=== PATIENT | male | born 1945 | race Caucasian/White ===

== ENCOUNTER 2018-12-11 07:01 | Emergency (ER) | payer OTHER, MEDICAID, SELFPAY ==
[2018-12-11 07:00] VITALS: BP 155/115; PULSE 79; RESP 16; TEMP 37.1; O2SAT 96
--- NOTE | 2018-12-11 07:21 | DI.CT_ITS ---
SYMPTOM/DIAGNOSIS: RT HIP AND THIGH PAIN, NUMBNESS LUMBAR SPINE AND SI JOINTS CT: The study was carried out without contrast enhancement. Narrowed vacuum discs are noted at L 1-2, L 2-3, L 3-4 and L 4-5 and L 5-S 1. There are associated degenerative endplate changes with sclerosis and hypertrophic spurring. There is multi level disc osteophyte prominence. There is some bony foraminal compromise at L 2-3, L 3-4 and L 4-5 and L 5-S 1. 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 The posterior elements appear intact. There are moderate degenerative changes involving the SI joints. There is no evidence of a sacral fracture. Incidental note is made of atherosclerotic changes involving the aorta without evidence of an aneurysm. SUMMARY: Extensive degenerative changes involving the lumbar spine are demonstrated and there is DJD involving the SI joints. There is no evidence of a fracture or subluxation.
--- NOTE | 2018-12-11 07:27 | ED.GENADUL_ITS ---
Discharge Plan Disposition Patient Disposition: HOME Condition: Good Discharge Details Chief Complaint: Orthopedic Clinical Impression: Meralgia paresthetica Primary Care Provider: Ambar Claire ED Provider: Emmanuel Shah Home Meds and New Rx's Prescriptions: New gabapentin [Neurontin] 300 MG capsule 300 mg PO TID Qty: 90 RF: 0 No Action atorvastatin [Lipitor] 80 MG tablet 80 mg PO DAILY RF: 0 amlodipine 5 MG tablet 10 mg PO DAILY RF: 0 lisinopril 40 MG tablet 40 mg PO DAILY RF: 0 aspirin [Aspir-81] 81 MG tablet,delayed release (DR/EC) 81 mg PO DAILY RF: 0 metoprolol tartrate 25 MG tablet 25 mg PO DAILY RF: 0 Discharge Instructions Instructions: Leg Pain (ED) Additional Instructions: Please take medication as directed. Please avoid any tight bands on your waist, please follow-up promptly with your primary care provider. If you notice any worsening of your symptoms, or any new symptoms such as vomiting, diarrhea, fever, chills, shortness of breath, chest pain, numbness, bowel or bladder incontinence, weakness, or fainting , please return immediately to the emergency department for reevaluation. Please follow up with your primary care provider as soon as possible for reassessment and reevaluation. As always, it was a pleasure participating in your medical care today. Referrals: Ambar Claire MD [Primary Care Provider] - Medical Decision Making <Devyn Faye MD - Last Filed: 12/11/18 07:52> 73-year-old male presents the ER complaining of atraumatic right hip pain and numbness over the right thigh that began 1-2 days ago. It is worse with weightbearing. No evidence of a rash. The patient states to me no fall or injury. Patient mildly hypertensive, but otherwise exam is unremarkable with full range of motion of the affected extremity. Differential diagnosis includes sciatica, sacroiliac dysfunction, occult fracture. He is moderately obese and I felt plain radiographs would have poor penetration. Therefore, patient given Tylenol and referred for CT images. Please Dr Shah's note regarding findings and impression. <Emmanuel Shah DO - Last Filed: 12/11/18 08:37> This patient was signed out to be my my colleague Dr. Devyn Faye, pending CT scan results of his lumbar spine. Lumbar spine results were discussed with radiologist, and per radiology there is no acute fracture or acute process, there is notable degenerative changes throughout, but no evidence of significant cord compression pathology or fracture. A post void bladder scan was performed and the patient had 50 cc, no signs of urinary retention. I did go in and reassessed the patient myself, and he demonstrates a normal neurologic exam with no signs of saddle anesthesia, weakness, or significant reflex deficit. He does have subjective tingling over the anterior lateral aspect of his right thigh, consistent with meralgia paresthetica which I feel is most likely secondary to his notable pannus pulling down and applying pressure to his anterior thigh. There may be a component of sciatica, radiculopathy however I feel this less likely on my clinical exam now, especially in light of no acute findings noted on CT scan and in addition with no clinical evidence of cord compression syndrome, or significant neurologic deficit. Continue to recommend to the patient the importance of weight loss, no tight bands on the waist, and close follow-up with PCP for continued outpatient management. We will start gabapentin for improvement of his symptoms, however I made it clear to the patient that this was not the solution to the problem. I have extensively reviewed the treatment plan and discharge instructions with the patient and their family. I have addressed all patient concerns at this time. The patient and family was made aware of what symptoms to monitor for that would warrant a return to the emergency department. Discussed the plan with the patient and family, they demonstrate verbal understanding and agreement with our assessment and plan at this time. HPI <Devyn Faye MD - Last Filed: 12/11/18 07:52> General Mode of arrival: EMS . Date/Time Provider Initiated Documentation: 12/11/18 07:15 . Limitations to Documentation: no limitations . Information obtained by: patient and EMS . History of Present Illness 73 year old M presents to the emergency department with the chief complaint of Right hip pain and numbness, described as moderate, Quality is described as aching, dull and constant, and is localized to the right and lower extremity. Patient reports no radiation. Patient started experiencing this hour(s) and it has been constant. No relieving factors improve symptom(s), No exacerbating factors reported . Patient notes no other symptoms.. Patient did receive the following treatments prior to arrival, none Related Data Home Medications Medication Instructions Recorded Confirmed amlodipine 10 mg PO DAILY 10/22/13 12/11/18 atorvastatin [Lipitor] 80 mg PO DAILY 10/22/13 12/11/18 lisinopril 40 mg PO DAILY 10/22/13 12/11/18 aspirin [Aspir-81] 81 mg PO DAILY 12/09/13 12/11/18 metoprolol tartrate 25 mg PO DAILY 06/10/14 12/11/18 gabapentin [Neurontin] 300 mg PO TID #90 cap 12/11/18 Previous Rx's Medication Instructions Recorded gabapentin [Neurontin] 300 mg PO TID #90 cap 12/11/18 Allergies Allergy/AdvReac Type Severity Reaction Status Date / Time hydrochlorothiazide AdvReac gout Unverified 12/11/18 07:06 General Stated Complaint: Orthopedic SYEDA: 4 Review of Systems <Devyn Faye MD - Last Filed: 12/11/18 07:52> Review of Systems Denies fall. No rash. 6 systems reviewed and otherwise negative PFSH <Devyn Faye MD - Last Filed: 12/11/18 07:52> Medical History Biliary colic symptom Heart attack Hyperlipidemia Hypertension Morbid obesity with BMI of 45.0-49.9, adult Surgical History Angiogram Cholecystectomy Family History Other Essential hypertension Heart disease Social History Smoking/Tobacco Use Status: Former Tobacco Use Alcohol Intake: former Drug use: Never Do you feel safe at home: Yes Do you feel safe in your relationship?: Yes Exam <Devyn Faye MD - Last Filed: 12/11/18 07:52> Narrative Exam Narrative: GEN: awake, alert, oriented 3. Pleasant, well groomed, interactive. HEAD: Normocephalic, atraumatic ENT: Mucous membranes moist, oropharynx unremarkable, External ear exam unremarkable EYES: PERRL, EOMI NECK: Full ROM, no ALINA, no menigismus CHEST/RESP: Nontender, clear to auscultation bilateral, no wheeze/rhonchi/rales CARDIOVASCULAR: RRR, no murmur, rub lora. 2+ Rad pulse bilateral ABDOMEN: Soft, nontender, no mass. +Bowel sounds. Obese. EXT: Full ROM, no edema, no rash. Motor 5 out of 5. No pain on palpation. Internal and external rotation of the lower extremity is within normal limits. Sensation intact throughout. Neuro: Grossly normal neurologic exam, conversant, interactive. Psych: Speech fluent, thoughts congruent, affect normal Course <Devyn Faye MD - Last Filed: 12/11/18 07:52> Vital Signs Temperature 37.1 C 12/11/18 07:00 Pulse 79 12/11/18 07:00 Respiratory Rate 16 12/11/18 07:00 Blood Pressure 155/115 H 12/11/18 07:00 Pulse Oximetry 96 12/11/18 07:00 Temperature 37.1 C 12/11/18 07:00 Temperature Source Temporal Artery Scan 12/11/18 07:00 Pulse 79 12/11/18 07:00 Respiratory Rate 16 12/11/18 07:00 Respiratory Effort Non-Labored 12/11/18 07:05 Blood Pressure 155/115 H 12/11/18 07:00 Blood Pressure Position Sitting 12/11/18 07:00 Pulse Oximetry 96 12/11/18 07:00 Oxygen Delivery Method Room Air 12/11/18 07:00 Oxygen Flow Rate 0 12/11/18 07:00 Pain Level 10 12/11/18 07:00
[2018-12-11] MEDS: Acetaminophen 500 MG TAB 1000 MG PO (07:32)
--- NOTE | 2018-12-11 10:31 | PDOC.ERCMPRO ---
Care Management Progress Note 12/11-Iker requested assistance with calling [employer] for transportation home. Called [employer], [phone], and she stated she was going to have a neighbor come and pick up driver Iker. Neighbor is on his way. This CM notified VIVIAN Parks of the above. Iker will be in the waiting room.
--- NOTE | 2018-12-11 10:33 | CMPROGNOTE_ITS ---
Care Management Progress Note 12/11-Iker requested assistance with calling [employer] for transportation home. Called [employer], [phone], and she stated she was going to have a neighbor come and picking machine operator Iker. Neighbor is on his way. This CM notified VIVIAN Parks of the above. Iker will be in the waiting room.
== END 2018-12-11 08:50 | disposition home or self-care (01) ==
PROVIDERS: Emergency Provider Student in an Organized Health Care Education/Training Program; PCP Family Medicine
DX: G57.11 Meralgia paresthetica, right lower limb (principal); I10 Essential (primary) hypertension
CPT/HCPCS: 99284; 72131

== ENCOUNTER 2019-02-26 11:04 | Outpatient (REF) | payer OTHER, MEDICAID, SELFPAY ==
[2019-02-26 12:56] LABS: HCT 43.6 % (40.0-50.0); HGB 14.4 g/dL (13.5-17.5); Mean Corpuscular Hemoglobin 30.7 pg (27.0-33.0); Mean Platelet Volume 10.9 fL (8.0-11.0); Platelet Count 234 x1000/uL (130-400); RBC 4.69 m/cumm (4.50-6.00); RBC Distribution Width 14.1 % (11.8-14.1); White Blood Cell Count 8.05 k/cumm (4.4-10.8)
[2019-02-26 13:20] LABS: Hemoglobin A1C 5.6 % (4.5-6.2)
[2019-02-26 14:23] LABS: ALT 29 U/L (12-78); AST 18 U/L (15-37); Albumin 3.7 g/dL (3.4-5.0); Alkaline Phosphatase 106 U/L (46-116); BUN 21 mg/dL (7-18); Calcium 8.8 mg/dL (8.5-10.1); Chloride 104 mmol/L (98-107); Ferritin 234 ng/mL (8-388); Folate 12.4 ng/mL (8.6-20.0); Glucose 108 mg/dL (70-100); Potassium 4.1 mmol/L (3.5-5.1); Sodium 140 mmol/L (136-145); Total Protein 7.2 g/dL (6.4-8.2); Vitamin B12 227 pg/mL (193-986)
[2019-02-26 14:37] LABS: Bilirubin, Total 0.9 mg/dL (0.2-1.0); Uric Acid 9.7 mg/dL (3.5-7.2)
== END 2019-02-26 11:24 ==
LOC: NCHCN 11:04
PROVIDERS: PCP Family Medicine; Visit Provider Family Medicine
DX: I10 Essential (primary) hypertension (principal); I25.10 Atherosclerotic heart disease of native coronary artery without angina pectoris; R73.03 Prediabetes; R79.89 Other specified abnormal findings of blood chemistry; M10.9 Gout, unspecified; E66.01 Morbid (severe) obesity due to excess calories
CPT/HCPCS: 80053; 85027; 82607; 82728; 82746; 83036; 84550

== ENCOUNTER 2020-07-13 11:37 | Emergency (ER) | payer OTHER, MEDICAID, SELFPAY ==
[2020-07-13] VITALS (8 sets, daily range): BP systolic 174–182; BP diastolic 90–101; PULSE 69–81; RESP 10–20; TEMP 36.3–36.7; O2SAT 93–96
--- NOTE | 2020-07-13 11:45 | RT.EKG_ITS ---
APPROVED REPORT Exam: Resting ECG Patient Location: E HR:74 bpm ECG Measurements Heart Rate 74 AXIS OH 184 P 42 QRSd 109 QRS 8 QT 428 T 68 QTc 474 Conclusion Sinus rhythm...normal P axis, V-rate 60- 99 Ventricular premature complex Incomplete left bundle branch block..
--- NOTE | 2020-07-13 11:57 | ED.GENADUL_ITS ---
Discharge Plan Disposition Patient Disposition: HOME Condition: Improving Discharge Details Clinical Impression: Osteoarthritis of left knee Primary Care Provider: Ambar Claire ED Provider: Devyn Faye Home Meds and New Rx's Prescriptions: New diclofenac sodium 3 % gel 1 applic topical BID PRN (Reason: knee pain) Qty: 100 RF: 0 Continued atorvastatin [Lipitor] 80 MG tablet 80 mg PO DAILY RF: 0 amlodipine 5 MG tablet 10 mg PO DAILY RF: 0 lisinopril 40 MG tablet 40 mg PO DAILY RF: 0 aspirin [Aspir-81] 81 MG tablet,delayed release (DR/EC) 81 mg PO DAILY RF: 0 metoprolol tartrate 25 MG tablet 25 mg PO DAILY RF: 0 cyanocobalamin (vitamin B-12) [Vitamin B-12] 1,000 mcg tablet 1,000 mcg PO DAILY RF: 0 Discharge Instructions Instructions: Osteoarthritis (ED), Arthritis (ED) Additional Instructions: May use the prescribed diclofenac cream twice daily to left knee for pain as needed. Tylenol 650 mg every 6 hours as needed for pain. Please follow-up with physical therapy as prescribed. We will refer you to the orthopedic clinic for follow-up and consultation. Your name has gone on the follow-up list, please call the office in the next few days at [phone], for a follow-up appointment time. Return to the emergency department for any acute concerns. Stand Alone Forms: Physical Therapy Referral Medical Decision Making 74-year-old male presents from home via EMS. He notes days of left knee pain that radiates down the lateral aspect of his leg, so worse with ambulation. He has been using a walker at home. He is not fallen or injured himself in any way. He is not had any fever or erythema. He arrives poorly kempt, obese, with note of BP 174/95 while in pain. He does not have back pain and does not describe a traumatic injury. Differential diagnosis would include Bowling's cyst, must exclude DVT, osteoarthritic changes. Patient given analgesia and referred for x-ray and ultrasound. Ultrasound without evidence of DVT. X-ray with osteoarthritis. Patient notes no further pain. He was evaluated in the emergency department by physical therapy and able to ambulate with wheeled walker, with good heel strike. Will trial diclofenac topical cream as well as Tylenol at home for pain. I will prescribe physical therapy for the patient. We will refer to orthopedics for consultation as there may be consideration for joint replacement should his ability to ambulate without pain worsen. HPI General Mode of arrival: EMS . Date/Time Provider Initiated Documentation: 07/13/20 11:56 . Limitations to Documentation: no limitations . Information obtained by: patient and EMS . History of Present Illness 74 year o ld M presents to the emergency department with the chief complaint of Left knee pain 4 days time, described as moderate, Quality is described as dull, and is localized to the left and lower extremity. Patient reports no radiation. Patient started experiencing this day(s) and it has been constant. Rest improves symptom(s), Other factors that worsen symptoms (Walking) . Patient notes other (No new weakness, no fall, denies chest pain or trouble breathing.). Patient did receive the following treatments prior to arrival, none Related Data Home Medications Medication Instructions Recorded Confirmed amlodipine 10 mg PO DAILY 10/22/13 07/13/20 atorvastatin [Lipitor] 80 mg PO DAILY 10/22/13 07/13/20 lisinopril 40 mg PO DAILY 10/22/13 07/13/20 aspirin [Aspir-81] 81 mg PO DAILY 12/09/13 07/13/20 metoprolol tartrate 25 mg PO DAILY 06/10/14 07/13/20 cyanocobalamin (vitamin B-12) 1,000 mcg PO DAILY 07/13/20 07/13/20 [Vitamin B-12] diclofenac sodium 1 applic TOPICAL BID PRN #100 g 07/13/20 Previous Rx's Medication Instructions Recorded diclofenac sodium 1 applic TOPICAL BID PRN #100 g 07/13/20 Allergies Allergy/AdvReac Type Severity Reaction Status Date / Time hydrochlorothiazide AdvReac gout Unverified 07/13/20 12:00 General Stated Complaint: GenMedical SYEDA: 3 Review of Systems Narrative: 6 systems reviewed and otherwise negative [facility] Medical History (Updated 07/13/20 @ 13:46 by Devyn Faye MD) Biliary colic symptom Heart attack Hyperlipidemia Hypertension Morbid obesity with BMI of 45.0-49.9, adult Surgical History Angiogram Cholecystectomy open Family History Other Essential hypertension Heart disease Social History Smoking/Tobacco Use Status: Former Tobacco Use Smoking risk assessment performed?: Yes Alcohol Intake: former Drug use: Never Do you feel safe at home: Yes Do you feel safe in your relationship?: Yes Exam Narrative Exam Narrative: GEN: awake, alert, oriented 3. Poorly groomed, obese, interactive. HEAD: Normocephalic, atraumatic ENT: Mucous membranes moist, oropharynx unremarkable, External ear exam unremarkable EYES: PERRL, EOMI NECK: Full ROM, no ALINA, no menigismus CHEST/RESP: Nontender, clear to auscultation bilateral, no wheeze/rhonchi/rales CARDIOVASCULAR: RRR, no murmur, rub lora. 2+ Rad pulse bilateral ABDOMEN: Soft, nontender, large right ventral hernia, reducible. +Bowel sounds EXT: Full ROM, no edema, no rash. Minimal tenderness to palpation of the left knee, no laxity. Unremarkable exam of the hips. Neuro: Grossly normal neurologic exam, conversant, interactive. Psych: Speech fluent, thoughts congruent, affect normal Course Vital Signs Vital signs: Vital Signs Temperature 36.3 C L 07/13/20 11:38 Pulse 81 07/13/20 11:38 Respiratory Rate 20 07/13/20 11:38 Pulse Oximetry 96 07/13/20 11:38 Temperature 36.3 C L 07/13/20 11:38 Temperature Source Skin 07/13/20 11:38 Pulse 81 07/13/20 11:38 Respiratory Rate 20 07/13/20 11:38 Blood Pressure Position Sitting 07/13/20 11:38 Pulse Oximetry 96 07/13/20 11:38 Oxygen Delivery Method Room Air 07/13/20 11:38 Oxygen Flow Rate 0 07/13/20 11:38 Comment 07/13/20 11:38
--- NOTE | 2020-07-13 12:00 | DI.US_ITS ---
EXAM: US LOWER EXTREMITY VENOUS LT CLINICAL HISTORY: Lateral and posterior pain TECHNIQUE: Left lower extremity venous ultrasound performed using grayscale, color-flow, and spectra l Doppler analysis. COMPARISON: No exams were available for comparison FINDINGS: The left common femoral, femoral and popliteal veins demonstrate normal compressibility, augmentation , and color Doppler. The posterior tibial veins are patent. The saphenofemoral junction is unremarka ble. There is no evidence of a Bowling cyst. The soft tissues are unremarkable. IMPRESSION: No DVT. DATA REPOSITORY:
[2020-07-13] MEDS: Ketorolac 15 MG/ML VIAL IVP (12:07)
[2020-07-13] MEDS: Methocarbamol 500 MG TAB 1000 MG PO (12:08)
--- NOTE | 2020-07-13 12:46 | DI.RAD_ITS ---
EXAM: XR KNEE LT 3V AP,LAT,JERRY CLINICAL HISTORY: Lateral and posterior pain. TECHNIQUE: 2D digital imaging was performed. COMPARISON: CR ABD FLAT UPRIGHT PA CHEST from 06/12/2014 FINDINGS: Moderate degenerative changes are seen in the left knee characterized by joint space narrowing subcho ndral sclerosis and periarticular spurring. The findings are most marked in the medial femoral tibia l joint space. No acute fracture or dislocation. There is a small joint effusion. Vascular calcifi cations are present. IMPRESSION: Moderate degenerative changes of the left knee. DATA REPOSITORY: RADIATION DOSE DELIVERED:
--- NOTE | 2020-07-13 13:27 | PT.INIE ---
Date of service: 07/13/20 Time of Service: 13:27 PT Notes Visit Reasons: LUL Physical Therapy Inpatient Initial Evaluation Date: 07/13/2020 Referring Doctor: Devyn Faye MD PT Orders: PT CONSULT: Safety consult for DC. Obese, left knee pain, walker at home Precautions: Fall. Standard. Activity as tolerated. Patient Profile/Admitting Diagnosis: Iker is a 74-year-old male who presented to the ED via EMS today with chief complaints of left knee pain radiating down the lateral aspect of his leg and is worse with ambulation. Ultrasound testing ruled out DVT. Referral for PT was sent for safety assessment for discharge PMHX: Medical History (Updated 07/13/20 @ 13:46 by Devyn Faye MD) Biliary colic symptom Heart attack Hyperlipidemia Hypertension Morbid obesity with BMI of 45.0-49.9, adult Surgical History Angiogram Cholecystectomy open Social History/Home Situation: Lives alone in an apartment with 2 steps to enter with rails on both sides. Independent with all mobility ADL performance using a bariatric front wheeled walker. Receives no assistance at home. States that he has had no falls in the past 12 months. Equipment Owned/DME: Bariatric front wheeled walker Subjective: Reports no pain in the left knee at rest and with ambulation activity. Dr. Faye stated that that he has given the patient pain medication earlier. Reports no numbness nor tingling in the left lower extremities. Objective: General Observation: Supine in bed. Obese. Protuberant abdominal area. Mental Status: Alert and oriented x3 Pain: None reported ROM: Right Upper Extremity: Shoulder Flexion WFL. Shoulder abduction WFL. Elbow flexion WFL. Wrist flexion WFL. Opening and closing of hand WFL. Left Upper Extremity: Shoulder Flexion WFL. Shoulder abduction WFL. Elbow flexion WFL. Wrist flexion WFL. Opening and closing of hand WFL. Right Lower Extremity: Hip flexion WFL. Hip abduction WFL. Knee flexion WFL. Ankle dorsiflexion WFL. Ankle plantarflexion WFL. Left Lower Extremity: Hip flexion WFL. Hip abduction WFL. Knee flexion WFL. Ankle dorsiflexion WFL. Ankle plantarflexion WFL. Strength: Right Upper Extremity: Shoulder flexors 5/5. Shoulder abductors 5/5. Elbow flexors 5/5. Elbow extensors 5/5. Driver Courier strong. Left Upper Extremity: Shoulder flexors 5/5. Shoulder abductors 5/5. Elbow flexors 5/5. Elbow extensors 5/5. Driver Courier strong. Right Lower Extremity: Hip flexors 5/5. Hip abductors 5/5. Knee flexors 5/5. Knee extensors 5/5. Ankle dorsiflexors 5/5. Ankle plantarflexors 5/5. Left Lower Extremity:Hip flexors 5/5. Hip abductors 5/5. Knee flexors 5/5. Knee extensors 5/5. Ankle dorsiflexors 5/5. Ankle plantarflexors 5/5. Sensation: Intact as to pain and pressure on bilateral lower extremities. Bed Mobility/Transfers: Supine to sit able to pull from PT's and doctor's hands on each side to sit up Sit to stand standby assist Stand to sit standby assist Bed to chair standby assist Chair to bed standby assist Gait: 100 feet using bariatric front wheeled walker with standby assist without report of any discomfort in the left knee. Azeem did present with decreased knee flexion during pushoff and swing phase of gait. Balance: Static Sitting: Normal Dynamic Sitting: Normal Static Standing: Fair fair Dynamic Standing: Special Tests: Mobility Limitations Standardized Measure [facility] 6 clicks Basic Mobility Inpatient Short Form: Raw Score: 23 CMS Score: 11% deficit Informed Consent/Education: Patient instructed in purpose of PT consult and plan of care. Assessment: Iker has responded well to pain medication given by Dr. Faye earlier and no longer reported any pain nor discomfort in the left knee during mobility testing and ambulation activity with this PT. He may go home to continue using his front wheeled walker for all mobility ADL performance for safety. He may benefit from outpatient physical therapy services in order to progress mobility level and maximize community ambulation. Patient presents with clinical signs and symptoms consistent with current/admitting diagnoses that have resulted to mobility limitations, gait instability, generalized weakness, and impairment of motor control as demonstrated by the following impairment level findings: 1. Impaired activity tolerance Impairments are contributing to the following functional limitations: 1. Inability to safely ambulate without assistive device 2. Increase completion time for mobility ADL performance Patient is assessed as a [id number] low complexity based on the following: History: 74 [id number] with impairment level findings, functional limitations, and past medical history as indicated above Examination: Demonstrable impairment in strength, balance, and mobility level with underlying impairments and functional limitations as documented above Presentation:Evolving Decision Makin low complexity Goals: N/A. PT evaluation only. Plan of Care/Treatment Plan: N/A. PT evaluation only. DISCHARGE RECOMMENDATIONS: Out patient PT services in order to progress mobility level and maximize community ambulation. TREATMENT CODE/TIME: 9716 1 x 28 minutes beginning at 13:27 PM. Thank you for the opportunity to participate in the care of this patient. Emani Ruff PT, DPT, CLT [facility] [place], [place]
[2020-07-13] MEDS: Diclofenac 1% Gel 100 GM TUBE TP (14:33)
== END 2020-07-13 14:30 | disposition home or self-care (01) ==
LOC: ER 13:58
PROVIDERS: Emergency Provider Emergency Medicine; PCP Family Medicine
DX: M17.12 Unilateral primary osteoarthritis, left knee (principal); R26.2 Difficulty in walking, not elsewhere classified; E66.01 Morbid (severe) obesity due to excess calories; Z68.42 Body mass index [BMI] 45.0-49.9, adult; I10 Essential (primary) hypertension
CPT/HCPCS: 36415; 73562; 93005; 96374; 97162; 99285; 93010; 93971; 99284; J1885

== ENCOUNTER 2020-09-16 20:45 | Emergency (ER) | payer OTHER, MEDICAID, SELFPAY ==
[2020-09-16 20:50] VITALS: PULSE 95; RESP 18; TEMP 37.1; O2SAT 96
[2020-09-16 21:11] VITALS: BP 149/71; PULSE 91; RESP 19; O2SAT 94
[2020-09-16 21:17] VITALS: BP 144/80; PULSE 89; RESP 21; O2SAT 93
[2020-09-16 21:45] VITALS: RESP 16; O2SAT 90
[2020-09-16 21:50] LABS: Abs Immature Grans 0.03 10^3/uL (0.0-0.06); Absolute Basophil Count 0.04 10^3/uL (0.0-0.2); Absolute Eosinophil Count 0.36 10^3/uL (0.0-0.7); Absolute Lymphocyte Count 1.26 10^3/uL (1.2-3.4); Absolute Monocyte Count 0.79 10^3/uL (0.1-0.8); Absolute Neutrophil Count 6.18 10^3/uL (1.2-6.7); Basophils % 0.5; Eosinophils % 4.2; HCT 39.2 % (40.0-50.0); HGB 12.9 g/dL (13.5-17.5); Immature Grans % 0.3; Lymphocytes % 14.5; MCH 30.9 pg (27.0-33.0); MCHC 32.9 % (32.0-36.0); MPV 10.3 fL (8.0-11.0); Monocytes % 9.1; Neutrophils % 71.4; Nucleated RBC 0 %; Platelet Count 264 10^3/uL (130-400); RBC 4.17 10^6/uL (4.36-5.78); RDW 13.9 % (11.8-14.1); WBC 8.66 10^3/uL (4.4-10.8)
[2020-09-16 22:00] LABS: ALT 23 U/L (16-63); AST 14 U/L (15-37); Albumin 3.3 g/dL (3.4-5.0); Alkaline Phosphatase 98 U/L (46-116); Anion Gap 8.7 mmol/L (3-11); BUN 13 mg/dL (7-18); Bilirubin, Total 0.6 mg/dL (0.2-1.0); CO2 26.3 mmol/L (21.0-32.0); CREATININE 0.94 mg/dL (0.70-1.30); Calcium 8.6 mg/dL (8.5-10.1); Chloride 107 mmol/L (98-107); Glucose 128 mg/dL (74-106); Potassium 4.1 mmol/L (3.5-5.1); Sodium 142 mmol/L (136-145); Total Protein 7.3 g/dL (6.4-8.2)
[2020-09-16 22:26] VITALS: TEMP 37.3
[2020-09-16] MEDS: Methocarbamol 500 MG TAB 1000 MG PO (22:53)
[2020-09-16] MEDS: Methocarbamol 500 MG TAB 2000 MG PO (23:00)
--- NOTE | 2020-09-16 23:08 | W.ED.GENAD ---
Discharge Plan Disposition Patient Disposition: HOME Condition: Stable Discharge Details Clinical Impression: Leg pain Primary Care Provider: Ambar Claire ED Provider: Jaiden Whitfield Home Meds and New Rx's Prescriptions: Continued atorvastatin [Lipitor] 80 MG tablet 80 mg PO DAILY RF: 0 amlodipine 5 MG tablet 10 mg PO DAILY RF: 0 lisinopril 40 MG tablet 40 mg PO DAILY RF: 0 aspirin [Aspir-81] 81 MG tablet,delayed release (DR/EC) 81 mg PO DAILY RF: 0 metoprolol tartrate 25 MG tablet 25 mg PO DAILY RF: 0 cyanocobalamin (vitamin B-12) [Vitamin B-12] 1,000 mcg tablet 1,000 mcg PO DAILY RF: 0 diclofenac sodium 3 % gel 1 applic topical BID PRN (Reason: knee pain) Qty: 100 RF: 0 Discharge Instructions Instructions: Leg Pain (ED) Additional Instructions: At this time your laboratory values are unremarkable. You were given medication for your discomfort which you responded nicely to. You were able to use a walker safely here in the ER. Please watch for new or worsening symptoms and return to the ER for any concerns. I strongly recommend reaching out to your primary care provider tomorrow for prompt outpatient reevaluation, referral to PT and/or orthopedic may be indicated for your ongoing discomfort. Medical Decision Making 75-year-old gentleman, morbidly obese, ambulates typically using a walker, reporting bilateral lower leg discomfort for the past couple of months. He denies recent illness or trauma. He was noted to have a fever by EMS and therefore placed in the ER as a PUI. Patient denies any fever or illness. Repeat temperature check reveals no fever whatsoever. We actually checked his temperature multiple times and there is no fever. I question how accurate the initial temperature was. Patient appears well, nontoxic. Heart rate in the 80s, O2 sat 96% on room air. Leg is obese but there is no warmth, erythema, calf discomfort, signs of septic joint or cellulitis. Negative Homans' sign. Given the initial confusion upon presentation, CBC and CMP were obtained. Given he is afebrile upon multiple rechecks, no evidence of tachycardia, white count is normal, and has no infectious complaints, will not continue a infectious work-up. Blood cultures were not obtained. Laboratory values reveal a white blood cell count of 8.66 hemoglobin 12.9 hematocrit 39.2 platelet count 264. Electrolytes unremarkable. Creatinine 0.94, GFR greater than 60. Discussed initial work-up with patient. Given his pain is along the anterior aspect of his knee, little suspicion for Bowling's cyst, DVT, etc. Clinically no signs of cellulitis or septic joint. Patient reports pain ongoing for over 2 months. We discussed our options. Patient states that when he was here last he was given a pill that helped greatly, wondering if he could have a couple of those and then go home. He was trial ambulated using a walker in the ER and tolerated well. Upon reviewing his previous visit, he was given Robaxin. A single dose of Robaxin given now. Patient reports moderate relief of his discomfort, comfortable with discharge now. I will provide 2 additional doses of Robaxin to go home with. Discussed the importance of follow-up with his primary care provider for his ongoing symptoms. Patient has no additional questions or concerns and is comfortable with this plan. Medical Records Medical records reviewed: Yes I reviewed the patient's medical records. Lab Data Lab results reviewed: Yes I reviewed the patient's lab results. Labs: Laboratory Tests Range/Units 09/16/20 09/16/20 21:30 21:30 WBC (4.4-10.8) 10^3/uL 8.66 RBC (4.36-5.78) 10^6/uL 4.17 L Hgb (13.5-17.5) g/dL 12.9 L Hct (40.0-50.0) % 39.2 L MCV (80-95) fL 94.0 MCH (27.0-33.0) pg 30.9 MCHC (32.0-36.0) % 32.9 RDW (11.8-14.1) % 13.9 Plt Count (130-400) 10^3/uL 264 MPV (8.0-11.0) fL 10.3 Immature Gran % 0.3 Neutrophils % 71.4 Lymphocytes % 14.5 Monocytes % 9.1 Eosinophils % 4.2 Basophils % 0.5 Nucleated RBC % % 0 Absolute Neutrophils (1.2-6.7) 10^3/uL 6.18 Absolute Lymphocytes (1.2-3.4) 10^3/uL 1.26 Absolute Monocytes (0.1-0.8) 10^3/uL 0.79 Absolute Eosinophils (0.0-0.7) 10^3/uL 0.36 Absolute Basophils (0.0-0.2) 10^3/uL 0.04 Sodium (136-145) mmol/L 142 Potassium (3.5-5.1) mmol/L 4.1 Chloride (98-107) mmol/L 107 Carbon Dioxide (21.0-32.0) mmol/L 26.3 Anion Gap (3-11) mmol/L 8.7 BUN (7-18) mg/dL 13 Creatinine (0.70-1.30) mg/dL 0.94 Estimated GFR/1.73 m2 (mL/min/1.73m2) >= 60.00 Glucose (74-106) mg/dL 128 H Calcium (8.5-10.1) mg/dL 8.6 Total Bilirubin (0.2-1.0) mg/dL 0.6 AST (15-37) U/L 14 L ALT (16-63) U/L 23 Alkaline Phosphatase (46-116) U/L 98 Total Protein (6.4-8.2) g/dL 7.3 Albumin (3.4-5.0) g/dL 3.3 L HPI General Mode of arrival: EMS. Date/Time Provider Initiated Documentation: 09/16/20 20:56. Limitations to Documentation: no limitations. Information obtained by: patient and EMS. HPI Narrative: This is a 75-year-old gentleman with past medical history of morbid obesity, chronic hypertension, bilateral leg pain, NE, presenting via EMS for evaluation. He reports that a couple of months ago he was diagnosed with arthritis in his legs and has had ongoing discomfort in both of his legs. He states that tonight his right knee, anterior aspect is bothering him more so than usual, worse with movement or ambulation. He ambulates typically using a walker, was able to ambulate out to EMS. He denies recent illness or trauma. Denies fever, chest pain, shortness of breath, abdominal pain, numbness, tingling, weakness, redness. He took [id number] Tylenol with minimal relief. He states that when he was here a couple of months ago for left leg pain they gave him a couple of pills that helped greatly, he is asking for those now. Related Data Home Medications Medication Instructions Recorded Confirmed amlodipine 10 mg PO DAILY 10/22/13 07/13/20 atorvastatin [Lipitor] 80 mg PO DAILY 10/22/13 07/13/20 lisinopril 40 mg PO DAILY 10/22/13 07/13/20 aspirin [Aspir-81] 81 mg PO DAILY 12/09/13 07/13/20 metoprolol tartrate 25 mg PO DAILY 06/10/14 07/13/20 cyanocobalamin (vitamin B-12) 1,000 mcg PO DAILY 07/13/20 07/13/20 [Vitamin B-12] diclofenac sodium 1 applic TOPICAL BID PRN #100 g 07/13/20 Previous Rx's Medication Instructions Recorded diclofenac sodium 1 applic TOPICAL BID PRN #100 g 07/13/20 Allergies Allergy/AdvReac Type Severity Reaction Status Date / Time hydrochlorothiazide AdvReac gout Unverified 09/16/20 20:57 General Stated Complaint: Fever SYEDA: 3 Review of Systems Constitutional Constitutional: Denies fever(s) and Denies weakness Cardiovascular Cardiovascular: Denies chest pain and Denies dyspnea Respiratory Respiratory: Denies cough and Denies dyspnea Gastrointestinal Gastrointestinal: Denies abdominal pain, Denies nausea and Denies vomiting Musculoskeletal Musculoskeletal: Reports arthralgias, Denies numbness and Denies tingling Integumentary/Breasts Skin/Breast: Denies rash Neurologic Neurologic: Denies numbness, Denies tingling and Denies weakness [facility] Medical History Biliary colic symptom Heart attack Hyperlipidemia Hypertension Morbid obesity with BMI of 45.0-49.9, adult Surgical History Angiogram Cholecystectomy open Family History Other Essential hypertension Heart disease Social History Smoking/Tobacco Use Status: Former Tobacco Use Smoking risk assessment performed?: Yes Alcohol Intake: former Drug use: Never Do you feel safe at home: Yes Do you feel safe in your relationship?: Yes Exam Const General: cooperative, healthy appearing, comfortable and no acute distress Nutritional Appearance: obese Orientation: alert and awake [facility] Head: normal to inspection, normocephalic and atraumatic Mouth: moist mucous membranes Eyes General: appearance normal, both eyes and all related structures Conjunctivae: conjunctivae normal Sclera: sclerae normal Neck Neck: normal visual inspection, full ROM, trachea midline, supple and nontender Resp Effort & Inspection: normal respiratory effort and able to speak in complete sentences Auscultation: clear to auscultation bilaterally Cardio Rate: regular rate Rhythm: regular rhythm GI Inspection: obesity Back/Spine/Pelvis Back: No back tenderness Skin General skin exam: no rashes or lesions noted Neuro General: patient alert, patient awake, patient oriented x3, moves all extremities and no focal motor deficits Cognition: normal cognition Speech: speech normal Gait: gait assisted (Able to ambulate steadily) Method: walker Motor: muscle tone normal throughout and strength 5/5 throughout Sensory Exam: no sensory deficits noted Extrem General: full ROM, capillary refill normal, no pedal edema and no calf tenderness Right lower extremity: knee Details: normal to inspection, tenderness (Diffuse mild anterior), normal ROM and knee ligament exam normal; no swelling, no ecchymosis, no crepitus and no unusual warmth Psych Appearance: grossly normal Mental Status: mental status grossly normal Course Vital Signs Vital signs: Vital Signs Temperature 37.1 C 09/16/20 20:50 Pulse 95 H 09/16/20 20:50 Respiratory Rate 18 09/16/20 20:50 Pulse Oximetry 96 09/16/20 20:50 Temperature 37.3 C 09/16/20 22:26 Temperature Source Oral 09/16/20 22:26 Pulse 89 09/16/20 21:17 Respiratory Rate 16 09/16/20 21:45 Respiratory Effort 09/16/20 20:58 Blood Pressure 144/80 H 09/16/20 21:17 Pulse Oximetry 90 L 09/16/20 21:45 Oxygen Delivery Method Room Air 09/16/20 20:50 Oxygen Flow Rate 0 09/16/20 20:50 Pain Level 10 09/16/20 20:50 Lab/Test Results Lab/Test Results: Laboratory Tests Range/Units 09/16/20 09/16/20 21:30 21:30 WBC (4.4-10.8) 10^3/uL 8.66 RBC (4.36-5.78) 10^6/uL 4.17 L Hgb (13.5-17.5) g/dL 12.9 L Hct (40.0-50.0) % 39.2 L MCV (80-95) fL 94.0 MCH (27.0-33.0) pg 30.9 MCHC (32.0-36.0) % 32.9 RDW (11.8-14.1) % 13.9 Plt Count (130-400) 10^3/uL 264 MPV (8.0-11.0) fL 10.3 Immature Gran % 0.3 Neutrophils % 71.4 Lymphocytes % 14.5 Monocytes % 9.1 Eosinophils % 4.2 Basophils % 0.5 Nucleated RBC % % 0 Absolute Neutrophils (1.2-6.7) 10^3/uL 6.18 Absolute Lymphocytes (1.2-3.4) 10^3/uL 1.26 Absolute Monocytes (0.1-0.8) 10^3/uL 0.79 Absolute Eosinophils (0.0-0.7) 10^3/uL 0.36 Absolute Basophils (0.0-0.2) 10^3/uL 0.04 Sodium (136-145) mmol/L 142 Potassium (3.5-5.1) mmol/L 4.1 Chloride (98-107) mmol/L 107 Carbon Dioxide (21.0-32.0) mmol/L 26.3 Anion Gap (3-11) mmol/L 8.7 BUN (7-18) mg/dL 13 Creatinine (0.70-1.30) mg/dL 0.94 Estimated GFR/1.73 m2 (mL/min/1.73m2) >= 60.00 Glucose (74-106) mg/dL 128 H Calcium (8.5-10.1) mg/dL 8.6 Total Bilirubin (0.2-1.0) mg/dL 0.6 AST (15-37) U/L 14 L ALT (16-63) U/L 23 Alkaline Phosphatase (46-116) U/L 98 Total Protein (6.4-8.2) g/dL 7.3 Albumin (3.4-5.0) g/dL 3.3 L
[2020-09-16 23:39] VITALS: BP 147/88; PULSE 82; RESP 18; TEMP 37.3; O2SAT 90
== END 2020-09-16 23:23 | disposition home or self-care (01) ==
PROVIDERS: Emergency Provider Physician Assistant; PCP Family Medicine
DX: M79.604 Pain in right leg (principal); M79.605 Pain in left leg; I10 Essential (primary) hypertension; E66.01 Morbid (severe) obesity due to excess calories; Z68.42 Body mass index [BMI] 45.0-49.9, adult
CPT/HCPCS: 36415; 80053; 99283; 85025

== ENCOUNTER 2020-12-15 10:33 | Emergency (ER) | payer OTHER, MEDICAID, SELFPAY ==
--- NOTE | 2020-12-15 10:45 | RT.EKG_ITS ---
APPROVED REPORT Exam: Resting ECG Patient Location: E HR:71 bpm ECG Measurements Heart Rate 71 AXIS DC 187 P 24 QRSd 108 QRS 19 QT 439 T 59 QTc 477 Conclusion Sinus rhythm...normal P axis, V-rate 60- 99 I have reviewed and interpreted ECG and agree with software generated interpretation.
[2020-12-15 10:46] VITALS: BP 167/75; PULSE 76; RESP 18; TEMP 36.8; O2SAT 96
--- NOTE | 2020-12-15 10:56 | ED.GENADUL_ITS ---
Discharge Plan Disposition Patient Disposition: HOME Condition: Stable Discharge Details Clinical Impression: Abdominal pain Primary Care Provider: Ambar Claire ED Provider: Leana Orellana Home Meds and New Rx's Prescriptions: Continued atorvastatin [Lipitor] 80 MG tablet 80 mg PO DAILY RF: 0 amlodipine 5 MG tablet 10 mg PO DAILY RF: 0 lisinopril 40 MG tablet 40 mg PO DAILY RF: 0 aspirin [Aspir-81] 81 MG tablet,delayed release (DR/EC) 81 mg PO DAILY RF: 0 metoprolol tartrate 25 MG tablet 25 mg PO DAILY RF: 0 cyanocobalamin (vitamin B-12) [Vitamin B-12] 1,000 mcg tablet 1,000 mcg PO DAILY RF: 0 diclofenac sodium 3 % gel 1 applic topical BID PRN (Reason: knee pain) Qty: 100 RF: 0 Discharge Instructions Instructions: Abdominal Pain (ED) Additional Instructions: Drink plenty of fluids and get plenty of rest. Alternate tylenol and motrin as needed and directed for pain. Follow-up with your primary care doctor in 1 week. Return to the emergency department with any worsening or new concerning symptoms. Discharge Data Discharge Physician: Leana Orellana Medical Decision Making 75-year-old male with a history of morbid obesity, CVA, CAD, hypertension, hyperlipidemia, gout presents with right-sided abdominal pain for the past 36 hours. Vitals within normal limits. He is afebrile and appears nontoxic. He has right sided mid abdominal tenderness but his obesity limits exam. He has a right mid hernia with no palpable bowel present. Differential diagnosis includes small bowel obstruction, cholecystitis, appendicitis, gastroenteritis, kidney stone, UTI. Will place an IV, bolus IV fluids, screening labs, urinalysis, CT abdomen and pelvis and give a dose of IV Tylenol and reassess. Labs and imaging reviewed. Normal white blood cell count and lipase. Negative troponin. Urinalysis negative for infection. CT notes a stable right sided large abdominal wall hernia but no other acute findings. Patient reassessed and he states he is currently pain-free and requesting to go home. Advised to follow-up with the primary care doctor for evaluation and return here with any concerns. Medical Records Medical records reviewed: Yes I reviewed the patient's medical records. Imaging Data Radiologic Study: Radiologist's impression: CT ABDOMEN PELVIS W CLINICAL HISTORY: R sided abd pain, r/o cholecystitis, SBO. TECHNIQUE: Imaging Protocol: Axial computed tomography images with coronal and sagittal reformatted images were created and reviewed CONTRAST MATERIAL: Intravenous: Omnipaque 350 Contrast volume:100 ml Oral: no COMPARISON: CT UPPER ABD WITHOUT CONTRAST from 12/30/2014 FINDINGS: The exam is limited by patient body habitus and motion. Images were performed from the aortic arch through the ischial tuberosities after IV and without oral contrast. Again noted is a large right lateral abdominal wall hernia containing portions of the colon and small bowel. There is no evidence of obstruction. The appendix appears normal. There is no abnormal bowel dilatation or inflammatory change. The heart is enlarged. Coronary artery calcifications are seen. There are no pleural or pericardial effusions. The lungs show respiratory motion but are grossly clear. The liver shows fatty infiltration. There is no biliary dilatation. Patient is status post cholecystectomy. The spleen, pancreas and adrenals are unremarkable. There are bilateral renal cysts. No stones or hydronephrosis is seen. The prostate is enlarged. The bladder is unremarkable. Degenerative disc changes are noted in the spine. There is no evidence of a abdominal aortic aneurysm. Atherosclerotic changes of the aorta are noted. Impression: Status post cholecystectomy. No evidence of biliary dilatation. No acute abnormality is identified. Stable right lateral abdominal wall hernia. Lab Data Lab results reviewed: Yes I reviewed the patient's lab results. Labs: Laboratory Tests Range/Units 12/15/20 12/15/20 12/15/20 11:52 11:52 12:25 WBC (4.4-10.8) 10^3/uL 7.31 RBC (4.36-5.78) 10^6/uL 4.53 Hgb (13.5-17.5) g/dL 13.9 Hct (40.0-50.0) % 42.2 MCV (80-95) fL 93.2 MCH (27.0-33.0) pg 30.7 MCHC (32.0-36.0) % 32.9 RDW (11.8-14.1) % 13.3 Plt Count (130-400) 10^3/uL 214 MPV (8.0-11.0) fL 9.6 Immature Gran % 0.3 Neutrophils % 74.7 Lymphocytes % 12.9 Monocytes % 8.8 Eosinophils % 2.9 Basophils % 0.4 Nucleated RBC % % 0 Absolute Neutrophils (1.2-6.7) 10^3/uL 5.47 Absolute Lymphocytes (1.2-3.4) 10^3/uL 0.94 L Absolute Monocytes (0.1-0.8) 10^3/uL 0.64 Absolute Eosinophils (0.0-0.7) 10^3/uL 0.21 Absolute Basophils (0.0-0.2) 10^3/uL 0.03 Sodium (136-145) mmol/L 139 Potassium (3.5-5.1) mmol/L 3.7 Chloride (98-107) mmol/L 103 Carbon Dioxide (21.0-32.0) mmol/L 24.7 Anion Gap (3-11) mmol/L 11.3 H BUN (7-18) mg/dL 11 Creatinine (0.70-1.30) mg/dL 0.9 Estimated GFR/1.73 m2 (mL/min/1.73m2) >= 60.00 Glucose (74-106) mg/dL 111 H Calcium (8.5-10.1) mg/dL 8.9 Magnesium (1.8-2.4) mg/dL 1.9 Total Bilirubin (0.2-1.0) mg/dL 1.1 H AST (15-37) U/L 17 ALT (16-63) U/L 28 Alkaline Phosphatase (46-116) U/L 91 Troponin I (<0.06) ng/mL < 0.05 Total Protein (6.4-8.2) g/dL 7.7 Albumin (3.4-5.0) g/dL 3.5 Lipase (73-393) U/L 71 Urine Color (Yellow) Yellow Urine Clarity (Clear) Clear Urine pH (5-8) 7.0 Ur Specific [place] (1.005-1.025) 1.020 Urine Protein (Negative) mg/dL Negative Urine Ketones (Negative) mg/dL Negative Urine Blood (Negative) Negative Urine Nitrite (Negative) Negative Urine Bilirubin (Negative) Negative Urine Urobilinogen (Up TO 0.2) EU/dL 2.0 H Ur Leukocyte Esterase (Negative) Negative Urine Glucose (Negative) mg/dL Negative ECG Data Attestation: I personally reviewed and interpreted this ECG (s) as follows: Interpretation: Rate of 71, sinus, no acute ST elevation or depression. ND 187. QRS 108. QTc 477. HPI General Mode of arrival: EMS . Date/Time Provider Initiated Documentation: 12/15/20 10:34 . Limitations to Documentation: no limitations . Information obtained by: patient . HPI Narrative: Patient is a 75-year-old male with a history of morbid obesity, hypertension, hyperlipidemia, CVA, CAD, gout who presents from home for abdominal pain for the past 36 hours. Patient describes the pain as intermittent, cramping, aching and located on the right side. He has not taken any medication for pain. He states he had a normal bowel movement this morning. He denies any fever, nausea, vomiting, chest pain, shortness of breath, cough, urinary symptoms, recent travel, recent known exposure to coronavirus or recent antibiotics. Related Data Home Medications Medication Instructions Recorded Confirmed amlodipine 10 mg PO DAILY 10/22/13 07/13/20 atorvastatin [Lipitor] 80 mg PO DAILY 10/22/13 07/13/20 lisinopril 40 mg PO DAILY 10/22/13 07/13/20 aspirin [Aspir-81] 81 mg PO DAILY 12/09/13 07/13/20 metoprolol tartrate 25 mg PO DAILY 06/10/14 07/13/20 cyanocobalamin (vitamin B-12) 1,000 mcg PO DAILY 07/13/20 07/13/20 [Vitamin B-12] diclofenac sodium 1 applic TOPICAL BID PRN #100 g 07/13/20 Previous Rx's Medication Instructions Recorded diclofenac sodium 1 applic TOPICAL BID PRN #100 g 07/13/20 Allergies Allergy/AdvReac Type Severity Reaction Status Date / Time hydrochlorothiazide AdvReac gout Unverified 09/16/20 20:57 General Stated Complaint: Abd Prob SYEDA: 3 Review of Systems All systems reviewed & are unremarkable except as noted in HPI and below Constitutional Constitutional: Reports as per HPI, Denies chills and Denies fever(s) Eyes Eyes: Denies blurry vision ENT Ears, Nose, Mouth, and Throat: Denies dizziness, Denies sore throat and Denies throat swelling Cardiovascular Cardiovascular: Denies chest pain and Denies dyspnea Respiratory Respiratory: Denies cough and Denies dyspnea Gastrointestinal Gastrointestinal: Reports abdominal pain, Denies diarrhea and Denies vomiting Genitourinary Genitourinary: Denies hematuria and Denies dysuria Musculoskeletal Musculoskeletal: Denies back pain and Denies numbness Integumentary/Breasts Skin/Breast: Denies lesions and Denies rash Neurologic Neurologic: Denies dizziness, Denies localized weakness and Denies numbness Allergic/Immunologic Allergic/Immunologic: Denies throat swelling [facility] Medical History (Updated 12/15/20 @ 13:50 by Leana Orellana DO) Biliary colic symptom Heart attack Hyperlipidemia Hypertension Morbid obesity with BMI of 45.0-49.9, adult Surgical History Angiogram Cholecystectomy open Family History Other Essential hypertension Heart disease Social History Smoking/Tobacco Use Status: Former Tobacco Use Smoking risk assessment performed?: Yes Alcohol Intake: former Drug use: Never Do you feel safe at home: Yes Do you feel safe in your relationship?: Yes Exam Const General: cooperative and no acute distress HENMT Head: normal to inspection Face and sinus: normal facial exam Eyes General: appearance normal, both eyes and all related structures EOM: EOM intact bilaterally Neck Neck: normal visual inspection and No submandibular swelling Lymphatic: no lymphadenopathy noted Chest Chest: normal inspection of the chest and no tenderness Resp Effort & Inspection: normal respiratory effort and able to speak in complete sentences Auscultation: clear to auscultation bilaterally Cardio Rate: regular rate Rhythm: regular rhythm GI Inspection: obesity Palpation: soft, not firm, not rigid and tender (Right mid abdomen, abdomen obese limiting exam.) Auscultation: normal bowel sounds Testes: no testicular tenderness Skin General skin exam: no rashes or lesions noted Neuro General: patient alert, patient awake and patient oriented x3 Cognition: normal cognition Speech: speech normal Motor: muscle tone normal throughout Sensory Exam: no sensory deficits noted Extrem General: normal to inspection, full ROM, capillary refill normal, no calf tenderness bilaterally and no edema Psych Appearance: grossly normal Mental Status: mental status grossly normal Speech and Movement: speech and movement normal Affect: normal affect Course Vital Signs Vital signs: Vital Signs Temperature 98.2 F 12/15/20 10:46 Pulse 76 12/15/20 10:46 Respiratory Rate 18 12/15/20 10:46 Blood Pressure 167/75 H 12/15/20 10:46 Pulse Oximetry 96 12/15/20 10:46 Temperature 98.2 F 12/15/20 10:46 Temperature Source Skin 12/15/20 10:46 Pulse 76 12/15/20 10:46 Respiratory Rate 18 12/15/20 10:46 Blood Pressure 167/75 H 12/15/20 10:46 Pulse Oximetry 96 12/15/20 10:46 Oxygen Delivery Method Room Air 12/15/20 10:46 Oxygen Flow Rate 0 12/15/20 10:46 Pain Level 6 12/15/20 10:46 Comment 12/15/20 10:46
[2020-12-15] MEDS: Normal Saline 500 ML IV (11:35)
[2020-12-15] MEDS: ACETAMINOPHEN 1,000 MG/100 ML BTL 400 MG IVPB (11:43)
[2020-12-15 11:58] LABS: Abs Immature Grans 0.02 10^3/uL (0.0-0.06); Absolute Basophil Count 0.03 10^3/uL (0.0-0.2); Absolute Eosinophil Count 0.21 10^3/uL (0.0-0.7); Absolute Lymphocyte Count 0.94 10^3/uL (1.2-3.4); Absolute Monocyte Count 0.64 10^3/uL (0.1-0.8); Absolute Neutrophil Count 5.47 10^3/uL (1.2-6.7); Basophils % 0.4; Eosinophils % 2.9; HCT 42.2 % (40.0-50.0); HGB 13.9 g/dL (13.5-17.5); Immature Grans % 0.3; Lymphocytes % 12.9; MCH 30.7 pg (27.0-33.0); MCHC 32.9 % (32.0-36.0); MCV 93.2 fL (80-95); MPV 9.6 fL (8.0-11.0); Monocytes % 8.8; Neutrophils % 74.7; Nucleated RBC 0 %; Platelet Count 214 10^3/uL (130-400); RBC 4.53 10^6/uL (4.36-5.78); RDW 13.3 % (11.8-14.1); RDW-SD 45.2 fL; WBC 7.31 10^3/uL (4.4-10.8)
[2020-12-15 12:15] LABS: ALT 28 U/L (16-63); AST 17 U/L (15-37); Albumin 3.5 g/dL (3.4-5.0); Alkaline Phosphatase 91 U/L (46-116); Anion Gap 11.3 mmol/L (3-11); BUN 11 mg/dL (7-18); Bilirubin, Total 1.1 mg/dL (0.2-1.0); CO2 24.7 mmol/L (21.0-32.0); CREATININE 0.9 mg/dL (0.70-1.30); Calcium 8.9 mg/dL (8.5-10.1); Chloride 103 mmol/L (98-107); Glucose 111 mg/dL (74-106); Lipase 71 U/L (73-393); Magnesium 1.9 mg/dL (1.8-2.4); Potassium 3.7 mmol/L (3.5-5.1); Sodium 139 mmol/L (136-145); Total Protein 7.7 g/dL (6.4-8.2)
[2020-12-15 12:16] LABS: Troponin I < 0.05 ng/mL (<0.06)
[2020-12-15 12:38] LABS: Bilirubin Negative (Negative); Blood Negative (Negative); Clarity Clear (Clear); Glucose Negative (Negative); Ketones Negative (Negative); Leukocyte Esterase Negative (Negative); Nitrite Negative (Negative)
[2020-12-15] MEDS: Normal Saline - Diluent 50 ML VIAL IV (13:07)
[2020-12-15] MEDS: Omnipaque 350 MG/ML 100 ML BTL IJ (13:07)
[2020-12-15] MEDS: Normal Saline Flush 10 ML SYR IVP (13:08)
--- NOTE | 2020-12-15 13:08 | DI.CT_ITS ---
EXAM: CT ABDOMEN PELVIS W CLINICAL HISTORY: R sided abd pain, r/o cholecystitis, SBO. TECHNIQUE: Imaging Protocol: Axial computed tomography images with coronal and sagittal reformatted images were created and reviewed CONTRAST MATERIAL: Intravenous: Omnipaque 350 Contrast volume:100 ml Oral: no COMPARISON: CT UPPER ABD WITHOUT CONTRAST from 12/30/2014 FINDINGS: The exam is limited by patient body habitus and motion. Images were performed from the aortic arch t hrough the ischial tuberosities after IV and without oral contrast. Again noted is a large right lat eral abdominal wall hernia containing portions of the colon and small bowel. There is no evidence of obstruction. The appendix appears normal. There is no abnormal bowel dilatation or inflammatory ch rashel. The heart is enlarged. Coronary artery calcifications are seen. There are no pleural or pericardial effusions. The lungs show respiratory motion but are grossly clear. The liver shows fatty infiltra tion. There is no biliary dilatation. Patient is status post cholecystectomy. The spleen, pancreas and adrenals are unremarkable. There are bilateral renal cysts. No stones or hydronephrosis is see n. The prostate is enlarged. The bladder is unremarkable. Degenerative disc changes are noted in t he spine. There is no evidence of a abdominal aortic aneurysm. Atherosclerotic changes of the aorta are noted. Impression: Status post cholecystectomy. No evidence of biliary dilatation. No acute abnormality is identified. Stable right lateral abdominal wall hernia. RADIATION DOSE DELIVERED: 3,344.63mGy.cm Total DLP DATA REPOSITORY: All CT scans at this facility are submitted to the National Radiology Data Registry (NRDR) Dose Index Registry (DIR) with the [employer] ([employer]). RADIATION OPTIMIZATION: All CT scans at this facility use at least one of these dose optimization te chniques: automated exposure control; mA and/or kV adjustment per patient size (includes targeted exa ms where dose is matched to clinical indication); or iterative reconstruction.
== END 2020-12-15 15:17 | disposition home or self-care (01) ==
PROVIDERS: Emergency Provider Physician Assistant; PCP Family Medicine
DX: R10.11 Right upper quadrant pain (principal); K43.9 Ventral hernia without obstruction or gangrene
CPT/HCPCS: 36415; 80053; 83690; 93005; 96361; 96374; 99285; 74177; 81003; 83735; 84484; 85025; 93010; J0131; J3490

== ENCOUNTER 2021-03-13 09:39 | Emergency (ER) | payer OTHER, MEDICAID, SELFPAY ==
[2021-03-13] VITALS (84 sets, daily range): BP systolic 109–183; BP diastolic 51–136; PULSE 66–122; RESP 11–27; TEMP 36.4; O2SAT 91–98
--- NOTE | 2021-03-13 09:30 | RT.EKG_ITS ---
APPROVED REPORT Exam: Resting ECG Reason for Exam: left shoulder pain Patient Location: E HR:80 bpm ECG Measurements Heart Rate 80 AXIS IN 169 P 38 QRSd 103 QRS 24 QT 389 T 58 QTc 447 Conclusion Sinus rhythm...normal P axis, V-rate 60- 99 Ventricular premature complex...V complex w/ short R-R interval
[2021-03-13 10:09] LABS: Lactate 0.8 mmol/L (0.6-1.4)
[2021-03-13 10:12] LABS: Abs Immature Grans 0.05 10^3/uL (0.0-0.06); Absolute Basophil Count 0.04 10^3/uL (0.0-0.2); Absolute Eosinophil Count 0.12 10^3/uL (0.0-0.7); Absolute Lymphocyte Count 0.91 10^3/uL (1.2-3.4); Absolute Monocyte Count 0.83 10^3/uL (0.1-0.8); Absolute Neutrophil Count 7.41 10^3/uL (1.2-6.7); Basophils % 0.4; Eosinophils % 1.3; HGB 12.4 g/dL (13.5-17.5); Immature Grans % 0.5; Lymphocytes % 9.7; MCH 30.2 pg (27.0-33.0); MCHC 33.5 % (32.0-36.0); MCV 90.2 fL (80-95); MPV 9.8 fL (8.0-11.0); Monocytes % 8.9; Neutrophils % 79.2; Nucleated RBC 0 %; Platelet Count 286 10^3/uL (130-400); RDW 13.2 % (11.8-14.1); RDW-SD 43.7 fL; WBC 9.36 10^3/uL (4.4-10.8)
[2021-03-13 10:15] LABS: ESR 62 mm/hr (0-20)
[2021-03-13 10:27] LABS: ALT 48 U/L (16-63); AST 27 U/L (15-37); Albumin 2.8 g/dL (3.4-5.0); Alkaline Phosphatase 80 U/L (46-116); Anion Gap 11.7 mmol/L (3-11); BUN 14 mg/dL (7-18); Bilirubin, Total 1.7 mg/dL (0.2-1.0); CO2 23.3 mmol/L (21.0-32.0); CREATININE 1.1 mg/dL (0.70-1.30); Calcium 8.8 mg/dL (8.5-10.1); Chloride 105 mmol/L (98-107); Glucose 127 mg/dL (74-106); Magnesium 1.9 mg/dL (1.8-2.4); Potassium 3.2 mmol/L (3.5-5.1); Sodium 140 mmol/L (136-145); Total Protein 7.7 g/dL (6.4-8.2)
[2021-03-13 10:30] LABS: Troponin I < 0.05 ng/mL (<0.06)
[2021-03-13] MEDS: Lactated Ringers 1,000 ML 500 ML IV (10:32)
[2021-03-13] MEDS: Nystatin POWDER 15 GM JAR (10:59)
--- NOTE | 2021-03-13 11:12 | DI.RAD_ITS ---
Exam(s) XR SHOULDER LT COMPLETE 2+V EXAM: XR SHOULDER LT COMPLETE 2+V CLINICAL HISTORY: swelling, pain. TECHNIQUE: 2D digital imaging was performed. COMPARISON: CR RIGHT SHOULDER COMPLETE from 06/29/2011 FINDINGS: Exam extremely limited due to patient body habitus and immobility. BONES: No acute fracture is present. No bony destructive lesion is seen. JOINTS: No dislocation present. AC joint spurring. Degenerative changes inferior glenoid. SOFT TISSUE: Normal. IMPRESSION: Limited exam. No evidence of fracture or bony destruction DATA REPOSITORY: RADIATION DOSE DELIVERED:
--- NOTE | 2021-03-13 11:15 | DI.RAD_ITS ---
Exam(s) XR HAND LT COMPLETE EXAM: XR HAND LT COMPLETE CLINICAL HISTORY: swelling and erythema. TECHNIQUE: 2D digital imaging was performed. COMPARISON: CR RIGHT HAND COMPLETE from 03/15/2010 FINDINGS: BONES: No acute fracture is present. No bony destructive lesion is seen. JOINTS: No dislocation present. Degenerative changes carpal region and interphalangeal joints. SOFT TISSUE: Severe soft tissue swelling. IMPRESSION: Degenerative changes. Severe soft tissue swelling. No gross evidence of osteomyelitis. DATA REPOSITORY: RADIATION DOSE DELIVERED:
--- NOTE | 2021-03-13 11:15 | W.ED.GENAD ---
Discharge Plan Disposition Patient Disposition: [facility] Condition: Stable Discharge Details Clinical Impression: Septic arthritis of shoulder, Acute gout of shoulder, Hypokalemia Primary Care Provider: Ambar Claire ED Provider: Pat Suarez Home Meds and New Rx's Prescriptions: No Action atorvastatin [Lipitor] 80 MG tablet 80 mg PO DAILY RF: 0 amlodipine 5 MG tablet 10 mg PO DAILY RF: 0 lisinopril 40 MG tablet 40 mg PO DAILY RF: 0 aspirin [Aspir-81] 81 MG tablet,delayed release (DR/EC) 81 mg PO DAILY RF: 0 metoprolol tartrate 25 MG tablet 50 mg PO DAILY RF: 0 cyanocobalamin (vitamin B-12) [Vitamin B-12] 1,000 mcg tablet 1,000 mcg PO DAILY RF: 0 diclofenac sodium 3 % gel 1 applic topical BID PRN (Reason: knee pain) Qty: 100 RF: 0 Medical Decision Making Patient is a pleasant 75 year old male presenting today with c/c of left shoulder pain x 4 days. States that pain began insidiouslyand has progressively worsened. Is now noting swelling in the posterior left hand. Denies fevers/chills. Patient ambulates with walker typically and the pain in his shoulder has mad eit hard for him to get around. Patient typically lives alone. PMH pertinent for CAD, CVA, HTN, high cholesterol, [place]. Has not had pain like htis historically. Denies fevers/chills. Has been splinting at home. Denies CP, SOB, abdominal pain, back pain or change in bowel/bladder habits. On exam, patient appears chronically ill. He is obese and has jason in left axilla and panus. These areas were cleansed and nistatin applied. ROM of left shoulder is very limited secondayr to pain. Has swelling and erythema dorsal left pain. Pain is maximal in shoulder. 2+ distal pulses. No erythema at shoulder. Swelling noted anteriorly. Concerned for trauma, will obtain XR. Patient denies trauma but states that it may have been injured without his knowing or with use of his walker. Also considered gout, infectious etiology, cardiac cause of shoulder pain. ECG was obtained and reviewed by Dr. Faye. NSR with rate 80, PVCs noted. No acute ischemic changes noted. FINDINGS: Bones/joints: Moderate diffuse osteoarthritis of the DIP joints, PIP joints, 1st carpal metacarpal space, carpal rows. No evidence of acute fracture. Soft tissues: Diffuse significant soft tissue swelling. IMPRESSION: 1. Moderate osteoarthritis. 2. Significant soft tissue swelling. FINDINGS: Lungs: mild prominence of the pulmonary vasculature. No focal lobar consolidation. Pleural spaces: Unremarkable. No pleural effusion. No pneumothorax. Heart/Mediastinum: Cardiac silhouette is prominent in size. Vasculature: Aorta is tortuous and unwound. Bones/joints: Unremarkable. IMPRESSION: Mild cardiomegaly and venous congestion FINDINGS: Bones/joints: Degenerative changes are present of the left AC joint. No evidence of acute fracture. Degenerative changes of the greater tuberosity. Soft tissues: Diffuse soft tissue swelling. IMPRESSION: No evidence of acute fracture. Perigraft Labs reviewed. No leukocytosis. Hbg 12.4. Concerned for infection with ESR and CRP both elevated at 62 and 16.2 respectively. Potassium 3.2, will replenish. With concern for infection I discussed risks/benefits and expected procedural stesp of left shoulder aspiration. He voices understanding and wishes to proceed. Please see procedural note. This was completed with US guidance, using standard sterile technique. 3cc of blood tinged joint fluid was aspirated and sent. Will begin abx, will give 2g Ancef. No orthopedics here over the weekend, will consult with [facility]. Consulted with Dr. Quinteros at [facility] orthopedics. We reviewed exam, labs, history. He advised to have patient stay here and wait for culture. He recommended transfer to place with orthopedics for washout. Could be gout or pseudogout. Recommended that we could use toradol to help with discomfort. Gram stain reviewed. WBC 40,000 with 96% polynuclear cells, 4% mononuclear cells. Fluid was blood-tinged which was expected. Monosodium urate crystals. Consulted again with orthopedics. Reviewed these findings. They are concerned for potential superinfection on top of a an active gout flare. He is here to review with his team and call me back. Called back, they recommend washout which will require transfer to their facility. They will call back with hospital medicine prior to accepting. Spoke with Dr. Holliday with hospital medicine as well as orthopedics. Patient accepted to . Discussed transfer at length with [facility] patient. He voices understanding and agrees to transfer. HPI General Mode of arrival: EMS. Date/Time Provider Initiated Documentation: 03/13/21 09:39. Limitations to Documentation: no limitations. Information obtained by: patient, EMS, RN notes reviewed and old records reviewed. History of Present Illness 75 year old M presents to the emergency department with the chief complaint of left shoulder pain, described as severe, Quality is described as stabbing and aching, and is localized to the left and upper extremity. Patient reports no radiation. Patient started experiencing this day(s) (4) and it has been constant. Immobilization improves symptom(s), Movement worsens symptoms . Patient notes no other symptoms.. Patient did receive the following treatments prior to arrival, none Related Data Home Medications Medication Instructions Recorded Confirmed amlodipine 10 mg PO DAILY 10/22/13 03/13/21 atorvastatin [Lipitor] 80 mg PO DAILY 10/22/13 03/13/21 lisinopril 40 mg PO DAILY 10/22/13 03/13/21 aspirin [Aspir-81] 81 mg PO DAILY 12/09/13 03/13/21 metoprolol tartrate 50 mg PO DAILY 06/10/14 03/13/21 cyanocobalamin (vitamin B-12) 1,000 mcg PO DAILY 07/13/20 03/13/21 [Vitamin B-12] diclofenac sodium 1 applic TOPICAL BID PRN #100 g 07/13/20 03/13/21 Previous Rx's Medication Instructions Recorded diclofenac sodium 1 applic TOPICAL BID PRN #100 g 07/13/20 Allergies Allergy/AdvReac Type Severity Reaction Status Date / Time hydrochlorothiazide AdvReac gout Unverified 09/16/20 20:57 General Stated Complaint: GenMedical SYEDA: 3 Review of Systems Constitutional Constitutional: Reports as per HPI, Denies chills, Denies fever(s), Denies headache(s) and Denies poor appetite ENT Ears, Nose, Mouth, and Throat: Denies dizziness and Denies headache(s) Cardiovascular Cardiovascular: Reports as per HPI, Denies chest pain, Denies dyspnea and Denies dyspnea on exertion Respiratory Respiratory: Reports as per HPI, Denies chest congestion, Denies cough, Denies pain on inspiration, Denies pain with cough, Denies dyspnea, Denies dyspnea on exertion and Denies wheezing Gastrointestinal Gastrointestinal: Reports as per HPI, Denies abdominal pain, Denies diarrhea, Denies nausea and Denies vomiting Genitourinary Genitourinary: Denies system reviewed and no additional complaints, except as documented (denies change in urinary habits) Musculoskeletal Musculoskeletal: Reports as per HPI, Denies back pain, Reports joint swelling, Reports limited range of motion, Denies numbness, Reports radiating pain into limb, Reports stiffness and Denies tingling Integumentary/Breasts Skin/Breast: Reports as per HPI and Denies rash Neurologic Neurologic: Reports as per HPI, Denies dizziness, Denies headache(s), Denies numbness and Denies tingling Allergic/Immunologic Allergic/Immunologic: Denies wheezing [facility] Medical History (Updated 03/13/21 @ 17:32 by KALI Vides) Biliary colic symptom Heart attack Hyperlipidemia Hypertension Morbid obesity with BMI of 45.0-49.9, adult Surgical History Angiogram Cholecystectomy open Family History Other Essential hypertension Heart disease Social History Smoking/Tobacco Use Status: Former Tobacco Use Smoking risk assessment performed?: Yes Alcohol Intake: former Drug use: Never Do you feel safe at home: Yes Do you feel safe in your relationship?: Yes Exam Const General: cooperative, uncomfortable, no acute distress, disheveled and ill appearing chronically Nutritional Appearance: well nourished and obese Orientation: alert, awake and oriented x3 HENMT Head: normal to inspection Ears: hearing grossly normal bilaterally Mouth: mucous membranes dry (appears dry) Chest Chest: normal inspection of the chest, normal palpation of entire chest wall and no crepitus Resp Effort & Inspection: normal respiratory effort, able to speak in complete sentences and no respiratory distress Auscultation: clear to auscultation bilaterally, no rales, no rhonchi and no wheezes Cardio Rate: regular rate Rhythm: regular rhythm Heart Sounds: S1 normal and S2 normal GI Inspection: abnormal to inspection (large hernia on right side, chronic, nontender), no edema and non-distended Palpation: soft, not firm, no guarding, not rigid and nontender Auscultation: normal bowel sounds Back/Spine/Pelvis Thoracic/Lumbar Spine: thoracic and lumbar spine normal to inspection Skin General skin exam: erythema (left axilla and under panus fold is erythematous, malodorous ) Neuro General: patient alert, patient awake and patient oriented x3 Cognition: normal cognition Speech: speech normal Gait: gait abnormal (patient has difficulty ambulating at baseline) Extrem General: normal to inspection, capillary refill normal, no pedal edema, no calf tenderness and normal gait Right upper extremity: normal to inspection Left upper extremity: normal capillary refill, shoulder/upper arm Details: tenderness, swelling Location: of the shoulder joint and axillary nerve sensory function normal; ROM limited (limited both active and passive), no abrasions, no ecchymosis, no crepitus, no deformity and no unsual warmth, elbow/forearm Details: normal to inspection and normal ROM; no tenderness and no swelling, wrist Details: normal to inspection and normal ROM; no tenderness and no swelling and hand Details: abnormal to inspection (swelling and erythema dorsal left hand), normal capillary refill, neuromotor exam normal Details: wrist extension normal, neurosensory exam normal Details: radial nerve sensory function normal, ulnar nerve sensory function normal and median nerve sensory function normal, vascular exam Details: radial pulse present and normal capillary refill, normal ROM of fingers and swelling Location: of the dorsal hand; no ecchymosis; abnormal to inspection and ROM limited Psych Appearance: grossly normal and disheveled Mental Status: mental status grossly normal Speech and Movement: speech and movement normal Course Vital Signs Vital signs: Vital Signs Pulse Oximetry 95 03/13/21 09:42 Temperature 36.4 C L 03/13/21 09:44 Temperature Source Temporal Artery Scan 03/13/21 09:44 Pulse 72 03/13/21 10:02 Pulse 71 03/13/21 10:50 Respiratory Rate 18 03/13/21 10:50 Respiratory Effort Non-Labored 03/13/21 09:54 Blood Pressure 141/55 H 03/13/21 10:02 Blood Pressure Mean 78 03/13/21 10:02 Pulse Oximetry 93 03/13/21 10:20 Oxygen Delivery Method Room Air 03/13/21 09:44 Oxygen Flow Rate 0 03/13/21 09:44 Lab/Test Results Lab/Test Results: 03/13/21 10:16 Blood Blood Culture - Pending 03/13/21 10:00 Blood Blood Culture - Pending Laboratory Tests Range/Units 03/13/21 03/13/21 03/13/21 10:00 10:00 10:00 WBC (4.4-10.8) 10^3/uL 9.36 RBC (4.36-5.78) 10^6/uL 4.10 L Hgb (13.5-17.5) g/dL 12.4 L Hct (40.0-50.0) % 37.0 L MCV (80-95) fL 90.2 MCH (27.0-33.0) pg 30.2 MCHC (32.0-36.0) % 33.5 RDW (11.8-14.1) % 13.2 Plt Count (130-400) 10^3/uL 286 MPV (8.0-11.0) fL 9.8 Immature Gran % 0.5 Neutrophils % 79.2 Lymphocytes % 9.7 Monocytes % 8.9 Eosinophils % 1.3 Basophils % 0.4 Nucleated RBC % % 0 Absolute Neutrophils (1.2-6.7) 10^3/uL 7.41 H Absolute Lymphocytes (1.2-3.4) 10^3/uL 0.91 L Absolute Monocytes (0.1-0.8) 10^3/uL 0.83 H Absolute Eosinophils (0.0-0.7) 10^3/uL 0.12 Absolute Basophils (0.0-0.2) 10^3/uL 0.04 ESR (0-20) mm/hr VBG Lactate (0.6-1.4) mmol/L 0.8 Sodium (136-145) mmol/L 140 Potassium (3.5-5.1) mmol/L 3.2 L Chloride (98-107) mmol/L 105 Carbon Dioxide (21.0-32.0) mmol/L 23.3 Anion Gap (3-11) mmol/L 11.7 H BUN (7-18) mg/dL 14 Creatinine (0.70-1.30) mg/dL 1.1 Estimated GFR/1.73 m2 (mL/min/1.73m2) >= 60.00 Glucose (74-106) mg/dL 127 H Calcium (8.5-10.1) mg/dL 8.8 Magnesium (1.8-2.4) mg/dL 1.9 Total Bilirubin (0.2-1.0) mg/dL 1.7 H AST (15-37) U/L 27 ALT (16-63) U/L 48 Alkaline Phosphatase (46-116) U/L 80 Troponin I (<0.06) ng/mL < 0.05 C-Reactive Protein (0.0-0.3) mg/dL Total Protein (6.4-8.2) g/dL 7.7 Albumin (3.4-5.0) g/dL 2.8 L Range/Units 03/13/21 03/13/21 10:00 10:00 WBC (4.4-10.8) 10^3/uL RBC (4.36-5.78) 10^6/uL Hgb (13.5-17.5) g/dL Hct (40.0-50.0) % MCV (80-95) fL MCH (27.0-33.0) pg MCHC (32.0-36.0) % RDW (11.8-14.1) % Plt Count (130-400) 10^3/uL MPV (8.0-11.0) fL Immature Gran % Neutrophils % Lymphocytes % Monocytes % Eosinophils % Basophils % Nucleated RBC % % Absolute Neutrophils (1.2-6.7) 10^3/uL Absolute Lymphocytes (1.2-3.4) 10^3/uL Absolute Monocytes (0.1-0.8) 10^3/uL Absolute Eosinophils (0.0-0.7) 10^3/uL Absolute Basophils (0.0-0.2) 10^3/uL ESR (0-20) mm/hr 62 H VBG Lactate (0.6-1.4) mmol/L Sodium (136-145) mmol/L Potassium (3.5-5.1) mmol/L Chloride (98-107) mmol/L Carbon Dioxide (21.0-32.0) mmol/L Anion Gap (3-11) mmol/L BUN (7-18) mg/dL Creatinine (0.70-1.30) mg/dL Estimated GFR/1.73 m2 (mL/min/1.73m2) Glucose (74-106) mg/dL Calcium (8.5-10.1) mg/dL Magnesium (1.8-2.4) mg/dL Total Bilirubin (0.2-1.0) mg/dL AST (15-37) U/L ALT (16-63) U/L Alkaline Phosphatase (46-116) U/L Troponin I (<0.06) ng/mL C-Reactive Protein (0.0-0.3) mg/dL 16.20 H Total Protein (6.4-8.2) g/dL Albumin (3.4-5.0) g/dL Procedures Joint Aspiration/Injection Joint Asp./Inject. 1: Time Out Performed: Yes Side of body: left Joint Aspirated: shoulder Ultrasound Guidance: Yes Skin Prep: Chlorhexidene Needle Size Used: 20G Fluid Obtained: bloody Total fluid obtained (mL): 3 Patient Tolerated Procedure: well and no complications Complications: none
--- NOTE | 2021-03-13 11:22 | DI.RAD_ITS ---
Exam(s) XR CHEST 2V PA LATERAL EXAM: XR CHEST 2V PA LATERAL CLINICAL HISTORY: left shoulder TECHNIQUE: 2D digital imaging was performed. COMPARISON: CR PORTABLE CHEST ONE VIEW from 06/18/2014 FINDINGS: Exam is limited by technique and poor pulmonary inflation. The heart size appears normal. The aorta is tortuous. The lungs appear clear. No focal area of consolidation or effusion is seen. IMPRESSION: Limited exam. No acute pulmonary findings. DATA REPOSITORY: RADIATION DOSE DELIVERED:
[2021-03-13] MEDS: POTASSIUM CHLORIDE 20 MEQ, POTASSIUM CHLORIDE 10 MEQ 30 MEQ PO (11:31)
[2021-03-13] MEDS: Acetaminophen 325 MG TAB 650 MG PO (11:31)
--- NOTE | 2021-03-13 11:36 | DI.VRAD_ITS ---
PROCEDURE INFORMATION: Exam: XR Left Hand Exam date and time: 03/13/2021 9:52 AM Age: 75 years old Clinical indication: Patient HX: Severe left hand swelling, no known trauma, redness to left hand. ; Additional info: Best images obtained due to patient condition, unable to move hand for imaging. TECHNIQUE: Imaging protocol: XR Left hand. Views: 3 or more views. COMPARISON: No relevant prior studies available. FINDINGS: Bones/joints: Moderate diffuse osteoarthritis of the DIP joints, PIP joints, 1st carpal metacarpal space, carpal rows. No evidence of acute fracture. Soft tissues: Diffuse significant soft tissue swelling. IMPRESSION: 1. Moderate osteoarthritis. 2. Significant soft tissue swelling. Dictated and Authenticated by: Zoya Flowers MD. Ordering:NIURKA Stewart MD
--- NOTE | 2021-03-13 11:37 | DI.VRAD_ITS ---
PROCEDURE INFORMATION: Exam: XR Chest Exam date and time: 03/13/2021 10:20 AM Age: 75 years old Clinical indication: Pain; Left-sided; Additional info: Best images obtained due to patient condition. TECHNIQUE: Imaging protocol: XR of the chest. Views: 2 views. COMPARISON: CR PORTABLE CHEST ONE VIEW 06/18/2014 10:31 AM FINDINGS: Lungs: mild prominence of the pulmonary vasculature. No focal lobar consolidation. Pleural spaces: Unremarkable. No pleural effusion. No pneumothorax. Heart/Mediastinum: Cardiac silhouette is prominent in size. Vasculature: Aorta is tortuous and unwound. Bones/joints: Unremarkable. IMPRESSION: Mild cardiomegaly and venous congestion. Dictated and Authenticated by: Zoya Flowers MD. Ordering:NIURKA Stewart MD
--- NOTE | 2021-03-13 11:38 | DI.VRAD_ITS ---
PROCEDURE INFORMATION: Exam: XR Left Shoulder Exam date and time: 03/13/2021 9:52 AM Age: 75 years old Clinical indication: Pain; Shoulder; Left; Additional info: Best images obtained due to patient condition. Patient unable to stand or sit upright for images, best images of shoulder obtained due to patient condition. TECHNIQUE: Imaging protocol: XR Left shoulder. Views: 2 or more views. COMPARISON: CR PORTABLE CHEST ONE VIEW 06/18/2014 10:31 AM FINDINGS: Bones/joints: Degenerative changes are present of the left AC joint. No evidence of acute fracture. Degenerative changes of the greater tuberosity. Soft tissues: Diffuse soft tissue swelling. IMPRESSION: No evidence of acute fracture. Perigraft Dictated and Authenticated by: Zoya Flowers MD. Ordering:NIURKA Stewart MD
[2021-03-13 14:10] LABS: Source L Shoulder
[2021-03-13 14:11] LABS: Clarity Bloody; Mononuclear Cells 4 %; Nucleated Cells 40315 uL (0); Polynuclear Cells 96 %
[2021-03-13] MEDS: ceFAZolin 2 GM/50 ML BAG IVPB (14:15)
[2021-03-13 14:29] LABS: Source L Shoulder
[2021-03-13 14:34] LABS: Troponin I < 0.05 ng/mL (<0.06)
[2021-03-13 14:51] LABS: Bilirubin Negative (Negative); Blood Negative (Negative); Clarity Clear (Clear); Glucose Negative (Negative); Ketones Negative (Negative); Leukocyte Esterase Negative (Negative); Nitrite Negative (Negative)
[2021-03-13 15:08] LABS: Bacteria Negative HPF (Negative); Crystals Negative HPF (Negative); Epithelial Cells Rare HPF (Negative); Mucus Trace (Negative); RBC Negative HPF (0-2); WBC 0-2 HPF (0-5)
[2021-03-13 15:09] LABS: C & S Indicated? No
[2021-03-13] MEDS: Ketorolac 15 MG/ML VIAL IVP (16:06)
== END 2021-03-13 19:40 | disposition short-term general hospital (02) ==
PROVIDERS: Emergency Provider Physician Assistant; PCP Family Medicine
DX: M00.812 Arthritis due to other bacteria, left shoulder (principal); M79.89 Other specified soft tissue disorders; M10.012 Idiopathic gout, left shoulder; E87.6 Hypokalemia
CPT/HCPCS: 20610; 36415; 80053; 85652; 87040; 93005; 96361; 96365; 96375; 99285; 71046; 73030; 73130; 81003; 81015; 83605; 83735; 84484; 85025; 86140; 87070; 87075; 87205; 89051; 89060; 93010; J0690; J1885

== ENCOUNTER 2021-03-21 19:19 | Outpatient (REF) | payer OTHER, MEDICAID, SELFPAY ==
[2021-03-21 15:56] LABS: Hemoglobin A1C 5.9 % (<5.7)
[2021-03-21 15:58] LABS: Uric Acid 6.5 mg/dL (3.5-7.2)
== END 2021-03-21 19:20 | disposition home or self-care (01) ==
LOC: NCHCN 19:19
PROVIDERS: PCP Family Medicine; Visit Provider Family Medicine
DX: Z13.1 Encounter for screening for diabetes mellitus (principal); M10.9 Gout, unspecified
CPT/HCPCS: 83036; 84550

== ENCOUNTER 2021-05-02 01:22 | Inpatient (IN) | payer OTHER, MEDICAID, SELFPAY ==
[2021-05-02] VITALS (97 sets, daily range): BP systolic 83–205; BP diastolic 42–176; PULSE 64–134; RESP 14–35; TEMP 35.8–36.9; O2SAT 85–98
--- NOTE | 2021-05-02 | DI.US_ITS ---
Exam(s) US EXTREMITY VENOUS BI EXAM: US EXTREMITY VENOUS BI CLINICAL HISTORY: edema BLE's, concern for DVT TECHNIQUE: Grayscale, color, and doppler imaging of the deep venous system of both lower extremities was performed. COMPARISON: US US ECHOCARDIOGRAM from 05/02/2021 FINDINGS: There is no evidence of intraluminal thrombus and there is normal compression and augmentation demons trated within the common femoral veins, femoral veins, and popliteal veins of both lower extremities. In the calves the interrogated veins also exhibit normal compression/ augmentation properties. The greater saphenous veins also appear patent as do the saphenofemoral junctions bilaterally.. IMPRESSION: 1. No ultrasound evidence of DVT in either lower extremity. DATA REPOSITORY:
--- NOTE | 2021-05-02 | DI.US_ITS ---
APPROVED REPORT EXAM: Comprehensive 2D, Doppler, and color-flow Echocardiogram Patient Location: In-Patient Room/Bed: [id number] [address] [employer] Maintainer: Azeb Castle RDCS (AE) Indications: NSTEMI, Acute CHF Other Information Study Quality: Fair. Technically limited study due to body habitus. Conclusion Moderate concentric left ventricular hypertrophy. Estimated ejection fraction is 55 to 60%. Wall mo tion is normal Normal right ventricular size and systolic function Both atria are normal in size The aortic valve is sclerotic and trileaflet without stenosis or regurgitation Thickened mitral leaflets. Mild to moderate mitral regurgitation Normal tricuspid valve with mild regurgitation. 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 The left ventricular systolic function is normal. The left ventric ular ejection fraction is within the normal range. Moderate concentric left ventricular hypertrophy. There is normal LV segmental wall motion. There is no ventricular septal defect visualized. LVEF is 5 6%. Right Ventricle The right ventricle is normal size. The right ventricular systolic function is normal. The RVSP is 33 .8 mmHg. Atria The left atrium size is normal. The right atrium size is normal. The interatrial septum is intact wit h no evidence for an atrial septal defect. Aortic Valve The Aortic valve is sclerotic. Aortic valve is trileaflet. Aortic valve is calcified. No hemodynamica lly significant valvular aortic stenosis. No aortic regurgitation is present. Mitral Valve Mitral valve leaflets are moderately thickened. No evidence of mitral valve stenosis. Mild to moderat e mitral regurgitation. Tricuspid Valve The tricuspid valve is normal in structure. There is no tricuspid valve stenosis. Mild tricuspid regu rgitation. Pulmonic Valve The pulmonary valve is normal in structure. There is no pulmonic valvular stenosis. There is no pulmo josh valvular regurgitation. Great Vessels The aortic root is normal in size. The ascending aorta is dilated. Aortic arch is not well visualized . IVC is normal in size and collapses >50% with inspiration. Pericardium There is no pericardial effusion. 2D Dimensions IVSD d PLAX 1.46 cm M: 0.6-1.2 LV Vol A2C d MOD 182.6 mL LVPW d PLAX 1.40 cm M: 0.6 - 1.2 LV Vol A4C d MOD 195.7 mL LVID d PLAX 5.09 cm M: 4.2 - 5.8 LA vol/ BSA A2C s A-L 30.4 mL/m2 LVDs 3.65 cm M: 2.5 - 4.0 LA vol/ BSA A4C s A-L 33.9 mL/m2 Ao Root d 3.77 cm M: 3.1 - 3.7 LA Vol/ BSA Biplane s A-L 33.0 mL/m2 RA Area A4C 21.08 cm2 LA Area A4C s MOD 27.59 cm2 RA Vol/ BSA A4C s A-L 21.8 mL/m2 LA Area A2C s MOD 25.42 cm2 Ao Asc Diam d 4.64 cm M: 2.6 - 3.4 LV EF A4C MOD 56.3 % LV EF Teichholz 54.3 % LV EF A2C MOD 56.1 % LVEF (Daigle's) 52.43 % M: 52 - 72 LV EF Biplane MOD 52.4 % LV Volume 128.51 mL M: 62 - 150 SV 99.64 mL LV Volume Index 45.25 mL/m2 M: 34 - 74 SV Index 35.11 mL/m2 LV Vol Biplane MOD 190.0 mL FS 28.25 % M-Mode TAPSE 2.72 cm (M/F) >1.7 LV Diastology MV E' medial 0.042 (>0.07 m/s) E/A Ratio 0.8 LV E/e MED 17.45 (<14) MV E Vmax 0.73 (0.4-1.3 m/s) MV E' lateral 0.045 (>0.1 m/s) MV A Vmax 0.90 (0.4-1.3 m/s) LV E/e LAT 16.05 (<14) MV E/A Ratio 0.77 MV E/E' medial 17.49 MV E/E' lateral 16.07 Aortic Valve LVOT Area 4.00 cm2 AoV Area Vmax 2.41 cm2 LVOT Vmax 1.02 m/s AoV Area/ BSA (Vmax) 0.85 cm2/m2 LVOT Mean Louis. 0.69 m/s [place] Mean Louis. 2.15 cm2 LVOT Peak Grad 4.2 mmHg [place] Mean Louis. Index 0.76 cm2/m2 LVOT Mean Grad 2.2 mmHg LVOT VTI 0.233 m LVOT Diam s 2.25 cm AoV Vmax 1.70 m/s Velocity Ratio 0.60 AoV Mean Louis. 1.28 m/s AoV Peak Grad 11.6 mmHg LVOT SV 93.17 mL AoV Mean Grad 7.1 mmHg AoV VTI 0.345 m AoV Area VTI 2.70 cm2 AoV Area/ BSA (VTI) 0.95 cm/m2 Mitral Valve MV DT 336 (160-240 msec) MR Vmax 5.57 m/s MV PHT 97 msec MR VTI 1.961 m MV Area PHT 2.26 cm2 MR Peak Grad 124.2 mmHg MV VTI 0.374 m MR Mean Grad 89.4 mmHg MV VTI Annulus 0.372 m MR PISA Radius 0.58 cm MV Area VTI 2.48 (4.0-6.0 cm2) MR EROA 0.13 cm2 MR Aliasing Velocity 0.35 m/s MR PISA 2.11 cm2 Pulmonary Valve PV Vmax 1.10 (0.5-1.5 m/s) RVOT Peak Gr. 1.80 mmHg PV Peak Grad 4.8 mmHg RVOT Mean Gr. 0.95 mmHg PV Mean Grad 3.0 mmHg RVOT VTI 0.140 m PV VTI 0.243 m RVOT Vmax 0.67 m/s Tricuspid Valve TR Peak Grad 30.7 mmHg TR Vmax 2.77 m/s RA Pressure 3.00 mmHg RVSP (TR) 33.8 mmHg
--- NOTE | 2021-05-02 01:00 | RT.EKG_ITS ---
APPROVED REPORT Exam: Resting ECG Reason for Exam: shortness of breath Patient Location: E HR:88 bpm ECG Measurements Heart Rate 88 AXIS ME 169 P 60 QRSd 101 QRS 33 QT 421 T 84 QTc 511 Conclusion Sinus rhythm...normal P axis, V-rate 60- 99 Ventricular premature complex...V complex w/ short R-R interval Prolonged QT interval...QTc >500mS
--- NOTE | 2021-05-02 01:30 | ED.GENADUL_ITS ---
Discharge Plan Disposition Patient Disposition: [facility] INPATIENT Condition: Stable Discharge Details Clinical Impression: Shortness of breath, Pulmonary edema, Elevated troponin Primary Care Provider: Ambar Claire ED Provider: Satish Colvin Home Meds and New Rx's Prescriptions: No Action atorvastatin [Lipitor] 80 MG tablet 80 mg PO DAILY RF: 0 amlodipine 5 MG tablet 10 mg PO DAILY RF: 0 lisinopril 40 MG tablet 40 mg PO DAILY RF: 0 aspirin [Aspir-81] 81 MG tablet,delayed release (DR/EC) 81 mg PO DAILY RF: 0 metoprolol tartrate 25 MG tablet 50 mg PO DAILY RF: 0 cyanocobalamin (vitamin B-12) [Vitamin B-12] 1,000 mcg tablet 1,000 mcg PO DAILY RF: 0 diclofenac sodium 3 % gel 1 applic topical BID PRN (Reason: knee pain) Qty: 100 RF: 0 allopurinol 100 mg tablet 200 mg PO RF: 0 Medical Decision Making 75 yo male with hx of CAD (SC in 2013 per cardiology note in 2013 without inte rvention done), cva's, prior smoker, who comes in with ems with shortness of breath worsening since around 8pm after trying to lay down for bed. He is not sure if he has had symptoms like this in the past and thinks during the day he felt well. He denies fevers, cough, n/v, chest pain or pressure. He has swelling of both lower legs to the mid tibia bilaterally with pitting edema, no calf tenderness. He has diminished breath sounds at the bases bilaterally. HE has on bedside u/s no pericardial effusion, no dilated rv, and both lungs have b lines diffusely. Suspect given his symptoms worsen when laying flat that he has pulmonary edema and this is present on the u/s. Will obtain labs including troponin, probnp, chemistry panel and portable chest xray and treat with a dose of lasix and reassess. He was in the mid to high 80's on room air and on 5L NC now in the high 90's, at rest no significant work of breathing but with any movement he becomes dyspneic. pt feeling better, has put out 500cc of urine, labs show probnp over 3000 and otherwise benign labs. Xray shows interstitial edema. will discuss with hospitalist for admission spoke with Dr. Whittaker who would like second troponin results prior to admitting. Will continue to monitor pt remains stable at this time, pain free, second troponin 0.1 which is likely type 2 SC. Consult with [place] [facility] [place], aspirin ordered. Spoke with Dr. Bui at [facility] who agreed with lasix, aspirin, echo today and trending trops and did not feel heparin indicated at this time unless ischemic changes or significant increase in troponin. Dr. Whittaker in to evaluate patient for admission Differential Diagnosis Differential Diagnosis: chf, nstemi, pneumonia, covid Medical Records Medical records reviewed: Yes I reviewed the patient's medical records. Imaging Data Radiologic Study: Attestation: I personally reviewed and interpreted this imaging study as follows: Imaging: X-Ray Radiologist's impression: IMPRESSION: Bilateral interstitial opacities, could indicate interstitial edema Lab Data Lab results reviewed: Yes I reviewed the patient's lab results. ECG Data Attestation: I personally reviewed and interpreted this ECG (s) as follows: Prior ECG tracings: not available for review Interpretation: sinus rhythm, rate of 88, no acute st t wave ischemic findings 2nd ekg sinus rhythm, rate of 79, no acute st t wave ischemic findings HPI General Mode of arrival: EMS . Date/Time Provider Initiated Documentation: 05/02/21 01:29 . Limitations to Documentation: no limitations . Information obtained by: patient . History of Present Illness 75 year old M presents to the emergency department with the chief complaint of shortness of breath, described as moderate, Patient started experiencing this hour(s) (5) and it has been constant. other things that improve symptom(s), (sitting up) Other factors that worsen symptoms (laying flat) . Patient notes denies chest pain and fever/chills. Patient did receive the following treatments prior to arrival, none Related Data Home Medications Medication Instructions Recorded Confirmed amlodipine 10 mg PO DAILY 10/22/13 05/02/21 atorvastatin [Lipitor] 80 mg PO DAILY 10/22/13 05/02/21 lisinopril 40 mg PO DAILY 10/22/13 05/02/21 aspirin [Aspir-81] 81 mg PO DAILY 12/09/13 05/02/21 metoprolol tartrate 50 mg PO DAILY 06/10/14 05/02/21 cyanocobalamin (vitamin B-12) 1,000 mcg PO DAILY 07/13/20 05/02/21 [Vitamin B-12] diclofenac sodium 1 applic TOPICAL BID PRN #100 g 07/13/20 05/02/21 allopurinol 200 mg PO 05/02/21 Previous Rx's Medication Instructions Recorded diclofenac sodium 1 applic TOPICAL BID PRN #100 g 07/13/20 Allergies Allergy/AdvReac Type Severity Reaction Status Date / Time hydrochlorothiazide AdvReac gout Unverified 05/02/21 02:01 General Stated Complaint: SOB SYEDA: 2 Review of Systems All systems reviewed & are unremarkable except as noted in HPI and below Constitutional Constitutional: Denies chills, Denies fever(s) and Denies weakness Cardiovascular Cardiovascular: Denies chest pain Respiratory Respiratory: Denies cough Gastrointestinal Gastrointestinal: Denies abdominal pain, Denies nausea and Denies vomiting Neurologic Neurologic: Denies weakness [facility] Medical History (Updated 05/02/21 @ 05:15 by Satish Colvin MD) Biliary colic symptom Heart attack Hyperlipidemia Hypertension Morbid obesity with BMI of 45.0-49.9, adult Surgical History Angiogram Cholecystectomy open Family History Other Essential hypertension Heart disease Social History Smoking/Tobacco Use Status: Former Tobacco Use Smoking risk assessment performed?: Yes Alcohol Intake: former Drug use: Never Do you feel safe at home: Yes Do you feel safe in your relationship?: Yes Exam Const General: no acute distress Orientation: alert HENMT Head: normal to inspection Ears: external ears normal General nose exam: external nose normal Mouth: moist mucous membranes Eyes General: appearance normal, both eyes and all related structures Neck Neck: normal visual inspection Resp Effort & Inspection: other (decreased breath sounds at the bases) Cardio Rate: regular rate Skin General skin exam: no rashes or lesions noted Neuro General: patient alert and patient oriented x3 Extrem Right upper extremity: normal capillary refill Psych Mental Status: mental status grossly normal Course Vital Signs Vital signs: Vital Signs Temperature 36.7 C 05/02/21 01:25 Pulse 91 H 05/02/21 01:25 Respiratory Rate 33 H 05/02/21 01:25 Blood Pressure 187/108 H 05/02/21 01:25 Pulse Oximetry 97 05/02/21 01:25 Temperature 36.7 C 05/02/21 01:25 Temperature Source Skin 05/02/21 01:25 Pulse 91 H 05/02/21 01:25 Respiratory Rate 33 H 05/02/21 01:25 Blood Pressure 187/108 H 05/02/21 01:25 Pulse Oximetry 97 05/02/21 01:25 Oxygen Delivery Method Nasal Cannula 05/02/21 01:25 Oxygen Flow Rate 4 05/02/21 01:25 Pain Level 0 05/02/21 01:25
--- NOTE | 2021-05-02 01:30 | DI.RAD_ITS ---
Exam(s) XR PORTABLE CHEST AP EXAM: XR PORTABLE CHEST AP CLINICAL HISTORY: shortness of breath. TECHNIQUE: 2D digital imaging was performed. COMPARISON: Prior chest x-ray 03/13/2021 FINDINGS: Moderate cardiomegaly. Mediastinum not widened. Increased bilateral interstitial markings consistent with probable interstitial pulmonary edema. No obvious pleural effusions. IMPRESSION: Interstitial pulmonary edema. No obvious pleural effusions. DATA REPOSITORY: RADIATION DOSE DELIVERED: All CT scans at this facility use at least one of these dose optimization techniques: automated exposure control; mA and/or kV adjustment per patient size (includes targeted e xams where dose is matched to clinical indication); or iterative reconstruction.
[2021-05-02 01:53] LABS: Source Nasal/Nares
[2021-05-02 01:55] LABS: Abs Immature Grans 0.05 10^3/uL (0.0-0.06); Absolute Eosinophil Count 0.25 10^3/uL (0.0-0.7); Absolute Monocyte Count 0.89 10^3/uL (0.1-0.8); Absolute Neutrophil Count 9.54 10^3/uL (1.2-6.7); Basophils % 0.3; Eosinophils % 2.2; HCT 40.7 % (40.0-50.0); HGB 13.1 g/dL (13.5-17.5); Immature Grans % 0.4; Lymphocytes % 6.1; MCH 30.5 pg (27.0-33.0); MCHC 32.2 % (32.0-36.0); MCV 94.7 fL (80-95); MPV 10.2 fL (8.0-11.0); Monocytes % 7.8; Neutrophils % 83.2; Nucleated RBC 0 %; Platelet Count 198 10^3/uL (130-400); RDW 15.8 % (11.8-14.1); RDW-SD 55.2 fL; WBC 11.47 10^3/uL (4.4-10.8)
[2021-05-02 01:56] LABS: BE (Venous) 1 mmol/L (-2-3); HCO3 (Venous) 25 mmol/L (23-28); O2 Sat (Venous) 97 %; TCO2 (Venous) 22 mmol/L (24-29); pCO2 (Venous) 39 mmHg (41-51); pH (Venous) 7.42 (7.31-7.41); pO2 (Venous) 83 mmHg
[2021-05-02 02:00] LABS: Absolute Basophil Count 0.03 10^3/uL (0.0-0.2)
[2021-05-02] MEDS: Furosemide 40 MG/4 ML VIAL IVP ×3 (02:00→15:31)
[2021-05-02] MEDS: Normal Saline Flush 10 ML SYR IVP ×3 (02:01→19:50)
--- NOTE | 2021-05-02 02:07 | DI.VRAD_ITS ---
PROCEDURE INFORMATION: Exam: XR Chest Exam date and time: 05/02/2021 1:40 AM Age: 75 years old Clinical indication: Shortness of breath; Patient HX: SOB TECHNIQUE: Imaging protocol: XR of the chest. Views: 1 view. COMPARISON: CR XR CHEST 2V PA LATERAL 03/13/2021 11:16 AM FINDINGS: Lungs: Bilateral interstitial opacities, could indicate interstitial edema. Pleural spaces: Unremarkable. No pleural effusion. No pneumothorax. Heart/Mediastinum: Unremarkable. No cardiomegaly. Bones/joints: Unremarkable. IMPRESSION: Bilateral interstitial opacities, could indicate interstitial edema. Dictated and Authenticated by: Satish Judge MD. Ordering:JOE Covarrubias MD
[2021-05-02 02:16] LABS: Bilirubin Negative (Negative); Blood Trace-intact (Negative); Clarity Clear (Clear); Glucose Negative (Negative); Ketones Negative (Negative); Leukocyte Esterase Negative (Negative); Nitrite Negative (Negative); Specific Gravity >= 1.030 (1.005-1.025)
[2021-05-02 02:25] LABS: Bacteria Rare HPF (Negative); C & S Indicated? No; Casts Negative LPF (Negative); Crystals Negative HPF (Negative); Epithelial Cells Rare HPF (Negative); Mucus Trace (Negative); Other Cells Few Renal (Negative); WBC 0-2 HPF (0-5)
[2021-05-02 02:31] LABS: ALT 29 U/L (16-63); AST 26 U/L (15-37); Albumin 3.5 g/dL (3.4-5.0); Alkaline Phosphatase 91 U/L (46-116); Anion Gap 11.5 mmol/L (3-11); BUN 13 mg/dL (7-18); Bilirubin, Total 1.1 mg/dL (0.2-1.0); CO2 24.5 mmol/L (21.0-32.0); Calcium 8.2 mg/dL (8.5-10.1); Chloride 108 mmol/L (98-107); Glucose 129 mg/dL (74-106); Magnesium 1.8 mg/dL (1.8-2.4); Potassium 3.6 mmol/L (3.5-5.1); Sodium 144 mmol/L (136-145); Total Protein 7.2 g/dL (6.4-8.2); Troponin I < 0.05 ng/mL (<0.06)
[2021-05-02 02:46] LABS: COVID-19 PCR Negative (Negative)
[2021-05-02 02:50] LABS: NT-proBNP 3402 pg/mL (<300)
--- NOTE | 2021-05-02 04:19 | NUR.NOTE ---
Nursing Note: bp reading incorrect; cannot get it to delete
--- NOTE | 2021-05-02 04:45 | RT.EKG_ITS ---
APPROVED REPORT Exam: Resting ECG Reason for Exam: shortness of breath Patient Location: E HR:79 bpm ECG Measurements Heart Rate 79 AXIS NH 174 P 32 QRSd 101 QRS 30 QT 445 T 80 QTc 512 Conclusion Sinus rhythm...normal P axis, V-rate 60- 99 Prolonged QT interval...QTc >500mS
[2021-05-02] MEDS: Aspirin 81 MG CHEW 324 MG CH (04:50)
--- NOTE | 2021-05-02 05:43 | W.PM.HP.N ---
Date of service: 05/02/21 Time of Service: 05:00 Assessment and Plan Assessment and plan (1) Acute respiratory failure with hypoxia: Status: Acute Assessment and plan: Multifactorial - Based on presence of purulent sputum, I do think that there is a component of pneumonia in addition to his pulmonary edema. Additionally, the patient may also have OHS/LUIS FELIPE based on his weight. Will continue to diurese, treat with empiric ceftriaxone/doxycycline, mucolytics, pulmonary toileting. Wean o2 as tolerated. Consider BiPAP, though the patient does not require it emergently in the ED at the time of my evaluation. Consult pulmonary/critical care. (2) Acute CHF: Status: Acute Assessment and plan: Obtain echo. Had an echo at [facility] on 03/15/21 due to concerns of septic arthritis/endocarditis (both ruled out). LVEF at the time was 50%, no wall motion abnormalities were seen. RV size and function were nml. RVSP could not be assessed due to inadequate tricuspid regurg. Monitor on tele. COntinue to diurese, monitoring I/O's, daily weights. Consider BiPAP. (3) Pneumonia: Status: Acute Assessment and plan: The patient does have leucocytosis, productive sputum, multifocal infiltrates on CXR. COVID-19 ruled out. Start empiric doxycycline/ceftriaxone. Obtaining sputum and blood cultures. (4) Elevated troponin: Status: Acute Assessment and plan: Suspect Type 2 NSTEMI in setting of acute hypoxic respiratory failure/acute CHF/pneumonia. Given underlying CAD, will continue to trend troponins. Continue asa, but will not initiate JODY/heparinization at this time. Obtain echo. cardiology consult (5) QT prolongation: Status: Acute Assessment and plan: monitor on tele. replete calcium. avoid QT prolonging drugs. (6) Chronic hypertension: Status: Chronic Assessment and plan: Continue home meds (7) Hyperlipidemia: Status: Chronic Assessment and plan: Continue home statin; check fasting lipid panel (8) Morbid obesity with BMI of 45.0-49.9, adult: Status: Chronic Assessment and plan: Check A1C. Consider sleep apnea. The patient has difficulty ambulating at baseline. Consult PT once cleared from cardiac/pulmonary stand point. (9) DVT prophylaxis: Status: Acute Assessment and plan: SC enoxaparin (10) Discharge planning issues: Status: Acute Assessment and plan: Full code Admit to ICU. Total Critical Care Time 75 minutes. History of Present Illness History of Present Illness Chief Complaint: I couldn't breathe Narrative: Mr Mckenzie is a 75 year old male with PMHx of CAD s/p UT/cardiac cath in 2012 (no stents), h/o CVA, hypertension, hyperlipidemia, gouty arthritis L shoulder treated at [facility] in 03/2021 (not septic), obesity with BMI of 43.7 and ambulatory dysfunction requiring a walker and ambulating only to the bathroom in his own house, who lives alone, who was brought to [facility] ED this morning by ambulance for shortness of breath. The patient is a poor history provider. The patient states that he has been somewhat short of breath for several days, but he blamed it on lack of air(conditioning). Last night, when he went to bed, he noticed that he had a hard time breathing. He slept on 1 pillow. Sitting up made breathing better. He had not noticed swelling in his legs until arrival to our ED. The patient denied any chest pain, palpitations, dizziness, fever, cough at home. He states he had not developed a cough until arrival at the hospital - productive of green/fung sputum. EMS noted O2 sats to mid-80s on room air. In the ED, he is requiring 4L of O2 at this time to saturate above 90%. His workup has revealed pulmonary edema, and the patient has diuresed >1.5L after receiving 40 mg of IV lasix and nitropaste. His oxygen requirement remains 4L. His troponin was negative on presentation but did go up to 0.10. [facility] cardiology was consulted and recommended continuing to trend troponin, initiation of aspirin as well as obtaining an echo. We were instructed to hold plavix/heparin gtt unless the patient's troponin goes up significantly more. Of note, the patient does not have a diagnosis of sleep apnea but has never had testing. Hospitalist admission was requested. The patient is not vaccinated against COVID-19 (we all have to someday), but he will think about it (but no promises). He is full code. Review of Systems All systems reviewed & are unremarkable except as noted in HPI and below [facility] Medical History (Updated 05/02/21 @ 06:24 by Zoya Whittaker MD) Ambulatory dysfunction Biliary colic symptom CVA (cerebral vascular accident) Gouty arthritis left shoulder, 03/2021 - [facility] Heart attack cardiac cath 2013 - no stents Hyperlipidemia Hypertension Morbid obesity with BMI of 45.0-49.9, adult Surgical History (Updated 05/02/21 @ 05:57 by Zoya Whittaker MD) Angiogram cardiac cath 2012 - no stents Cholecystectomy open Family History Other Essential hypertension Heart disease Social History Smoking/Tobacco Use Status: Former Tobacco Use Smoking risk assessment performed?: Yes Alcohol Intake: former Drug use: Never Do you feel safe at home: Yes Do you feel safe in your relationship?: Yes Meds Allergies and Home Medications Allergies Allergy/AdvReac Type Severity Reaction Status Date / Time hydrochlorothiazide AdvReac gout Unverified 05/02/21 02:01 Home Medications Medication Instructions Recorded Confirmed Type amlodipine 10 mg PO DAILY 10/22/13 05/02/21 History atorvastatin [Lipitor] 80 mg PO DAILY 10/22/13 05/02/21 History lisinopril 40 mg PO DAILY 10/22/13 05/02/21 History aspirin [Aspir-81] 81 mg PO DAILY 12/09/13 05/02/21 History metoprolol tartrate 50 mg PO DAILY 06/10/14 05/02/21 History cyanocobalamin (vitamin B-12) 1,000 mcg PO DAILY 07/13/20 05/02/21 History [Vitamin B-12] diclofenac sodium 1 applic TOPICAL BID PRN #100 g 07/13/20 05/02/21 Rx allopurinol 200 mg PO 05/02/21 History Allergy/Medication Comments:: The patient does not know his medications. They are delivered to him by [employer]. Exam Narrative Exam Narrative: General: Obese male who is unkempt/has poor hygiene, not appearing dyspneic/tachypneic while resting at about 45 degrees in the stretcher, somnolent, reluctant to provide history Neurological: A&Ox3, no obvious focal deficits Psychiatric: appears to have a bright mood, somewhat reluctant to provide history, but does answer questions appropriately Skin: No lesions on B feet, visible skin intact HEENT: Atraumatic, normocephalic, EOMI, Dry MM, clear oropharynx, no submandibular or cervical lymphadenopathy, no goiter or JVD Cardiovascular: RRR, no m/r/g Lungs: CTAB (after diuresis) Gastrointestinal: soft, nontender, nondistended, R-sided abdominal wall hernia which is nontender Genitourinary: has a castanon - urine light colored, diluted Extremities: 1+ BLE edema, +1 pedal pulses B, no clubbing/cyanosis; B feet are dirty Results Imaging Additional studies: CXR: Bilateral interstitial opacities, could indicate interstitial edema. EKG #1: HR 88, NSR, inferolateral borderline ST segment depressions, more obvious on today's EKG than on the one from 03/13/21, PVCs EKG #2: HR 79, NSR, unchanged from #1 Labs Result diagrams: 05/02/21 01:40 05/02/21 01:40 Labs: Laboratory Results - last 24 hr 05/02/21 05/02/21 05/02/21 01:38 01:40 01:40 WBC 11.47 H RBC 4.30 L Hgb 13.1 L Hct 40.7 MCV 94.7 MCH 30.5 MCHC 32.2 RDW 15.8 H Plt Count 198 MPV 10.2 Immature Gran % 0.4 Neutrophils % 83.2 Lymphocytes % 6.1 Monocytes % 7.8 Eosinophils % 2.2 Basophils % 0.3 Nucleated RBC % 0 Absolute Neutrophils 9.54 H Absolute Lymphocytes 0.70 L Absolute Monocytes 0.89 H Absolute Eosinophils 0.25 Absolute Basophils 0.03 VBG pH VBG pCO2 VBG pO2 VBG HCO3 VBG Total CO2 VBG O2 Saturation VBG Base Excess Sodium 144 Potassium 3.6 Chloride 108 H Carbon Dioxide 24.5 Anion Gap 11.5 H BUN 13 Creatinine 1.0 Estimated GFR/1.73 m2 >= 60.00 Glucose 129 H Calcium 8.2 L Magnesium 1.8 Total Bilirubin 1.1 H AST 26 ALT 29 Alkaline Phosphatase 91 Troponin I < 0.05 NT-Pro-B Natriuret Pep 3402 H Total Protein 7.2 Albumin 3.5 Urine Color Urine Clarity Urine pH Ur Specific Elizabeth Urine Protein Urine Ketones Urine Blood Urine Nitrite Urine Bilirubin Urine Urobilinogen Ur Leukocyte Esterase Urine RBC Urine WBC Ur Epithelial Cells Urine Crystals Urine Bacteria Urine Casts Urine Mucus Urine Other Ur Culture Indicated? Urine Glucose COVID-19 Source Nasal/Nares SARS-CoV-2 (PCR) Negative 05/02/21 05/02/21 05/02/21 01:49 02:10 04:10 WBC RBC Hgb Hct MCV MCH MCHC RDW Plt Count MPV Immature Gran % Neutrophils % Lymphocytes % Monocytes % Eosinophils % Basophils % Nucleated RBC % Absolute Neutrophils Absolute Lymphocytes Absolute Monocytes Absolute Eosinophils Absolute Basophils VBG pH 7.42 H VBG pCO2 39 L VBG pO2 83 VBG HCO3 25 VBG Total CO2 22 L VBG O2 Saturation 97 VBG Base Excess 1 Sodium Potassium Chloride Carbon Dioxide Anion Gap BUN Creatinine Estimated GFR/1.73 m2 Glucose Calcium Magnesium Total Bilirubin AST ALT Alkaline Phosphatase Troponin I 0.10 H* NT-Pro-B Natriuret Pep Total Protein Albumin Urine Color Yellow Urine Clarity Clear Urine pH 6.0 Ur Specific Elizabeth >= 1.030 H Urine Protein 100 H Urine Ketones Negative Urine Blood Trace-intact H Urine Nitrite Negative Urine Bilirubin Negative Urine Urobilinogen 1.0 H Ur Leukocyte Esterase Negative Urine RBC 3-5 H Urine WBC 0-2 Ur Epithelial Cells Rare Urine Crystals Negative Urine Bacteria Rare Urine Casts Negative Urine Mucus Trace Urine Other Few Renal Ur Culture Indicated? No Urine Glucose Negative COVID-19 Source SARS-CoV-2 (PCR) Last Vital Signs Temp 36.7 C 05/02/21 01:25 Pulse 78 05/02/21 04:32 Resp 19 05/02/21 04:32 BP 139/74 05/02/21 04:32 Pulse Ox 92 05/02/21 04:32
[2021-05-02 06:21] LABS: Abs Immature Grans 0.04 10^3/uL (0.0-0.06); Absolute Basophil Count 0.03 10^3/uL (0.0-0.2); Absolute Eosinophil Count 0.07 10^3/uL (0.0-0.7); Absolute Lymphocyte Count 0.84 10^3/uL (1.2-3.4); Absolute Monocyte Count 1.06 10^3/uL (0.1-0.8); Absolute Neutrophil Count 8.14 10^3/uL (1.2-6.7); Basophils % 0.3; Eosinophils % 0.7; HCT 39.3 % (40.0-50.0); HGB 12.7 g/dL (13.5-17.5); Immature Grans % 0.4; Lymphocytes % 8.3; MCH 30.6 pg (27.0-33.0); MCHC 32.3 % (32.0-36.0); MCV 94.7 fL (80-95); MPV 9.9 fL (8.0-11.0); Monocytes % 10.4; Neutrophils % 79.9; Nucleated RBC 0 %; Platelet Count 205 10^3/uL (130-400); RBC 4.15 10^6/uL (4.36-5.78); RDW 15.9 % (11.8-14.1); RDW-SD 55.3 fL; WBC 10.18 10^3/uL (4.4-10.8)
[2021-05-02 06:39] LABS: Hemoglobin A1C 5.4 % (<5.7)
[2021-05-02 06:49] LABS: Anion Gap 10.1 mmol/L (3-11); BUN 12 mg/dL (7-18); CO2 26.9 mmol/L (21.0-32.0); Calcium 8.4 mg/dL (8.5-10.1); Calculated LDL 45 mg/dL (<100); Chloride 107 mmol/L (98-107); Cholesterol 102 mg/dL (<200); Glucose 124 mg/dL (74-106); HDL Cholesterol 52 mg/dL (40-60); Potassium 3.6 mmol/L (3.5-5.1); Sodium 144 mmol/L (136-145); TSH (W/Ref FT4) 1.29 uIU/mL (0.36-3.74); Triglyceride 28 mg/dL (<150)
[2021-05-02 07:00] LABS: C-Reactive Protein 1.06 mg/dL (0.0-0.3)
[2021-05-02] MEDS: Normal Saline 500 ML 30 ML IV (08:14)
[2021-05-02] MEDS: cefTRIAXone 2 GM/50 ML BAG IVPB (08:15)
[2021-05-02] MEDS: guaiFENesin 600 MG TABCR PO ×2 (08:25→19:49)
[2021-05-02] MEDS: Calcium Carbonate 1.5 GM TAB PO ×2 (08:27→19:49)
[2021-05-02] MEDS: amLODIPine 5 MG TAB 10 MG PO (08:27)
[2021-05-02] MEDS: Metoprolol 12.5 MG TAB 50 MG PO (08:27)
[2021-05-02] MEDS: Cyanocobalamin 500 MCG TAB 1000 MCG PO (08:29)
[2021-05-02] MEDS: Lisinopril 20 MG TAB 40 MG PO (08:29)
[2021-05-02] MEDS: Allopurinol 100 MG TAB 200 MG PO (08:29)
--- NOTE | 2021-05-02 08:29 | INITIAL_ITS ---
- If Service Date Differs Date of service: 05/02/21 Time of Service: 08:29 Care Management Initial Assess REASON FOR HOSPITALIZATION:: Acute CHF, NSTEMI, acute hypoxic respiratory failure PAST MEDICAL HISTORY/PAST SURGICAL HISTORY:: Medical History (Updated 05/02/21 @ 06:24 by Zoya Whittaker MD). Ambulatory dysfunction. Biliary colic symptom. CVA (cerebral vascular accident). Gouty arthritis. left shoulder, 03/2021 - [facility]. Heart attack. cardiac cath 2012 - no stents. Hyperlipidemia. Hypertension. Morbid obesity with BMI of 45.0-49.9, adult. Surgical History (Updated 05/02/21 @ 05:57 by Zoya Whittaker MD). Angiogram. cardiac cath 2012 - no stents. Cholecystectomy. 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 He lives in a trailer he owns in [place] and drives. He has a daughter named Delores and a son named Victorino, however they do not have working phones. He has a room mate, who helps with housework and runs errands for him occaisonally. Iker shares that he is 95% independant at baseline, but admits that he has a difficult time with ADL's because he has bursitis in his left shoulder which makes it difficult for him to shower and get dressed. CM cont inues to follow. CURRENT FUNCTIONAL STATUS:: Iker was sitting up in bed when CM met with him. He was pleasant, talkative and easily engaged in conversation. He talked about getting older and having a hard time doing the things he used to do when he was 20. He has a roommate to help to help him around the house. ADVANCE DIRECTIVES:: On File Has patient been provided with info about the portal/API?: Yes Did the patient sign up for the portal?: No CODE STATUS:: Full Code INSURANCE COVERAGE / FINANCIAL ISSUES:: Commercial Medicare Replacement. Medicare/[place] A EDS. Medicare/C&S Admins SER C CURRENT HOME/COMMUNITY SERVICES/EQUIPMENT:: [facility] PRIMARY CARE PHYSICIAN:: Ambar Claire POTENTIAL DISCHARGE NEEDS:: HH SN/PT PATIENT/FAMILY EDUCATION NEEDS:: Discharge education, limitations and follow up plan of care, including ask me three and self management. TRANSPORTATION:: Via [facility] PLAN:: Anticipate that patient will be discharged home with HH SN/PT when medically cleared.
[2021-05-02] MEDS: Enoxaparin 40 MG/0.4 ML SYR SC (08:43)
--- NOTE | 2021-05-02 08:51 | CCONE_ITS ---
Date of service: 05/02/21 Time of Service: 08:51 Assessment and Plan Assessment and plan (1) Acute CHF: Status: Acute (2) Elevated troponin: Status: Acute (3) Chronic hypertension: Status: Chronic Assessment and plan: Patient presents with what I suspect is acute on chronic diastolic heart failure. He is responding well to diuresis. An echocardiogram is being obtained at this time and will be reviewed with gianna tiduncan recommendations to follow He has known coronary artery disease. I think his troponin elevation is type II related to demand caused by heart failure There are concerns for obstructive sleep apnea given his general presentation and body habitus At this time I see no indication for pursuing an ischemic evaluation unless his troponin should increase Thank you for the opportunity to participate in this patient's care. Please contact me if there are additional cardiac questions or concerns History of Present Illness History of Present Illness Chief Complaint: Shortness of breath Narrative: This is a 75-year-old man who presented to hospital with shortness of breath. Patient is a limited historian. Reportedly he was in his usual state of health until approximately 8 PM on the evening of presentation. He reports he became abruptly short of breath and this was progressive such that he came to the emergency room. Examination and chest x-ray were both consistent with congestive heart failure and he was treated with diuresis with significant improvement. His electrocardiogram showed sinus rhythm, minor diffuse ST depression and early R wave transition. His initial troponin was 0.1, repeat is pending Patient reports that he is extremely sedentary and does not do very much at all. It is hard to tell what limits him as he has multiple comorbidities including arthritis and morbid obesity. Reportedly he ambulates with a walker at baseline. I was not able to elicit any history of exertional chest discomfort. I suspect he is short of breath with activity but this was not well characterized He has a history of nonobstructive coronary disease documented by cardiac catheterization in 2012 when he had a non-ST elevation myocardial infarction. Mild diffuse disease was described in all vessels He was at [facility] in March with concern for septic arthritis. He had an echocardiogram done during that stay which reported an ejection fraction of 50%, diffuse hypokinesis. The left atrium was moderately dilated, right atrium mildly dilated. Right ventricular function was felt to be normal. The aortic root was dilated measuring 3.9 cm, ascending aorta 4.6 cm Medications were adjusted during that hospitalization for significant hypertension Patient reports that he does not smoke cigarettes Consults Consult date: 05/02/21 Requesting physician: Yonathan Ovalle Review of Systems Cardiovascular Cardiovascular: Reports as per HPI, Denies chest pain, Denies chest pain at rest, Reports leg edema, Denies radiating jaw, neck or arm pain, Reports dyspnea, Reports dyspnea on exertion and Reports orthopnea Respiratory Respiratory: Reports dyspnea and Reports dyspnea on exertion [facility] Medical History Ambulatory dysfunction Biliary colic symptom CVA (cerebral vascular accident) Gouty arthritis left shoulder, 03/2021 - [facility] Heart attack cardiac cath 2013 - no stents Hyperlipidemia Hypertension Morbid obesity with BMI of 45.0-49.9, adult Surgical History Angiogram cardiac cath 2012 - no stents Cholecystectomy open Family History Other Essential hypertension Heart disease Social History Smoking/Tobacco Use Status: Former Tobacco Use Smoking risk assessment performed?: Yes Alcohol Intake: former Drug use: Never Do you feel safe at home: Yes Do you feel safe in your relationship?: Yes Exam Narrative Exam Narrative: Morbidly obese lying in bed nearly supine no acute distress Eyes EOM: EOM intact bilaterally Neck Other: Neck is short and thick unable to assess JVP normal carotid upstrokes no bruits heard Resp Other: Increased AP diameter fine crackles at bases no wheezes Cardio Rate: regular rate Rhythm: regular rhythm Heart Sounds: S1 normal and S2 normal Other: No murmur or gallop appreciated GI Other: Very obese soft and nontender Extrem Other: 1+ edema, and chronic venous stasis changes Results Last Vital Signs Temp 36.2 C L 05/02/21 06:40 Pulse 74 05/02/21 06:40 Resp 17 05/02/21 05:50 BP 161/97 H 05/02/21 05:32 Pulse Ox 93 05/02/21 05:50 Labs Result diagrams: 05/02/21 06:13 05/02/21 06:13 Labs: Laboratory Results - last 24 hr 05/02/21 05/02/21 05/02/21 01:38 01:40 01:40 WBC 11.47 H RBC 4.30 L Hgb 13.1 L Hct 40.7 MCV 94.7 MCH 30.5 MCHC 32.2 RDW 15.8 H Plt Count 198 MPV 10.2 Immature Gran % 0.4 Neutrophils % 83.2 Lymphocytes % 6.1 Monocytes % 7.8 Eosinophils % 2.2 Basophils % 0.3 Nucleated RBC % 0 Absolute Neutrophils 9.54 H Absolute Lymphocytes 0.70 L Absolute Monocytes 0.89 H Absolute Eosinophils 0.25 Absolute Basophils 0.03 VBG pH VBG pCO2 VBG pO2 VBG HCO3 VBG Total CO2 VBG O2 Saturation VBG Base Excess Sodium 144 Potassium 3.6 Chloride 108 H Carbon Dioxide 24.5 Anion Gap 11.5 H BUN 13 Creatinine 1.0 Estimated GFR/1.73 m2 >= 60.00 Glucose 129 H Hemoglobin A1c Calcium 8.2 L Magnesium 1.8 Total Bilirubin 1.1 H AST 26 ALT 29 Alkaline Phosphatase 91 Troponin I < 0.05 C-Reactive Protein NT-Pro-B Natriuret Pep 3402 H Total Protein 7.2 Albumin 3.5 Triglycerides Total Cholesterol LDL Cholesterol, Calc HDL Cholesterol TSH Urine Color Urine Clarity Urine pH Ur Specific [place] Urine Protein Urine Ketones Urine Blood Urine Nitrite Urine Bilirubin Urine Urobilinogen Ur Leukocyte Esterase Urine RBC Urine WBC Ur Epithelial Cells Urine Crystals Urine Bacteria Urine Casts Urine Mucus Urine Other Ur Culture Indicated? Urine Glucose COVID-19 Source Nasal/Nares SARS-CoV-2 (PCR) Negative 05/02/21 05/02/21 05/02/21 01:49 02:10 04:10 WBC RBC Hgb Hct MCV MCH MCHC RDW Plt Count MPV Immature Gran % Neutrophils % Lymphocytes % Monocytes % Eosinophils % Basophils % Nucleated RBC % Absolute Neutrophils Absolute Lymphocytes Absolute Monocytes Absolute Eosinophils Absolute Basophils VBG pH 7.42 H VBG pCO2 39 L VBG pO2 83 VBG HCO3 25 VBG Total CO2 22 L VBG O2 Saturation 97 VBG Base Excess 1 Sodium Potassium Chloride Carbon Dioxide Anion Gap BUN Creatinine Estimated GFR/1.73 m2 Glucose Hemoglobin A1c Calcium Magnesium Total Bilirubin AST ALT Alkaline Phosphatase Troponin I 0.10 H* C-Reactive Protein NT-Pro-B Natriuret Pep Total Protein Albumin Triglycerides Total Cholesterol LDL Cholesterol, Calc HDL Cholesterol TSH Urine Color Yellow Urine Clarity Clear Urine pH 6.0 Ur Specific [place] >= 1.030 H Urine Protein 100 H Urine Ketones Negative Urine Blood Trace-intact H Urine Nitrite Negative Urine Bilirubin Negative Urine Urobilinogen 1.0 H Ur Leukocyte Esterase Negative Urine RBC 3-5 H Urine WBC 0-2 Ur Epithelial Cells Rare Urine Crystals Negative Urine Bacteria Rare Urine Casts Negative Urine Mucus Trace Urine Other Few Renal Ur Culture Indicated? No Urine Glucose Negative COVID-19 Source SARS-CoV-2 (PCR) 05/02/21 05/02/21 05/02/21 06:13 06:13 06:13 WBC 10.18 RBC 4.15 L Hgb 12.7 L Hct 39.3 L MCV 94.7 MCH 30.6 MCHC 32.3 RDW 15.9 H Plt Count 205 MPV 9.9 Immature Gran % 0.4 Neutrophils % 79.9 Lymphocytes % 8.3 Monocytes % 10.4 Eosinophils % 0.7 Basophils % 0.3 Nucleated RBC % 0 Absolute Neutrophils 8.14 H Absolute Lymphocytes 0.84 L Absolute Monocytes 1.06 H Absolute Eosinophils 0.07 Absolute Basophils 0.03 VBG pH VBG pCO2 VBG pO2 VBG HCO3 VBG Total CO2 VBG O2 Saturation VBG Base Excess Sodium 144 Potassium 3.6 Chloride 107 Carbon Dioxide 26.9 Anion Gap 10.1 BUN 12 Creatinine 1.0 Estimated GFR/1.73 m2 >= 60.00 Glucose 124 H Hemoglobin A1c 5.4 Calcium 8.4 L Magnesium Total Bilirubin AST ALT Alkaline Phosphatase Troponin I C-Reactive Protein 1.06 H NT-Pro-B Natriuret Pep Total Protein Albumin Triglycerides 28 Total Cholesterol 102 LDL Cholesterol, Calc 45 HDL Cholesterol 52 TSH 1.29 Urine Color Urine Clarity Urine pH Ur Specific [place] Urine Protein Urine Ketones Urine Blood Urine Nitrite Urine Bilirubin Urine Urobilinogen Ur Leukocyte Esterase Urine RBC Urine WBC Ur Epithelial Cells Urine Crystals Urine Bacteria Urine Casts Urine Mucus Urine Other Ur Culture Indicated? Urine Glucose COVID-19 Source SARS-CoV-2 (PCR)
--- NOTE | 2021-05-02 09:08 | W.PULMCC ---
General Date of Service Date of service: 05/02/21 Time of Service: 08:30 Reason for Admission to ICU: Hypoxic respiratory failure Assessment and Plan Assessment and plan (1) Morbid obesity with BMI of 45.0-49.9, adult: Status: Chronic (2) Acute CHF: Status: Acute Qualifiers: Heart failure type: diastolic Qualified Code(s): I50.31 - Acute diastolic (congestive) heart failure (3) Acute respiratory failure with hypoxia: Status: Acute (4) Pulmonary edema: Status: Acute Qualifiers: Chronicity: acute Qualified Code(s): J81.0 - Acute pulmonary edema (5) Elevated troponin: Status: Acute Assessment and plan: This is a 75-year-old gentleman who presented to the emergency department with shortness of breath. Based on the data available and on his exam it is likely he is having heart failure with preserved ejection fraction exacerbation. His chest x-ray is consistent with pulmonary edema however I do not see a clear infiltrate. Do not completely convinced of him having a pneumonia and believes his acute episode is more related to volume overload from heart failure. His echo showed a preserved ejection fraction with mildly elevated pulmonary pressures. Recommendations Pulmonary: Hypoxic respiratory failure - supplemental O2 for sat >90% - would not recommend BiPAP/CPAP unless he acutely decompensates or has flash pulmonary edema Cardiac: HFpEF exacerbation - continued diuresis - TTE completed - cardiology has been consulted, defer medication management to them Elevated troponins In the setting of CHF exacerbaiton - no need to further trend Hypertension - recommend home amlodipine, lisinopril and metoprolol - if increase in pressure, would treat with hydralazine (drops afterload) as to avoid flash pulmonary edema Renal: No acute concerns - continue diuresis I&O: Intake & Output 04/29/21 04/30/21 05/01/21 05/02/21 23:59 23:59 23:59 23:59 Intake Total 200 / 200 Output Total 2004 Balance -1805 / -1805 Weight 156.6 kg Daily Fluid Goal:: - 1L in 24 hours GI Nutrition: Ok for PO intake - fluid restriction and salt restriction Infectious Disease: Concern for Pneumonia - I do not see an infiltrate on CXR, rather volume overload - would discontinue ceftriaxone - can give PO doxycycline for 5 days if continued concern for bacterial bronchitis - can consider sputum culture and procalcitonin Hematologic: No acute concern Neurologic: Unusual affect/poor historian - no acute concern Endocrine: No acute concern Lines: PIV Prophylaxis: Lovenox for DVT ppx No indication for GI ppx I spent a total of 45 minutes with this patient at the bedside, rounding with nursing, coordination of care, precharting, and documentation. Code Status: Resuscitation Status Full Code Subjective Critical and life-threatening events over the past 24 hours: This is a 75-year-old gentleman who has a significant cardiac history as well as obesity who presented to the emergency department with shortness of breath. He is an extremely poor historian but seems as though he has been short of breath for several days that was exacerbated by the heat and humidity. Upon arrival to the emergency department he was saturating in the mid 80s on room air. He required 4 L nasal cannula to maintain a saturation over 90%. He was found to be in pulmonary edema and was then diuresed and was also found to have a slightly elevated troponin to 0.1. [facility] [place] and did not recommend urgent cath for him. Exam Const General: no acute distress Nutritional Appearance: obese HENMT Head: normocephalic Ears: external ears normal General nose exam: nasal mucous membranes and turbinates normal Face and sinus: normal facial exam Mouth: oropharynx normal and moist mucous membranes Teeth and gingiva: dentition normal Eyes General: appearance normal, both eyes and all related structures Pupils: PERRL Neck Neck: normal visual inspection and no lymphadenopathy Chest Chest: normal inspection of the chest Resp Effort & Inspection: normal respiratory effort Auscultation: clear to auscultation bilaterally, diminished lung sounds, no rales, no rhonchi and no wheezes Cardio Rate: regular rate Rhythm: regular rhythm Heart Sounds: S1 normal, S2 normal and no murmurs Pulses: radial pulses present bilaterally GI Inspection: normal to inspection Palpation: soft Skin General skin exam: no rashes or lesions noted Neuro General: patient alert, patient awake and patient oriented x3 Extrem General: no clubbing, no cyanosis and edema Psych Mental Status: mental status grossly normal Affect: normal affect Attitude: cooperative Most Recent VS/Results Last Vital Signs Temp 36.2 C L 05/02/21 06:40 Pulse 74 05/02/21 06:40 Resp 17 05/02/21 05:50 BP 161/97 H 05/02/21 05:32 Pulse Ox 93 05/02/21 05:50 Laboratory Results - last 24 hr 05/02/21 05/02/21 05/02/21 01:38 01:40 01:40 WBC 11.47 H RBC 4.30 L Hgb 13.1 L Hct 40.7 MCV 94.7 MCH 30.5 MCHC 32.2 RDW 15.8 H Plt Count 198 MPV 10.2 Immature Gran % 0.4 Neutrophils % 83.2 Lymphocytes % 6.1 Monocytes % 7.8 Eosinophils % 2.2 Basophils % 0.3 Nucleated RBC % 0 Absolute Neutrophils 9.54 H Absolute Lymphocytes 0.70 L Absolute Monocytes 0.89 H Absolute Eosinophils 0.25 Absolute Basophils 0.03 VBG pH VBG pCO2 VBG pO2 VBG HCO3 VBG Total CO2 VBG O2 Saturation VBG Base Excess Sodium 144 Potassium 3.6 Chloride 108 H Carbon Dioxide 24.5 Anion Gap 11.5 H BUN 13 Creatinine 1.0 Estimated GFR/1.73 m2 >= 60.00 Glucose 129 H Hemoglobin A1c Calcium 8.2 L Magnesium 1.8 Total Bilirubin 1.1 H AST 26 ALT 29 Alkaline Phosphatase 91 Troponin I < 0.05 C-Reactive Protein NT-Pro-B Natriuret Pep 3402 H Total Protein 7.2 Albumin 3.5 Triglycerides Total Cholesterol LDL Cholesterol, Calc HDL Cholesterol TSH Urine Color Urine Clarity Urine pH Ur Specific [place] Urine Protein Urine Ketones Urine Blood Urine Nitrite Urine Bilirubin Urine Urobilinogen Ur Leukocyte Esterase Urine RBC Urine WBC Ur Epithelial Cells Urine Crystals Urine Bacteria Urine Casts Urine Mucus Urine Other Ur Culture Indicated? Urine Glucose COVID-19 Source Nasal/Nares SARS-CoV-2 (PCR) Negative 05/02/21 05/02/21 05/02/21 01:49 02:10 04:10 WBC RBC Hgb Hct MCV MCH MCHC RDW Plt Count MPV Immature Gran % Neutrophils % Lymphocytes % Monocytes % Eosinophils % Basophils % Nucleated RBC % Absolute Neutrophils Absolute Lymphocytes Absolute Monocytes Absolute Eosinophils Absolute Basophils VBG pH 7.42 H VBG pCO2 39 L VBG pO2 83 VBG HCO3 25 VBG Total CO2 22 L VBG O2 Saturation 97 VBG Base Excess 1 Sodium Potassium Chloride Carbon Dioxide Anion Gap BUN Creatinine Estimated GFR/1.73 m2 Glucose Hemoglobin A1c Calcium Magnesium Total Bilirubin AST ALT Alkaline Phosphatase Troponin I 0.10 H* C-Reactive Protein NT-Pro-B Natriuret Pep Total Protein Albumin Triglycerides Total Cholesterol LDL Cholesterol, Calc HDL Cholesterol TSH Urine Color Yellow Urine Clarity Clear Urine pH 6.0 Ur Specific [place] >= 1.030 H Urine Protein 100 H Urine Ketones Negative Urine Blood Trace-intact H Urine Nitrite Negative Urine Bilirubin Negative Urine Urobilinogen 1.0 H Ur Leukocyte Esterase Negative Urine RBC 3-5 H Urine WBC 0-2 Ur Epithelial Cells Rare Urine Crystals Negative Urine Bacteria Rare Urine Casts Negative Urine Mucus Trace Urine Other Few Renal Ur Culture Indicated? No Urine Glucose Negative COVID-19 Source SARS-CoV-2 (PCR) 05/02/21 05/02/21 05/02/21 06:13 06:13 06:13 WBC 10.18 RBC 4.15 L Hgb 12.7 L Hct 39.3 L MCV 94.7 MCH 30.6 MCHC 32.3 RDW 15.9 H Plt Count 205 MPV 9.9 Immature Gran % 0.4 Neutrophils % 79.9 Lymphocytes % 8.3 Monocytes % 10.4 Eosinophils % 0.7 Basophils % 0.3 Nucleated RBC % 0 Absolute Neutrophils 8.14 H Absolute Lymphocytes 0.84 L Absolute Monocytes 1.06 H Absolute Eosinophils 0.07 Absolute Basophils 0.03 VBG pH VBG pCO2 VBG pO2 VBG HCO3 VBG Total CO2 VBG O2 Saturation VBG Base Excess Sodium 144 Potassium 3.6 Chloride 107 Carbon Dioxide 26.9 Anion Gap 10.1 BUN 12 Creatinine 1.0 Estimated GFR/1.73 m2 >= 60.00 Glucose 124 H Hemoglobin A1c 5.4 Calcium 8.4 L Magnesium Total Bilirubin AST ALT Alkaline Phosphatase Troponin I C-Reactive Protein 1.06 H NT-Pro-B Natriuret Pep Total Protein Albumin Triglycerides 28 Total Cholesterol 102 LDL Cholesterol, Calc 45 HDL Cholesterol 52 TSH 1.29 Urine Color Urine Clarity Urine pH Ur Specific [place] Urine Protein Urine Ketones Urine Blood Urine Nitrite Urine Bilirubin Urine Urobilinogen Ur Leukocyte Esterase Urine RBC Urine WBC Ur Epithelial Cells Urine Crystals Urine Bacteria Urine Casts Urine Mucus Urine Other Ur Culture Indicated? Urine Glucose COVID-19 Source SARS-CoV-2 (PCR) Review of Systems Unobtainable due to mental condition and Unobtainable due to mental status
[2021-05-02] MEDS: DOXYCYCLINE 100 MG in Normal Saline 100 ML IVPB ×2 (09:22→19:50)
[2021-05-02 10:15] LABS: Troponin I 0.13 ng/mL (<0.06)
--- NOTE | 2021-05-02 10:37 | NUR.NOTE ---
Lab called to advise that patient had a critical lab value of 0.13 for his trop. Paged doctor with new results.
--- NOTE | 2021-05-02 14:05 | CHAPLAIN ---
I first knew Iker from working with him at [facility] more than 10 years ago. He sort of remembered me. He told me that he had trouble breathing, and that's why he's here. He said he hasn't seen a doctor today yet, but that he has had all kinds of tests. Iker lives in a [facility] part in [place]. He had a daughter, Delores and a son Jordan, but it's hard to tell how often he sees them. Iker seems to be comfortable being here, but is also anxious about when doctors will find.
--- NOTE | 2021-05-02 14:08 | PHA.REVIEW ---
Pharmacy Admission Review - Admission Clinical Review (Last Reviewed 05/02/21 @ 08:55 by Zoya Blount MD) QT prolongation (Acute) Discharge planning issues (Acute) DVT prophylaxis (Acute) Acute CHF (Acute) Pneumonia (Acute) Acute respiratory failure with hypoxia (Acute) Shortness of breath (Acute) Pulmonary edema (Acute) Elevated troponin (Acute) hydrochlorothiazide Adverse Reaction (Unverified 05/02/21 02:01) gout Resuscitation Status Full Code Height 6 ft 4 in Weight 156.6 kg - Renal Dosing Renal Dosing: BUN 12 mg/dL (7-18) 05/02/21 06:13 Creatinine 1.0 mg/dL (0.70-1.30) 05/02/21 06:13 Medications needing adjustments: Reviewed (Crcl ~103.5 mL/min using adjusted body weight, current meds okay) - Anticoagulation Anticoagulation: Hgb 12.7 g/dL (13.5-17.5) L 05/02/21 06:13 Hct 39.3 % (40.0-50.0) L 05/02/21 06:13 Plt Count 205 10^3/uL (130-400) 05/02/21 06:13 Creatinine 1.0 mg/dL (0.70-1.30) 05/02/21 06:13 DVT Prophylaxis: Reviewed Medications: Enoxaparin Therapeutic Anticoagulation: N/A - Opiate Usage Evaluate Pain Scale/Pains Meds: N/A - Relevant Labs Sodium 144 mmol/L (136-145) 05/02/21 06:13 Potassium 3.6 mmol/L (3.5-5.1) 05/02/21 06:13 Chloride 107 mmol/L (98-107) 05/02/21 06:13 Magnesium 1.8 mg/dL (1.8-2.4) 05/02/21 01:40 C-Reactive Protein 1.06 mg/dL (0.0-0.3) H 05/02/21 06:13 Electrolytes, C-Reactive P, ESR: Reviewed - DM Control DM Control: Glucose 124 mg/dL (74-106) H 05/02/21 06:13 Hemoglobin A1c 5.4 % (<5.7) 05/02/21 06:13 Insulin Dosing: N/A - Heart Failure/AL Heart Failure/AL: Troponin I 0.13 ng/mL (<0.06) H* 05/02/21 09:36 NT-Pro-B Natriuret Pep 3402 pg/mL (<300) H 05/02/21 01:40 EF%, JOSÉ MANUEL's, B-Blockers, Diuretics: Reviewed - BP Control BP Control: Blood Pressure 205/176 Blood Pressure 143/109 Blood Pressure 136/82 Blood Pressure 186/100 Blood Pressure 141/114 Blood Pressure 118/96 Blood Pressure 83/42 If elevated: Reviewed (BP has been up and down so far this admission.) - Qtc Review If Elevated: Reviewed (Most recent QTc was 512, current meds okay) - IV to PO Switch IV Medications: Reviewed - Home Meds Home Med List reviewed: Intervened (Per external med history pt is taking 100 mg metoprolol succinated daily not 50 mg metoprolol tartrate daily, also dose not look like amlodipine has been picked up in awhile, will mention to provider.) Relevent Home Meds Not ordered & why?: All home meds are currently ordered. - Current meds Current Medication Order Review: Intervened (Discontinued duplicate med orders.) - Comments Comments/Follow Ups: Watch BP, labs and for med changes (avoid QT prolonging meds). Antibiotic Activity - Pharmacy Antibiotic Review Pharmacy Antibiotic Activity: Reviewed, no change (Ceftriaxone and doxycycline ordered empirically for pneumonia (day 1). Blood and sputum cultures pending.)
[2021-05-02] MEDS: Metoprolol CR 50 MG TABCR PO (15:30)
[2021-05-02] MEDS: Acetaminophen 325 MG TAB PO (19:49)
[2021-05-02] MEDS: Atorvastatin 40 MG TAB 80 MG PO (19:49)
[2021-05-03] VITALS (11 sets, daily range): BP systolic 143–176; BP diastolic 72–101; PULSE 69–84; RESP 14–20; TEMP 36.4–38.1; O2SAT 91–96
[2021-05-03] MEDS: DOXYCYCLINE 100 MG in Normal Saline 100 ML IVPB ×2 (08:33→20:00)
[2021-05-03] MEDS: cefTRIAXone 2 GM/50 ML BAG IVPB (08:33)
[2021-05-03] MEDS: Furosemide 40 MG/4 ML VIAL IVP ×2 (08:34→15:51)
[2021-05-03] MEDS: Calcium Carbonate 1.5 GM TAB PO ×2 (08:34→20:01)
[2021-05-03] MEDS: Lisinopril 20 MG TAB 40 MG PO (08:34)
[2021-05-03] MEDS: Cyanocobalamin 500 MCG TAB 1000 MCG PO (08:34)
[2021-05-03] MEDS: Aspirin E.C. 81 MG TABEC PO (08:34)
[2021-05-03] MEDS: Metoprolol CR 100 MG TABCR PO (08:34)
[2021-05-03] MEDS: Enoxaparin 40 MG/0.4 ML SYR SC (08:34)
[2021-05-03] MEDS: Allopurinol 100 MG TAB 200 MG PO (08:35)
[2021-05-03] MEDS: amLODIPine 5 MG TAB 10 MG PO (08:35)
[2021-05-03] MEDS: guaiFENesin 600 MG TABCR PO ×2 (08:35→20:01)
--- NOTE | 2021-05-03 09:05 | CMPROGNOTE_ITS ---
- If Service Date Differs Date of service: 05/03/21 Time of Service: 09:05 Care Management Progress Note S/O: Iker was sitting up in his chair when CM met with him. He was pleasant and easily engaged in conversation. Iker shares that this is what he does during the day and prefers not to watch TV or do anything but sit. He had some shortness of breath walking from the bed to the chair. Iker reports that his goal is to get home, however he's not in any hurry to leave because he knows his lungs need to clear up. CM encouraged him to continue using his IS and VibraPrep. CM continues to follow. A: 75 year old male admitted to [facility] on 05/02/21 for Acute CHF, NSTEMI, Acute Hypoxic Respiratory Failure P: Iker will return home via RCT coordinated by CM when medically cleared. He will likely need HH SN/PT, pulmonology referral and follow up with his PCP. CM continues to follow.
[2021-05-03] MEDS: Nystatin CREAM 30 GM TUBE TP ×2 (10:24→20:01)
--- NOTE | 2021-05-03 10:38 | RESPIRATORY ---
1020 pt resting comfortably with nasal cannula not in place. SpO2 90% on RA. Placed pt back on 1L NC and rechecked SpO2 was at 92%.
[2021-05-03 12:12] LABS: Anion Gap 8.5 mmol/L (3-11); BUN 15 mg/dL (7-18); CO2 28.5 mmol/L (21.0-32.0); Calcium 8.2 mg/dL (8.5-10.1); Chloride 103 mmol/L (98-107); Glucose 138 mg/dL (74-106); Potassium 3.4 mmol/L (3.5-5.1); Sodium 140 mmol/L (136-145)
--- NOTE | 2021-05-03 14:05 | PT.INIE ---
Date of service: 05/03/21 Time of Service: 14:05 PT Notes Visit Reasons: Acute CHF,NSTEMI,Acute Hypoxic Respiratory Failure Physical Therapy Inpatient Initial Evaluation Date: 05/03/2021 Referring Doctor: Yonathan Ovalle MD PT Orders: PT CONSULT: Eval/treat Precautions: Fall. Standard. Activity as tolerated. Patient Profile/Admitting Diagnosis: Iker is a 75-year-old morbidly obese male with chronic hypertension and hyperlipidemia who presented to the ED on 05/02/2021 due to increasing shortness of breath. Patient is diagnosed with acute respiratory failure with hypoxia, acute congestive heart failure, pneumonia, elevated troponin, QT prolongation, and ambulatory dysfunction. PMHX: Medical History (Updated 05/02/21 @ 06:24 by Zoya Whittaker MD) Ambulatory dysfunction Biliary colic symptom CVA (cerebral vascular accident) Gouty arthritis left [place] [facility] [place] cardiac cath 2013 - no stents Hyperlipidemia Hypertension Morbid obesity with BMI of 45.0-49.9, adult Surgical History (Updated 05/02/21 @ 05:57 by Zoya Whittaker MD) Angiogram cardiac cath 2013 - no stents Cholecystectomy open Social History/Home Situation: Lives alone in an apartment building with 3 steps to enter with B rails. Independent with front wheeled walker. Still drives. Does own grocery shopping. Able to manage all meals. Equipment Owned/DME: [employer] Subjective: States that he is not fatigued, just weak. Iker complained of significant pain in the left knee and the right ankle with short distance ambulation. He states that the EMS personnel were not so nice to him during the transport and feels like they may have contributed to his knee and ankle hurting during transport, Nurse Chari made aware of pain report. States that he has had no falls in the past 12 months. Indicated that hernia in his abdomen is not really helping with his ability to move. He was not willing to go any farther as he says that he terribly needed to rest and lie down. He was not interested with discharge destination planning, right now he is only concerned about getting some rest. Objective: General Observation: Morbidly obese. Appears anxious about getting rest. Mental Status: Alert and oriented as to person, place, time, and purpose. Able to pay attention but is unable to focus due to exhaustion and discomfort in his L knee and R ankle. Pain: 10/10 in R ankle and L knee with weight bearing. No pain at rest. ROM: Right Upper Extremity: Grossly lacks 50% of available ROM in all joints Left Upper Extremity: Grossly lacks 50% of available ROM in all joints Right Lower Extremity: Grossly lacks 50% of available ROM in all joints Left Lower Extremity: Grossly lacks 50% of available ROM in all joints Strength: Right Upper Extremity: Grossly 3-/5 Left Upper Extremity: Grossly 3-/5 Right Lower Extremity: Grossly 3-/5. R ankle mildly swollen but not warm, no tenderness to palpation elicited, no disoloration seen. Left Lower Extremity: Grossly 3-/5. L knee has nor redness nor increased warmth. No tenderness to palpation elicited. Bed Mobility/Transfers: Sit to supine moderate assist of 2 Sit to stand moderate assist of 2 Stand to sit moderate assist Reclining chair to bed moderate assist of 2 Gait: Instructed patient with level surface ambulation of 8 steps requiring moderate assist of 2 with ICE GUARD INSPECTOR Varsha. Ruth decreased. Step height decreased. Step length decreased. Reported 10/10 pain on the left knee and right ankle with ambulation. Nurse Chari updated about complaint. Balance: Static Sitting: Good Dynamic Sitting: Fair Static Standing: Poor Dynamic Standing: Poor Special Tests: Mobility Limitations Standardized Measure [facility] AM-PAC 6 clicks Basic Mobility Inpatient Short Form: Raw Score: 12 CMS Score: 69% deficit Informed Consent/Education: Patient was instructed in purpose of PT consult and plan of care. Agreeable to proceed with established PT POC to achieve personal goals. Assessment: Concern about patient report regarding transport issues by EMS personnel contributing to increased L knee pain and R ankle presented by patient to this provider. Examination of the L knee joint and R ankle did not demonstrate any redness, increased warmth, and tenderness to palpation. Issue has been brought up with nurse who reported to Nurse Executive Director Jeniffer about said issue. Patient demonstrates functional mobility decline requiring assistance of 2 people for safe mobility ADL performance. Endurance very much reduced, needs frequent rests. Patient presents with clinical signs and symptoms consistent with current/admitting diagnoses that have resulted to mobility limitations, gait instability, generalized weakness, and overall ADL decline as demonstrated by the following impairment level findings: 1. Decreased strength to B UE/LE major muscle groups 2. Impaired sitting/standing balance 3. Impaired activity tolerance 4. Limitation of joint range of motion in B LE joints 5. Shortness of breath 6. Swelling 7. Morbid obesity Impairments are contributing to the following functional limitations: 1. Decline in bed mobility skills 2. Decline in transfer skills 3. Difficulty with ambulation without assistive device and physical assistance 4. Increased completion time for mobility ADL performance 5. Increased risk for falls 6. Difficulty with managing steps alone safely Patient is assessed as a [id number] complexity based on the following: History: 75-year-old male with past medical history as indicated above Examination: Demonstrable impairment in strength, balance, and mobility level with underlying impairments and functional limitations as exhibited above as well as deficit score of 69% utilizing the [facility] Mobility Inpatient Short Form Presentation: Evolving Decision Makin moderate complexity Goals: Goals X1 week 1. Supine-Sit independent 2. Sit-Supine independent 3. Sit-Stand independent 4. Stand-Sit independent with bariatric FWW 5. Bed-Chair independent with bariatric FWW 6. Chair-Bed independent with bariatric FWW 7. Independent gait on level surface with use of bariatric FWW for at least 100 feet without report of pain nor dyspnea 8. Independent stair negotiation while holding onto B rails for at least 5 steps without report of pain nor dyspnea 9. Good static and dynamic standing balance/tolerance Plan of Care/Treatment Plan: 1-2x/day, 7 days/week x 1 week. Plan of care has been reviewed with the INTERNAL MEDICINE DOCTOR providing the service under Physical Therapy direction. Initiate Physical Therapy intervention for pain management as needed, strengthening, bed mobility, transfers, gait, stairs, balance training, and use of assistive device. DISCHARGE RECOMMENDATIONS: Patient will benefit from residential facility placement for continued skilled physical therapy services in order to progress mobility level, strength, and balance in preparation for a safe discharge to home. TREATMENT CODE/TIME: 53691 x 20 minutes, 01525 x 10 minutes beginning at 14:05 PM. Thank you for the opportunity to participate in the care of this patient. Emani Ruff PT, DPT, CLT [facility] [place], [place]
--- NOTE | 2021-05-03 15:49 | PGE_ITS ---
Date of Service Date of service: 05/03/21 Time of Service: 15:49 Assessment and Plan Assessment and plan (1) Acute respiratory failure with hypoxia: Status: Acute Assessment and plan: Multifactorial - pneumonia, pulmonary edema, likely LUIS FELIPE and OHS Diuresing well on current lasix dosing; pedal edema resolved. He endorses improvement in SOA. Wean o2 as tolerated. He has had sleep study in the past; endorses inability to tolerate CPAP masks. Pulmonary/critical care consult appreciated. (2) Acute CHF: Status: Acute Assessment and plan: Echocardiogram with LVEF of 56%. No wall motion abnormalities. Had an echo at [facility] [place] on 03/15/21 due to concerns of septic arthritis/endocarditis (both ruled out). LVEF at the time was 50%, no wall motion abnormalities were seen. RV size and function were nml. RVSP 33.8 Monitor on tele. COntinue to diurese, monitoring I/O's, daily weights. Consider BiPAP. Qualifiers: Heart failure type: diastolic Qualified Code(s): I50.31 - Acute diastolic (congestive) heart failure (3) Pneumonia: Status: Acute Assessment and plan: The patient does have leucocytosis, productive sputum, multifocal infiltrates on CXR. COVID-19 ruled out. Cont empiric doxycycline/ceftriaxone. WBC count: 11 > 10. Obtaining sputum and blood cultures. (4) Elevated troponin: Status: Acute Assessment and plan: Suspect Type 2 NSTEMI in setting of acute hypoxic respiratory failure/acute CHF/pneumonia. Given underlying CAD. Troponin trend: 0.10 > 0.13 > 0.10 cardiology consulted and endorse acute on chronic diastolic CHF. Responding to diureses. No ischemic eval indicated at this time. (5) QT prolongation: Status: Acute Assessment and plan: monitor on tele. replete calcium. avoid QT prolonging drugs. (6) Chronic hypertension: Status: Chronic Assessment and plan: Continue home meds SBP today in the 140-170's range. Given his body habitus, w/o weight loss and dietary compliance, likely will be difficult to control. (7) Hyperlipidemia: Status: Chronic Assessment and plan: Continue home statin; check fasting lipid panel (8) Morbid obesity with BMI of 45.0-49.9, adult: Status: Chronic Assessment and plan: Check A1C. Consider sleep apnea. The patient has difficulty ambulating at baseline. Consult PT once cleared from cardiac/pulmonary stand point. (9) DVT prophylaxis: Status: Acute Assessment and plan: Lovenox (10) Discharge planning issues: Status: Acute Assessment and plan: Full code He is not safe at home given his very limited mobility, but he has decision making capacity to decide on his disposition. Subjective Subjective Patient reports: no new complaints, shortness of breath (with activity but improved.) and afebrile; denies nausea and vomiting Exam Narrative Exam Narrative: General: Obese male who is unkempt/has poor hygiene, not appearing dyspneic/tachypneic while resting at about 45 degrees in the stretcher, somnolent, reluctant to provide history Neurological: A&Ox3, no obvious focal deficits Psychiatric: appears to have a bright mood, somewhat reluctant to provide history, but does answer questions appropriately Skin: No lesions on B feet, visible skin intact HEENT: Atraumatic, normocephalic, EOMI, Dry MM, clear oropharynx, no submandibular or cervical lymphadenopathy, no goiter or JVD Cardiovascular: RRR, no m/r/g Lungs: CTAB (after diuresis) Gastrointestinal: soft, nontender, nondistended, R-sided abdominal wall hernia which is nontender Genitourinary: has a castanon - urine light colored, diluted Extremities: 1+ BLE edema, +1 pedal pulses B, no clubbing/cyanosis; B feet are dirty Const General: cooperative and disheveled Nutritional Appearance: obese Orientation: alert and oriented x3 HENMT Head: normocephalic and atraumatic Eyes General: appearance normal, both eyes and all related structures Sclera: sclerae normal Neck Neck: full ROM Resp Effort & Inspection: normal respiratory effort Auscultation: clear to auscultation bilaterally and diminished lung sounds Cardio Rate: regular rate Rhythm: regular rhythm Heart Sounds: S1 normal and S2 normal GI Inspection: obesity and other (Large right abd hernia / nontender) Auscultation: normal bowel sounds Skin General skin exam: no rashes or lesions noted Neuro General: no focal motor deficits Cranial Nerves: facial strength normal Cognition: normal cognition Gait: other (transfers with great difficulty) Extrem General: no pedal edema and no calf tenderness Psych Appearance: grossly normal Mental Status: mental status grossly normal Mood: congruent mood Affect: normal affect Attitude: cooperative Objective Last Vital Signs Temp 37 C 05/03/21 15:47 Pulse 73 05/03/21 15:47 Resp 18 05/03/21 15:47 BP 143/72 H 05/03/21 15:47 Pulse Ox 93 05/03/21 15:47 Laboratory Results - last 24 hr 05/03/21 10:40 Sodium 140 Potassium 3.4 L Chloride 103 Carbon Dioxide 28.5 Anion Gap 8.5 BUN 15 Creatinine 1.0 Estimated GFR/1.73 m2 >= 60.00 Glucose 138 H Calcium 8.2 L
--- NOTE | 2021-05-03 16:17 | W.PULMPROG ---
General Date Of Service Date of service: 05/03/21 Time of Service: 10:45 Requesting physician: Yonathan Ovalle Reason for Consult: Hypoxic respiratory failure Subjective 24 Hour Events: The patient improved dramatically with appropriate diuresis and was transferred to the [facility] floor Note Note: Patient states he is doing well today feels like his breathing is a bit easier. He is anxious to go home and hopes he does not require oxygen when he leaves. Exam Const General: no acute distress Nutritional Appearance: obese HENMT Head: normocephalic Ears: external ears normal General nose exam: nasal mucous membranes and turbinates normal Face and sinus: normal facial exam Mouth: oropharynx normal and moist mucous membranes Teeth and gingiva: dentition normal Eyes General: appearance normal, both eyes and all related structures Pupils: PERRL Neck Neck: normal visual inspection and no lymphadenopathy Chest Chest: normal inspection of the chest Resp Effort & Inspection: normal respiratory effort Auscultation: clear to auscultation bilaterally, diminished lung sounds, no rales, no rhonchi and no wheezes Cardio Rate: regular rate Rhythm: regular rhythm Heart Sounds: S1 normal, S2 normal and no murmurs Pulses: radial pulses present bilaterally GI Inspection: normal to inspection Palpation: soft Skin General skin exam: no rashes or lesions noted Neuro General: patient alert, patient awake and patient oriented x3 Extrem General: no clubbing, no cyanosis and edema Psych Mental Status: mental status grossly normal Affect: normal affect Attitude: cooperative Objective Last Vital Signs Temp 37 C 05/03/21 15:47 Pulse 73 05/03/21 15:47 Resp 18 05/03/21 15:47 BP 143/72 H 05/03/21 15:47 Pulse Ox 93 05/03/21 15:47 Laboratory Results - last 24 hr 05/03/21 10:40 Sodium 140 Potassium 3.4 L Chloride 103 Carbon Dioxide 28.5 Anion Gap 8.5 BUN 15 Creatinine 1.0 Estimated GFR/1.73 m2 >= 60.00 Glucose 138 H Calcium 8.2 L Results Medications Medications: Active Medications Generic Name Dose Route Start Last Admin Trade Name Freq PRN Reason Stop Dose Admin Acetaminophen 0 mg 05/02/21 05:33 05/02/21 19:49 Acetaminophen 325 Mg Tab PO 650 mg Q4H PRN PRN Administration Al Hydrox/Mg Hydrox/Simethicone 30 ml 05/02/21 05:33 Mylanta Suspension 30 Ml Cup PO Q2H PRN PRN Albuterol/Ipratropium 3 ml 05/02/21 05:28 Albuterol/Ipratropium 3 Ml Upd Vial UPD Q4H PRN PRN Allopurinol 200 mg 05/02/21 08:30 05/03/21 08:35 Allopurinol 100 Mg Tab PO 200 mg DAILY GIL Administration Amlodipine Besylate 10 mg 05/02/21 08:30 05/03/21 08:35 Amlodipine 5 Mg Tab PO 10 mg DAILY GIL Administration Aspirin 81 mg 05/03/21 08:30 05/03/21 08:34 Aspirin E.C. 81 Mg Tabec PO 81 mg DAILY GIL Administration Atorvastatin Calcium 80 mg 05/02/21 20:00 05/02/21 19:49 Atorvastatin 40 Mg Tab PO 80 mg QPM GIL Administration Calcium Carbonate 1.5 gm 05/02/21 08:30 05/03/21 08:34 Calcium Carbonate 1.5 Gm Tab PO 1.5 gm BID GIL Administration Cyanocobalamin 1,000 mcg 05/02/21 08:30 05/03/21 08:34 Cyanocobalamin 500 Mcg Tab PO 1,000 mcg DAILY GIL Administration Diclofenac Sodium 1 gm 05/02/21 07:28 Diclofenac 1% Gel 100 Gm Tube TP BID PRN PRN knee pain Dimethicone/Zinc Oxide 0 gm 05/02/21 05:28 Diana Protect Cream 142 Gm Tube TP PRN PRN Docusate Sodium 100 mg 05/02/21 05:28 Docusate Sodium 100 Mg Cap PO TID PRN PRN Enoxaparin Sodium 40 mg 05/02/21 08:30 05/03/21 08:34 Enoxaparin 40 Mg/0.4 Ml Syr SC 40 mg Q24H GIL Administration Furosemide 40 mg 05/02/21 08:00 05/03/21 15:51 Furosemide 40 Mg/4 Ml Vial IVP 40 mg BID@0800,1600 GIL Administration Guaifenesin 600 mg 05/02/21 08:30 05/03/21 08:35 Guaifenesin 600 Mg Tabcr PO 600 mg BID GIL Administration Sodium Chloride 500 mls @ 0 mls/hr 05/02/21 05:28 05/02/21 10:30 Saline 500ml Bag IV 0 mls/hr PRN PRN Infusion As Directed Ceftriaxone Sodium/Dextrose 2 gm in 50 mls @ 100 mls/hr 05/02/21 09:00 05/03/21 08:33 Rocephin IVPB 100 mls/hr Q24H GIL Administration Doxycycline Hyclate 100 mg/ 100 mls @ 100 mls/hr 05/02/21 08:00 05/03/21 08:33 Sodium Chloride IVPB 100 mls/hr Q12H GIL Administration IV Miscellaneous Supplies 1 each 05/02/21 05:30 Iv Access IV DIRECTED GIL Lisinopril 40 mg 05/02/21 08:30 05/03/21 08:34 Lisinopril 20 Mg Tab PO 40 mg DAILY GIL Administration Magnesium Hydroxide 30 ml 05/02/21 05:33 Milk Of Magnesia 30 Ml Cup PO DAILY PRN PRN Metoprolol Succinate 100 mg 05/03/21 08:30 05/03/21 08:34 Metoprolol Cr 100 Mg Tabcr PO 100 mg DAILY GIL Administration Nystatin 0 gm 05/03/21 08:30 05/03/21 10:24 Nystatin Cream 30 Gm Tube TP 2 applic BID GIL Administration Sodium Chloride 0 ml 05/02/21 05:28 05/02/21 19:50 Normal Saline Flush 10 Ml Syr IVP 10 ml PRN PRN Administration Allergies hydrochlorothiazide Adverse Reaction (Unverified 05/02/21 02:01) gout Labs Result Diagrams: 05/02/21 06:13 05/03/21 10:40 Labs: 05/02/21 06:13 Blood Blood Culture - Preliminary Gram Positive Cocci 05/02/21 05:10 Blood Blood Culture - Preliminary NO GROWTH 24 HOURS 05/03/21 05:10 Nose MRSA Screen - Pending 05/02/21 09:51 Sputum - Expectorated Gram Stain - Final Laboratory Tests Range/Units 05/02/21 05/02/21 05/02/21 01:38 01:40 01:40 WBC (4.4-10.8) 10^3/uL 11.47 H RBC (4.36-5.78) 10^6/uL 4.30 L Hgb (13.5-17.5) g/dL 13.1 L Hct (40.0-50.0) % 40.7 MCV (80-95) fL 94.7 MCH (27.0-33.0) pg 30.5 MCHC (32.0-36.0) % 32.2 RDW (11.8-14.1) % 15.8 H Plt Count (130-400) 10^3/uL 198 MPV (8.0-11.0) fL 10.2 Immature Gran % 0.4 Neutrophils % 83.2 Lymphocytes % 6.1 Monocytes % 7.8 Eosinophils % 2.2 Basophils % 0.3 Nucleated RBC % % 0 Absolute Neutrophils (1.2-6.7) 10^3/uL 9.54 H Absolute Lymphocytes (1.2-3.4) 10^3/uL 0.70 L Absolute Monocytes (0.1-0.8) 10^3/uL 0.89 H Absolute Eosinophils (0.0-0.7) 10^3/uL 0.25 Absolute Basophils (0.0-0.2) 10^3/uL 0.03 VBG pH (7.31-7.41) VBG pCO2 (41-51) mmHg VBG pO2 mmHg VBG HCO3 (23-28) mmol/L VBG Total CO2 (24-29) mmol/L VBG O2 Saturation % VBG Base Excess (-2-3) mmol/L Sodium (136-145) mmol/L 144 Potassium (3.5-5.1) mmol/L 3.6 Chloride (98-107) mmol/L 108 H Carbon Dioxide (21.0-32.0) mmol/L 24.5 Anion Gap (3-11) mmol/L 11.5 H BUN (7-18) mg/dL 13 Creatinine (0.70-1.30) mg/dL 1.0 Estimated GFR/1.73 m2 (mL/min/1.73m2) >= 60.00 Glucose (74-106) mg/dL 129 H Hemoglobin A1c (<5.7) % Calcium (8.5-10.1) mg/dL 8.2 L Magnesium (1.8-2.4) mg/dL 1.8 Total Bilirubin (0.2-1.0) mg/dL 1.1 H AST (15-37) U/L 26 ALT (16-63) U/L 29 Alkaline Phosphatase (46-116) U/L 91 Troponin I (<0.06) ng/mL < 0.05 C-Reactive Protein (0.0-0.3) mg/dL NT-Pro-B Natriuret Pep (<300) pg/mL 3402 H Total Protein (6.4-8.2) g/dL 7.2 Albumin (3.4-5.0) g/dL 3.5 Triglycerides (<150) mg/dL Total Cholesterol (<200) mg/dL LDL Cholesterol, Calc (<100) mg/dL HDL Cholesterol (40-60) mg/dL TSH (0.36-3.74) uIU/mL Urine Color (Yellow) Urine Clarity (Clear) Urine pH (5-8) Ur Specific [place] (1.005-1.025) Urine Protein (Negative) mg/dL Urine Ketones (Negative) mg/dL Urine Blood (Negative) Urine Nitrite (Negative) Urine Bilirubin (Negative) Urine Urobilinogen (Up TO 0.2) EU/dL Ur Leukocyte Esterase (Negative) Urine RBC (0-2) HPF Urine WBC (0-5) HPF Ur Epithelial Cells (Negative) HPF Urine Crystals (Negative) HPF Urine Bacteria (Negative) HPF Urine Casts (Negative) LPF Urine Mucus (Negative) Urine Other (Negative) Ur Culture Indicated? Urine Glucose (Negative) mg/dL COVID-19 Source Nasal/Nares SARS-CoV-2 (PCR) (Negative) Negative Range/Units 05/02/21 05/02/21 05/02/21 01:49 02:10 04:10 WBC (4.4-10.8) 10^3/uL RBC (4.36-5.78) 10^6/uL Hgb (13.5-17.5) g/dL Hct (40.0-50.0) % MCV (80-95) fL MCH (27.0-33.0) pg MCHC (32.0-36.0) % RDW (11.8-14.1) % Plt Count (130-400) 10^3/uL MPV (8.0-11.0) fL Immature Gran % Neutrophils % Lymphocytes % Monocytes % Eosinophils % Basophils % Nucleated RBC % % Absolute Neutrophils (1.2-6.7) 10^3/uL Absolute Lymphocytes (1.2-3.4) 10^3/uL Absolute Monocytes (0.1-0.8) 10^3/uL Absolute Eosinophils (0.0-0.7) 10^3/uL Absolute Basophils (0.0-0.2) 10^3/uL VBG pH (7.31-7.41) 7.42 H VBG pCO2 (41-51) mmHg 39 L VBG pO2 mmHg 83 VBG HCO3 (23-28) mmol/L 25 VBG Total CO2 (24-29) mmol/L 22 L VBG O2 Saturation % 97 VBG Base Excess (-2-3) mmol/L 1 Sodium (136-145) mmol/L Potassium (3.5-5.1) mmol/L Chloride (98-107) mmol/L Carbon Dioxide (21.0-32.0) mmol/L Anion Gap (3-11) mmol/L BUN (7-18) mg/dL Creatinine (0.70-1.30) mg/dL Estimated GFR/1.73 m2 (mL/min/1.73m2) Glucose (74-106) mg/dL Hemoglobin A1c (<5.7) % Calcium (8.5-10.1) mg/dL Magnesium (1.8-2.4) mg/dL Total Bilirubin (0.2-1.0) mg/dL AST (15-37) U/L ALT (16-63) U/L Alkaline Phosphatase (46-116) U/L Troponin I (<0.06) ng/mL 0.10 H* C-Reactive Protein (0.0-0.3) mg/dL NT-Pro-B Natriuret Pep (<300) pg/mL Total Protein (6.4-8.2) g/dL Albumin (3.4-5.0) g/dL Triglycerides (<150) mg/dL Total Cholesterol (<200) mg/dL LDL Cholesterol, Calc (<100) mg/dL HDL Cholesterol (40-60) mg/dL TSH (0.36-3.74) uIU/mL Urine Color (Yellow) Yellow Urine Clarity (Clear) Clear Urine pH (5-8) 6.0 Ur Specific [place] (1.005-1.025) >= 1.030 H Urine Protein (Negative) mg/dL 100 H Urine Ketones (Negative) mg/dL Negative Urine Blood (Negative) Trace-intact H Urine Nitrite (Negative) Negative Urine Bilirubin (Negative) Negative Urine Urobilinogen (Up TO 0.2) EU/dL 1.0 H Ur Leukocyte Esterase (Negative) Negative Urine RBC (0-2) HPF 3-5 H Urine WBC (0-5) HPF 0-2 Ur Epithelial Cells (Negative) HPF Rare Urine Crystals (Negative) HPF Negative Urine Bacteria (Negative) HPF Rare Urine Casts (Negative) LPF Negative Urine Mucus (Negative) Trace Urine Other (Negative) Few Renal Ur Culture Indicated? No Urine Glucose (Negative) mg/dL Negative COVID-19 Source SARS-CoV-2 (PCR) (Negative) Range/Units 05/02/21 05/02/21 05/02/21 06:13 06:13 06:13 WBC (4.4-10.8) 10^3/uL 10.18 RBC (4.36-5.78) 10^6/uL 4.15 L Hgb (13.5-17.5) g/dL 12.7 L Hct (40.0-50.0) % 39.3 L MCV (80-95) fL 94.7 MCH (27.0-33.0) pg 30.6 MCHC (32.0-36.0) % 32.3 RDW (11.8-14.1) % 15.9 H Plt Count (130-400) 10^3/uL 205 MPV (8.0-11.0) fL 9.9 Immature Gran % 0.4 Neutrophils % 79.9 Lymphocytes % 8.3 Monocytes % 10.4 Eosinophils % 0.7 Basophils % 0.3 Nucleated RBC % % 0 Absolute Neutrophils (1.2-6.7) 10^3/uL 8.14 H Absolute Lymphocytes (1.2-3.4) 10^3/uL 0.84 L Absolute Monocytes (0.1-0.8) 10^3/uL 1.06 H Absolute Eosinophils (0.0-0.7) 10^3/uL 0.07 Absolute Basophils (0.0-0.2) 10^3/uL 0.03 VBG pH (7.31-7.41) VBG pCO2 (41-51) mmHg VBG pO2 mmHg VBG HCO3 (23-28) mmol/L VBG Total CO2 (24-29) mmol/L VBG O2 Saturation % VBG Base Excess (-2-3) mmol/L Sodium (136-145) mmol/L 144 Potassium (3.5-5.1) mmol/L 3.6 Chloride (98-107) mmol/L 107 Carbon Dioxide (21.0-32.0) mmol/L 26.9 Anion Gap (3-11) mmol/L 10.1 BUN (7-18) mg/dL 12 Creatinine (0.70-1.30) mg/dL 1.0 Estimated GFR/1.73 m2 (mL/min/1.73m2) >= 60.00 Glucose (74-106) mg/dL 124 H Hemoglobin A1c (<5.7) % 5.4 Calcium (8.5-10.1) mg/dL 8.4 L Magnesium (1.8-2.4) mg/dL Total Bilirubin (0.2-1.0) mg/dL AST (15-37) U/L ALT (16-63) U/L Alkaline Phosphatase (46-116) U/L Troponin I (<0.06) ng/mL C-Reactive Protein (0.0-0.3) mg/dL 1.06 H NT-Pro-B Natriuret Pep (<300) pg/mL Total Protein (6.4-8.2) g/dL Albumin (3.4-5.0) g/dL Triglycerides (<150) mg/dL 28 Total Cholesterol (<200) mg/dL 102 LDL Cholesterol, Calc (<100) mg/dL 45 HDL Cholesterol (40-60) mg/dL 52 TSH (0.36-3.74) uIU/mL 1.29 Urine Color (Yellow) Urine Clarity (Clear) Urine pH (5-8) Ur Specific [place] (1.005-1.025) Urine Protein (Negative) mg/dL Urine Ketones (Negative) mg/dL Urine Blood (Negative) Urine Nitrite (Negative) Urine Bilirubin (Negative) Urine Urobilinogen (Up TO 0.2) EU/dL Ur Leukocyte Esterase (Negative) Urine RBC (0-2) HPF Urine WBC (0-5) HPF Ur Epithelial Cells (Negative) HPF Urine Crystals (Negative) HPF Urine Bacteria (Negative) HPF Urine Casts (Negative) LPF Urine Mucus (Negative) Urine Other (Negative) Ur Culture Indicated? Urine Glucose (Negative) mg/dL COVID-19 Source SARS-CoV-2 (PCR) (Negative) Range/Units 05/02/21 05/02/21 05/03/21 09:36 14:03 10:40 WBC (4.4-10.8) 10^3/uL RBC (4.36-5.78) 10^6/uL Hgb (13.5-17.5) g/dL Hct (40.0-50.0) % MCV (80-95) fL MCH (27.0-33.0) pg MCHC (32.0-36.0) % RDW (11.8-14.1) % Plt Count (130-400) 10^3/uL MPV (8.0-11.0) fL Immature Gran % Neutrophils % Lymphocytes % Monocytes % Eosinophils % Basophils % Nucleated RBC % % Absolute Neutrophils (1.2-6.7) 10^3/uL Absolute Lymphocytes (1.2-3.4) 10^3/uL Absolute Monocytes (0.1-0.8) 10^3/uL Absolute Eosinophils (0.0-0.7) 10^3/uL Absolute Basophils (0.0-0.2) 10^3/uL VBG pH (7.31-7.41) VBG pCO2 (41-51) mmHg VBG pO2 mmHg VBG HCO3 (23-28) mmol/L VBG Total CO2 (24-29) mmol/L VBG O2 Saturation % VBG Base Excess (-2-3) mmol/L Sodium (136-145) mmol/L 140 Potassium (3.5-5.1) mmol/L 3.4 L Chloride (98-107) mmol/L 103 Carbon Dioxide (21.0-32.0) mmol/L 28.5 Anion Gap (3-11) mmol/L 8.5 BUN (7-18) mg/dL 15 Creatinine (0.70-1.30) mg/dL 1.0 Estimated GFR/1.73 m2 (mL/min/1.73m2) >= 60.00 Glucose (74-106) mg/dL 138 H Hemoglobin A1c (<5.7) % Calcium (8.5-10.1) mg/dL 8.2 L Magnesium (1.8-2.4) mg/dL Total Bilirubin (0.2-1.0) mg/dL AST (15-37) U/L ALT (16-63) U/L Alkaline Phosphatase (46-116) U/L Troponin I (<0.06) ng/mL 0.13 H* 0.10 H* C-Reactive Protein (0.0-0.3) mg/dL NT-Pro-B Natriuret Pep (<300) pg/mL Total Protein (6.4-8.2) g/dL Albumin (3.4-5.0) g/dL Triglycerides (<150) mg/dL Total Cholesterol (<200) mg/dL LDL Cholesterol, Calc (<100) mg/dL HDL Cholesterol (40-60) mg/dL TSH (0.36-3.74) uIU/mL Urine Color (Yellow) Urine Clarity (Clear) Urine pH (5-8) Ur Specific [place] (1.005-1.025) Urine Protein (Negative) mg/dL Urine Ketones (Negative) mg/dL Urine Blood (Negative) Urine Nitrite (Negative) Urine Bilirubin (Negative) Urine Urobilinogen (Up TO 0.2) EU/dL Ur Leukocyte Esterase (Negative) Urine RBC (0-2) HPF Urine WBC (0-5) HPF Ur Epithelial Cells (Negative) HPF Urine Crystals (Negative) HPF Urine Bacteria (Negative) HPF Urine Casts (Negative) LPF Urine Mucus (Negative) Urine Other (Negative) Ur Culture Indicated? Urine Glucose (Negative) mg/dL COVID-19 Source SARS-CoV-2 (PCR) (Negative) Assessment and Plan Assessment and plan (1) Morbid obesity with BMI of 45.0-49.9, adult: Status: Chronic (2) Acute CHF: Status: Acute Qualifiers: Heart failure type: diastolic Qualified Code(s): I50.31 - Acute diastolic (congestive) heart failure (3) Acute respiratory failure with hypoxia: Status: Acute (4) Pulmonary edema: Status: Acute Qualifiers: Chronicity: acute Qualified Code(s): J81.0 - Acute pulmonary edema (5) Elevated troponin: Status: Acute Assessment and plan: This is a 75-year-old gentleman who presented to the emergency department with shortness of breath. Based on the data available and on his exam it is likely he is having heart failure with preserved ejection fraction exacerbation. His chest x-ray is consistent with pulmonary edema however I do not see a clear infiltrate. Do not completely convinced of him having a pneumonia and believes his acute episode is more related to volume overload from heart failure. His echo showed a preserved ejection fraction with mildly elevated pulmonary pressures. Hypoxic respiratory failure - supplemental O2 for sat >90% - assessment of home O2 prior to discharge HFpEF Exacerbation - he has diuresed very well and is -6L for this hospital stay - recommend transitioning his IV Lasix to PO - 40mg PO bid should be sufficient - he should be discharged on PO lasix, recommend 40mg daily on discharge with BMP 1 week after D/C and a close follow up with PCP Elevated troponin This was in the setting of CHF exacerbation - can consider further ischemic evaluation as an outpatient with his PCP Hypertension - blood pressure reasonable on home regimen
[2021-05-03] MEDS: Atorvastatin 40 MG TAB 80 MG PO (20:01)
[2021-05-03] MEDS: Acetaminophen 325 MG TAB PO (23:21)
[2021-05-04] VITALS (12 sets, daily range): BP systolic 122–166; BP diastolic 71–99; PULSE 72–89; RESP 18–20; TEMP 36–38.5; O2SAT 90–95
[2021-05-04 07:35] LABS: HCT 38.2 % (40.0-50.0); HGB 12.7 g/dL (13.5-17.5); MCH 30.8 pg (27.0-33.0); MCHC 33.2 % (32.0-36.0); MCV 92.7 fL (80-95); MPV 10.8 fL (8.0-11.0); Platelet Count 187 10^3/uL (130-400); RBC 4.12 10^6/uL (4.36-5.78); RDW 15.9 % (11.8-14.1); RDW-SD 54.3 fL; WBC 9.49 10^3/uL (4.4-10.8)
[2021-05-04] MEDS: Cyanocobalamin 500 MCG TAB 1000 MCG PO (08:04)
[2021-05-04] MEDS: Aspirin E.C. 81 MG TABEC PO (08:05)
[2021-05-04] MEDS: Allopurinol 100 MG TAB 200 MG PO (08:05)
[2021-05-04] MEDS: Metoprolol CR 100 MG TABCR PO (08:05)
[2021-05-04] MEDS: Lisinopril 20 MG TAB 40 MG PO (08:05)
[2021-05-04] MEDS: Calcium Carbonate 1.5 GM TAB PO ×2 (08:05→19:37)
[2021-05-04] MEDS: guaiFENesin 600 MG TABCR PO ×2 (08:09→19:38)
[2021-05-04] MEDS: amLODIPine 5 MG TAB 10 MG PO (08:09)
[2021-05-04] MEDS: Furosemide 40 MG/4 ML VIAL IVP ×2 (08:09→16:05)
[2021-05-04] MEDS: Enoxaparin 40 MG/0.4 ML SYR SC (08:09)
[2021-05-04] MEDS: Normal Saline Flush 10 ML SYR IVP ×5 (08:10→19:38)
[2021-05-04] MEDS: DOXYCYCLINE 100 MG in Normal Saline 100 ML IVPB ×2 (08:10→19:37)
[2021-05-04] MEDS: Nystatin CREAM 30 GM TUBE TP (08:11)
--- NOTE | 2021-05-04 09:11 | CMPROGNOTE_ITS ---
- If Service Date Differs Date of service: 05/04/21 Time of Service: 09:12 Care Management Progress Note S/O: Iker was sitting up in his chair when CM met with him. He continues to feel weak and unsteady on his feet. The walk from the bed to the chair is quite taxing for him in terms of SOB and weakness. PT recommended SNF. Dr. Ovalle talked to him this morning about going to a SNF when his IV antibiotics are finished. Iker is not entirely opposed to the idea but reports that he's had a bad experience with [facility]. His goal is to go back home, but he knows that may not be possible at this time. Iker wants to think about it. CM continues to support. A: 75 year old male admitted to [facility] on 05/02/21 for Acute CHR, NSTEMI, Acute hypoxic respiratory failure P: Disposition: discharge to SNF for short term rehab vs. Home with HH SN/PT via RCT. CM continues to follow.
[2021-05-04] MEDS: cefTRIAXone 2 GM/50 ML BAG IVPB (09:49)
[2021-05-04] MEDS: VANCOMYCIN/WATER (PEG) 2 GM/400 ML BAG IV (10:55)
[2021-05-04 11:15] LABS: Source Nasal/Nares
--- NOTE | 2021-05-04 11:20 | PTTR_ITS ---
Date of service: 05/04/21 Time of Service: 11:20 PT Notes Visit Reasons: Acute CHF,NSTEMI,Acute Hypoxic Respiratory Failure Physical Therapy Inpatient Treatment Note Date: 05/04/2021 Precautions: Fall. Standard. Activity as tolerated. Subjective: Agreeable get out of bed to transfer to chair although he does not know how much he will be able to do. Remains weak and short of breath. Objective: General Observation: Morbidly obese. Appears anxious about getting rest. Mental Status: Alert and oriented as to person, place, time, and purpose. Able to pay attention but is unable to focus due to exhaustion and discomfort in his L knee and R ankle. Pain: Moderate pain on L knee with weight bearing Bed Mobility/Transfers: Sit to supine minimal assist with HOB at 45 degrees Sit to stand moderate assist. Needed two attempts at standing up due to weakness and discomfort Stand to sit moderate assist Bed to reclining chair moderate assist of PT and standby assist of nurse Lang Gait: Only tolerated pivot with the L foot and 2-3 small steps with the R foot to transfer from bed to reclining chair with moderate assit of PT and stand by assist of Nurse Lang. Used walker to off load body weight. Balance: Static Sitting: Good Dynamic Sitting: Fair Static Standing: Poor Dynamic Standing: Poor Assessment: Fearfulness of falling, continued weakness, and SOB limiting patient to try out mobility activities. Patient demonstrates functional mobility declin e requiring assistance of 2 people for safe mobility ADL performance. Endurance very much reduced, needs frequent rests. Reported increased pain leve on R knee with weight bearing. DISCHARGE RECOMMENDATIONS: Patient will benefit from nursing home facility placement for continued skilled physical therapy services in order to progress mobility level, strength, and balance in preparation for a safe discharge to home. TREATMENT CODE/TIME: 63229 x 45 minutes beginning at 11:20 PM.
[2021-05-04 12:21] LABS: COVID-19 PCR Negative (Negative)
--- NOTE | 2021-05-04 12:28 | W.PM.PROGNOT ---
Date of Service Date of service: 05/04/21 Time of Service: 12:29 Assessment and Plan Assessment and plan (1) Acute respiratory failure with hypoxia: Status: Acute Assessment and plan: Multifactorial - pneumonia, pulmonary edema, likely LUIS FELIPE and OHS Diuresing well on current lasix dosing; pedal edema resolved. He endorses improvement in SOA. Wean o2 as tolerated. He has had sleep study in the past; endorses inability to tolerate CPAP masks. Pulmonary/critical care consult appreciated. (2) Acute CHF: Status: Acute Assessment and plan: Echocardiogram with LVEF of 56%. No wall motion abnormalities. Had an echo at [facility] [place] on 03/15/21 due to concerns of septic arthritis/endocarditis (both ruled out). LVEF at the time was 50%, no wall motion abnormalities were seen. RV size and function were nml. RVSP 33.8 Monitor on tele. COntinue to diurese, monitoring I/O's, daily weights. Consider BiPAP. Qualifiers: Heart failure type: diastolic Qualified Code(s): I50.31 - Acute diastolic (congestive) heart failure (3) Pneumonia: Status: Acute Assessment and plan: The patient does have leucocytosis, productive sputum, multifocal infiltrates on CXR. COVID-19 ruled out on admission. D/T fever repeated Covid testing today and was negative. Cont empiric doxycycline/ceftriaxone. WBC count has normalized. Obtaining sputum and blood cultures. (4) Elevated troponin: Status: Acute Assessment and plan: Suspect Type 2 NSTEMI in setting of acute hypoxic respiratory failure/acute CHF/pneumonia. Given underlying CAD. Troponin trend: 0.10 > 0.13 > 0.10 cardiology consulted and endorse acute on chronic diastolic CHF. Responding to diureses. No ischemic eval indicated at this time. (5) QT prolongation: Status: Acute Assessment and plan: monitor on tele. replete calcium. avoid QT prolonging drugs. (6) Chronic hypertension: Status: Chronic Assessment and plan: Continue home meds SBP today in the 140-170's range. Given his body habitus, w/o weight loss and dietary compliance, likely will be difficult to control. (7) Hyperlipidemia: Status: Chronic Assessment and plan: Continue home statin; check fasting lipid panel (8) Morbid obesity with BMI of 45.0-49.9, adult: Status: Chronic Assessment and plan: Check A1C. Consider sleep apnea. The patient has difficulty ambulating at baseline. Consult PT once cleared from cardiac/pulmonary stand point. (9) DVT prophylaxis: Status: Acute Assessment and plan: Lovenox (10) Discharge planning issues: Status: Acute Assessment and plan: Full code He is not safe at home given his very limited mobility, but he has decision making capacity to decide on his disposition. Subjective Subjective Patient reports: shortness of breath (with activity but improved.) and fever; denies nausea and vomiting Interval history since last seen: Feels more weak. Legs give out. + yellow sputum. Exam Const General: cooperative and disheveled Nutritional Appearance: obese Orientation: alert and oriented x3 HENMT Head: normocephalic and atraumatic Eyes General: appearance normal, both eyes and all related structures Sclera: sclerae normal Neck Neck: full ROM Resp Effort & Inspection: normal respiratory effort and other (Freq cough) Auscultation: clear to auscultation bilaterally and diminished lung sounds Cardio Rate: regular rate Rhythm: regular rhythm Heart Sounds: S1 normal and S2 normal GI Inspection: obesity and other (Large right abd hernia / nontender) Auscultation: normal bowel sounds Skin General skin exam: no rashes or lesions noted Neuro General: no focal motor deficits Cranial Nerves: facial strength normal Cognition: normal cognition Gait: other (transfers with great difficulty) Extrem General: no pedal edema and no calf tenderness Psych Appearance: grossly normal Mental Status: mental status grossly normal Mood: congruent mood Affect: normal affect Attitude: cooperative Objective Last Vital Signs Temp 36.0 C L 05/04/21 11:04 Pulse 72 05/04/21 11:04 Resp 20 05/04/21 11:04 BP 126/71 05/04/21 11:04 Pulse Ox 94 05/04/21 11:04 Laboratory Results - last 24 hr 05/04/21 05/04/21 06:12 11:15 WBC 9.49 RBC 4.12 L Hgb 12.7 L Hct 38.2 L MCV 92.7 MCH 30.8 MCHC 33.2 RDW 15.9 H Plt Count 187 MPV 10.8 COVID-19 Source Nasal/Nares SARS-CoV-2 (PCR) Negative
--- NOTE | 2021-05-04 13:48 | CHAPLAIN ---
Iker was sitting up in his chair. He doesn't like to watch tv. So he's just sitting. Iker said he's going to rehab before home. He has been at the [facility] before and had a bad experiences there, so he hopes that is not were he is discharged to. Other than still feeling weak, Iker said he is comfortable here.
--- NOTE | 2021-05-04 15:38 | PT.INTREAT ---
Date of service: 05/04/21 Time of Service: 15:25 PT Notes Visit Reasons: Acute CHF,NSTEMI,Acute Hypoxic Respiratory Failure Inpatient Physical Therapy Treatment Note [facility] Date: 05/04/2021 PRECAUTIONS: Fall SUBJECTIVE: Iker agrees to working with PT, although refuses to attempt to stand or ambulate at this time. OBJECTIVE: PAIN: No c/o pain BED MOBILITY/TRANSFER/GAIT: Refused to attempt THEREX: Patient completed several seated exercises for UE and LE strengthening, as per flow sheet. He requires assist with all L LE exercises for appropriate completion. ASSESSMENT: Patient tolerated session with complaint of increased fatigue. He continues to demonstrate significant global weakness, and an inability to care for himself at home. PLAN: Continue with global strengthening and conditioning until SNF level placement for continued rehab. TREATMENT CODE/TIME: 10 minutes; 07493 (15:25)
[2021-05-04] MEDS: Atorvastatin 40 MG TAB 80 MG PO (19:37)
[2021-05-04] MEDS: VANCOMYCIN/WATER (PEG) 1.5 GM/300 ML BAG IVPB (22:52)
[2021-05-04] MEDS: Acetaminophen 325 MG TAB PO (23:40)
[2021-05-05] VITALS (11 sets, daily range): BP systolic 101–147; BP diastolic 61–80; PULSE 72–91; RESP 18–24; TEMP 36.9–38.5; O2SAT 91–93
--- NOTE | 2021-05-05 | DI.RAD_ITS ---
Exam(s) XR PORTABLE CHEST AP EXAM: XR PORTABLE CHEST AP CLINICAL HISTORY: pulmonary edema, fever. TECHNIQUE: 2D digital imaging was performed. COMPARISON: CR,XR XR PORTABLE CHEST AP from 05/02/2021 FINDINGS: Heart size is minimally prominent. The mediastinum is not widened. Lungs are presently clear. Previously present interstitial pulmonary edema appears to have cleared. No obvious pleural effusions evident on this single portable view. IMPRESSION: Lungs are clear. Pulmonary edema has cleared. No obvious pleural effusions. DATA REPOSITORY: RADIATION DOSE DELIVERED: All CT scans at this facility use at least one of these dose optimization techniques: automated exposure control; mA and/or kV adjustment per patient size (includes targeted e xams where dose is matched to clinical indication); or iterative reconstruction.
[2021-05-05] MEDS: DOXYCYCLINE 100 MG in Normal Saline 100 ML IVPB ×2 (07:41→20:14)
[2021-05-05] MEDS: guaiFENesin 600 MG TABCR PO ×2 (07:42→20:14)
[2021-05-05] MEDS: Lisinopril 20 MG TAB 40 MG PO (07:42)
[2021-05-05] MEDS: Allopurinol 100 MG TAB 200 MG PO (07:42)
[2021-05-05] MEDS: Aspirin E.C. 81 MG TABEC PO (07:42)
[2021-05-05] MEDS: amLODIPine 5 MG TAB 10 MG PO (07:42)
[2021-05-05] MEDS: Cyanocobalamin 500 MCG TAB 1000 MCG PO (07:43)
[2021-05-05] MEDS: Calcium Carbonate 1.5 GM TAB PO ×2 (07:43→20:15)
[2021-05-05] MEDS: Metoprolol CR 100 MG TABCR PO (07:43)
[2021-05-05] MEDS: Furosemide 40 MG/4 ML VIAL IVP ×2 (07:43→15:58)
[2021-05-05] MEDS: Enoxaparin 40 MG/0.4 ML SYR SC (07:43)
[2021-05-05] MEDS: Normal Saline Flush 10 ML SYR IVP ×3 (07:44→20:13)
--- NOTE | 2021-05-05 09:24 | OTIE_ITS ---
Occupational Therapy Notes Inpatient Occupational Therapy Evaluation Date: 05/05/21 Referring Doctor:Yonathan Ovalle MD OT Orders: Non Urgent Precautions: Fall, standard, Full PATIENT PROFILE/ADMITTING DIAGNOSIS: Pt is a 75 year old male who was admitted through the ED for the following dx including diagnosis of QT prolongation, DVT prophylaxis, Obesity, Hyperlipidemia, penumonia, acute respiratory failure, cholecystitis, chronic HTN, abdominal pain, septic arthritis of shoulder, acute gout of shoulder, hypokalemia, SOB, pulmonary edema, elevated troponin. Past Medical History: Medical History (Updated 05/02/21 @ 06:24 by Zoya Whittaker MD) Ambulatory dysfunction Biliary colic symptom CVA (cerebral vascular accident) Gouty arthritis left shoulder, 03/2021 - [facility] Heart attack cardiac cath 2012 - no stents Hyperlipidemia Hypertension Morbid obesity with BMI of 45.0-49.9, adult Surgical History (Updated 05/02/21 @ 05:57 by Zoya Whittaker MD) Angiogram cardiac cath 2012 - no stents Cholecystectomy open Social History/Home Situation: Pt states that he lives alone in private home he states that he sponge baths because he cannot get in and out of the tub. Pt notes that prior to admission he was (I) with his ADL/IADL routines but states that he has had a significant decline in his functional (I) at this time. Pt utilizes a FWW for mobility. He states that he drives and cooks for himself. He has no services that (A) him at this time. He does states that he has some steps to enter his home but none inside. Equipment owned/DME: FWW SUBJECTIVE: Pt was sitting in bed with pillows supporting his back, he is agreeable to OT consult. OBJECTIVE: General Observation: IV in (R) dorsal hand and (L) forearm, castanon in place, obese with large hernia on (R) side Mental Status: A&ox3 Pain: no c/o pain ROM: RUE AROM WFL some shoulder limitations but able to move throughout ROM L UE AROM WFL some shoulder limitations but able to move throughout ROM STRENGTH: RUE Shoulder flexion 2+/5, bicep 3-/5, tricep 3/5, manager database is weak and symmetrical LUE Shoulder flexion 3/5, bicep 3-/5, tricep 3-/5, manager database is weak and symmetrical FUNCTIONAL MOBILITY/ADLS: BATHING sitting in bed with max (A) set up/clean up Bathing UE (I) face and (B) UE DRESSING Dressing LE Unable to don and doff (B) socks, requires max (A) at this time. GROOMING (I) with brushing hair, increased performance time and increased fatigue TOILETING NT Castanon in place EATING Pt had ate prior to OT arrival, he notes that he is (I) however OT will continue to assess BALANCE: Static sitting Fair Dynamic Sitting Poor-Fair SPECIAL TESTS: Daily Activity Limitations Standardized Measure [facility] AM -PAC ?6 clicks? Daily Activity Inpatient Short Form: Raw score: 9 Standardized score: 25.33 CMS score: 79.59% INFORMED CONSENT/EDUCATION: Pt instructed in purpose of OT Consult and plan of care. ASSESSMENT: Patient is a 75-year-old male referred to occupational therapy services with diagnosis of QT prolongation, DVT prophylaxis, Obesity, Hyperlipidemia, penumonia, acute respiratory failure, cholecystitis, chronic HTN, abdominal pain, septic arthritis of shoulder, acute gout of shoulder, hypokalemia, SOB, pulmonary edema, elevated troponin. Patient presents with clinical signs and symptoms consistent with dx, as demonstrated by the following impairment level findings/functional limitations: Impairments in his ADL/IADL routines, unable to perform his LE dressing at this time, decreased performance of standing ADLs, decreased functional activity tolerance, decreased strength (B) UE, decreased mobility and functional mobility required for ADL performance. Unable to perform his ADLs (I) based on his current deficits in function. AMPAC score 9 Patient is assessed as a high 85196 complexity based on the following: History: see above Examination: see functional limitations as noted above Presentation: evolving Decision Making: AMPAC score 9 GOALS Goals x1 week 1. Grooming (I) in seated position 2. Dressing (I) UE and mod (I) LE 3. Bathing sitting in chair (I) UE, min (A) LE 4. Toileting on commode (I) 5. Eating (I) PLAN OF CARE/TREATMENT PLAN: 1x/day, 5 days/ week x 1week Initiate Occupational Therapy Services for bathing, dressing, grooming, toileting, eating, transfer training. DISCHARGE RECOMMENDATIONS SNF when medically cleared per MD TREATMENT TIME/MINUTES/CODES 47622, [id number], 15 minutes (09:05) Loren Lake, OTR/L [facility] [place]
[2021-05-05] MEDS: cefTRIAXone 2 GM/50 ML BAG IVPB (09:32)
[2021-05-05 10:29] LABS: Procalcitonin 0.2 ng/mL
[2021-05-05] MEDS: Nystatin CREAM 30 GM TUBE TP ×2 (10:36→20:14)
[2021-05-05] MEDS: VANCOMYCIN/WATER (PEG) 1.5 GM/300 ML BAG IVPB (10:44)
[2021-05-05] MEDS: Acetaminophen 325 MG TAB PO ×2 (11:39→23:33)
--- NOTE | 2021-05-05 12:26 | W.PM.PROGNOT ---
Date of Service Date of service: 05/05/21 Time of Service: 12:26 Assessment and Plan Assessment and plan (1) Acute respiratory failure with hypoxia: Status: Acute Assessment and plan: Multifactorial - pneumonia, pulmonary edema, likely LUIS FELIPE and OHS Diuresing well on current lasix dosing; pedal edema resolved. He endorses improvement in SOA. Repeat CXR shows clear lungs. Wean o2 as tolerated. He has had sleep study in the past; endorses inability to tolerate CPAP masks. Pulmonary/critical care consult appreciated. (2) Acute CHF: Status: Acute Assessment and plan: Echocardiogram with LVEF of 56%. No wall motion abnormalities. Had an echo at [facility] on 03/15/21 due to concerns of septic arthritis/endocarditis (both ruled out). LVEF at the time was 50%, no wall motion abnormalities were seen. RV size and function were nml. RVSP 33.8 COntinue to diurese, monitoring I/O's, daily weights. Consider BiPAP. Qualifiers: Heart failure type: diastolic Qualified Code(s): I50.31 - Acute diastolic (congestive) heart failure (3) Pneumonia: Status: Acute Assessment and plan: The patient had mild leucocytosis, productive sputum, multifocal infiltrates on CXR at time of admission. COVID-19 ruled out on admission. D/T fever repeated Covid testing repeated yesterday. and was negative. Repeat CXR shows clear lungs; no PNA noted. WBC count has normalized. sputum with normal berkley. Blood culture; staph epidermidis in one bottle. (4) Elevated troponin: Status: Acute Assessment and plan: Suspect Type 2 NSTEMI in setting of acute hypoxic respiratory failure/acute CHF/pneumonia. Given underlying CAD. Troponin trend: 0.10 > 0.13 > 0.10 cardiology consulted and endorse acute on chronic diastolic CHF. Responding to diureses. No ischemic eval indicated at this time. (5) QT prolongation: Status: Acute Assessment and plan: monitor on tele. replete calcium. avoid QT prolonging drugs. (6) Chronic hypertension: Status: Chronic Assessment and plan: Continue home meds SBP today improved. Given his body habitus, w/o weight loss and dietary compliance, likely will be difficult to control. (7) Hyperlipidemia: Status: Chronic Assessment and plan: Continue home statin; check fasting lipid panel (8) Morbid obesity with BMI of 45.0-49.9, adult: Status: Chronic Assessment and plan: Check A1C. Consider sleep apnea. The patient has difficulty ambulating at baseline. Consult PT once cleared from cardiac/pulmonary stand point. (9) DVT prophylaxis: Status: Acute Assessment and plan: Lovenox (10) Discharge planning issues: Status: Acute Assessment and plan: Full code He is not safe at home given his very limited mobility, but he has decision making capacity to decide on his disposition. Subjective Subjective Patient reports: afebrile; denies diarrhea, nausea and vomiting Interval history since last seen: Patient had a temp of 38.5 last PM Cough is better. Pedal edema resolved. Exam Const General: cooperative and no acute distress Nutritional Appearance: obese Orientation: alert and oriented x3 Neck Neck: nontender and no JVD Resp Effort & Inspection: normal respiratory effort Auscultation: clear to auscultation bilaterally and diminished lung sounds Cardio Rate: regular rate Rhythm: regular rhythm GI Inspection: obesity Palpation: soft and nontender Extrem General: no pedal edema and no calf tenderness Psych Mood: congruent mood Affect: normal affect Objective Last Vital Signs Temp 37.9 C H 05/05/21 11:39 Pulse 77 05/05/21 11:28 Resp 24 05/05/21 11:28 BP 124/80 05/05/21 11:28 Pulse Ox 93 05/05/21 11:28 Laboratory Results - last 24 hr 05/05/21 09:43 Procalcitonin 0.2
--- NOTE | 2021-05-05 14:57 | PTTR_ITS ---
Date of service: 05/05/21 Time of Service: 10:00 PT Notes Visit Reasons: Acute CHF,NSTEMI,Acute Hypoxic Respiratory Failure Inpatient Physical Therapy Treatment Note [facility] Date: 05/05/2021 PRECAUTIONS: Fall SUBJECTIVE: Don is agreeable to participating in PT, although he states that he does not feel that he will be able to stand or walk today, as he is currently much weaker than his baseline. OBJECTIVE: PAIN: No c/o pain BED MOBILITY/TRANSFERS Supine-sit: Min A with HOB at 45 degrees Sit-stand: Mod A x2 Stand-sit: Mod A x2 Bed-Chair: Fast [facility] Assistive Device: FWW Weight bearing: Full Assist: Mod A x2 Distance: Unable to take steps Deviation: C/o B LE fatigue Static standing with FWW support and Mod A x2 x3 minutes. THEREX: Patient was instructed in a LE strengthening and stabilization program, completed in a supine position, as per flow sheet. Patient continues to require assist for LE strengthening exercises for exercise completion due to significant weakness. TOILETING: Patient was incontinent of stool, requiring Max A. ASSESSMENT: Patient tolerated several [id number] transfers from edge of bed, although continues to demonstrate significant weakness and deconditioning, requiring Mod A x2. PLAN: Patient will require SNF level rehab due to significant weakness and deconditioning, as he is not safe to return home independently at this time. TREATMENT CODE/TIME: Session 1: 40 minutes; 25615 x3 (10:00) Session 2: 15 minutes; 14513 (14:20)
--- NOTE | 2021-05-05 16:28 | CMPROGNOTE_ITS ---
- If Service Date Differs Date of service: 05/05/21 Time of Service: 16:28 Care Management Progress Note S/O: Iker was sitting up in his chair when CM met with him. He reported that he is doing ok, and understands that it will be best for him to go to short term rehab prior to returning home. He reports being agreeable to CM sending a referral to [facility], which would be his first choice. CM sent the referral to [facility], and awaits a response. CM will continue to follow . A: 75 year old male admitted to [facility] on 05/02/21 for Acute CHR, NSTEMI, Acute hypoxic respiratory failure P:Iker will discharge to SNF for short term rehab, pending acceptance at a facility. CM sent a referral to [facility]. He will likely transport via facility w/c van. He will follow up with his PCP and discharge plan of care. CM continues to follow.
[2021-05-05] MEDS: Atorvastatin 40 MG TAB 80 MG PO (20:14)
[2021-05-06] VITALS (7 sets, daily range): BP systolic 121–144; BP diastolic 67–77; PULSE 75–90; RESP 18–20; TEMP 36.5–37.4; O2SAT 90–96
[2021-05-06 06:52] LABS: Abs Immature Grans 0.07 10^3/uL (0.0-0.06); Absolute Eosinophil Count 0.21 10^3/uL (0.0-0.7); Absolute Lymphocyte Count 1.13 10^3/uL (1.2-3.4); Absolute Monocyte Count 1.35 10^3/uL (0.1-0.8); Absolute Neutrophil Count 8.51 10^3/uL (1.2-6.7); Basophils % 0.4; Eosinophils % 1.9; HCT 35.1 % (40.0-50.0); HGB 11.7 g/dL (13.5-17.5); Immature Grans % 0.6; MCH 30.5 pg (27.0-33.0); MCHC 33.3 % (32.0-36.0); MCV 91.4 fL (80-95); MPV 11.1 fL (8.0-11.0); Monocytes % 11.9; Neutrophils % 75.2; Nucleated RBC 0 %; Platelet Count 211 10^3/uL (130-400); RBC 3.84 10^6/uL (4.36-5.78); RDW 15.7 % (11.8-14.1); RDW-SD 52.5 fL; WBC 11.31 10^3/uL (4.4-10.8)
[2021-05-06 07:05] LABS: Absolute Basophil Count 0.05 10^3/uL (0.0-0.2)
[2021-05-06 07:19] LABS: Anion Gap 9.4 mmol/L (3-11); BUN 34 mg/dL (7-18); CO2 25.6 mmol/L (21.0-32.0); CREATININE 1.2 mg/dL (0.70-1.30); Calcium 8.6 mg/dL (8.5-10.1); Chloride 100 mmol/L (98-107); Estimated GFR 59.02 (mL/min/1.73m2); Glucose 126 mg/dL (74-106); Sodium 135 mmol/L (136-145)
[2021-05-06 07:23] LABS: Potassium 2.6 mmol/L (3.5-5.1)
[2021-05-06] MEDS: Furosemide 40 MG/4 ML VIAL IVP (07:35)
[2021-05-06] MEDS: Enoxaparin 40 MG/0.4 ML SYR SC (07:35)
[2021-05-06] MEDS: Aspirin E.C. 81 MG TABEC PO (07:36)
[2021-05-06] MEDS: Lisinopril 20 MG TAB 40 MG PO (07:36)
[2021-05-06] MEDS: DOXYCYCLINE 100 MG in Normal Saline 100 ML IVPB (07:36)
[2021-05-06] MEDS: amLODIPine 5 MG TAB 10 MG PO (07:36)
[2021-05-06] MEDS: Calcium Carbonate 1.5 GM TAB PO ×2 (07:37→20:32)
[2021-05-06] MEDS: Nystatin CREAM 30 GM TUBE TP ×2 (07:37→20:32)
[2021-05-06] MEDS: Cyanocobalamin 500 MCG TAB 1000 MCG PO (07:37)
[2021-05-06] MEDS: guaiFENesin 600 MG TABCR PO ×2 (07:37→20:32)
[2021-05-06] MEDS: Metoprolol CR 100 MG TABCR PO (07:37)
[2021-05-06] MEDS: Allopurinol 100 MG TAB 200 MG PO (07:37)
[2021-05-06] MEDS: Normal Saline Flush 10 ML SYR IVP ×3 (07:37→17:48)
[2021-05-06] MEDS: cefTRIAXone 2 GM/50 ML BAG IVPB (09:06)
--- NOTE | 2021-05-06 10:51 | NUR.NOTE ---
Asked pt if he wanted to shave his mustache, pt replied yes that's just the pussy tickler at that point I ignored pts comment. Nursing Note:
[2021-05-06] MEDS: Potassium Chloride 20 MEQ TABCR 40 MEQ PO (10:52)
[2021-05-06] MEDS: POTASSIUM CHLORIDE 10 MEQ/100 ML BAG 100 MEQ IVPB ×2 (10:53→17:48)
--- NOTE | 2021-05-06 13:03 | PT.INTREAT ---
Date of service: 05/06/21 Time of Service: 12:40 PT Notes Visit Reasons: Acute CHF,NSTEMI,Acute Hypoxic Respiratory Failure Inpatient Physical Therapy Treatment Note [facility] Date: 05/06/2021 PRECAUTIONS: Fall SUBJECTIVE: Azeem is agreeable to participating in PT, although he states that he does not feel that he will be able to stand or walk today, as he is currently much weaker than his baseline. He hopes to be discharged to SNF today. OBJECTIVE: PAIN: No c/o pain BED MOBILITY/TRANSFERS Sit-stand: Mod A x2 Stand-sit: Min A x2 Bed-Chair: STEDY GAIT: Unable Static standing in STEDY with CGA x~1 minute. THEREX: Patient was instructed in a LE strengthening and stabilization program, completed in a supine position, as per flow sheet. ASSESSMENT: Patient tolerated transfer from bed-chair with STEDY, although c/o B LE pain and weakness. He continues to demonstrate significant deconditioning, although was able to complete LE strengthening exercises, as instructed without assist. PLAN: Patient will require SNF level rehab due to significant weakness and deconditioning, as he is not safe to return home independently at this time. TREATMENT CODE/TIME: 20 minutes; 90774 (12:40)
--- NOTE | 2021-05-06 14:15 | CMPROGNOTE_ITS ---
- If Service Date Differs Date of service: 05/06/21 Time of Service: 14:15 Care Management Progress Note S/O: Aezem was sitting up in bed when CM met with him. He reported that he is feeling ok, but continues feeling weak. GORDY received a response from admissions at [facility], who offered him a bed, pending a prior authorization from his insurance, which is [facility]. The authorization was submitted today. Admissions at [facility] does not anticipate that they will receive authorization today, therefore his discharge will likely be on Sunday, as long as he is medically cleared for transport at that time. CM will continue to follow. A: Iker is a 75 year old male admitted to [facility] on 05/02/21 for Acute CHR, NSTEMI, Acute hypoxic respiratory failure P:Iker will discharge to SNF for short term rehab, pending acceptance at a facility. Azeem was accepted at [facility], pending insurance authorization. He will likely transport via facility w/c van. He will follow up with his PCP and discharge plan of care. CM continues to follow.
--- NOTE | 2021-05-06 15:45 | CHAPLAIN ---
I was visiting Iker while nurses were trying to get an IV line back in because his potassium is low. Iker will likely to [facility] for [facility] before going him. He asked me what I knew about [facility]. He had a bad experiences at the [facility] and did not want to go there. Iker shared some personal history telling me about his first vehicles and growing up in the [place] area [facility]. Iker is frustrated that he can't walk well and go home but he is realistic about knowing he has to be stronger, and walking okay before going home.
--- NOTE | 2021-05-06 15:58 | PGE_ITS ---
Date of Service Date of service: 05/06/21 Time of Service: 15:58 Assessment and Plan Assessment and plan (1) Acute respiratory failure with hypoxia: Status: Acute Assessment and plan: Multifactorial - pneumonia, pulmonary edema, likely LUIS FELIPE and OHS Diuresing well on current lasix dosing; pedal edema resolved. He endorses improvement in SOA. Repeat CXR shows clear lungs. Wean o2 as tolerated. He has had sleep study in the past; endorses inability to tolerate CPAP masks. Pulmonary/critical care consult appreciated. (2) Acute CHF: Status: Acute Assessment and plan: Echocardiogram with LVEF of 56%. No wall motion abnormalities. Had an echo at [facility] on 03/15/21 due to concerns of septic arthritis/endocarditis (both ruled out). LVEF at the time was 50%, no wall motion abnormalities were seen. RV size and function were nml. RVSP 33.8 Will decrease lasix to daily. Has diuresed well. Qualifiers: Heart failure type: diastolic Qualified Code(s): I50.31 - Acute diastolic (congestive) heart failure (3) Pneumonia: Status: Acute Assessment and plan: The patient had mild leucocytosis, productive sputum, multifocal infiltrates on CXR at time of admission. COVID-19 ruled out on admission. D/T fever repeated Covid testing repeated yesterday. and was negative. Repeat CXR shows clear lungs; no PNA noted. WBC count has normalized. sputum with normal berkley. Blood culture; staph epidermidis in one bottle. (4) Elevated troponin: Status: Acute Assessment and plan: Suspect Type 2 NSTEMI in setting of acute hypoxic respiratory failure/acute CHF/pneumonia. Given underlying CAD. Troponin trend: 0.10 > 0.13 > 0.10 cardiology consulted and endorse acute on chronic diastolic CHF. Responding to diureses. No ischemic eval indicated at this time. (5) QT prolongation: Status: Acute Assessment and plan: monitor on tele. replete calcium. avoid QT prolonging drugs. (6) Chronic hypertension: Status: Chronic Assessment and plan: Continue home meds SBP today improved. Given his body habitus, w/o weight loss and dietary compliance, likely will be difficult to control. (7) Hyperlipidemia: Status: Chronic Assessment and plan: Continue home statin; check fasting lipid panel (8) Morbid obesity with BMI of 45.0-49.9, adult: Status: Chronic Assessment and plan: Check A1C. Consider sleep apnea. The patient has difficulty ambulating at baseline. Consult PT once cleared from cardiac/pulmonary stand point. (9) DVT prophylaxis: Status: Acute Assessment and plan: Lovenox (10) Discharge planning issues: Status: Acute Assessment and plan: Full code He is not safe at home given his very limited mobility, but he has decision making capacity to decide on his disposition. Subjective Subjective Patient reports: afebrile; denies diarrhea, nausea and vomiting Interval history since last seen: Patient had a temp of 38.5 last PM and the night before. Cough is better. Pedal edema resolved. Exam Const General: cooperative, no acute distress and disheveled Nutritional Appearance: obese Orientation: alert and oriented x3 HENMT Head: normocephalic and atraumatic Eyes General: appearance normal, both eyes and all related structures Sclera: sclerae normal Neck Neck: full ROM, nontender and no JVD Resp Effort & Inspection: normal respiratory effort and other (Freq cough) Auscultation: clear to auscultation bilaterally and diminished lung sounds Cardio Rate: regular rate Rhythm: regular rhythm Heart Sounds: S1 normal and S2 normal GI Inspection: obesity and other (Large right abd hernia / nontender) Palpation: soft and nontender Auscultation: normal bowel sounds Skin General skin exam: no rashes or lesions noted Neuro General: no focal motor deficits Cranial Nerves: facial strength normal Cognition: normal cognition Gait: other (transfers with great difficulty) Extrem General: no pedal edema and no calf tenderness Psych Appearance: grossly normal Mental Status: mental status grossly normal Mood: congruent mood Affect: normal affect Attitude: cooperative Objective Last Vital Signs Temp 37 C 05/06/21 11:30 Pulse 78 05/06/21 11:30 Resp 20 05/06/21 11:30 BP 124/75 05/06/21 11:30 Pulse Ox 92 05/06/21 11:30 Laboratory Results - last 24 hr 05/06/21 05/06/21 06:06 06:06 WBC 11.31 H RBC 3.84 L Hgb 11.7 L Hct 35.1 L MCV 91.4 MCH 30.5 MCHC 33.3 RDW 15.7 H Plt Count 211 MPV 11.1 H Immature Gran % 0.6 Neutrophils % 75.2 Lymphocytes % 10.0 Monocytes % 11.9 Eosinophils % 1.9 Basophils % 0.4 Nucleated RBC % 0 Absolute Neutrophils 8.51 H Absolute Lymphocytes 1.13 L Absolute Monocytes 1.35 H Absolute Eosinophils 0.21 Absolute Basophils 0.05 Sodium 135 L Potassium 2.6 L* Chloride 100 Carbon Dioxide 25.6 Anion Gap 9.4 BUN 34 H D Creatinine 1.2 Estimated GFR/1.73 m2 59.02 Glucose 126 H Calcium 8.6
[2021-05-06 18:13] LABS: Bilirubin Negative (Negative); Blood Large (Negative); Clarity Sl Cloudy (Clear); Glucose Negative (Negative); Ketones Negative (Negative); Leukocyte Esterase Negative (Negative); Nitrite Negative (Negative); Urobilinogen 0.2 EU/dL (Up TO 0.2)
[2021-05-06 18:38] LABS: Bacteria Negative HPF (Negative); C & S Indicated? No; Casts Negative LPF (Negative); Crystals Negative HPF (Negative); Epithelial Cells Few HPF (Negative); Mucus Negative (Negative); RBC >50 HPF (0-2); WBC 0-2 HPF (0-5)
[2021-05-06] MEDS: Atorvastatin 40 MG TAB 80 MG PO (20:32)
[2021-05-06] MEDS: Potassium Chloride 20 MEQ TABCR PO (20:32)
[2021-05-06] MEDS: Nystatin POWDER 60 GM JAR TP (20:39)
[2021-05-07 03:09] VITALS: BP 120/67; PULSE 81; RESP 20; TEMP 36.3; O2SAT 96
[2021-05-07 07:00] VITALS: BP 115/63; PULSE 77; RESP 21; TEMP 36.5; O2SAT 93
[2021-05-07 07:12] LABS: Abs Immature Grans 0.04 10^3/uL (0.0-0.06); Absolute Basophil Count 0.05 10^3/uL (0.0-0.2); Absolute Lymphocyte Count 0.98 10^3/uL (1.2-3.4); Absolute Monocyte Count 1.03 10^3/uL (0.1-0.8); Absolute Neutrophil Count 6.63 10^3/uL (1.2-6.7); Basophils % 0.6; Eosinophils % 3.3; HCT 35.1 % (40.0-50.0); HGB 11.5 g/dL (13.5-17.5); Immature Grans % 0.4; Lymphocytes % 10.9; MCH 30.2 pg (27.0-33.0); MCHC 32.8 % (32.0-36.0); MCV 92.1 fL (80-95); MPV 11.4 fL (8.0-11.0); Monocytes % 11.4; Neutrophils % 73.4; Nucleated RBC 0 %; Platelet Count 238 10^3/uL (130-400); RBC 3.81 10^6/uL (4.36-5.78); RDW 15.5 % (11.8-14.1); RDW-SD 52.4 fL; WBC 9.03 10^3/uL (4.4-10.8)
[2021-05-07 07:27] LABS: Anion Gap 6.8 mmol/L (3-11); BUN 29 mg/dL (7-18); CO2 27.2 mmol/L (21.0-32.0); CREATININE 0.9 mg/dL (0.70-1.30); Calcium 8.6 mg/dL (8.5-10.1); Chloride 104 mmol/L (98-107); Glucose 119 mg/dL (74-106); Sodium 138 mmol/L (136-145)
--- NOTE | 2021-05-07 08:00 | RT.EKG_ITS ---
APPROVED REPORT Exam: Resting ECG Reason for Exam: QT prolongation Patient Location: I HR:83 bpm ECG Measurements Heart Rate 83 AXIS WY 65 P 11 QRSd 105 QRS 14 QT 398 T 86 QTc 465 Conclusion Sinus rhythm...normal P axis, V-rate 60- 99 Nonspecific T abnrm, anterolateral leads...T <-0.10mV, I aVL V2-V6
[2021-05-07 08:02] LABS: Magnesium 2.1 mg/dL (1.8-2.4)
[2021-05-07] MEDS: Cyanocobalamin 500 MCG TAB 1000 MCG PO (08:03)
[2021-05-07] MEDS: amLODIPine 5 MG TAB 10 MG PO (08:03)
[2021-05-07] MEDS: Allopurinol 100 MG TAB 200 MG PO (08:04)
[2021-05-07] MEDS: Lisinopril 20 MG TAB 40 MG PO (08:04)
[2021-05-07] MEDS: guaiFENesin 600 MG TABCR PO ×2 (08:04→20:08)
[2021-05-07] MEDS: Enoxaparin 40 MG/0.4 ML SYR SC (08:04)
[2021-05-07] MEDS: Metoprolol CR 100 MG TABCR PO (08:04)
[2021-05-07] MEDS: Aspirin E.C. 81 MG TABEC PO (08:04)
[2021-05-07] MEDS: Potassium Chloride 20 MEQ TABCR 40 MEQ PO ×3 (08:04→20:08)
[2021-05-07] MEDS: Calcium Carbonate 1.5 GM TAB PO ×2 (08:04→20:08)
[2021-05-07] MEDS: Nystatin POWDER 60 GM JAR TP ×2 (08:05→20:08)
[2021-05-07] MEDS: Furosemide 40 MG TAB PO ×2 (09:50→16:38)
--- NOTE | 2021-05-07 10:39 | PT.INTREAT ---
PT Notes Visit Reasons: Acute CHF,NSTEMI,Acute Hypoxic Respiratory Failure 05/07/2021 SUBJECTIVE: Iker stating he has some tenderness to the low back and tailbone. He is fearful of falling. He notes when he is in standing position that his legs feel weak and does not want to walk. OBJECTIVE: TRANSFERS Sit to stand: Min A Stand to sit: CGA GAIT Stood in place x 30 seconds. Pt notes his legs feel weak and he refuses to walk. THEREX: Performs seated UE/LE strengthening exercises with verbal and visual cues required. See flow sheet. ASSESSMENT: Pt is confused this AM. Able to follow commands to complete exercises and utilize demonstration with improvement in exercise performance. He requires more assist to stand up from low chair today which may of made him nervous to ambulate. Will assess again tomorrow and progress with ambulation as he is able to tolerate. Plan: Conintue per POC. Treatment time: 23 minutes [id number] Destiny Reid PTA PLAn
--- NOTE | 2021-05-07 10:55 | PT.INTREAT ---
PT Notes Visit Reasons: Acute CHF,NSTEMI,Acute Hypoxic Respiratory Failure 05/07/2021 SUBJECTIVE: Pt stating he was delvis lifted to chair by nursing as he is not strong enough to stand at this point. He does not know how he got so weak this quickly. OBJECTIVE: TRANSFERS/GAIT: No assessed today. THEREX: Performed in seated position including UE/LE strengthening. Issued hourly exercises including LAW, seated march and shoulder flexion. Wrote these exercises on his white board in his room. ASSESSMENT: Pt requires assist for even the basic LE strengthening exercises today and therefore did not attempt to stand or walk. 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 PLAN: Continue current POC. Treatment time: 23 minutes [id number] Destiny Reid PTA Clinic location: [facility] [place], [place]
[2021-05-07 11:30] VITALS: BP 136/73; PULSE 76; RESP 19; TEMP 36.4; O2SAT 95
--- NOTE | 2021-05-07 14:45 | PGE_ITS ---
Date of Service Date of service: 05/07/21 Time of Service: 14:45 Assessment and Plan Assessment and plan (1) Acute respiratory failure with hypoxia: Status: Resolved Assessment and plan: Multifactorial - pneumonia, pulmonary edema, likely LUIS FELIPE and OHS. Doing better. On RA. Repeat CXR was clear. He has had sleep study in the past, but was unable to tolearte CPAP - worth revisiting as outpatient. (2) Acute CHF: Status: Acute Assessment and plan: Acute on chronic diastolic CHF. Echocardiogram with LVEF of 56%. No wall motion abnormalities. RVSP 33.8 mm Hg. Continue PO lasix (BID). Add TEDs and elevate legs. Qualifiers: Heart failure type: diastolic Qualified Code(s): I50.31 - Acute diastolic (congestive) heart failure (3) Pneumonia: Status: Resolved Assessment and plan: Clinically resolved. Completed abx. COVID -19 ruled out. (4) Elevated troponin: Status: Acute Assessment and plan: Suspect Type 2 NSTEMI due to acute on chronic diastolic CHF and hypoxia. No ischemic eval indicated at this time. (5) QT prolongation: Status: Resolved Assessment and plan: QTc 465 ms on today's EKG. (6) Chronic hypertension: Status: Chronic Assessment and plan: Continue home regimen. Weight loss would certainly help BP control. Continue salt-restricted diet. (7) Hyperlipidemia: Status: Chronic Assessment and plan: Continue statin (8) Morbid obesity with BMI of 45.0-49.9, adult: Status: Chronic Assessment and plan: A1C 5.4. Needs sleep apnea follow up. The patient has difficulty ambulating at baseline. (9) DVT prophylaxis: Status: Acute Assessment and plan: Lovenox (10) Discharge planning issues: Status: Acute Assessment and plan: Full code Plan for discharge to health and rehab on Sunday. Subjective Subjective Interval history since last seen: Mr Mckenzie states that his breathing is better. Continues to have a cough. Has not been elevating his legs. Denies dizziness, chest pain, nausea. Exam Narrative Exam Narrative: General: Obese male, A&Ox3, sitting at the edge of the bed, coughing after 1-2 sentences - appears to be a dry cough HEENT: EOMI, MMM Cardiovascular: RRR, no m/r/g Lungs: Diminished breath sounds B Gastrointestinal: soft, nontender, nondistended, R-sided abdominal wall hernia which is nontender Genitourinary: has a castanon - urine appears concentrated Extremities: 1+ BLE edema, +1 pedal pulses B Objective Last Vital Signs Temp 36.4 C L 05/07/21 11:30 Pulse 76 05/07/21 11:30 Resp 19 05/07/21 11:30 BP 136/73 05/07/21 11:30 Pulse Ox 95 05/07/21 11:30 Laboratory Results - last 24 hr 05/06/21 05/07/21 05/07/21 17:50 06:08 06:08 WBC 9.03 RBC 3.81 L Hgb 11.5 L Hct 35.1 L MCV 92.1 MCH 30.2 MCHC 32.8 RDW 15.5 H Plt Count 238 MPV 11.4 H Immature Gran % 0.4 Neutrophils % 73.4 Lymphocytes % 10.9 Monocytes % 11.4 Eosinophils % 3.3 Basophils % 0.6 Nucleated RBC % 0 Absolute Neutrophils 6.63 Absolute Lymphocytes 0.98 L Absolute Monocytes 1.03 H Absolute Eosinophils 0.30 Absolute Basophils 0.05 Sodium 138 Potassium 3.0 L Chloride 104 Carbon Dioxide 27.2 Anion Gap 6.8 BUN 29 H Creatinine 0.9 Estimated GFR/1.73 m2 >= 60.00 Glucose 119 H Calcium 8.6 Magnesium Urine Color Yellow Urine Clarity Sl Cloudy Urine pH 6.0 Ur Specific [place] 1.020 Urine Protein Negative Urine Ketones Negative Urine Blood Large H Urine Nitrite Negative Urine Bilirubin Negative Urine Urobilinogen 0.2 Ur Leukocyte Esterase Negative Urine RBC >50 H Urine WBC 0-2 Ur Epithelial Cells Few Urine Crystals Negative Urine Bacteria Negative Urine Casts Negative Urine Mucus Negative Ur Culture Indicated? No Urine Glucose Negative 05/07/21 06:08 WBC RBC Hgb Hct MCV MCH MCHC RDW Plt Count MPV Immature Gran % Neutrophils % Lymphocytes % Monocytes % Eosinophils % Basophils % Nucleated RBC % Absolute Neutrophils Absolute Lymphocytes Absolute Monocytes Absolute Eosinophils Absolute Basophils Sodium Potassium Chloride Carbon Dioxide Anion Gap BUN Creatinine Estimated GFR/1.73 m2 Glucose Calcium Magnesium 2.1 Urine Color Urine Clarity Urine pH Ur Specific [place] Urine Protein Urine Ketones Urine Blood Urine Nitrite Urine Bilirubin Urine Urobilinogen Ur Leukocyte Esterase Urine RBC Urine WBC Ur Epithelial Cells Urine Crystals Urine Bacteria Urine Casts Urine Mucus Ur Culture Indicated? Urine Glucose
[2021-05-07 15:03] VITALS: BP 145/108; PULSE 80; RESP 21; TEMP 37.1; O2SAT 92
[2021-05-07 18:50] VITALS: BP 110/48; PULSE 83; RESP 19; TEMP 36.7; O2SAT 96
[2021-05-07] MEDS: Atorvastatin 40 MG TAB 80 MG PO (20:08)
[2021-05-07] MEDS: Nystatin CREAM 30 GM TUBE TP (20:09)
[2021-05-07 22:36] VITALS: BP 140/70; PULSE 88; RESP 19; TEMP 37; O2SAT 93
[2021-05-08 07:10] VITALS: BP 143/78; PULSE 78; RESP 22; TEMP 36.5; O2SAT 92
[2021-05-08 07:40] LABS: BUN 24 mg/dL (7-18); CO2 24.6 mmol/L (21.0-32.0); CREATININE 0.8 mg/dL (0.70-1.30); Glucose 122 mg/dL (74-106); Sodium 140 mmol/L (136-145)
[2021-05-08 07:46] LABS: Anion Gap 9.4 mmol/L (3-11); Chloride 106 mmol/L (98-107)
[2021-05-08] MEDS: Nystatin POWDER 60 GM JAR TP ×2 (08:21→21:09)
[2021-05-08] MEDS: Calcium Carbonate 1.5 GM TAB PO ×2 (08:22→21:08)
[2021-05-08] MEDS: Aspirin E.C. 81 MG TABEC PO (08:22)
[2021-05-08] MEDS: amLODIPine 5 MG TAB 10 MG PO (08:22)
[2021-05-08] MEDS: Furosemide 40 MG TAB PO ×2 (08:22→16:09)
[2021-05-08] MEDS: Allopurinol 100 MG TAB 200 MG PO (08:22)
[2021-05-08] MEDS: guaiFENesin 600 MG TABCR PO ×2 (08:22→21:08)
[2021-05-08] MEDS: Lisinopril 20 MG TAB 40 MG PO (08:22)
[2021-05-08] MEDS: Enoxaparin 40 MG/0.4 ML SYR SC (08:22)
[2021-05-08] MEDS: Metoprolol CR 100 MG TABCR PO (08:22)
[2021-05-08] MEDS: Potassium Chloride 20 MEQ TABCR 40 MEQ PO ×2 (08:22→21:08)
[2021-05-08] MEDS: Cyanocobalamin 500 MCG TAB 1000 MCG PO (08:22)
[2021-05-08 11:16] VITALS: BP 113/67; PULSE 73; RESP 21; TEMP 36.4; O2SAT 95
--- NOTE | 2021-05-08 11:52 | PT.INTREAT ---
PT Notes Visit Reasons: Acute CHF,NSTEMI,Acute Hypoxic Respiratory Failure 05/08/2021 SUBJECTIVE: Don states he would like to go back to bed. The chair is quite uncomfortable for him. Agreeable to try to walk to the bed. Complains of bilateral ankle and knee pain upon movement. OBJECTIVE: TRANSFERS Sit to stand: Max A x 3 Stand to sit: Max A x 3 GAIT: Unable; utilize Stedy lift Max A x 3 Able to do modified aviation all source intelligence stedy x 1' THEREX :Seated UE/LE strengthening exercises. Encouraged hourly completion. See flow sheet. ASSESSMENT: Requires significant amount of assist to utilize Stedy lift for transfers although he needs to be doing this type of transfer to get weight bearing through his legs in order to become a functional ambulator again. PLAN: Continue working on weight bearing through LE's, LE strengthening and transfer training. Treatment time: 25 minutes [id number], [id number] Destiny Reid PTA Clinic location: [facility] [place], [place]
--- NOTE | 2021-05-08 14:58 | W.PM.PROGNOT ---
Date of Service Date of service: 05/08/21 Time of Service: 14:58 Assessment and Plan Assessment and plan (1) Acute respiratory failure with hypoxia: Status: Resolved Assessment and plan: Multifactorial - pneumonia vs bronchitis, pulmonary edema, likely LUIS FELIPE and OHS. Currently comfortable On RA. Repeat CXR was clear. He has had sleep study in the past, but was unable to tolearte CPAP - worth revisiting as outpatient. (2) Acute CHF: Status: Resolved Assessment and plan: Acute on chronic diastolic CHF. Echocardiogram with LVEF of 56%. No wall motion abnormalities. RVSP 33.8 mm Hg. Continue PO lasix 40 mg BID. Continue TEDs and elevate legs. Qualifiers: Heart failure type: diastolic Qualified Code(s): I50.31 - Acute diastolic (congestive) heart failure (3) Pneumonia: Status: Resolved Assessment and plan: Clinically resolved. Completed abx. COVID -19 ruled out. (4) Elevated troponin: Status: Acute Assessment and plan: Suspect Type 2 NSTEMI due to acute on chronic diastolic CHF and hypoxia. No ischemic eval indicated at this time. (5) QT prolongation: Status: Resolved Assessment and plan: QTc 465 ms on today's EKG. (6) Chronic hypertension: Status: Chronic Assessment and plan: Continue home regimen. Weight loss would certainly help BP control. Continue salt-restricted diet. (7) Hyperlipidemia: Status: Chronic Assessment and plan: Continue statin (8) Morbid obesity with BMI of 45.0-49.9, adult: Status: Chronic Assessment and plan: A1C 5.4. Needs sleep apnea follow up. The patient has difficulty ambulating at baseline. (9) DVT prophylaxis: Status: Acute Assessment and plan: Lovenox (10) Discharge planning issues: Status: Acute Assessment and plan: Full code Plan for discharge to health and rehab on Sunday. Subjective Subjective Interval history since last seen: I'm doing pretty good today. Denies dizziness, chest pain, shortness of breath, nausea. States cough is now productive of white/clear sputum. Exam Narrative Exam Narrative: General: Obese male, A&Ox3, laying nearly flat in bed, no dyspnea/tachypnea/cyanosis noted on room air. No orthopnea - able to complete full sentences laying flat in bed HEENT: EOMI, MMM Cardiovascular: RRR, no m/r/g Lungs: Diminished breath sounds B Gastrointestinal: soft, nontender, nondistended, R-sided abdominal wall hernia which is nontender Extremities: Trace BLE edema, +1 pedal pulses B Objective Last Vital Signs Temp 36.4 C L 05/08/21 11:16 Pulse 73 05/08/21 11:16 Resp 21 05/08/21 11:16 BP 113/67 05/08/21 11:16 Pulse Ox 95 05/08/21 11:16 Laboratory Results - last 24 hr 05/08/21 05/08/21 06:08 06:08 Sodium 140 Potassium 4.0 D Chloride 106 Carbon Dioxide 24.6 Anion Gap 9.4 BUN 24 H Creatinine 0.8 Estimated GFR/1.73 m2 >= 60.00 Glucose 122 H Calcium 9.0 Magnesium 2.0
[2021-05-08 15:36] VITALS: BP 153/70; PULSE 76; RESP 16; TEMP 37.5; O2SAT 94
[2021-05-08 20:55] VITALS: BP 168/79; PULSE 85; RESP 20; TEMP 38; O2SAT 92
[2021-05-08 21:08] VITALS: TEMP 38
[2021-05-08] MEDS: Atorvastatin 40 MG TAB 80 MG PO (21:08)
[2021-05-08] MEDS: Acetaminophen 325 MG TAB PO (21:08)
[2021-05-08] MEDS: Nystatin CREAM 30 GM TUBE TP (21:23)
[2021-05-09] VITALS (7 sets, daily range): BP systolic 120–154; BP diastolic 72–88; PULSE 81–87; RESP 18–20; TEMP 36.8–37.5; O2SAT 91–96
[2021-05-09 07:11] LABS: BUN 20 mg/dL (7-18); CREATININE 0.8 mg/dL (0.70-1.30); Calcium 8.9 mg/dL (8.5-10.1); Chloride 103 mmol/L (98-107); Glucose 120 mg/dL (74-106); Potassium 4.5 mmol/L (3.5-5.1); Sodium 139 mmol/L (136-145)
[2021-05-09 07:17] LABS: Magnesium 2.1 mg/dL (1.8-2.4)
[2021-05-09] MEDS: Lisinopril 20 MG TAB 40 MG PO (07:51)
[2021-05-09] MEDS: amLODIPine 5 MG TAB 10 MG PO (07:51)
[2021-05-09] MEDS: Aspirin E.C. 81 MG TABEC PO (07:51)
[2021-05-09] MEDS: Allopurinol 100 MG TAB 200 MG PO (07:51)
[2021-05-09] MEDS: Potassium Chloride 20 MEQ TABCR 40 MEQ PO ×2 (07:51→20:37)
[2021-05-09] MEDS: Metoprolol CR 100 MG TABCR PO (07:51)
[2021-05-09] MEDS: Nystatin POWDER 60 GM JAR TP ×2 (07:51→20:37)
[2021-05-09] MEDS: Enoxaparin 40 MG/0.4 ML SYR SC (07:51)
[2021-05-09] MEDS: Cyanocobalamin 500 MCG TAB 1000 MCG PO (07:52)
[2021-05-09] MEDS: guaiFENesin 600 MG TABCR PO ×2 (07:52→20:37)
[2021-05-09] MEDS: Furosemide 40 MG TAB PO ×2 (07:52→15:57)
[2021-05-09] MEDS: Calcium Carbonate 1.5 GM TAB PO ×2 (07:52→20:37)
--- NOTE | 2021-05-09 08:34 | CMPROGNOTE_ITS ---
- If Service Date Differs Date of service: 05/09/21 Time of Service: 08:34 Care Management Progress Note S/O: Iker was sitting up in his chair when CM met with him. He was pleasant and easily engaged in conversation. He expressed that he is getting inpatient with his insurance company and hopes to get the prior auth from [facility] soon. Iker is aware that he had a fever last night which means he needs to be followed a little more closely and be medically cleared before he can go to [facility]. CM continues to follow. A:Iker is a 75 year old male admitted to [facility] on 05/02/21 for Acute CHF, NSTEMI, Acute hypoxic respiratory failure P:Iker will discharge to SNF for short term rehab when medically cleared. Iker was febrile last night and will need additional monitoring. In the meantime, CM continues to wait on a prior auth. Iker will likely transport via facility w/c van when ready. He will follow up with his PCP and discharge plan of care. CM continues to follow.
--- NOTE | 2021-05-09 08:56 | PCNE_ITS ---
Date of service: 05/09/21 Time of Service: 08:56 History of Present Illness History of Present Illness Chief Complaint: weakness, sob Narrative: I originally met with Iker this morning. We talked briefly. I returned this evening. He had finished dinner. He states that he was feeling pretty good but kind like a bump on a log. He states he cannot do very much and he does not like being in the hospital. I asked him where he expected to go after hospitalization, he states that he wants to care for his animals, 3 dogs and 3 cats. He loves his animals. He feels that he will easily be able to do this. When I stated that it took 2 people to get him from the chair to the bed, he states that he will be just fine and will be able to do this. I asked him about his mobility at home. He states that he enjoys walking and named about a 2 [address] route that he likes going on. He said he is like a whole bottle and that he picks up cans etc. I asked him when the last time was that he did this, and he said before his in 2017. I asked about family, he said he had kids but he did not want to go into that. 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 He did well until his leg started to swell but then needed to start taking pills with the edema. He has some sort of medicine socks he called them. They help to keep the swelling down in his legs. He feels much better now that he does not have the compression stockings on his legs. Dr. Whittaker stated that today he is said that he could not walk with his right leg. Per patient he had been able to walk prior to coming to the hospital. There is concern that he may have had a stroke or some other process going on. They tried to do an MRI but was unable to due to his inability to lay flat. Plan is to do this tomorrow. He does not want to go to a jail. He definitely wants to go back home. He said that he would hire help. When I explained that it could cost $6-$8000 a month to higher help 24 hours a daily, he said his insurance would pay for it. I asked him what he understood about his diseases. He knew he was a little heavy, that he had problems with breathing at times, and he had some edema. He expected to live many more years. Consults Consult date: 05/09/21 Requesting physician: Zoya Whittaker Assessment and Plan Assessment and plan (1) Left leg weakness: Status: Acute (2) Morbid obesity with BMI of 45.0-49.9, adult: Status: Chronic (3) Acute CHF: Status: Resolved Qualifiers: Heart failure type: diastolic Qualified Code(s): I50.31 - Acute diastolic (congestive) heart failure (4) Shortness of breath: Status: Acute (5) Palliative care patient: Status: Acute Assessment and plan: Iker was fine and interesting to talk with. He had very little prognostic awareness of his disease processes, limitations of ambulation, and what was within his realm of reality. He states that he does want to be a full code but does not want to be a vegetable. The overall plan tomorrow is to get imaging studies to determine if he has had a CVA. I suspect that he has had some of this left leg weakness for quite some time. He is not on oxygen now and seems to be breathing fairly comfortable. Considering his morbid obesity and comorbidities I am not sure how long this will last. I would recommend that he go to a SNF to gain strength. Thank you very much for this consult Review of Systems Constitutional Constitutional: Reports body ache(s), Reports difficulty sleeping, Reports lethargy, Reports weakness and Reports weight gain Eyes Eyes: Reports system reviewed and no additional complaints, except as documented Cardiovascular Cardiovascular: Denies chest pain, Reports claudication, Reports leg edema and Reports dyspnea Respiratory Respiratory: Reports cough and Reports dyspnea Gastrointestinal Gastrointestinal: Reports bloating Genitourinary Genitourinary: Reports difficulty urinating Musculoskeletal Musculoskeletal: Reports back pain, Reports arthralgias, Reports limited range of motion and Reports muscle weakness Neurologic Neurologic: Reports lack of coordination and Reports weakness Comments: I asked Iker to raise his right leg. He was able to do this. He co uld bring his toes to his nose. When I asked him to do this on the left side he had difficulty but was able to brace his left leg. He was unable to bring his left toes to his nose. I was unable to check reflexes. He had good sensation to light touch. [facility] Medical History Ambulatory dysfunction Biliary colic symptom CVA (cerebral vascular accident) Gouty [place] [facility] [place] cardiac cath 2012 - no stents Hyperlipidemia Hypertension Morbid obesity with BMI of 45.0-49.9, adult Surgical History Angiogram cardiac cath 2012 - no stents Cholecystectomy open Family History Other Essential hypertension Heart disease Social History Smoking/Tobacco Use Status: Former Tobacco Use Smoking risk assessment performed?: Yes Alcohol Intake: former Drug use: Never Do you feel safe at home: Yes Do you feel safe in your relationship?: Yes Exam Const General: cooperative, disheveled and ill appearing Nutritional Appearance: obese Orientation: oriented x3 Resp Effort & Inspection: able to speak in complete sentences and decreased respi ratory effort Auscultation: diminished lung sounds Cardio Rate: regular rate GI Palpation: soft and mass (Large right-sided herniation) Auscultation: normal bowel sounds Skin Rashes: no rashes Psych Appearance: disheveled Speech and Movement: speech clear and slowed movement Attitude: cooperative Results Last Vital Signs Temp 98.2 F 05/09/21 07:14 Pulse 85 05/09/21 07:14 Resp 20 05/09/21 07:14 BP 148/81 H 05/09/21 07:14 Pulse Ox 91 L 05/09/21 07:14 Labs Result diagrams: 05/10/21 06:21 05/10/21 06:21 Labs: Laboratory Results - last 24 hr 05/09/21 05/09/21 06:36 06:36 Sodium 139 Potassium 4.5 Chloride 103 Carbon Dioxide 26.0 Anion Gap 10.0 BUN 20 H Creatinine 0.8 Estimated GFR/1.73 m2 >= 60.00 Glucose 120 H Calcium 8.9 Magnesium 2.1
[2021-05-09 09:06] LABS: Abs Immature Grans 0.05 10^3/uL (0.0-0.06); Absolute Basophil Count 0.05 10^3/uL (0.0-0.2); Absolute Eosinophil Count 0.53 10^3/uL (0.0-0.7); Absolute Lymphocyte Count 1.13 10^3/uL (1.2-3.4); Absolute Monocyte Count 1.07 10^3/uL (0.1-0.8); Absolute Neutrophil Count 5.99 10^3/uL (1.2-6.7); Basophils % 0.6; HCT 37.8 % (40.0-50.0); HGB 12.1 g/dL (13.5-17.5); Immature Grans % 0.6; Lymphocytes % 12.8; MCH 30.2 pg (27.0-33.0); MCV 94.3 fL (80-95); Monocytes % 12.1; Neutrophils % 67.9; Nucleated RBC 0 %; Platelet Count 309 10^3/uL (130-400); RBC 4.01 10^6/uL (4.36-5.78); RDW 15.8 % (11.8-14.1); RDW-SD 54.5 fL; WBC 8.82 10^3/uL (4.4-10.8)
[2021-05-09 09:44] LABS: Procalcitonin 0.1 ng/mL
[2021-05-09 09:52] LABS: Bilirubin Negative (Negative); Blood Trace-intact (Negative); Clarity Clear (Clear); Glucose Negative (Negative); Ketones Negative (Negative); Leukocyte Esterase Negative (Negative); Nitrite Negative (Negative); Urobilinogen 0.2 EU/dL (Up TO 0.2); pH 6.5 (5-8)
[2021-05-09 10:05] LABS: Bacteria Negative HPF (Negative); C & S Indicated? C&S Done As Ordered; Casts Negative LPF (Negative); Crystals Negative HPF (Negative); Epithelial Cells Rare HPF (Negative); Mucus Negative (Negative); WBC Negative HPF (0-5)
--- NOTE | 2021-05-09 11:13 | DI.RAD_ITS ---
Exam(s) XR PORTABLE CHEST AP EXAM: XR PORTABLE CHEST AP CLINICAL HISTORY: fever TECHNIQUE: 2D digital imaging was performed. COMPARISON: CR XR PORTABLE CHEST AP from 05/05/2021 FINDINGS: MEDIASTINUM: Normal. HEART: Normal. PULMONARY VASCULATURE: Normal. LUNGS: Clear. PLEURAL SPACE: No pleural effusion or pneumothorax. BONE:Within normal limits for the patient's age. OTHER FINDINGS:Normal. IMPRESSION: No acute pulmonary findings. DATA REPOSITORY: RADIATION DOSE DELIVERED:
--- NOTE | 2021-05-09 13:26 | W.PM.PROGNOT ---
Date of Service Date of service: 05/09/21 Time of Service: 13:26 Assessment and Plan Assessment and plan (1) Fever: Status: Acute Assessment and plan: COVID-19 neg x 2 on this admission. UA negative. CXR negative, but does have a cough. Procalcitonin mildly elevated. He completed 5 days of ceftriaxone but not doxycycline on this admission. Will resume doxycycline and monitor as I suspect he has a component of acute bronchitis. (2) Left leg weakness: Status: Acute Assessment and plan: Onset unclear, but appears to be dating to the patient's arrival to the hospital. The patient has a h/o CVA - but has no LUE deficits, so that's somewhat less likely to be a product of CVA. Obtain MRI LS spine and consider brain imaging. (3) Acute respiratory failure with hypoxia: Status: Resolved Assessment and plan: Multifactorial - pneumonia vs bronchitis, pulmonary edema, likely LUIS FELIPE and OHS. Currently comfortable On RA. Repeat CXR was clear. He has had sleep study in the past, but was unable to tolearte CPAP - worth revisiting as outpatient. (4) Acute CHF: Status: Resolved Assessment and plan: Acute on chronic diastolic CHF. Echocardiogram with LVEF of 56%. No wall motion abnormalities. RVSP 33.8 mm Hg. Continue PO lasix 40 mg BID. Continue TEDs and elevate legs. Qualifiers: Heart failure type: diastolic Qualified Code(s): I50.31 - Acute diastolic (congestive) heart failure (5) Pneumonia: Status: Resolved Assessment and plan: Vs bronchitis. Repeat procalcitonin is slightly elevated - will resume doxycycline as did have a fever last night and still has a residual cough. COVID -19 ruled out. (6) Elevated troponin: Status: Acute Assessment and plan: Suspect Type 2 NSTEMI due to acute on chronic diastolic CHF and hypoxia. No ischemic eval indicated at this time. (7) QT prolongation: Status: Resolved Assessment and plan: QTc 465 ms on today's EKG. (8) Chronic hypertension: Status: Chronic Assessment and plan: Continue home regimen. Weight loss would certainly help BP control. Continue salt-restricted diet. (9) Hyperlipidemia: Status: Chronic Assessment and plan: Continue statin (10) Morbid obesity with BMI of 45.0-49.9, adult: Status: Chronic Assessment and plan: A1C 5.4. Needs sleep apnea follow up. The patient has difficulty ambulating at baseline. (11) DVT prophylaxis: Status: Acute Assessment and plan: Lovenox (12) Discharge planning issues: Status: Acute Assessment and plan: Full code Not ready for discharge as we are investigating his fever as well as a new report of LLE weakness. Subjective Subjective Interval history since last seen: Mr Mckenzie states that his left leg is weaker than his right. His LUE is fine. He is frustrated that he is not able to walk because of it. He states he was able to walk the day that he called the ambulance. Per PT, he has had this deficit since his arrival to the hospital/first PT eval, but the patient claims he did not feel this way at home. This is the first time he reported this deficit to me. He denies back pain or trauma. Denies numbness/tingling. Continues to have a cough. Denies chest pain/shortness of breath. Tmax 38 yesterday evening. Exam Narrative Exam Narrative: General: Obese male, A&Ox3, sitting up in a chair, about to be transferred back to bed with maximum assist. No dyspnea/tachypnea/cyanosis noted on room air. Observed having a dry cough. HEENT: EOMI, MMM Cardiovascular: RRR, no m/r/g Lungs: Minimally rhochorous B Gastrointestinal: soft, nontender, nondistended, R-sided abdominal wall hernia which is nontender Extremities: Trace BLE edema, +1 pedal pulses B Objective Last Vital Signs Temp 36.8 C 05/09/21 11:30 Pulse 81 05/09/21 11:30 Resp 18 05/09/21 11:30 BP 154/88 H 05/09/21 11:30 Pulse Ox 96 05/09/21 11:30 Laboratory Results - last 24 hr 05/09/21 05/09/21 05/09/21 06:36 06:36 06:36 WBC 8.82 RBC 4.01 L Hgb 12.1 L Hct 37.8 L MCV 94.3 MCH 30.2 MCHC 32.0 RDW 15.8 H Plt Count 309 MPV 11.0 Immature Gran % 0.6 Neutrophils % 67.9 Lymphocytes % 12.8 Monocytes % 12.1 Eosinophils % 6.0 Basophils % 0.6 Nucleated RBC % 0 Absolute Neutrophils 5.99 Absolute Lymphocytes 1.13 L Absolute Monocytes 1.07 H Absolute Eosinophils 0.53 Absolute Basophils 0.05 Sodium 139 Potassium 4.5 Chloride 103 Carbon Dioxide 26.0 Anion Gap 10.0 BUN 20 H Creatinine 0.8 Estimated GFR/1.73 m2 >= 60.00 Glucose 120 H Calcium 8.9 Magnesium 2.1 Procalcitonin Urine Color Urine Clarity Urine pH Ur Specific [place] Urine Protein Urine Ketones Urine Blood Urine Nitrite Urine Bilirubin Urine Urobilinogen Ur Leukocyte Esterase Urine RBC Urine WBC Ur Epithelial Cells Urine Crystals Urine Bacteria Urine Casts Urine Mucus Ur Culture Indicated? Urine Glucose 05/09/21 05/09/21 06:36 09:40 WBC RBC Hgb Hct MCV MCH MCHC RDW Plt Count MPV Immature Gran % Neutrophils % Lymphocytes % Monocytes % Eosinophils % Basophils % Nucleated RBC % Absolute Neutrophils Absolute Lymphocytes Absolute Monocytes Absolute Eosinophils Absolute Basophils Sodium Potassium Chloride Carbon Dioxide Anion Gap BUN Creatinine Estimated GFR/1.73 m2 Glucose Calcium Magnesium Procalcitonin 0.1 Urine Color Yellow Urine Clarity Clear Urine pH 6.5 Ur Specific [place] 1.020 Urine Protein Negative Urine Ketones Negative Urine Blood Trace-intact H Urine Nitrite Negative Urine Bilirubin Negative Urine Urobilinogen 0.2 Ur Leukocyte Esterase Negative Urine RBC 5-10 H Urine WBC Negative Ur Epithelial Cells Rare Urine Crystals Negative Urine Bacteria Negative Urine Casts Negative Urine Mucus Negative Ur Culture Indicated? C&S Done As Ordered Urine Glucose Negative Objective Narrative Objective Narrative: CXR: No acute pulmonary findings.
[2021-05-09] MEDS: Doxycycline Hyclate 100 MG CAP PO (14:02)
--- NOTE | 2021-05-09 15:30 | PT.INTREAT ---
Date of service: 05/09/21 Time of Service: 12:50 PT Notes Visit Reasons: Acute CHF,NSTEMI,Acute Hypoxic Respiratory Failure Inpatient Physical Therapy Treatment Note [facility] Date: 05/09/2021 PRECAUTIONS: Morbid Obesity, Fall SUBJECTIVE: Don states that he is having a bad day, he states I lost my . He also reports that he is not feeling well. He states that if he cannot go to a rehab, he will just go home, although does acknowledge that he is much weaker than his reported baseline. OBJECTIVE: Refuses to participate in morning PT session. PAIN: Patient c/o pain in posterior aspect of L knee with ther ex BED MOBILITY/TRANSFERS Sit-stand: Max A x3 to get into STEDY lift Stand-sit: Max A x3 from STEDY lift Chair-bed: STEDY lift with Max A GAIT: Unable THEREX: Patient was instructed in several seated LE strengthening exercises, completed while seated at EOB. He requires assist to complete exercises on L LE due to weakness L>R. He also completes static standing in STEDY with B UE support and Max A 2x3 minutes with c/o increasing fatigue. TOILETING: Patient was incontinent of stool, requiring Max A x3. ASSESSMENT: Patient tolerated session with complaint of increased fatigue with all activity and of pain in posterior aspect of L knee with ther ex. He continues to demonstrate significant global weakness, and will need SNF level rehab prior to returning to home, as he is reportedly ambulatory with FWW at baseline. PLAN: Continue with transfer training and global strengthening for improved mobility and activity tolerance. TREATMENT CODE/TIME: 30 minutes; [id number] x2 (12:50)
[2021-05-09] MEDS: Nystatin CREAM 30 GM TUBE TP (20:37)
[2021-05-09] MEDS: Atorvastatin 40 MG TAB 80 MG PO (20:37)
[2021-05-10] MEDS: Doxycycline Hyclate 100 MG CAP PO ×2 (01:54→13:09)
[2021-05-10 03:44] VITALS: BP 149/77; PULSE 84; RESP 18; TEMP 37.4; O2SAT 94
[2021-05-10 07:29] LABS: Abs Immature Grans 0.06 10^3/uL (0.0-0.06); Absolute Basophil Count 0.04 10^3/uL (0.0-0.2); Absolute Eosinophil Count 0.48 10^3/uL (0.0-0.7); Absolute Lymphocyte Count 1.18 10^3/uL (1.2-3.4); Absolute Neutrophil Count 5.73 10^3/uL (1.2-6.7); Basophils % 0.5; Eosinophils % 5.7; HCT 36.3 % (40.0-50.0); HGB 11.8 g/dL (13.5-17.5); Immature Grans % 0.7; Lymphocytes % 13.9; MCH 30.3 pg (27.0-33.0); MCHC 32.5 % (32.0-36.0); MCV 93.3 fL (80-95); MPV 10.7 fL (8.0-11.0); Monocytes % 11.8; Neutrophils % 67.4; Nucleated RBC 0 %; Platelet Count 321 10^3/uL (130-400); RBC 3.89 10^6/uL (4.36-5.78); RDW 15.6 % (11.8-14.1); RDW-SD 53.1 fL; WBC 8.49 10^3/uL (4.4-10.8)
[2021-05-10 07:42] VITALS: BP 165/90; PULSE 80; RESP 19; TEMP 36.8; O2SAT 94
[2021-05-10 08:11] LABS: Anion Gap 7.6 mmol/L (3-11); BUN 21 mg/dL (7-18); CO2 25.4 mmol/L (21.0-32.0); CREATININE 0.8 mg/dL (0.70-1.30); Calcium 8.8 mg/dL (8.5-10.1); Chloride 103 mmol/L (98-107); Glucose 104 mg/dL (74-106); Potassium 4.7 mmol/L (3.5-5.1); Sodium 136 mmol/L (136-145)
[2021-05-10] MEDS: Nystatin CREAM 30 GM TUBE TP ×2 (08:18→19:49)
[2021-05-10] MEDS: Cyanocobalamin 500 MCG TAB 1000 MCG PO (08:18)
[2021-05-10] MEDS: Nystatin POWDER 60 GM JAR TP ×2 (08:18→19:49)
[2021-05-10] MEDS: Enoxaparin 40 MG/0.4 ML SYR SC (08:18)
[2021-05-10] MEDS: Potassium Chloride 20 MEQ TABCR 40 MEQ PO ×2 (08:19→19:48)
[2021-05-10] MEDS: Furosemide 40 MG TAB PO ×2 (08:19→15:37)
[2021-05-10] MEDS: Calcium Carbonate 1.5 GM TAB PO ×2 (08:19→19:49)
[2021-05-10] MEDS: Allopurinol 100 MG TAB 200 MG PO (08:19)
[2021-05-10] MEDS: amLODIPine 5 MG TAB 10 MG PO (08:19)
[2021-05-10] MEDS: Lisinopril 20 MG TAB 40 MG PO (08:19)
[2021-05-10] MEDS: guaiFENesin 600 MG TABCR PO ×2 (08:19→19:49)
[2021-05-10] MEDS: Aspirin E.C. 81 MG TABEC PO (08:19)
[2021-05-10] MEDS: Metoprolol CR 100 MG TABCR PO (08:19)
--- NOTE | 2021-05-10 08:53 | NT_ITS ---
Date of service: 05/10/21 Time of Service: 07:20 Occupational Therapy Notes 05/10/21 Pt continues to deny performance of his ADLs with OT. He has not been seen or agreeable to services since OT evaluation. OT will attempt again tomorrow. Loren Lake, OTR/[facility]
--- NOTE | 2021-05-10 10:52 | DI.CT_ITS ---
Exam(s) CT HEAD WO EXAM: CT HEAD WO CLINICAL HISTORY: LLE weakness, unable to tolerate MRI, concern for. TECHNIQUE: Imaging Protocol: Axial computed tomography images with coronal and sagittal reformatted images were created and reviewed COMPARISON: No exams were available for comparison FINDINGS: Ventricles and Extra axial spaces: Normal in size and morphology for the patient's age. Hemorrhage: None. Cerebral parenchyma: No acute territorial infarct. Old infarcts are seen in the left occipital lobe and cerebellum and the right cerebellum. There are areas of decreased attenuation the white matter c onsistent with small vessel ischemic disease. There is an old right basal gangliar lacunar infarct. Midline shift: None. Brainstem/Cerebellum: Normal. Calvarium: Normal. Visualized Paranasal sinuses/Mastoids: Mucosal thickening is seen in the maxillary sinuses and ethmoi d air cells bilaterally. Small mucous retention cyst or polyp is seen in the right maxillary sinus. The remaining visualized paranasal sinuses and mastoid air cells are clear. Soft Tissues: Unremarkable. IMPRESSION: No acute intracranial process. RADIATION DOSE DELIVERED: 842.09mGy.cm Total DLP DATA REPOSITORY: All CT scans at this facility are submitted to the National Radiology Data Registry (NRDR) Dose Index Registry (DIR) with the [employer] (ACR). RADIATION OPTIMIZATION: All CT scans at this facility use at least one of these dose optimization te chniques: automated exposure control; mA and/or kV adjustment per patient size (includes targeted exa ms where dose is matched to clinical indication); or iterative reconstruction.
--- NOTE | 2021-05-10 10:52 | DI.CT_ITS ---
Exam(s) CT LUMBAR SPINE WO EXAM: CT LUMBAR SPINE WO CLINICAL HISTORY: LLE weakness, unable to tolerate MRI. TECHNIQUE: Imaging Protocol: Axial computed tomography images with coronal and sagittal reformatted images were created and reviewed COMPARISON: CT CT LUMBAR SPINE SI JOINTS WO from 12/11/2018 FINDINGS: The examination is limited due to patient motion artifact. Bones: The last intervertebral disc space is designated the L5/S1 level for the numbering purpose of this examination. The vertebral body heights are well maintained. Alignment is satisfactory. No frac ture is seen. T12-L1: No focal disc herniation. No significant central spinal canal or neural foraminal stenosis. Hypertrophic spurring is present. There are degenerative changes of the facets. L1-2: There is a mild diffuse disc bulge. This all contribute to cause mild narrowing of the central spinal canal. There is mild bilateral neural foraminal narrowing. There is a vacuum disc. Hypertrop hic spurring is present. Degenerative changes of the facets are present. L2-3: Findings all contribute to cause mild to moderate central spinal canal stenosis. There is mild -to-moderate right neural foraminal stenosis. No significant left neural foraminal stenosis. There is a vacuum disc. Hypertrophic spurring is present. Degenerative changes of the facets are seen. L3-4: There is mild narrowing of the central spinal canal. There is [id number] right neural fo raminal stenosis and left neural foraminal stenosis. There is disc space narrowing and a vacuum disc. Hypertrophic spurring and facet arthropathy is present. L4-5: There is mild narrowing of the central spinal canal and [id number]-to-[id number] bilateral neural fora tracy stenosis. There is disc space narrowing and vacuum disc. Hypertrophic spurring and facet arthr opathy is present. L5-S1: There is mild narrowing of the central spinal canal and moderate bilateral neural foraminal s tenosis. There is disc space narrowing and a vacuum disc. Hypertrophic spurring facet arthropathy is present. Soft Tissues: The visualized SI joints and sacrum are will maintained. The paraspinal soft tissues a re unremarkable. Atherosclerosis. There is a small amount of air in the dependent portion of the uri nary bladder. This may be secondary to recent catheterization. Please correlate clinically. Mildly enlarged prostate gland. IMPRESSION: 1. Multilevel degenerative changes in the lumbar spine resulting in central spinal canal and neural f oraminal stenosis as described above. 2. Small amount of air in the urinary bladder. This may be due to recent catheterization. Please lenny elate clinically. 3. Mildly enlarged prostate gland. 4. Exam limited by patient motion artifact. RADIATION DOSE DELIVERED: 1,629.97mGy.cm Total DLP 1,629.97mGy.cm Total DLP DATA REPOSITORY: All CT scans at this facility are submitted to the National Radiology Data Registry (NRDR) Dose Index Registry (DIR) with the [employer] (ACR). RADIATION OPTIMIZATION: All CT scans at this facility use at least one of these dose optimization te chniques: automated exposure control; mA and/or kV adjustment per patient size (includes targeted exa ms where dose is matched to clinical indication); or iterative reconstruction.
[2021-05-10 11:07] VITALS: BP 170/72; PULSE 80; RESP 18; TEMP 37.4; O2SAT 94
--- NOTE | 2021-05-10 13:27 | CHAPLAIN ---
Iker said that [facility] because of insurance issues. He's hoping he will go soon. Today he talked about the first truck and car he owned, continuing the conversation we had on 05/06. 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
--- NOTE | 2021-05-10 13:28 | INPN_ITS ---
Date of service: 05/10/21 Time of Service: 13:28 PT Notes Visit Reasons: Acute CHF,NSTEMI,Acute Hypoxic Respiratory Failure Physical Therapy Inpatient progress Notes Date: 05/10/2021 Dates of Service: 05/03/2021 through 05/10/2021 Referring Doctor: Yonathan Ovalle MD PT Orders: PT CONSULT: Eval/treat Precautions: Fall. Standard. Activity as tolerated. Patient Profile/Admitting Diagnosis: Iker is a 75-year-old morbidly obese male with chronic hypertension and hyperlipidemia who presented to the ED on 05/02/2021 due to increasing shortness of breath. Patient is diagnosed with acute respiratory failure with hypoxia, acute congestive heart failure, pneumon ia, elevated troponin, QT prolongation, and ambulatory dysfunction. Subjective: States he needs his shoes from home to continue with standing activities with PT. He assured this PT that he will make calls today so that somebody can bring them in JANICE. Agreed to seated level exercises. Understands the importance of not holding off on weight bearing activities for too long as he very much want to regain his strength back in B LE to be able to transfer on his own. Objective: General Observation: Morbidly obese. Mental Status: Alert and oriented as to person, place, time, and purpose. Pain: 2-3/10 in B knees at rest ROM: Right Upper Extremity: Grossly lacks 50% of available ROM in all joints Left Upper Extremity: Grossly lacks 50% of available ROM in all joints Right Lower Extremity: Lacks 50% of available ROM in knee and hip, 50% in the ankle Left Lower Extremity: Lacks 75% of available ROM in knee and hip, 50% in the ankle Strength: Right Upper Extremity: Grossly 3-/5 Left Upper Extremity: Grossly 3-/5 Right Lower Extremity: Grossly 3-/5 Left Lower Extremity: Grossly 3-/5 Transfers: Sit<>stand refused. Wanted to wait on shoes to be sent in to here by friend. Gait: Deferred Balance: Static Sitting: Good Dynamic Sitting: Fair Static Standing: Unable to test Dynamic Standing: Unable to test Special Tests: Mobility Limitations Standardized Measure [facility] AM-PAC 6 clicks Basic Mobility Inpatient Short Form: Raw Score: 9 CMS Score: 81% deficit Informed Consent/Education: Patient was instructed in purpose of PT consult and plan of care. Agreeable to proceed with established PT POC to achieve personal goals. Assessment: Patient continues to be fearful of B knee giving way which limit his ability to participate in standing and transfer activities. Will continue to attempt to do functional mobility training as tolerated once shoes are sent in. Will look at the value of trying out knee braces to assist with stabilizing B k nees while increasing patient confidence to stand up when shoes do come in in the next session. Patient continues to present with clinical signs and symptoms consistent with current/admitting diagnoses that have resulted to mobility limitations, gait instability, generalized weakness, and overall ADL decline as demonstrated by the following impairment level findings: 1. Decreased strength to B UE/LE major muscle groups 2. Impaired sitting/standing balance 3. Impaired activity tolerance 4. Limitation of joint range of motion in B LE joints 5. Shortness of breath 6. Swelling in BUE 7. Morbid obesity Impairments are contributing to the following functional limitations: 1. Decline in bed mobility skills 2. Decline in transfer skills 3. Difficulty with ambulation without assistive device and physical assistance 4. Increased completion time for mobility ADL performance 5. Increased risk for falls 6. Difficulty with managing steps alone safely Patient is assessed as a 99939 complexity based on the following: History: 75-year-old male with past medical history as indicated above Examination: Demonstrable impairment in strength, balance, and mobility level with underlying impairments and functional limitations as exhibited above as well as deficit score of 69% utilizing the [facility] Mobility Inpatient Short Form Presentation: Evolving Decision Makin moderate complexity Goals: Goals X1 week 1. Supine-Sit independent 2. Sit-Supine independent 3. Sit-Stand independent DOWNGRADE TO minimal assist of 2 4. Stand-Sit independent with bariatric FWW DOWNGRADE TO minimal assist of 2 5. Bed-Chair independent with bariatric FWW DOWNGRADE TO minimal assist of 2 6. Chair-Bed independent with bariatric FWW DOWNGRADE TO minimal assist of 2 7. Independent gait on level surface with use of bariatric FWW for at least 100 feet without report of pain nor dyspnea DOWNGRADE TO minimal assist of [address] negotiation while holding onto B rails for at least 5 steps without report of pain nor dyspnea DOWNGRADE TO minimal assist of 2 9. Good static and dynamic standing balance/tolerance DOWNGRADE TO fair using FWW Plan of Care/Treatment Plan: 1-2x/day, 7 days/week x 1 week. Plan of care has been reviewed with the TRANSCRIBING OPERATOR HEAD providing the service under Physical Therapy direction. Continue Physical Therapy intervention for pain management as needed, strengthening, bed mobility, transfers, gait, stairs, balance training, and use of assistive device. DISCHARGE RECOMMENDATIONS: Patient will benefit from [facility] facility placement for continued skilled physical therapy services in order to progress mobility level, strength, and balance in preparation for a safe discharge to home. TREATMENT CODE/TIME: [id number] x 30 minutes beginning at 13:28 PM. Thank you for the opportunity to participate in the care of this patient. Emani Ruff PT, DPT, CLT [facility] [place], [place]
--- NOTE | 2021-05-10 15:12 | PGE_ITS ---
Date of Service Date of service: 05/10/21 Time of Service: 15:13 Assessment and Plan Assessment and plan (1) Fever: Status: Resolved Assessment and plan: COVID-19 neg x 2 on this admission. UA negative. Blood cultures negative. CXR negative. I suspect residual bronchitis. Continue doxycycline. (2) Left leg weakness: Status: Acute Assessment and plan: There is evidence of old CVAs on CT and multilevel DJD with spinal stenosis on CT lumbar spine. I cannot answer which one is more responsible for the patient's symptoms without an MRI, which he adamantly refused. At this point, the answer is likely physical therapy. I do not feel comfortable escalating his antiplatelet therapy from aspirin due to his fall risk as well as due to no definitive proof of acute CVA. PT at [facility] is the best recommendation I can make at this time. (3) Acute respiratory failure with hypoxia: Status: Resolved Assessment and plan: Multifactorial - pneumonia vs bronchitis, pulmonary edema, likely LUIS FELIPE and OHS. Currently comfortable On RA. Repeat CXR was clear. He has had sleep study in the past, but was unable to tolearte CPAP - worth revisiting as outpatient. (4) Acute CHF: Status: Resolved Assessment and plan: Acute on chronic diastolic CHF. Echocardiogram with LVEF of 56%. No wall motion abnormalities. RVSP 33.8 mm Hg. Continue PO lasix 40 mg BID. Continue TEDs and elevate legs. Qualifiers: Heart failure type: diastolic Qualified Code(s): I50.31 - Acute diastolic (congestive) heart failure (5) Pneumonia: Status: Resolved Assessment and plan: Vs bronchitis. Repeat procalcitonin is slightly elevated - will resume doxycycline as did have a fever last night and still has a residual cough. COVID -19 ruled out. (6) Elevated troponin: Status: Acute Assessment and plan: Suspect Type 2 NSTEMI due to acute on chronic diastolic CHF and hypoxia. No ischemic eval indicated at this time. (7) QT prolongation: Status: Resolved (8) Chronic hypertension: Status: Chronic Assessment and plan: Continue home regimen. Weight loss would certainly help BP control. Continue salt-restricted diet. (9) Hyperlipidemia: Status: Chronic Assessment and plan: Continue statin (10) Morbid obesity with BMI of 45.0-49.9, adult: Status: Chronic Assessment and plan: A1C 5.4. Needs sleep apnea follow up. The patient has difficulty ambulating at baseline. (11) DVT prophylaxis: Status: Acute Assessment and plan: Lovenox (12) Discharge planning issues: Status: Acute Assessment and plan: Full code [facility] (the [facility]est they can take him). OBtain covid swab prior. Subjective Subjective Interval history since last seen: Mr Mckenzie did not tolerate the MRI yesterday. He is adamantly refusing to get it today. When I asked him why, he said he was short of breath in there. I asked him if he felt anxious or short of breath, and he answered no comment. Even when I offered to give him something for anxiety, he adamantly refused to go back to the MRI. Denies dizziness, chest pain, shortness of breath, nausea. States he does not feel sick. Continues to have a dry cough. Exam Narrative Exam Narrative: General: Obese male, A&Ox3, laying flat in bed without dyspnea/tachypnea, heard coughing once HEENT: EOMI, MMM Cardiovascular: RRR, no m/r/g Lungs: CTAB Gastrointestinal: soft, nontender, nondistended, R-sided abdominal wall hernia which is nontender Extremities: Trace BLE edema, +1 pedal pulses B Objective Last Vital Signs Temp 37.4 C 05/10/21 11:07 Pulse 80 05/10/21 11:07 Resp 18 05/10/21 11:07 BP 170/72 H 05/10/21 11:07 Pulse Ox 94 05/10/21 11:07 Laboratory Results - last 24 hr 05/10/21 05/10/21 05/10/21 06:21 06:21 06:21 WBC 8.49 RBC 3.89 L Hgb 11.8 L Hct 36.3 L MCV 93.3 MCH 30.3 MCHC 32.5 RDW 15.6 H Plt Count 321 MPV 10.7 Immature Gran % 0.7 Neutrophils % 67.4 Lymphocytes % 13.9 Monocytes % 11.8 Eosinophils % 5.7 Basophils % 0.5 Nucleated RBC % 0 Absolute Neutrophils 5.73 Absolute Lymphocytes 1.18 L Absolute Monocytes 1.00 H Absolute Eosinophils 0.48 Absolute Basophils 0.04 Sodium 136 Potassium 4.7 Chloride 103 Carbon Dioxide 25.4 Anion Gap 7.6 BUN 21 H Creatinine 0.8 Estimated GFR/1.73 m2 >= 60.00 Glucose 104 Calcium 8.8 Magnesium 2.0 Objective Narrative Objective Narrative: CT head: No acute intracranial process. No acute territorial infarct. Old infarcts are seen in the left occipital lobe and cerebellum and the right cerebellum. There are areas of decreased attenuation the white matter consistent with small vessel ischemic disease. There is an old right basal gangliar lacunar infarct. CT lumbar spine: 1. Multilevel degenerative changes in the lumbar spine resulting in central spinal canal and neural foraminal stenosis as described above. 2. Small amount of air in the urinary bladder. This may be due to recent catheterization. Please correlate clinically. 3. Mildly enlarged prostate gland. 4. Exam limited by patient motion artifact.
[2021-05-10 15:25] VITALS: BP 147/71; PULSE 76; RESP 18; TEMP 36.3; O2SAT 95
--- NOTE | 2021-05-10 15:34 | PDOC.CMPRO ---
- If Service Date Differs Date of service: 05/10/21 Time of Service: 15:34 Care Management Progress Note S/O: Iker was sitting up in his chair when CM met with him. He was pleasant and easily engaged in conversation. He reports that he's doing ok and his goal at this point is to get to rehab so he can regain strength to get back home. A:Iker is a 75 year old male admitted to [facility] on 05/02/21 for Acute CHF, NSTEMI, Acute hypoxic respiratory failure P: Iker's PA for SNF was approved and he has been medically cleared by Dr. Whittaker. Iker has been accepted to and is anticipating being discharge to [facility] tomorrow. CM continues to support time and mode of discharge. Iker will likely be transported to facility via w/c van. He will follow up with his PCP and discharge plan of care. CM continues to follow.
[2021-05-10 15:49] LABS: Source Nasal/Nares
[2021-05-10 16:43] LABS: COVID-19 PCR Negative (Negative)
[2021-05-10 19:47] VITALS: BP 131/71; PULSE 79; RESP 18; TEMP 35.8; O2SAT 94
[2021-05-10] MEDS: Atorvastatin 40 MG TAB 80 MG PO (19:49)
[2021-05-10 23:45] VITALS: BP 143/76; PULSE 84; RESP 20; TEMP 37.3; O2SAT 91
[2021-05-11] MEDS: Doxycycline Hyclate 100 MG CAP PO (01:20)
[2021-05-11 03:56] VITALS: BP 134/78; PULSE 82; RESP 18; TEMP 36.2; O2SAT 93
[2021-05-11] MEDS: Nystatin CREAM 30 GM TUBE TP (07:19)
[2021-05-11] MEDS: Aspirin E.C. 81 MG TABEC PO (07:19)
[2021-05-11] MEDS: Calcium Carbonate 1.5 GM TAB PO (07:19)
[2021-05-11] MEDS: Potassium Chloride 20 MEQ TABCR 40 MEQ PO (07:19)
[2021-05-11] MEDS: Nystatin POWDER 60 GM JAR TP (07:19)
[2021-05-11] MEDS: Cyanocobalamin 500 MCG TAB 1000 MCG PO (07:19)
[2021-05-11] MEDS: Metoprolol CR 100 MG TABCR PO (07:19)
[2021-05-11] MEDS: guaiFENesin 600 MG TABCR PO (07:19)
[2021-05-11] MEDS: Allopurinol 100 MG TAB 200 MG PO (07:20)
[2021-05-11] MEDS: Furosemide 40 MG TAB PO (07:20)
[2021-05-11] MEDS: Lisinopril 20 MG TAB 40 MG PO (07:20)
[2021-05-11] MEDS: amLODIPine 5 MG TAB 10 MG PO (07:20)
[2021-05-11] MEDS: Enoxaparin 40 MG/0.4 ML SYR SC (08:11)
[2021-05-11 08:35] VITALS: BP 129/76; PULSE 96; RESP 20; TEMP 36.6; O2SAT 91
--- NOTE | 2021-05-11 11:56 | W.PM.DS.N ---
Date of service: 05/11/21 Time of Service: 11:56 DS: Diagnosis Discharge Diagnosis (1) Acute respiratory failure with hypoxia: Status: Resolved (2) Acute diastolic CHF (congestive heart failure): Status: Resolved (3) NSTEMI (non-ST elevated myocardial infarction): Status: Resolved Asessment and Plan: Type 2 NSTEMI in setting of acute hypoxic respiratory failure and acute diastolic CHF (4) Acute bronchitis: Status: Acute (5) Pulmonary hypertension: Status: Chronic (6) Left leg weakness: Status: Acute (7) QT prolongation: Status: Resolved (8) Chronic hypertension: Status: Chronic (9) Hyperlipidemia: Status: Chronic (10) Morbid obesity with BMI of 45.0-49.9, adult: Status: Chronic (11) Obstructive sleep apnea: Status: Chronic Asessment and Plan: not using CPAP/BIPAP/O2 (12) COVID-19 ruled out by laboratory testing: Status: Ruled-out Discharge Plan Disposition Patient Disposition: SNF (LEVEL 1) [facility] Condition: Stable Discharge Details Reason For Visit: Acute CHF,NSTEMI,Acute Hypoxic Respiratory Failure Admit Date/Time: 05/02/21 05:31 Admit Provider: Zoya Whittaker Attending Provider: Zoya Whittaker Primary Care Provider: Ambar Claire [facility] Course Hospital Course: Mr Mckenzie is a 75 year old male with PMHx of CAD, CVA, HTN, hyperlipidemia,obesity with BMI of 40 who was admitted to [facility] hospitalist service on 05/02/21 for acute hypoxic respiratory failure at that time felt to be due to combination of acute CHF (now known to be diastolic) as well as acute pneumonia vs bronchitis as he had purulent sputum production. COVID-19 was ruled out with a negative PCR. The patient also had Type 2 NSTEMI on this admission due to demand ischemia caused by acute hypoxic respiratory failure as well as acute diastolic CHF. He responded well to diuresis. Cardiology did not feel that there was an indication for further ischemic workup. The patent was also seen by Dr Xiao of pulmonology who felt there was no clear infiltrate on CXR to confirm PNA and recommended further diuresis. Supplemental oxygen was able to be weaned off to room air. The patient was noted to have difficulty ambulating. He now reports left leg weakness since admission, but did not share this with clinical team until almost a week into his hospitalization. The patient had a CT of the head that showed evidence of old strokes. He also had a lumbar spine CT which showed evidence of multilevel DJD with spinal stenosis. However, he adamantly refused to get an MRI to clarify the cause of his LLE weakness. Absent this information, we can only state that the patient requires further physical therapy as he is severely deconditioned and would benefit from going to subacute rehab facility. We do not feel comfortable escalating his antiplatelet therapy without confirmation of acute CVA. He will finish doxycycline for his bronchitis after 6 more doses of doxycycline, next dose due this afternoon. Care for patient as well as completion of his discharge summary took 45 minutes on day of discharge. Home Meds and New Rx's Prescriptions: New ipratropium-albuterol 0.5 mg-3 mg(2.5 mg base)/3 mL Solution For Nebulization 3 ml UPD Q4H PRN PRNQty: 0 RF: 0 doxycycline hyclate 100 mg Capsule 100 mg PO Q12H Qty: 0 RF: 0 furosemide 40 mg Tablet 40 mg PO BID@0830,1600 Qty: 0 RF: 0 guaifenesin [Mucinex] 600 mg Tablet Extended Release 12hr 600 mg PO BID PRN PRNQty: 60 RF: 0 nystatin 100,000 unit/gram Powder 1 applic topical BID Qty: 0 RF: 0 potassium chloride [Klor-Con M20] 20 mEq Tablet,Er Particles/Crystals 40 meq PO DAILY Qty: 60 RF: 0 Continued atorvastatin [Lipitor] 80 MG tablet 80 mg PO DAILY RF: 0 amlodipine 5 MG tablet 10 mg PO DAILY RF: 0 lisinopril 40 MG tablet 40 mg PO DAILY RF: 0 aspirin [Aspir-81] 81 MG tablet,delayed release (DR/EC) 81 mg PO DAILY RF: 0 cyanocobalamin (vitamin B-12) [Vitamin B-12] 1,000 mcg tablet 1,000 mcg PO DAILY RF: 0 diclofenac sodium 3 % gel 1 applic topical BID PRN (Reason: knee pain) Qty: 100 RF: 0 allopurinol 100 mg tablet 200 mg PO DAILY RF: 0 metoprolol succinate 100 mg tablet extended release 24 hr 100 mg PO DAILY RF: 0 Discharge Instructions Instructions: Doxycycline (By mouth), Heart Failure (DC), Acute Bronchitis (ED) Additional Instructions: Finish antibiotics as prescribed. Follow a heart healthy diet. Return to the hospital with any fever, bleeding, chest pain, or shortness of breath. Stand Alone Forms: Nursing Discharge Form Activity:: Activity as Tolerated Equipment/Supplies:: No Equipment Needed Diet:: heart healthy Discharge Orders Discharge Orders: Discharge Order (Routine); Ordered 05/11/21 Ordered By: Zoya Whittaker DS: Summary Time Spent with Patient providing and/or coordinating discharge services: Greater than 30 minutes Status at Discharge Functional status at discharge: wheelchair bound Overall status at discharge: patient is progressing back to baseline Mental Status: mental status grossly normal Speech and Movement: speech and movement normal Mood: congruent mood Affect: normal affect Exam Narrative Exam Narrative: General: Obese male, A&Ox3, laying flat in bed without dyspnea/tachypnea, not coughing today HEENT: EOMI, MMM Cardiovascular: RRR, no m/r/g Lungs: CTAB Gastrointestinal: soft, nontender, nondistended, R-sided abdominal wall hernia which is nontender Extremities: Trace BLE edema, +1 pedal pulses B Psych Mental Status: mental status grossly normal Speech and Movement: speech and movement normal Mood: congruent mood Affect: normal affect DS: Data Vitals/I&O Vitals and I&O: Vital Signs Temperature 36.6 C 05/11/21 08:35 Temperature Source Tympanic 05/11/21 08:35 Pulse 96 H 05/11/21 08:35 Pulse Rhythm Regular 05/11/21 07:23 Pulse 75 05/02/21 13:20 Respiratory Rate 20 05/11/21 08:35 Respiratory Effort Non-Labored 05/11/21 07:23 Respiratory Depth Normal 05/11/21 07:23 Respiratory Pattern Normal 05/11/21 07:23 Blood Pressure 129/76 05/11/21 08:35 Blood Pressure Mean 183 05/02/21 12:17 Blood Pressure Position Supine 05/02/21 06:40 Pulse Oximetry 91 L 05/11/21 08:35 Respiratory End-tidal CO2 27 05/02/21 05:40 Oxygen Delivery Method Room Air 05/11/21 08:35 Oxygen Flow Rate 0 05/11/21 08:35 Fraction of Inspired Oxygen (FIO2) 90 05/02/21 06:40 Pain Level 0 05/11/21 08:35 Comment 05/05/21 23:36 Intake & Output 05/10/21 05/10/21 05/11/21 11:59 23:59 11:59 Intake Total 550 / 890 340 / 890 340 / 340 Output Total 1100 / 3425 2325 / 3425 1025 / 1025 Balance -550 / -2535 -1985 / -2535 -685 / -685 Weight 152.2 kg 149.1 kg Intake: Oral 550 / 890 340 / 890 340 / 340 Output: Urine 1100 / 3425 2325 / 3425 1025 / 1025 Other: Urine Color Yellow Yellow Yellow Urine Appearance Clear Cloudy Clear Urine Odor None Normal None Comment pt bed was wet with urine Stool Size Smear Stool Characteristics Brown Voiding Methods Urinal Urinal Urinal Data Completed and Pending Completed studies during hospitalization [Text1]: Echo 05/02/21: Moderate concentric left ventricular hypertrophy. Estimated ejection fraction is 55 to 60%. Wall motion is normal Normal right ventricular size and systolic function Both atria are normal in size The aortic valve is sclerotic and trileaflet without stenosis or regurgitation Thickened mitral leaflets. Mild to moderate mitral regurgitation Normal tricuspid valve with mild regurgitation. Estimated right ventricular systolic pressure is 34 mmHg Dilated ascending aorta measuring 4.64 cm Venous doppler BLE's 05/02/21: 1. No ultrasound evidence of DVT in either lower extremity. CXR 05/02/21: Interstitial pulmonary edema. No obvious pleural effusions. CXR 05/05/21: Lungs are clear. Pulmonary edema has cleared. No obvious pleural effusions. CXR 05/09/21: No acute pulmonary findings. CT head w/o contrast 05/10/21: No acute intracranial process. CT lumbar spine 05/10/21: 1. Multilevel degenerative changes in the lumbar spine resulting in central spinal canal and neural foraminal stenosis as described above. 2. Small amount of air in the urinary bladder. This may be due to recent catheterization. Please correlate clinically. 3. Mildly enlarged prostate gland. 4. Exam limited by patient motion artifact. Labs on day of discharge: Labs from last 24 hours 05/10/21 15:35 COVID-19 Source Nasal/Nares SARS-CoV-2 (PCR) Negative Preliminary micro results at discharge 05/09/21 09:20 Blood Culture - Preliminary Blood NO GROWTH 48 HOURS 05/09/21 09:25 Blood Culture - Preliminary Blood NO GROWTH 48 HOURS [facility] Medical History (Updated 05/11/21 @ 12:12 by Zoya Whittaker MD) Ambulatory dysfunction Biliary colic symptom CVA (cerebral vascular accident) Gouty arthritis left shoulder, 03/2021 - [facility] Heart attack cardiac cath 2012 - no stents Hyperlipidemia Hypertension Morbid obesity with BMI of 45.0-49.9, adult Obstructive sleep apnea not using CPAP Surgical History Angiogram cardiac cath 2012 - no stents Cholecystectomy open Family History Other Essential hypertension Heart disease Social History Smoking/Tobacco Use Status: Former Tobacco Use Smoking risk assessment performed?: Yes Alcohol Intake: former Drug use: Never Do you feel safe at home: Yes Do you feel safe in your relationship?: Yes
--- NOTE | 2021-05-11 12:08 | PDOC.CMDIS ---
- If Service Date Differs Date of service: 05/11/21 Time of Service: 12:08 LACE Index Scoring Tool - Questions: Length of Stay (in days): 7 - 13 Acuity (Admit via E.D.?): Yes Comorbidities: Cerebrovascular Disease, Congestive Heart Failure E.D. Visits: 5 - Answers: Total Score: 15 Risk of Readmission: High Risk Care Management Discharge Reason for Hospitalization: Acute CHF, NSTEMI, acute hypoxic respiratory failure Discharge Plan: Tranfer to [facility] via EMS ([facility]) for short term rehab prior to returning home. Follow up with outpatient providers and discharge plan of care. Patient/Family Education Needs: Review discharge instructions, limitations, medications and plan of care, ask me three. Services Needed at Discharge: [facility] Facility ([facility]), Transportation ([facility])
--- NOTE | 2021-05-13 17:20 | INDS_ITS ---
Date of service: 05/13/21 PT Notes Visit Reasons: Acute CHF,NSTEMI,Acute Hypoxic Respiratory Failure Physical Therapy Inpatient Discharge Summary Date: Dates of Service: 05/03/2021 through 05/10/2021 This is a clinical summary of care provided for the duration of dates listed above. No charge was made in the completion of this documentation. Referring Doctor: Yonathan Ovalle MD PT Orders: PT CONSULT: Eval/treat Precautions: Fall. Standard. Activity as tolerated. Patient Profile/Admitting Diagnosis: Iker is a 75-year-old morbidly obese male with chronic hypertension and hyperlipidemia who presented to the ED on 05/02/2021 due to increasing shortness of breath. Patient is diagnosed with acute respiratory failure with hypoxia, acute congestive heart failure, pneumonia, elevated troponin, QT prolongation, and ambulatory dysfunction. Subjective: NT. See most recent [facility] notes. Objective: General Observation: NT. See most recent [facility] notes. Mental Status: NT. See most recent [facility] notes. Pain: NT. See most recent [facility] notes. ROM: Right Upper Extremity: Grossly lacks 50% of available ROM in all joints Left Upper Extremity: Grossly lacks 50% of available ROM in all joints Right Lower Extremity: Lacks 50% of available ROM in knee and hip, 50% in the ankle Left Lower Extremity: Lacks 75% of available ROM in knee and hip, 50% in the ankle Strength: Right Upper Extremity: Grossly 3-/5 Left Upper Extremity: Grossly 3-/5 Right Lower Extremity: Grossly 3-/5 Left Lower Extremity: Grossly 3-/5 Transfers: Sit<>stand refused. Wanted to wait on shoes to be sent in to here by friend. Gait: Deferred Balance: Static Sitting: Good Dynamic Sitting: Fair Static Standing: Unable to test Dynamic Standing: Unable to test Assessment: Patient continues to be fearful of B knee giving way which limit his ability to participate in standing and transfer activities. Will continue to attempt to do functional mobility training as tolerated once shoes are sent in. Will look at the value of trying out knee braces to assist with stabilizing B kn ees while increasing patient confidence to stand up when shoes do come in in the next session. Patient continues to present with clinical signs and symptoms consistent with current/admitting diagnoses that have resulted to mobility limitations, gait instability, generalized weakness, and overall ADL decline as demonstrated by the following impairment level findings: 1. Decreased strength to B UE/LE major muscle groups 2. Impaired sitting/standing balance 3. Impaired activity tolerance 4. Limitation of joint range of motion in B LE joints 5. Shortness of breath 6. Swelling in BUE 7. Morbid obesity Impairments are contributing to the following functional limitations: 1. Decline in bed mobility skills 2. Decline in transfer skills 3. Difficulty with ambulation without assistive device and physical assistance 4. Increased completion time for mobility ADL performance 5. Increased risk for falls 6. Difficulty with managing steps alone safely Patient is assessed as a [id number] complexity based on the following: History: 75-year-old male with past medical history as indicated above Examination: Demonstrable impairment in strength, balance, and mobility level with underlying impairments and functional limitations as exhibited above as well as deficit score of 69% utilizing the [facility] Mobility Inpatient Short Form Presentation: Evolving Decision Makin moderate complexity Goals: Goals X1 week 1. Supine-Sit independent NOT MET 2. Sit-Supine independent NOT MET 3. Sit-Stand independent DOWNGRADE TO minimal assist of 2 NOT MET 4. Stand-Sit independent with bariatric FWW DOWNGRADE TO minimal assist of 2 NOT MET 5. Bed-Chair independent with bariatric FWW DOWNGRADE TO minimal assist of 2 NOT MET 6. Chair-Bed independent with bariatric FWW DOWNGRADE TO minimal assist of 2 NOT MET 7. Independent gait on level surface with use of bariatric FWW for at least 100 feet without report of pain nor dyspnea DOWNGRADE TO minimal assist of 2 NOT MET 8. Independent stair negotiation while holding onto B rails for at least 5 steps without report of pain nor dyspnea DOWNGRADE TO minimal assist of 2 NOT MET 9. Good static and dynamic standing balance/tolerance DOWNGRADE TO fair using FWW NOT MET DISCHARGE RECOMMENDATIONS: Patient will benefit [facility] for continued skilled physical therapy services in order to progress mobility level, strength, and balance in preparation for a safe discharge to home. TREATMENT CODE/TIME: UT Thank you for the opportunity to participate in the care of this patient. Emani Ruff PT, DPT, CLT [facility] [place], [place]
== END 2021-05-11 13:10 | disposition skilled nursing facility (03) | DRG 280 ==
LOC: ER 05:42 → ICU 06:28 → MS 12:38
PROVIDERS: Family Medicine; Admitting Provider Internal Medicine; Emergency Provider Emergency Medicine; PCP Family Medicine; Visit Provider Internal Medicine
DX: I11.0 Hypertensive heart disease with heart failure (principal); J96.01 Acute respiratory failure with hypoxia; I21.A1 Myocardial infarction type 2; Z68.41 Body mass index [BMI] 40.0-44.9, adult; I50.33 Acute on chronic diastolic (congestive) heart failure; J20.9 Acute bronchitis, unspecified; Z20.822 Contact with and (suspected) exposure to COVID-19; I25.10 Atherosclerotic heart disease of native coronary artery without angina pectoris; I45.81 Long QT syndrome; E78.5 Hyperlipidemia, unspecified; E66.01 Morbid (severe) obesity due to excess calories; I25.2 Old myocardial infarction; Z86.73 Personal history of transient ischemic attack (TIA), and cerebral infarction without residual deficits; M10.9 Gout, unspecified; R26.2 Difficulty in walking, not elsewhere classified; R29.898 Other symptoms and signs involving the musculoskeletal system; M47.817 Spondylosis without myelopathy or radiculopathy, lumbosacral region; M48.07 Spinal stenosis, lumbosacral region
CPT/HCPCS: 36415; 51702; 80048; 80053; 80061; 82805; 84145; 85027; 87040; 87077; 87081; 87635; 93005; 93306; 96374; 97110; 97162; 97167; 97530; 97535; 99221; 99285; J1650; 70450; 71045; 72131; 81003; 81015; 83036; 83735; 83880; 84443; 84484; 85025; 86140; 87070; 87086; 87205; 93010; 93970; 94667; 99232; 99233; 99239; 99291; J1940; J3480; J3490

== ENCOUNTER 2021-06-28 11:50 | Emergency (ER) | payer MEDICARE, OTHER, MEDICAID, SELFPAY ==
[2021-06-28] VITALS (13 sets, daily range): BP systolic 128–137; BP diastolic 49–71; PULSE 67–83; RESP 13–22; TEMP 36.4; O2SAT 94–97
--- NOTE | 2021-06-28 11:45 | RT.EKG_ITS ---
APPROVED REPORT Exam: Resting ECG Reason for Exam: SOB Patient Location: E HR:74 bpm ECG Measurements Heart Rate 74 AXIS KS 196 P 51 QRSd 100 QRS 26 QT 399 T 67 QTc 444 Conclusion Sinus rhythm...normal P axis, V-rate 60- 99
--- NOTE | 2021-06-28 12:13 | W.ED.GENAD ---
Discharge Plan Disposition Patient Disposition: HOME Condition: Stable Discharge Details Clinical Impression: Shortness of breath Primary Care Provider: Ambar Claire ED Provider: Dori Helms Home Meds and New Rx's Prescriptions: Continued atorvastatin [Lipitor] 80 MG tablet 80 mg PO DAILY RF: 0 amlodipine 5 MG tablet 10 mg PO DAILY RF: 0 lisinopril 40 MG tablet 40 mg PO DAILY RF: 0 aspirin [Aspir-81] 81 MG tablet,delayed release (DR/EC) 81 mg PO DAILY RF: 0 cyanocobalamin (vitamin B-12) [Vitamin B-12] 1,000 mcg tablet 1,000 mcg PO DAILY RF: 0 diclofenac sodium 3 % gel 1 applic topical BID PRN (Reason: knee pain) Qty: 100 RF: 0 allopurinol 100 mg tablet 200 mg PO DAILY RF: 0 metoprolol succinate 100 mg tablet extended release 24 hr 100 mg PO DAILY RF: 0 doxycycline hyclate 100 mg Capsule 100 mg PO Q12H Qty: 0 RF: 0 furosemide 40 mg Tablet 40 mg PO BID@0830,1600 Qty: 0 RF: 0 nystatin 100,000 unit/gram Powder 1 applic topical BID Qty: 0 RF: 0 potassium chloride [Klor-Con M20] 20 mEq Tablet,Er Particles/Crystals 40 meq PO DAILY Qty: 60 RF: 0 No Action ipratropium-albuterol 0.5 mg-3 mg(2.5 mg base)/3 mL Solution For Nebulization 3 ml UPD Q4H PRN PRNQty: 0 RF: 0 guaifenesin [Mucinex] 600 mg Tablet Extended Release 12hr 600 mg PO BID PRN PRNQty: 60 RF: 0 Discharge Instructions Instructions: Dyspnea (ED) Additional Instructions: At this time you have refused a medical work-up. I cannot rule out any medical abnormality without further testing. A physical therapy and nephrology social worker eval for in-home has been ordered today. Follow up with primary care provider in 3-5 days. Return to ED sooner if any worsening or concerns. Increase oral fluids. Referrals: Ambar Claire MD [Primary Care Provider] - [facility]OTHER] - Medical Decision Making 75 year old male presents to the ED via EMS with a chief complaint of SOB due to environmental reasons, increased dog poop, and living with a tramp informed by operations staff specialist security that initially patient is refusing all medical intervention including needles. Care management called bedside at patient's request. Vital signs are stable O2 sat is 96% on room air. Patient denies any headache, blurry vision, chest pain, shortness of breath, nausea vomiting diarrhea. He has soiled himself with stool on arrival. He denies drinking any alcohol however he does have slurred speech. He is alert and oriented x3. He is declining any blood work or medical work-up at this time. Her to arrival he reports he did take his a.m. medications prior to arrival. Blister packs did accompany patient via EMS. EKG was reviewed by Dr. Neyda LONG ER attending, please see his official report. 1254: Care management and myself at bedside. Patient reports that he was discharged from rehab 4 days ago on Sunday and has been using a walker at home. He reports that he is tired of the living situation and cannot stand it he reports that he did speak with home health over the weekend and spoke with somebody about getting a lift chair to assist him further at home. He denies any numbness tingling in the lower extremities. He does have gross motor intact, no focal neuro deficits noted. 1437: Road test performed by operations staff specialist security here in the emergency department with a walker and standby assistant case manager. Will order physical therapy for in-home evaluation. Patient appears deconditioned and is in a fall is a fall risk. Patient discharged from the department, via RCT. HPI General Mode of arrival: EMS. Date/Time Provider Initiated Documentation: 06/28/21 12:10. Limitations to Documentation: no limitations. Information obtained by: patient, RN notes reviewed and old records reviewed. HPI Narrative: 75 year old male presents to the ED via EMS with a chief complaint of SOB due to environmental reasons, increased dog poop, and living with a tramp informed by operations staff specialist security that initially patient is refusing all medical intervention including needles. Care management called bedside at patient's request. Vital signs are stable O2 sat is 96% on room air. Patient denies any headache, blurry vision, chest pain, shortness of breath, nausea vomiting diarrhea. He has soiled himself with stool on arrival. He denies drinking any alcohol however he does have slurred speech. He is alert and oriented x3. He is declining any blood work or medical work-up at this time. Related Data Home Medications Medication Instructions Recorded Confirmed amlodipine 10 mg PO DAILY 10/22/13 06/28/21 atorvastatin [Lipitor] 80 mg PO DAILY 10/22/13 06/28/21 lisinopril 40 mg PO DAILY 10/22/13 06/28/21 aspirin [Aspir-81] 81 mg PO DAILY 12/09/13 06/28/21 cyanocobalamin (vitamin B-12) 1,000 mcg PO DAILY 07/13/20 06/28/21 [Vitamin B-12] diclofenac sodium 1 applic TOPICAL BID PRN #100 g 07/13/20 06/28/21 allopurinol 200 mg PO DAILY 05/02/21 06/28/21 metoprolol succinate 100 mg PO DAILY 05/02/21 06/28/21 doxycycline hyclate 100 mg PO Q12H #0 cap 05/11/21 06/28/21 furosemide 40 mg PO BID@0830,1600 #0 tab 05/11/21 06/28/21 guaifenesin [Mucinex] 600 mg PO BID PRN PRN #60 tab 05/11/21 06/28/21 ipratropium-albuterol 3 ml UPD Q4H PRN PRN #0 ml 05/11/21 06/28/21 nystatin 1 applic TOPICAL BID #0 g 05/11/21 06/28/21 potassium chloride [Klor-Con M20] 40 meq PO DAILY #60 tab 05/11/21 06/28/21 Previous Rx's Medication Instructions Recorded diclofenac sodium 1 applic TOPICAL BID PRN #100 g 07/13/20 doxycycline hyclate 100 mg PO Q12H #0 cap 05/11/21 furosemide 40 mg PO BID@0830,1600 #0 tab 05/11/21 guaifenesin [Mucinex] 600 mg PO BID PRN PRN #60 tab 05/11/21 ipratropium-albuterol 3 ml UPD Q4H PRN PRN #0 ml 05/11/21 nystatin 1 applic TOPICAL BID #0 g 05/11/21 potassium chloride [Klor-Con M20] 40 meq PO DAILY #60 tab 05/11/21 Allergies Allergy/AdvReac Type Severity Reaction Status Date / Time hydrochlorothiazide AdvReac gout Unverified 06/28/21 12:12 General Stated Complaint: GenMedical SYEDA: 3 Review of Systems All systems reviewed & are unremarkable except as noted in HPI and below [facility] Medical History (Updated 06/28/21 @ 14:40 by Dori Helms) Ambulatory dysfunction Biliary colic symptom CVA (cerebral vascular accident) Gouty arthritis left shoulder, 03/2021 - [facility] [place] Heart attack cardiac cath 2012 - no stents Hyperlipidemia Hypertension Morbid obesity with BMI of 45.0-49.9, adult Obstructive sleep apnea not using CPAP Surgical History Angiogram cardiac cath 2012 - no stents Cholecystectomy open Family History Other Essential hypertension Heart disease Social History Smoking/Tobacco Use Status: Former Tobacco Use Smoking risk assessment performed?: Yes Alcohol Intake: former Drug use: Never Do you feel safe at home: Yes Do you feel safe in your relationship?: Yes Exam Narrative Exam Narrative: Constitutional: Alert and oriented x3. Appears stated age. Obese body habitus. Head: Normocephalic, no trauma. Eyes: Pupils PERRLA, Red reflex noted, EOM's intact. Eyelids symmetrical without lesions, discharge, or swelling. Chest: RRR, Normal S1, S2, distal pulses intact. Resp: Lungs clear to auscultation bilaterally, no wheezes, rales, or rhonchi. Musculoskeletal: Assisted gait with walker, Skin: Capillary refill less than 2 sec. Neurologic: Cranial nerves II-XII intact. Alert and oriented x 3. No focal neuro deficits noted Hematologic/Lymphatic: No ecchymosis, no lymphadenopathy. Const General: disheveled and well hydrated Nutritional Appearance: obese Orientation: alert, awake and oriented x3 Course Vital Signs Vital signs: Vital Signs Temperature 36.4 C L 06/28/21 12:04 Pulse 72 06/28/21 12:04 Respiratory Rate 20 06/28/21 12:04 Blood Pressure 137/49 L 06/28/21 12:04 Pulse Oximetry 95 06/28/21 12:04 Temperature 36.4 C L 06/28/21 12:04 Temperature Source Skin 06/28/21 12:04 Pulse 72 06/28/21 12:04 Respiratory Rate 20 06/28/21 12:04 Respiratory Effort Non-Labored 06/28/21 12:04 Blood Pressure 137/49 L 06/28/21 12:04 Pulse Oximetry 95 06/28/21 12:04 Oxygen Delivery Method Room Air 06/28/21 12:04 Oxygen Flow Rate 0 06/28/21 12:04 Pain Level 0 06/28/21 12:04
--- NOTE | 2021-06-28 15:48 | PDOC.ERCMPRO ---
- If Service Date Differs Date of service: 06/28/21 Time of Service: 15:48 Care Management Progress Note Iker presents in the ED for shortness of breath. Shortly after his arrival, he reports feeling better and refuses a work-up. At the request of ED provider, GORDY meets with Iker. He reports feeling weak at home and being unable to get out of his chair. He talks about his roommate and says she does not help him at all and is staying there rent free. He shares that she had her own apartment but was evicted for non-payment. He agreed to let her stay with him for what was supposed to be just a couple of weeks but it has now been five years and she's still there. Iker reports feeling safe at home. When asked about his needs, he replies that he needs a lift chair and has already talked to someone about it. Iker is connected to [facility] and Mike Sheth is his high risk case manager. A road test performed in the ED reveals that Iker is deconditioned and a potential fall risk. Iker is agreeable to a referral for Home Health PT and [facility] [employer].
== END 2021-06-28 14:49 | disposition home or self-care (01) ==
PROVIDERS: Emergency Provider Registered Nurse Emergency; PCP Family Medicine
DX: R06.02 Shortness of breath (principal); Z53.29 Procedure and treatment not carried out because of patient's decision for other reasons
CPT/HCPCS: 93005; 99283; 93010; 99282

== ENCOUNTER 2021-06-28 19:41 | Emergency (ER) | payer MEDICARE, OTHER, MEDICAID, SELFPAY ==
[2021-06-28 19:46] VITALS: BP 103/74; PULSE 82; RESP 16; TEMP 37.3; O2SAT 93
--- NOTE | 2021-06-28 20:18 | ED.GENADUL_ITS ---
Discharge Plan Disposition Patient Disposition: HOME Condition: Good Discharge Details Clinical Impression: Encounter for medical assessment Primary Care Provider: Ambar Claire ED Provider: Emmanuel Shah Home Meds and New Rx's Prescriptions: New diphenoxylate-atropine [Lomotil] 2.5-0.025 mg tablet 1 tab PO DAILY Qty: 7 RF: 0 Continued atorvastatin [Lipitor] 80 MG tablet 80 mg PO DAILY RF: 0 amlodipine 5 MG tablet 10 mg PO DAILY RF: 0 lisinopril 40 MG tablet 40 mg PO DAILY RF: 0 aspirin [Aspir-81] 81 MG tablet,delayed release (DR/EC) 81 mg PO DAILY RF: 0 cyanocobalamin (vitamin B-12) [Vitamin B-12] 1,000 mcg tablet 1,000 mcg PO DAILY RF: 0 diclofenac sodium 3 % gel 1 applic topical BID PRN (Reason: knee pain) Qty: 100 RF: 0 allopurinol 100 mg tablet 200 mg PO DAILY RF: 0 metoprolol succinate 100 mg tablet extended release 24 hr 100 mg PO DAILY RF: 0 ipratropium-albuterol 0.5 mg-3 mg(2.5 mg base)/3 mL Solution For Nebulization 3 ml UPD Q4H PRN PRNQty: 0 RF: 0 doxycycline hyclate 100 mg Capsule 100 mg PO Q12H Qty: 0 RF: 0 furosemide 40 mg Tablet 40 mg PO BID@0830,1600 Qty: 0 RF: 0 guaifenesin [Mucinex] 600 mg Tablet Extended Release 12hr 600 mg PO BID PRN PRNQty: 60 RF: 0 nystatin 100,000 unit/gram Powder 1 applic topical BID Qty: 0 RF: 0 potassium chloride [Klor-Con M20] 20 mEq Tablet,Er Particles/Crystals 40 meq PO DAILY Qty: 60 RF: 0 Discharge Instructions Additional Instructions: At this time you do have a small amount of loose stool that occasionally occurs with your flatus. Please take the Lomotil, which is a antidiarrhea medicine only if needed. Please eat a high-fiber diet. If you notice any worsening of your symptoms, or any new symptoms such as vomiting, diarrhea, fever, chills, shortness of breath, chest pain, numbness, weakness, or fainting , please return immediately to the emergency department for reevaluation. Please follow up with your primary care provider as soon as possible for reassessment and reevaluation. As always, it was a pleasure participating in your medical care today. Referrals: Ambar Claire MD [Primary Care Provider] - Medical Decision Making 75-year-old male with past medical history of pulmonary hypertension, obstructive sleep apnea, CHF, palliative care patient, chronic arthritis and gouty arthritis, hypertension, high cholesterol, morbid obesity, presents today for medical evaluation. Patient was here earlier today with various social concerns. He was evaluated by medical staff, and was found to be notably stable. Work-up unremarkable. Case management was also involved, patient did not want long-term management at health and rehab facility at that time. Patient was discharged home. When the patient got home he stated that he heard a rumbling in my tummy, and then had a wet fart. Patient was uncertain if he had diarrhea, and so he called EMS to help him. Per EMS he was able to get up and walk out to the ambulance. Patient denies any abdominal pain, chest pain, shortness of breath, bloody diarrhea, current antibiotic use, diarrhea for any of his roommates, or any other complaints. Physical exam is notably unremarkable, no abdominal tenderness whatsoever. Vital signs stable. Patient demonstrates strength in all extremities. Rectal exam was performed and his underwear is slightly wet, and it is challenging to determine whether the odor is secondary to his body habitus, hygiene, or stool, but no large amount of stool can be seen. No evidence of blood whatsoever, or significant diarrhea otherwise. Patient has no concerning risk factors for severe infectious diarrhea at this time. I did ask what the patient's goals were this evening, he states he would like some help with the wet farts. I did offer Lomotil, and he has accepted this and agrees with this. No other evidence of acute life-threatening etiology based on exam or history at this time. I did asked the patient if he feels safe and comfortable at home, and he states that he does. He states that he does feel fine going home at this time. Patient will be discharged home with Lomotil. First dose will be given here. Discussed red flags for which to return. I have extensively reviewed the treatment plan and discharge instructions with the patient. I have addressed all patient concerns at this time. The patient was made aware of what symptoms to monitor for that would warrant a return to the emergency department. Discussed the plan with the patient, they demonstrate verbal understanding and agreement with our assessment and plan at this time. The documentation in this chart was dictated using [employer] dictation software. Please excuse any dictation errors. HPI General Date/Time Provider Initiated Documentation: 06/28/21 19:54 . HPI Narrative: 75-year-old male with past medical history of pulmonary hypertension, obstructive sleep apnea, CHF, palliative care patient, chronic arthritis and gouty arthritis, hypertension, high cholesterol, morbid obesity, presents today for medical evaluation. Patient was here earlier today with various social concerns. He was evaluated by medical staff, and was found to be notably stable. Work-up unremarkable. Case management was also involved, patient did not want long-term management at health and rehab facility at that time. Patient was discharged home. When the patient got home he stated that he heard a rumbling in my tummy, and then had a wet fart. Patient was uncertain if he had diarrhea, and so he called EMS to help him. Per EMS he was able to get up and walk out to the ambulance. Patient denies any abdominal pain, chest pain, shortness of breath, bloody diarrhea, current antibiotic use, diarrhea for any of his roommates, or any other complaints. Related Data Home Medications Medication Instructions Recorded Confirmed amlodipine 10 mg PO DAILY 10/22/13 06/28/21 atorvastatin [Lipitor] 80 mg PO DAILY 10/22/13 06/28/21 lisinopril 40 mg PO DAILY 10/22/13 06/28/21 aspirin [Aspir-81] 81 mg PO DAILY 12/09/13 06/28/21 cyanocobalamin (vitamin B-12) 1,000 mcg PO DAILY 07/13/20 06/28/21 [Vitamin B-12] diclofenac sodium 1 applic TOPICAL BID PRN #100 g 07/13/20 06/28/21 allopurinol 200 mg PO DAILY 05/02/21 06/28/21 metoprolol succinate 100 mg PO DAILY 05/02/21 06/28/21 doxycycline hyclate 100 mg PO Q12H #0 cap 05/11/21 06/28/21 furosemide 40 mg PO BID@0830,1600 #0 tab 05/11/21 06/28/21 guaifenesin [Mucinex] 600 mg PO BID PRN PRN #60 tab 05/11/21 06/28/21 ipratropium-albuterol 3 ml UPD Q4H PRN PRN #0 ml 05/11/21 06/28/21 nystatin 1 applic TOPICAL BID #0 g 05/11/21 06/28/21 potassium chloride [Klor-Con M20] 40 meq PO DAILY #60 tab 05/11/21 06/28/21 diphenoxylate-atropine [Lomotil] 1 tab PO DAILY #7 tab 06/28/21 Previous Rx's Medication Instructions Recorded diclofenac sodium 1 applic TOPICAL BID PRN #100 g 07/13/20 doxycycline hyclate 100 mg PO Q12H #0 cap 05/11/21 furosemide 40 mg PO BID@0830,1600 #0 tab 05/11/21 guaifenesin [Mucinex] 600 mg PO BID PRN PRN #60 tab 05/11/21 ipratropium-albuterol 3 ml UPD Q4H PRN PRN #0 ml 05/11/21 nystatin 1 applic TOPICAL BID #0 g 05/11/21 potassium chloride [Klor-Con M20] 40 meq PO DAILY #60 tab 05/11/21 diphenoxylate-atropine [Lomotil] 1 tab PO DAILY #7 tab 06/28/21 Allergies Allergy/AdvReac Type Severity Reaction Status Date / Time hydrochlorothiazide AdvReac gout Unverified 06/28/21 19:53 General Stated Complaint: Nausea/Vomit/Diar SYEDA: 3 Review of Systems All systems reviewed & are unremarkable except as noted in HPI and below PFSH Medical History Ambulatory dysfunction Biliary colic symptom CVA (cerebral vascular accident) Gouty arthritis left shoulder, 03[place]2021 [place] [facility] [place] Heart attack cardiac cath 2012 - no stents Hyperlipidemia Hypertension Morbid obesity with BMI of 45.0-49.9, adult Obstructive sleep apnea not using CPAP Surgical History Angiogram cardiac cath 2013 - no stents Cholecystectomy open Family History Other Essential hypertension Heart disease Social History Smoking/Tobacco Use Status: Former Tobacco Use Smoking risk assessment performed?: Yes Alcohol Intake: former Drug use: Never Do you feel safe at home: Yes Do you feel safe in your relationship?: Yes Exam Narrative Exam Narrative: 1.Const: Well-nourished, Well-developed, appearing stated age, morbidly obese 2.Eyes: PERRL, no conjunctival injection, and symmetrical lids. 3.ENT: Atraumatic external nose and ears. Moist MM. Neck: Symmetric, trachea midline, No thyromegaly. 4.CVS: +S1/S2, No murmurs or gallops. Peripheral pulses 2+ and equal in all extremities. Brisk capillary refill in all extremities. 5.RESP: Unlabored respiratory effort. Clear to auscultation bilaterally. No wheezes rales or rhonchi 6.GI: Soft, Nontender/Nondistended, No hepatosplenomegaly. No guarding or rebound. No pain at McBurney's point, negative Humphrey sign. Rectal exam demonstrates no significant amount of diarrhea whatsoever. There is a small amount of wetness around the rectum, likely secondary to a small amount of past diarrhea, but no evidence of significant stool, or blood whatsoever. 7.MSK: Normocephalic/Atraumatic, Extremities w/o deformity or ttp No cyanosis or clubbing, Normal movement of all extremities 8.Skin: Warm, Dry. No rashes or lesions. 9.Neuro: shot hole driller II-XII grossly intact. Sensation grossly intact, no focal neurologic deficits. 10.Psych: (AAO) x3. Appropriate mood and affect Course Vital Signs Vital signs: Vital Signs Temperature 37.3 C 06/28/21 19:46 Pulse 82 06/28/21 19:46 Respiratory Rate 16 06/28/21 19:46 Blood Pressure 103/74 06/28/21 19:46 Pulse Oximetry 93 06/28/21 19:46 Temperature 37.3 C 06/28/21 19:46 Temperature Source Skin 06/28/21 19:46 Pulse 82 06/28/21 19:46 Respiratory Rate 16 06/28/21 19:46 Respiratory Effort Non-Labored 06/28/21 19:46 Blood Pressure 103/74 06/28/21 19:46 Blood Pressure Position Supine 10/19/21 19:46 Pulse Oximetry 93 06/28/21 19:46 Oxygen Delivery Method Nasal Cannula 06/28/21 19:46 Pain Level 0 06/28/21 20:14
[2021-06-28 21:39] VITALS: BP 155/73; PULSE 73; RESP 15; TEMP 36.3; O2SAT 97
--- NOTE | 2021-06-29 09:32 | NT_ITS ---
Date of service: 06/29/21 Time of Service: 09:32 PT Notes Visit Reasons: Santiago Patient was discharged at the ED on 06/28/2021. No skilled PT services provided. Thank you for the opportunity to participate in the care of this patient. Emani Ruff PT, DPT, CLT [facility] [place], [place]
== END 2021-06-28 21:45 | disposition home or self-care (01) ==
LOC: ER 20:42
PROVIDERS: Emergency Provider Student in an Organized Health Care Education/Training Program; PCP Family Medicine
DX: R06.02 Shortness of breath (principal); Z59.2 Discord with neighbors, lodgers and landlord; Z60.8 Other problems related to social environment; Z53.29 Procedure and treatment not carried out because of patient's decision for other reasons
CPT/HCPCS: 99283; 99284

== ENCOUNTER 2021-06-30 10:01 | Inpatient (IN) | payer MEDICARE, MEDICAID, SELFPAY ==
[2021-06-30] VITALS (61 sets, daily range): BP systolic 116–150; BP diastolic 45–97; PULSE 76–101; RESP 15–27; TEMP 36.4–36.8; O2SAT 88–96
--- NOTE | 2021-06-30 10:30 | RT.EKG_ITS ---
APPROVED REPORT Exam: Resting ECG Reason for Exam: weakness Patient Location: E HR:98 bpm ECG Measurements Heart Rate 98 AXIS MS 199 P 40 QRSd 94 QRS 41 QT 359 T 57 QTc 460 Conclusion Sinus rhythm...normal P axis, V-rate 60- 99
--- NOTE | 2021-06-30 10:30 | DI.RAD_ITS ---
Exam(s) XR PORTABLE CHEST AP EXAM: XR PORTABLE CHEST AP CLINICAL HISTORY: weakness. TECHNIQUE: 2D digital imaging was performed. COMPARISON: CR XR PORTABLE CHEST AP from 05/05/2021 CR XR PORTABLE CHEST AP from 05/09/2021 FINDINGS: Patient is slightly rotated. Heart size unchanged. Tortuous descending thoracic aorta noted. Probable enlargement of the ascending thoracic aorta. Lungs remain clear. No infiltrates nor pleural effusions. No pulmonary edema. IMPRESSION: As above. Recommend nonportable PA and lateral views when clinically possible. DATA REPOSITORY: RADIATION DOSE DELIVERED: All CT scans at this facility use at least one of these dose optimization techniques: automated exposure control; mA and/or kV adjustment per patient size (includes targeted e xams where dose is matched to clinical indication); or iterative reconstruction.
--- NOTE | 2021-06-30 10:53 | ED.GENADUL_ITS ---
Discharge Plan Disposition Patient Disposition: [facility] INPATIENT Condition: Stable Discharge Details Clinical Impression: Generalized weakness, Diarrhea, Tinea, Dehydration Admit Date/Time: 06/30/21 18:15 Admit Provider: Jaiden Hoover Attending Provider: Jaiden Hoover Primary Care Provider: Ambar Claire ED Provider: Jaiden Whitfield Discharge Data Discharge Date/Time-TO BE ENTERED AT DEPARTURE: 06/30/21 21:59 Medical Decision Making <KALI Zendejas - Last Filed: 07/02/21 22:52> Patient with significant tinea curious to groin and pannus, I did consider cellulitis but my suspicion for low, patient is afebrile and I suspect this is secondary to copious diarrhea although patient has not had any additional episodes of diarrhea during this encounter, there is C. difficile and PCR for bacterial pathogens in place potassium supplemented, 3.4 magnesium supplemented, 1.7 given recent CHF and non-STEMI, Megace 500 bolus, ordered fusion we made an attempt to transfer patient back to [facility], however they are unable to accommodate patient time he is unable to ambulate safely and has had persistent diarrhea with a BUN of 31, he is dehydrated, he has not made for discharge home independently at this time he will need admission for at least observation and physical therapy assessment care will be transferred to Jaiden Whitfield as I did discuss with the hospitalist who is unable to accept patient secondary capacity time we will make substation inspector at 5 PM to reassess Medical Records Medical records reviewed: Yes I reviewed the patient's medical records. Lab Data Lab results reviewed: Yes I reviewed the patient's lab results. <KALI Doty - Last Filed: 06/30/21 18:29> I assumed care of this 75-year-old male from my colleague KALI Stewart, please see her initial HPI and examination. In short this gentleman is unsafe to go home, cannot care for himself, difficulty with ambulation, was admitted to our facility on 05-02, discharged on 05-11 to [facility]. Discharge from [facility] approximate 1 week ago, seen in the ER 2 days ago and again today. Patient given p.o. potassium, magnesium, and treated for tinea curious prior to my evaluation. Patient has also had diarrhea, stool sample pending. Attempt for admission already made but no bed placement available, plan is to reassess at 5 PM after a potential admission on the floor. X-ray without evidence of effusion. Upon reevaluation, patient is a morbidly obese male lying supine in the ER stretcher, appears to be in no acute distress. Patient reports that he does not feel safe going home, has difficulty caring for himself and ambulating even with a walker and home health. Case discussed previously with care management, there is no bed available at a rehab facility this evening. I discussed the case with our greenhouse instructor Tereza, she has also spoken with care management and hospital administration substation inspector, plan is to admit to our ICU as MedSurg status. Case discussed with Dr. Hoover, who is agreeable to admission and will write admission orders. HPI <KALI Zendejas - Last Filed: 07/02/21 22:52> General Mode of arrival: EMS . Date/Time Provider Initiated Documentation: 06/30/21 10:08 . Limitations to Documentation: no limitations . Information obtained by: patient . HPI Narrative: This 75-year-old gentleman with a history of CHF, QTC prolongation, chronic left lower extremity weakness non-ST elevation [place], chronic abdominal pain, morbid obesity presents with report of general weakness for the past several days. He has had persistent diarrhea, 6 or 7 episodes of loose, watery, brown stool. Denies blood. Denies falls or injuries. States I just need a shower and admission . States he was just discharged from the rehabilitation center for lower extremity weakness 7 or 8 days ago. Denies any urinary complaints. States he is unable to get around his apartment safely. Denies any recent antibiotic use. Denies chest pain or shortness of breath. Denies dizziness. Related Data Home Medications Medication Instructions Recorded Confirmed amlodipine 10 mg PO DAILY 10/22/13 06/30/21 atorvastatin [Lipitor] 80 mg PO DAILY 10/22/13 06/30/21 lisinopril 40 mg PO DAILY 10/22/13 06/30/21 aspirin [Aspir-81] 81 mg PO DAILY 12/09/13 06/30/21 cyanocobalamin (vitamin B-12) 1,000 mcg PO DAILY 07/13/20 06/30/21 [Vitamin B-12] diclofenac sodium 1 applic TOPICAL BID PRN #100 g 07/13/20 06/30/21 allopurinol 200 mg PO DAILY 05/02/21 06/30/21 furosemide 40 mg PO BID@0830,1600 #0 tab 05/11/21 06/30/21 guaifenesin [Mucinex] 600 mg PO BID PRN PRN #60 tab 05/11/21 06/30/21 ipratropium-albuterol 3 ml UPD Q4H PRN PRN #0 ml 05/11/21 06/30/21 nystatin 1 applic TOPICAL BID #0 g 05/11/21 06/30/21 potassium chloride [Klor-Con M20] 40 meq PO DAILY #60 tab 05/11/21 06/30/21 diphenoxylate-atropine [Lomotil] 1 tab PO DAILY #7 tab 06/28/21 06/30/21 metoprolol succinate [Kapspargo 100 mg PO DAILY 07/01/21 07/01/21 Sprinkle] Previous Rx's Medication Instructions Recorded diclofenac sodium 1 applic TOPICAL BID PRN #100 g 07/13/20 furosemide 40 mg PO BID@0830,1600 #0 tab 05/11/21 guaifenesin [Mucinex] 600 mg PO BID PRN PRN #60 tab 05/11/21 ipratropium-albuterol 3 ml UPD Q4H PRN PRN #0 ml 05/11/21 nystatin 1 applic TOPICAL BID #0 g 05/11/21 potassium chloride [Klor-Con M20] 40 meq PO DAILY #60 tab 05/11/21 diphenoxylate-atropine [Lomotil] 1 tab PO DAILY #7 tab 06/28/21 Allergies Allergy/AdvReac Type Severity Reaction Status Date / Time hydrochlorothiazide AdvReac gout Unverified 06/30/21 10:15 General Stated Complaint: Nausea/Vomit/Diar SYEDA: 3 Review of Systems <KALI Zendejas - Last Filed: 07/02/21 22:52> All systems reviewed & are unremarkable except as noted in HPI and below PFSH <KALI Zendejas - Last Filed: 07/02/21 22:52> Medical History (Updated 07/02/21 @ 13:50 by Candelaria Freeman NP) Ambulatory dysfunction Biliary colic symptom CVA (cerebral vascular accident) Gouty arthritis left [place], [place]20[place] [facility] [place] attack cardiac cath 2013 - no stents Hyperlipidemia Hypertension Morbid obesity with BMI of 45.0-49.9, adult Obstructive sleep apnea not using CPAP Surgical History (Updated 06/30/21 @ 20:26 by Jaiden Hoover) Angiogram cardiac cath 2012 - no stents Cholecystectomy open Status post cholecystectomy (06/16/14) Family History Other Essential hypertension Heart disease Social History Smoking/Tobacco Use Status: Former Tobacco Use Smoking risk assessment performed?: Yes Alcohol Intake: former Drug use: Never Do you feel safe at home: Yes Do you feel safe in your relationship?: Yes Exam <KALI Zendejas - Last Filed: 07/02/21 22:52> Const General: cooperative and no acute distress HENMT Other: Moist mucous membrane Eyes Pupils: PERRL Resp Effort & Inspection: normal respiratory effort Cardio Rate: regular rate GI Other: Large easily reducible surgical hernia, soft, nontender abdomen exam Other: No evidence of Rosalia gangrene, macerated scrotum and pannus consistent with tinea Skin Full body images: 1. Macerated erythematous tinea curious, no evidence of secondary infection, exudative drainage consistent with tinea Neuro General: patient alert and patient oriented x3 Extrem Other: 1+ edema to bilateral lower extremities Course <KALI Zendejas - Last Filed: 07/02/21 22:52> Vital Signs Vital signs: Vital Signs Temperature 36.8 C 06/30/21 10:03 Pulse 101 H 06/30/21 10:03 Respiratory Rate 16 06/30/21 10:03 Blood Pressure 134/83 06/30/21 10:03 Pulse Oximetry 93 06/30/21 10:03 Temperature 36.8 C 06/30/21 10:03 Temperature Source Oral 06/30/21 10:03 Pulse 101 H 06/30/21 10:03 Respiratory Rate 16 06/30/21 10:03 Respiratory Effort Non-Labored 06/30/21 10:03 Blood Pressure 134/83 06/30/21 10:03 Blood Pressure Position Supine 06/30/21 10:03 Pulse Oximetry 93 06/30/21 10:03 Oxygen Delivery Method Room Air 06/30/21 10:03 Oxygen Flow Rate 0 06/30/21 10:03 Pain Level 0 06/30/21 10:03 Sign Out <KALI Zendejas - Last Filed: 07/02/21 22:52> Sign Out Data: Sign Out Comment: pending admission Last updated by Lorena Stewart PA at 06/30/21 16:25
[2021-06-30 11:01] LABS: Bilirubin Negative (Negative); Blood Negative (Negative); Clarity Clear (Clear); Glucose Negative (Negative); Ketones Negative (Negative); Leukocyte Esterase Small (Negative); Nitrite Negative (Negative); Specific Gravity 1.015 (1.005-1.025); Urobilinogen 0.2 EU/dL (Up TO 0.2); pH 5.5 (5-8)
[2021-06-30 11:08] LABS: Bacteria Negative HPF (Negative); C & S Indicated? Yes; Casts 0-2 Coarse Granular LPF (Negative); Crystals Negative HPF (Negative); Epithelial Cells Few HPF (Negative); Mucus Negative (Negative); RBC Negative HPF (0-2)
[2021-06-30 11:22] LABS: Abs Immature Grans 0.07 10^3/uL (0.0-0.06); Absolute Eosinophil Count 0.23 10^3/uL (0.0-0.7); Absolute Lymphocyte Count 0.57 10^3/uL (1.2-3.4); Basophils % 0.2; Eosinophils % 1.9; HCT 34.1 % (40.0-50.0); HGB 11.2 g/dL (13.5-17.5); Immature Grans % 0.6; Lymphocytes % 4.7; MCH 30.9 pg (27.0-33.0); MCHC 32.8 % (32.0-36.0); MCV 94.2 fL (80-95); MPV 10.9 fL (8.0-11.0); Monocytes % 11.6; Nucleated RBC 0 %; Platelet Count 221 10^3/uL (130-400); RBC 3.62 10^6/uL (4.36-5.78); RDW 14.8 % (11.8-14.1); RDW-SD 51.7 fL
[2021-06-30 11:24] LABS: Absolute Basophil Count 0.02 10^3/uL (0.0-0.2); Absolute Monocyte Count 1.42 10^3/uL (0.1-0.8); Absolute Neutrophil Count 9.88 10^3/uL (1.2-6.7)
[2021-06-30 11:36] LABS: ALT 17 U/L (16-63); AST 13 U/L (15-37); Alkaline Phosphatase 89 U/L (46-116); Anion Gap 9.6 mmol/L (3-11); BUN 31 mg/dL (7-18); Bilirubin, Total 1.2 mg/dL (0.2-1.0); CO2 25.4 mmol/L (21.0-32.0); CREATININE 1.2 mg/dL (0.70-1.30); Calcium 8.6 mg/dL (8.5-10.1); Chloride 105 mmol/L (98-107); Estimated GFR 59.02 (mL/min/1.73m2); Glucose 120 mg/dL (74-106); Magnesium 1.7 mg/dL (1.8-2.4); Potassium 3.4 mmol/L (3.5-5.1); Sodium 140 mmol/L (136-145); Total Protein 6.9 g/dL (6.4-8.2)
[2021-06-30 11:37] LABS: Troponin I < 0.05 ng/mL (<0.06)
[2021-06-30] MEDS: Normal Saline 500 ML IV (11:52)
--- NOTE | 2021-06-30 12:12 | NUR.NOTE ---
Report from Alma for continued care. Alma and KALI Stewart at bedside for cares. Patient pannus cleansed, nystatin powder placed. Tolerated with complaint. Nursing Note:
[2021-06-30] MEDS: Nystatin POWDER 60 GM JAR (12:27)
--- NOTE | 2021-06-30 13:26 | NUR.NOTE ---
Patient resting with eyes closed; appears sleeping. Tilted to right side. No apparent distress. Nursing Note:
--- NOTE | 2021-06-30 14:19 | NUR.NOTE ---
Patient remains resting quietly on cart. Awakens easily on rounds. Denies needs. Call light in reach.Nursing Note:
[2021-06-30 15:38] LABS: Source Nasal/Nares
[2021-06-30] MEDS: Normal Saline 1,000 ML 100 ML IV (16:15)
[2021-06-30 16:35] LABS: COVID-19 PCR Negative (Negative)
[2021-06-30] MEDS: Potassium Chloride 20 MEQ TABCR PO (17:06)
[2021-06-30] MEDS: Magnesium Gluconate 500 MG TAB PO (17:06)
--- NOTE | 2021-06-30 19:09 | NUR.NOTE ---
Patient assisted to ED stretcher with hover mat. Able to stand and pivot with stand by assist x3. Tolerates movement with complaint. Awaiting placement to inpatient bed; approximately 2129.Nursing Note:
--- NOTE | 2021-06-30 20:15 | NUR.NOTE ---
Patient resting with eyes closed; appears sleeping. No apparent distress noted. Lights dimmed for comfort. Tilted to left side. Call light in reach.Nursing Note:
--- NOTE | 2021-06-30 20:21 | HPE_ITS ---
Date of service: 06/30/21 Time of Service: 20:21 Assessment and Plan Assessment and plan (1) Failure to thrive in adult: Status: Acute Assessment and plan: patient probably needs SNF or longer term placement d/t failure to care for himself. He just was released from [facility] one week ago. Will ask care managers to assist w/ placement. They were involved through the ER staff today. (2) Generalized weakness: Status: Acute Assessment and plan: consult P.T. to evaluate and treat for generalized weakness, deconditioning; may need O.T. consulte as well to assess his abilities to safely perform ADL tasks alone (3) Diarrhea: Status: Acute Assessment and plan: possible infectious; patient completed antibiotics treatment in the past 6 wks for acute bronchitis. will check stool studies for lactoferrin, bacterial pathogens and C. difficile; will use metamucil to thicken stools, add lactobacillus probiotics; if no C. diff and no bacterial pathogens then can use imodium prn. Qualifiers: Diarrhea type: unspecified type Qualified Code(s): R19.7 - Diarrhea, unspecified (4) Pulmonary hypertension: Status: Chronic Assessment and plan: mild (RVSP 34 mm and normal RV size and function per last echo dated 05/02/2021; likely d/t his LUIS FELIPE +/- his MR and LVH (5) Obstructive sleep apnea: Status: Chronic Assessment and plan: patient should be on CPAP at night, will encourage him to use. (6) Hypokalemia: Status: Acute Assessment and plan: cont. oral replacments and monitor (7) Hypomagnesemia: Status: Acute Assessment and plan: cont. oral replacments and monitor (8) Chronic hypertension: Status: Chronic Assessment and plan: continue home meds of Toprol XL and amlodipine and lisinopril. Last echocardiogram demonstrated moderate concentric LVH w/ mild to mod. MR, no nor AI, normal RV size and function and mild pulmonary HTN (RVSP 33 mm), normal tricuspid valve w/ mild TR. He had grade II diastolic dysfunction (although this was not called on his report his diastolic parameters fit grade II diastolic dysfunction, i.e. pseudonormal pattern w/ normal E/A ratio but w/ decreased medial and lateral e prime and increased E/e prime ratios). He was successfully diuresed last admission. His BUN and creatinine are slightly higher than when he left, however, w/ the diarrhea and the ongoing use of lasix he appears euvolemic or slightly dry. I will hold his lasix for now; allow him to drink free fluids and monitor his BMP. He has already had a liter in fluids from the ER therefore, I will hold on further iv fluids in light of his recent hospitalization for CHF. (9) Tinea cruris: Status: Acute Assessment and plan: nizoral cream to groin bid x 3 wk (10) Morbid obesity with BMI of 40.0-44.9, adult: Status: Acute (11) DVT prophylaxis: Status: Acute Assessment and plan: enoxaparin SC (12) Discharge planning issues: Status: Acute Assessment and plan: classification case manager has been consulted through the ER department to assist w/ placement. History of Present Illness History of Present Illness Chief Complaint: weakness, diarrhea Narrative: 75 yr old male w/ PMH of CAD, CVA, HTN, HLD, obesity (BMI 40), LUIS FELIPE who presented to [facility] 05/02 through 05/11/2021 for acute hypoxemic respiratory failure found to be due to acute on chronic HFPEF (LVEF 55-60%, mod. conc. LVH, no RWMA, mild/mod. MR, dilated aorta but no nor AI; normal RV size and function but grade II diastolic HF).During that admission, COVID-19 infection was ruled out, he was empirically treated w/ doxycycline and ceftriaxone for pneumonia but his CXR cleared dramatically w/ diuresis and pneumonia was ruled out although he was con tinued on doxycycline for acute bronchitis (was told to continue for 3 more days post discharge). He was sent to [facility] for recovery and remained there until he was discharged home one week ago. Since returning to his home he has not been getting out of bed and he now complains of diarrhea, passing several watery brown stools per day. No hematochezia, melena nor any fevers, rigors, dyspnea or abdominal pain or chest pain. 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 He complains of his home smelling of dog and cat feces and urine. He presented to the ER on 06/28 with the above complaints but declined any medical workup and was discharged home with new orders for walker and continued home health. He presented this afternoon with complaints of watery diarrhea, generalized weakness and inability to care for himself. Workup in the ER included EKG, CXR, labs (CBC, CMP, troponin, UA). Pertinent findings include mild leukocytosis of 12,000, stable chronic normocytic/normchromic anemia, mild hypokalemia (3.4), mild hypomagnesemia (1.7), prerenal azotemia (BUN31, creatinine 1.2; baseline at discharge was 21 and 0.8 respectively), normal LFT, normal troponin, UA w/ small amt of LE but no bacteria and neg. for ketones, protein, nitrites, few epis, 0-2 coarse granular casts. EKG NSR 98 bpm, no ischemia. CXR showed tortuous descending aorta, enlarged ascending aorta, no infiltrates or effusions. Patient was treated w/ liter of NS and given oral potassium (20 meq) and magnesium. He is now being admitted for evaluation and treatement for generalized weakness and dehydration and electrolyte abnormalities and failure to thrive. He will also be ruled out for infectious diarrhea Review of Systems All systems reviewed & are unremarkable except as noted in HPI and below [facility] Medical History (Updated 07/01/21 @ 00:26 by Jaiden Hoover) Ambulatory dysfunction Biliary colic symptom CVA (cerebral vascular accident) Gouty arthritis left shoulder, 03/2021 - [facility] Heart attack cardiac cath 2012 - no stents Hyperlipidemia Hypertension Morbid obesity with BMI of 45.0-49.9, adult Obstructive sleep apnea not using CPAP Surgical History (Updated 06/30/21 @ 20:26 by Jaiden Hoover) Angiogram cardiac cath 2012 - no stents Cholecystectomy open Status post cholecystectomy (06/16/14) Family History Other Essential hypertension Heart disease Social History Smoking/Tobacco Use Status: Former Tobacco Use Smoking risk assessment performed?: Yes Alcohol Intake: former Drug use: Never Do you feel safe at home: Yes Do you feel safe in your relationship?: Yes Meds Allergies and Home Medications Allergies Allergy/AdvReac Type Severity Reaction Status Date / Time hydrochlorothiazide AdvReac gout Unverified 06/30/21 10:15 Home Medications Medication Instructions Recorded Confirmed Type amlodipine 10 mg PO DAILY 10/22/13 06/30/21 History atorvastatin [Lipitor] 80 mg PO DAILY 10/22/13 06/30/21 History lisinopril 40 mg PO DAILY 10/22/13 06/30/21 History aspirin [Aspir-81] 81 mg PO DAILY 12/09/13 06/30/21 History cyanocobalamin (vitamin B-12) 1,000 mcg PO DAILY 07/13/20 06/30/21 History [Vitamin B-12] diclofenac sodium 1 applic TOPICAL BID PRN #100 g 07/13/20 06/30/21 Rx allopurinol 200 mg PO DAILY 05/02/21 06/30/21 History metoprolol succinate 100 mg PO DAILY 05/02/21 06/30/21 History furosemide 40 mg PO BID@0830,1600 #0 tab 05/11/21 06/30/21 Rx guaifenesin [Mucinex] 600 mg PO BID PRN PRN #60 tab 05/11/21 06/30/21 Rx ipratropium-albuterol 3 ml UPD Q4H PRN PRN #0 ml 05/11/21 06/30/21 Rx nystatin 1 applic TOPICAL BID #0 g 05/11/21 06/30/21 Rx potassium chloride [Klor-Con M20] 40 meq PO DAILY #60 tab 05/11/21 06/30/21 Rx diphenoxylate-atropine [Lomotil] 1 tab PO DAILY #7 tab 06/28/21 06/30/21 Rx Exam Narrative Exam Narrative: Morbidly obese, white male, who appears disheveled; but otherwise in no acute distress, alert and oriented x 3 HEENT: rather plethoric appearance to his face; poor oral hygiene; mucous membranes moist Neck: supple, no JVD; normal carotids Lungs: clear Heart: RRR w/o murmur, rub or gallop Abdomen: obese, RUQ scar c/w laparotomy probably for cholecystectomy; he has abdominal wall hernia that is reducible; normal bowel sounds, soft and nontender Extremities: no pitting edema Skin: tinea cruris in his groin bilaterally Neuro: no focal deficits; moves all 4's; no facial asymmetry; normal speech; VF not tested but grossly normal; no CN deficits Results Labs Result diagrams: 06/30/21 11:10 06/30/21 11:10 Labs: Laboratory Results - last 24 hr 06/30/21 06/30/21 06/30/21 10:55 11:10 11:10 WBC 12.20 H RBC 3.62 L Hgb 11.2 L Hct 34.1 L MCV 94.2 MCH 30.9 MCHC 32.8 RDW 14.8 H Plt Count 221 MPV 10.9 Immature Gran % 0.6 Neutrophils % 81.0 Lymphocytes % 4.7 Monocytes % 11.6 Eosinophils % 1.9 Basophils % 0.2 Nucleated RBC % 0 Absolute Neutrophils 9.88 H Absolute Lymphocytes 0.57 L Absolute Monocytes 1.42 H Absolute Eosinophils 0.23 Absolute Basophils 0.02 Sodium 140 Potassium 3.4 L Chloride 105 Carbon Dioxide 25.4 Anion Gap 9.6 BUN 31 H Creatinine 1.2 Estimated GFR/1.73 m2 59.02 Glucose 120 H Calcium 8.6 Magnesium 1.7 L Total Bilirubin 1.2 H AST 13 L ALT 17 Alkaline Phosphatase 89 Troponin I < 0.05 Total Protein 6.9 Albumin 3.0 L Urine Color Yellow Urine Clarity Clear Urine pH 5.5 Ur Specific Hollis 1.015 Urine Protein Negative Urine Ketones Negative Urine Blood Negative Urine Nitrite Negative Urine Bilirubin Negative Urine Urobilinogen 0.2 Ur Leukocyte Esterase Small H Urine RBC Negative Urine WBC 3-5 Ur Epithelial Cells Few Urine Crystals Negative Urine Bacteria Negative Urine Casts 0-2 Coarse Granular Urine Mucus Negative Ur Culture Indicated? Yes Urine Glucose Negative COVID-19 Source SARS-CoV-2 (PCR) 06/30/21 15:35 WBC RBC Hgb Hct MCV MCH MCHC RDW Plt Count MPV Immature Gran % Neutrophils % Lymphocytes % Monocytes % Eosinophils % Basophils % Nucleated RBC % Absolute Neutrophils Absolute Lymphocytes Absolute Monocytes Absolute Eosinophils Absolute Basophils Sodium Potassium Chloride Carbon Dioxide Anion Gap BUN Creatinine Estimated GFR/1.73 m2 Glucose Calcium Magnesium Total Bilirubin AST ALT Alkaline Phosphatase Troponin I Total Protein Albumin Urine Color Urine Clarity Urine pH Ur Specific Hollis Urine Protein Urine Ketones Urine Blood Urine Nitrite Urine Bilirubin Urine Urobilinogen Ur Leukocyte Esterase Urine RBC Urine WBC Ur Epithelial Cells Urine Crystals Urine Bacteria Urine Casts Urine Mucus Ur Culture Indicated? Urine Glucose COVID-19 Source Nasal/Nares SARS-CoV-2 (PCR) Negative Last Vital Signs Temp 36.4 C L 06/30/21 12:30 Pulse 91 H 06/30/21 18:01 Resp 18 06/30/21 18:40 BP 132/97 H 06/30/21 18:01 Pulse Ox 94 06/30/21 18:40
--- NOTE | 2021-06-30 21:43 | NUR.NOTE ---
Report to VIVIAN Vela.Nursing Note:
[2021-06-30 21:58] LABS: NT-proBNP 945 pg/mL (<300)
[2021-06-30] MEDS: Enoxaparin 40 MG/0.4 ML SYR SC (22:58)
[2021-06-30] MEDS: Potassium Chloride 20 MEQ TABCR 40 MEQ PO (22:59)
[2021-06-30] MEDS: Lactobacillus Acidophilus CAP 1 CAP PO (22:59)
[2021-06-30] MEDS: Normal Saline Flush 10 ML SYR (23:09)
[2021-06-30] MEDS: Psyllium PKT 1 EACH PO (23:09)
[2021-07-01 07:14] LABS: Abs Immature Grans 0.04 10^3/uL (0.0-0.06); Absolute Basophil Count 0.02 10^3/uL (0.0-0.2); Absolute Eosinophil Count 0.35 10^3/uL (0.0-0.7); Absolute Lymphocyte Count 0.88 10^3/uL (1.2-3.4); Absolute Neutrophil Count 6.33 10^3/uL (1.2-6.7); Basophils % 0.2; Eosinophils % 4.1; HCT 31.5 % (40.0-50.0); HGB 10.2 g/dL (13.5-17.5); Immature Grans % 0.5; Lymphocytes % 10.3; MCHC 32.4 % (32.0-36.0); MCV 92.6 fL (80-95); MPV 11.3 fL (8.0-11.0); Monocytes % 10.6; Neutrophils % 74.3; Nucleated RBC 0 %; Platelet Count 199 10^3/uL (130-400); RDW 14.8 % (11.8-14.1); RDW-SD 50.6 fL; WBC 8.52 10^3/uL (4.4-10.8)
[2021-07-01 07:39] LABS: Anion Gap 9.7 mmol/L (3-11); BUN 21 mg/dL (7-18); C-Reactive Protein 14.12 mg/dL (0.0-0.3); CO2 23.3 mmol/L (21.0-32.0); Calcium 8.4 mg/dL (8.5-10.1); Chloride 110 mmol/L (98-107); Glucose 111 mg/dL (74-106); Magnesium 1.8 mg/dL (1.8-2.4); Potassium 3.4 mmol/L (3.5-5.1); Sodium 143 mmol/L (136-145)
[2021-07-01 08:00] VITALS: BP 113/69; PULSE 87; RESP 22; TEMP 36.4; O2SAT 93
[2021-07-01] MEDS: Aspirin E.C. 81 MG TABEC PO (08:43)
[2021-07-01] MEDS: Magnesium Gluconate 500 MG TAB PO (08:43)
[2021-07-01] MEDS: Cyanocobalamin 500 MCG TAB 1000 MCG PO (08:43)
[2021-07-01] MEDS: Lactobacillus Acidophilus CAP 1 CAP PO ×3 (08:43→20:58)
[2021-07-01] MEDS: Potassium Chloride 20 MEQ TABCR 40 MEQ PO (08:43)
[2021-07-01] MEDS: amLODIPine 5 MG TAB 10 MG PO (08:43)
[2021-07-01] MEDS: Atorvastatin 40 MG TAB 80 MG PO (08:43)
[2021-07-01] MEDS: Lisinopril 20 MG TAB 40 MG PO (08:43)
[2021-07-01] MEDS: Allopurinol 100 MG TAB 200 MG PO (08:44)
[2021-07-01] MEDS: Metoprolol CR 100 MG TABCR PO (08:44)
[2021-07-01] MEDS: Psyllium PKT 1 EACH PO ×2 (08:45→21:03)
[2021-07-01] MEDS: Ketoconazole 2% CREAM 15 GM TUBE TP ×2 (08:46→21:03)
[2021-07-01] MEDS: Nystatin POWDER 60 GM JAR TP ×2 (08:46→21:04)
[2021-07-01 08:55] VITALS: BP 113/69; PULSE 86
--- NOTE | 2021-07-01 09:03 | PDOC.CMIN ---
- If Service Date Differs Date of service: 07/01/21 Time of Service: 09:03 Care Management Initial Assess REASON FOR HOSPITALIZATION:: Failure to thrive PAST MEDICAL HISTORY/PAST SURGICAL HISTORY:: Medical History (Updated 07/01/21 @ 00:26 by Jaiden Hoover). Ambulatory dysfunction. Biliary colic symptom. CVA (cerebral vascular accident). Gouty arthritis. left shoulder, 03/2021 - [facility]. Heart attack. cardiac cath 2012 - no stents. Hyperlipidemia. Hypertension. Morbid obesity with BMI of 45.0-49.9, adult. Obstructive sleep apnea. not using CPAP. Surgical History (Updated 06/30/21 @ 20:26 by Jaiden Hoover). Angiogram. cardiac cath 2013 - no stents. Cholecystectomy. open. 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 He lives alone in a trailer he owns in [place] and continues to drive. He has a daughter named Delores and a son named Victorino, however he is not currently speaking to them and they are far away. Azeem stated that he has no support from anyone and that all of his family is .. CURRENT FUNCTIONAL STATUS:: Azeem was lying in bed when CM met with him. He was polite but guarded in his responses. Azeem admitted that he needs help and would be open to Meals on Wheels. A referral will be sent to [facility] by CM for both MOW and case management. [facility] Has patient been provided with info about the portal/API?: Yes Did the patient sign up for the portal?: No CODE STATUS:: Full Code INSURANCE COVERAGE / FINANCIAL ISSUES:: [facility] [employer] PRIMARY CARE PHYSICIAN:: Ambar Claire POTENTIAL DISCHARGE NEEDS:: Follow up with PCP and plan of care PATIENT/FAMILY EDUCATION NEEDS:: Review of discharge instructions, medicxations, limitations, activity, follow up care, Ask Me Three TRANSPORTATION:: via private vehicle or RCT PLAN:: Azeem's disposition is not clear at this time. He is weak and has identified that he needs help. He is willing to accept Meals on Wheels as well as community case management through [facility]. Azeem may need to go to a SNF for rehab prior to returning home. He will follow up with his PCP and plan of care and will likely need [facility] home health services if he does return to his mobile home. CM will continue to follow and offer discharge planning support.
--- NOTE | 2021-07-01 10:23 | IN_ITS ---
Date of service: 07/01/21 Time of Service: 10:23 PT Notes Visit Reasons: Failure to thrive Physical Therapy Inpatient Initial Evaluation Date: Referring Doctor: Jaiden Hoover MD PT Orders: PT CONSULT: Eval/treat Precautions: Fall. Standard. Activity as tolerated. Patient Profile/Admitting Diagnosis: Iker is a 75-year-old morbidly obese male with chronic hypertension and hyperlipidemia who presented to the ED on 06/30/2021 due to increasing weakness and diarrhea. Patient is diagnosed with generalized weakness, failure to thrive, pulmonary hypertension, hypokalemia and hypomagnesemia. PMHX: PMHX: Medical History (Updated 06/30/21 @ 20:26 by Jaiden Hoover) Ambulatory dysfunction Biliary colic symptom CVA (cerebral vascular accident) Gouty arthritis left shoulder, 03/2021 - [facility] Heart attack cardiac cath 2012 - no stents Hyperlipidemia Hypertension Morbid obesity with BMI of 45.0-49.9, adult Obstructive sleep apnea not using CPAP Surgical History (Updated 06/30/21 @ 20:26 by Jaiden Hoover) Angiogram cardiac cath 2012 - no stents Cholecystectomy So pertinent for abdominal pattern his just cannot be open Status post cholecystectomy (06/16/14) Social History/Home Situation: Lives alone in an apartment building with 3 steps to enter with B rails. Reports that he has not walked since he returned from the SNF last due to a big mess his living environment is in. Equipment Owned/DME: FWW Subjective: States that he has not stood up and walked since he went home from the SNF last . Reports that he has had diarrhea and has not been able to take care of himself and has received no support form his significant other nor from the community. Complained that his house is full of animal excretions he has not had the desire to walk over such big stinky mess. His significant other has not provided any form of assistance to him whatsoever. Objective: General Observation: Morbidly obese. Appears mildly confused. Supine in bed. Skin irritation in perineal areas. Mental Status: Alert and oriented as to person, place, time, and purpose. Able to pay attention but is unable to focus due to exhaustion and discomfort in his L knee and R ankle. Pain: 6-7/10 generalized pain ROM: Right Upper Extremity: Shoulder Flexion WFL. Shoulder abduction WFL. Elbow flexion WFL. Wrist flexion WFL. Functional opening and closing of hand WFL. Left Upper Extremity: Shoulder Flexion WFL. Shoulder abduction WFL. Elbow flexion WFL. Wrist flexion WFL. Functional opening and closing of hand WFL. Right Lower Extremity: Only able to perform SLR up to 10 degrees. Hip abduction less than 25 degrees of available motion. Knee flexion allows up to 10 degrees only. Ankle dorsiflexion unable. Ankle plantarflexion unable. Left Lower Extremity: Only able to perform SLR up to 20 degrees. Hip abduction less than 25 degrees of available motion. Knee flexion allows up to 20 degrees only. Ankle dorsiflexion unable. Ankle plantarflexion unable. Strength: Right Upper Extremity: Shoulder flexors 3+/5. Shoulder abductors 3+/5. Elbow flexors 3+/5. Elbow extensors 3+/5. Quill Reamer strong. Left Upper Extremity: Shoulder flexors 3+/5. Shoulder abductors 3+/5. Elbow flexors 3+/5. Elbow extensors 3+/5. Quill Reamer weakn but functional. Right Lower Extremity: Hip flexors 2-/5. Hip abductors 2-/5. Knee flexors 2-/5. Knee extensors 2-/5. Ankle dorsiflexors 1/5. Ankle plantarflexors 1/5. Left Lower Extremity:Hip flexors 2-/5. Hip abductors 2-/5. Knee flexors 2-/5. Knee extensors 2-/5. Ankle dorsiflexors 1/5. Ankle plantarflexors 1/5. Bed Mobility/Transfers: Sit to supine per nursing was able to sit up requiring extensive assist of 2. Did not want to move again when PT arrived half an hour later Sit to stand Unable to get out of bed at this time due to safety issues Stand to sit Unable to get out of bed at this time due to safety issues Reclining chair to bed Unable to get out of bed at this time due to safety issues Gait: Unable to get out of bed at this time due to safety issues Balance: Static Sitting: Unable Dynamic Sitting: Unable Static Standing: Unable Dynamic Standing: Unable Special Tests: Mobility Limitations Standardized Measure [facility] 6 clicks Basic Mobility Inpatient Short Form: Raw Score: 7 CMS Score: 93% deficit Informed Consent/Education: Patient was instructed in purpose of PT consult and plan of care. Agreeable to proceed with established PT POC to achieve personal goals. Assessment: Significant strength, range of motion, and functional mobility decline limiting ability of patient to get out of bed. Mechanical lift only for all transfers. Patient presents with clinical signs and symptoms consistent with current/admitting diagnoses that have resulted to mobility limitations, gait instability, generalized weakness, and overall ADL decline as demonstrated by the following impairment level findings: 1. Decreased strength to B UE/LE major muscle groups 2. Impaired sitting/standing balance 3. Impaired activity tolerance 4. Limitation of joint range of motion in B LE joints 5. Shortness of breath 6. Swelling 7. Morbid obesity Impairments are contributing to the following functional limitations: 1. Decline in bed mobility skills 2. Decline in transfer skills 3. Difficulty with ambulation without assistive device and physical assistance 4. Increased completion time for mobility ADL performance 5. Increased risk for falls 6. Difficulty with managing steps alone safely Patient is assessed as a [id number] high complexity based on the following: History: 75-year-old male with past medical history as indicated above Examination: Demonstrable impairment in strength, balance, and mobility level with underlying impairments and functional limitations as exhibited above as well as deficit score of 69% utilizing the [facility] Mobility Inpatient Short Form Presentation: Evolving Decision Makin high complexity Goals: Goals X1 week 1. Supine-Sit minimal assist 2. Sit-Supine minimal assist 3. Sit-Stand minimal assist 4. Stand-Sit minimal assist of 2 with bariatric FWW 5. Bed-Chair minimal assist of 2 with bariatric FWW 6. Chair-Bed minimal assist of 2 with bariatric FWW 7. Fair standing balance usinfg bariatric FWW Plan of Care/Treatment Plan: 1-2x/day, 7 days/week x 1 week. Plan of care has been reviewed with the TUNNEL MINER providing the service under Physical Therapy direction. Initiate Physical Therapy intervention for pain management as needed, strengthening, bed mobility, transfers, gait, stairs, balance training, and use of assistive device. DISCHARGE RECOMMENDATIONS: Patient will benefit from care home facility placement for continued skilled physical therapy services in order to progress mobility level, strength, and balance in preparation for a safe discharge to home. TREATMENT CODE/TIME: 01327 x 25 minutes beginning at 10:23 AM. Thank you for the opportunity to participate in the care of this patient. Emani Ruff PT, DPT, CLT [facility], [place]
--- NOTE | 2021-07-01 12:04 | W.NUTRFU ---
Date of service: 07/01/21 Time of Service: 12:04 Nutritional Follow up NOTE: Mr. Mckenzie has good PO intake on CHO consistent/heart healthy diet. BMI is 39.6 kg/m2 c/w class 2 obesity. Blood glucose at target. No nutritional issues noted at this time. Will continue to follow. Time Spent in Nutritional Counseling and Treatment: 0
[2021-07-01 13:55] VITALS: TEMP 37.9
[2021-07-01] MEDS: Acetaminophen 325 MG TAB PO (13:55)
[2021-07-01 13:57] VITALS: BP 116/73; PULSE 85; RESP 19; TEMP 37.9; O2SAT 93
--- NOTE | 2021-07-01 14:26 | PT.INTREAT ---
Date of service: 07/01/21 Time of Service: 14:26 PT Notes Visit Reasons: Failure to thrive Physical Therapy Inpatient Treatment Note Date: 07/01/2021 Precautions: Fall. Standard. Activity as tolerated. Subjective: Refuses to get out of bed for fear of his legs not being able to hold his body up. Objective: General Observation: Morbidly obese. Appears mildly confused. Supine in bed. Skin irritation in perineal areas. Mental Status: Alert and oriented as to person and place. Able to pay attention and follow commands. But limited with responses as to why he is unable to hold his weight up when he was sent home from the SNF being able to use his FWW. THERA EX: Initiated bed level range of motion exercise to prepare his joints up for planned strengthening in the coming days. Reports pain and discomfort with movement of lower extremities. Able to move B UE without pain. Unable to perform bridging exercises due to pain, indicating inability to hold lower trunk and hips up when he is in the standing position. Pain: 6-7/10 generalized pain Assessment: Motivation very low. Refusing to get out of bed stating that he is in pain and is not able to hold himself up. Only agreeable to doing bed level exercises. DISCHARGE RECOMMENDATIONS: Patient will benefit from [facility] for continued skilled physical therapy services in order to progress mobility level, strength, and balance in preparation for a safe discharge to home. TREATMENT CODE/TIME: 62376 x 19 minutes beginning at 14:26 PM.
--- NOTE | 2021-07-01 15:27 | PHA.REVIEW ---
Pharmacy Admission Review - Admission Clinical Review (Last Reviewed 06/30/21 @ 20:21 by Jaiden Hoover) Tinea cruris (Acute) Failure to thrive in adult (Acute) Hypomagnesemia (Acute) Generalized weakness (Acute) Diarrhea (Acute) Tinea (Acute) Dehydration (Acute) Discharge planning issues (Acute) DVT prophylaxis (Acute) Morbid obesity with BMI of 40.0-44.9, adult (Acute) Hypokalemia (Acute) hydrochlorothiazide Adverse Reaction (Unverified 06/30/21 10:15) gout Resuscitation Status Full Code Height 6 ft 4 in Weight 147.6 kg - Renal Dosing Renal Dosing: BUN 21 mg/dL (7-18) H D 07/01/21 06:22 Creatinine 1.0 mg/dL (0.70-1.30) 07/01/21 06:22 Medications needing adjustments: Reviewed - Anticoagulation Anticoagulation: Hgb 10.2 g/dL (13.5-17.5) L 07/01/21 06:22 Hct 31.5 % (40.0-50.0) L 07/01/21 06:22 Plt Count 199 10^3/uL (130-400) 07/01/21 06:22 Creatinine 1.0 mg/dL (0.70-1.30) 07/01/21 06:22 DVT Prophylaxis: Reviewed Medications: Enoxaparin - Opiate Usage Evaluate Pain Scale/Pains Meds: N/A - Relevant Labs Sodium 143 mmol/L (136-145) 07/01/21 06:22 Potassium 3.4 mmol/L (3.5-5.1) L 07/01/21 06:22 Chloride 110 mmol/L (98-107) H 07/01/21 06:22 Magnesium 1.8 mg/dL (1.8-2.4) 07/01/21 06:22 C-Reactive Protein 14.12 mg/dL (0.0-0.3) H 07/01/21 06:22 Electrolytes, C-Reactive P, ESR: Reviewed - DM Control DM Control: Glucose 111 mg/dL (74-106) H 07/01/21 06:22 Insulin Dosing: Reviewed - Heart Failure/KS Heart Failure/KS: Troponin I < 0.05 ng/mL (<0.06) 06/30/21 11:10 NT-Pro-B Natriuret Pep 945 pg/mL (<300) H 06/30/21 11:10 EF%, JOSÉ MANUEL's, B-Blockers, Diuretics: Reviewed - BP Control BP Control: Blood Pressure 116/73 Blood Pressure 113/69 Blood Pressure 113/69 If elevated: Reviewed - Qtc Review If Elevated: Reviewed - IV to PO Switch IV Medications: Reviewed - Home Meds Home Med List reviewed: Reviewed Relevent Home Meds Not ordered & why?: all ordered, lasix on hold - Current meds Current Medication Order Review: Reviewed
[2021-07-01 15:55] VITALS: BP 125/64; PULSE 84; RESP 20; TEMP 37.6; O2SAT 93
--- NOTE | 2021-07-01 17:03 | PGE_ITS ---
Date of Service Date of service: 07/01/21 Time of Service: 17:03 Assessment and Plan Assessment and plan (1) Diarrhea: Start date: 07/01/21 Start time: 17:14 Status: Acute Assessment and plan: No diarrhea since admission Stool studies pending Qualifiers: Diarrhea type: unspecified type Qualified Code(s): R19.7 - Diarrhea, unspecified (2) Failure to thrive in adult: Start date: 07/01/21 Start time: 17:09 Status: Acute Assessment and plan: PT recommends SNIF. (3) Generalized weakness: Start date: 07/01/21 Start time: 17:13 Status: Acute Assessment and plan: as above (4) Pulmonary hypertension: Start date: 07/01/21 Start time: 17:14 Status: Chronic Assessment and plan: mild (RVSP 34 mm and normal RV size and function per last echo dated 05/02/2021; likely d/t his LUIS FELIPE +/- his MR and LVH (5) Obstructive sleep apnea: Start date: 07/01/21 Start time: 17:14 Status: Chronic Assessment and plan: patient should be on CPAP at night, will encourage him to use. (6) Hypokalemia: Start date: 07/01/21 Start time: 17:14 Status: Acute Assessment and plan: cont. oral replacments and monitor (7) Hypomagnesemia: Start date: 07/01/21 Start time: 17:14 Status: Acute Assessment and plan: cont. oral replacments and monitor (8) Chronic hypertension: Start date: 07/01/21 Start time: 17:19 Status: Chronic Assessment and plan: continue home meds (9) Tinea cruris: Start date: 07/01/21 Start time: 17:19 Status: Acute Assessment and plan: nizoral cream to groin bid x 3 wk (10) DVT prophylaxis: Start date: 07/01/21 Start time: 17:20 Status: Acute Assessment and plan: enoxaparin SC (11) Discharge planning issues: Start date: 07/01/21 Start time: 17:20 Status: Acute Assessment and plan: Likely SNIF discussed with Dr. Ovalle Subjective Subjective Patient reports: other Interval history since last seen: Patient left rehab 8 days ago did nothing but sit in his chair and have his g.f wait on him. He has not had diarrhea since a dmission. States he can not go home due to odor. PT to evaluate and if he can go home will discharge home tomorrow with HH services Exam Narrative Exam Narrative: Morbidly obese, white male, who appears disheveled; but otherwise in no acute distress, alert and oriented x 3 HEENT: rather plethoric appearance to his face; poor oral hygiene; mucous membranes moist Neck: supple, no JVD; normal carotids Lungs: clear Heart: RRR w/o murmur, rub or gallop Abdomen: obese, RUQ scar c/w laparotomy probably for cholecystectomy; he has abdominal wall hernia that is reducible; normal bowel sounds, soft and nontender Extremities: no pitting edema Skin: tinea cruris in his groin bilaterally Neuro: no focal deficits; moves all 4's; no facial asymmetry; normal speech; VF not tested but grossly normal; no CN deficits Objective Last Vital Signs Temp 37.6 C H 07/01/21 15:55 Pulse 84 07/01/21 15:55 Resp 20 07/01/21 15:55 BP 125/64 07/01/21 15:55 Pulse Ox 93 07/01/21 15:55 Laboratory Results - last 24 hr 06/30/21 06/30/21 07/01/21 11:10 15:35 06:22 WBC RBC Hgb Hct MCV MCH MCHC RDW Plt Count MPV Immature Gran % Neutrophils % Lymphocytes % Monocytes % Eosinophils % Basophils % Nucleated RBC % Absolute Neutrophils Absolute Lymphocytes Absolute Monocytes Absolute Eosinophils Absolute Basophils Sodium 143 Potassium 3.4 L Chloride 110 H Carbon Dioxide 23.3 Anion Gap 9.7 BUN 21 H D Creatinine 1.0 Estimated GFR/1.73 m2 >= 60.00 Glucose 111 H Calcium 8.4 L Magnesium 1.8 C-Reactive Protein 14.12 H NT-Pro-B Natriuret Pep 945 H SARS-CoV-2 (PCR) Negative 07/01/21 06:22 WBC 8.52 D RBC 3.40 L Hgb 10.2 L Hct 31.5 L MCV 92.6 MCH 30.0 MCHC 32.4 RDW 14.8 H Plt Count 199 MPV 11.3 H Immature Gran % 0.5 Neutrophils % 74.3 Lymphocytes % 10.3 Monocytes % 10.6 Eosinophils % 4.1 Basophils % 0.2 Nucleated RBC % 0 Absolute Neutrophils 6.33 Absolute Lymphocytes 0.88 L Absolute Monocytes 0.90 H Absolute Eosinophils 0.35 Absolute Basophils 0.02 Sodium Potassium Chloride Carbon Dioxide Anion Gap BUN Creatinine Estimated GFR/1.73 m2 Glucose Calcium Magnesium C-Reactive Protein NT-Pro-B Natriuret Pep SARS-CoV-2 (PCR)
--- NOTE | 2021-07-01 18:24 | CHAPLAIN ---
Iker was sitting up eating his supper when I visited. He told me about being home and having diarrhea and that's what brought him here, and he needed to get cleaned up, he said because he can't clean himself well at home. He also told me that there's a woman living with him, not paying any rent or any bills and that her animals are creating a really problem with odor. He said she ended up at his house after she was kicked of someone else's when that house was sold. Iker wasn't clear on how he knows her, but said she's mooching off him at this point. He said he checked in with someone from [facility], and they told him to go to the [facility], and he went there, he said, and they wouldn't let him in, so he came here. It was difficult to follow some parts of the story. He said he may need a wheelchair now to get around at home.
[2021-07-01] MEDS: Enoxaparin 40 MG/0.4 ML SYR SC (22:46)
[2021-07-01 23:26] VITALS: BP 115/60; PULSE 73; RESP 18; TEMP 37; O2SAT 93
[2021-07-02 07:53] LABS: Anion Gap 10.4 mmol/L (3-11); BUN 18 mg/dL (7-18); CO2 21.6 mmol/L (21.0-32.0); CREATININE 0.8 mg/dL (0.70-1.30); Calcium 8.4 mg/dL (8.5-10.1); Chloride 104 mmol/L (98-107); Glucose 103 mg/dL (74-106); Magnesium 1.6 mg/dL (1.8-2.4); Potassium 3.6 mmol/L (3.5-5.1); Sodium 136 mmol/L (136-145)
[2021-07-02 08:14] VITALS: BP 123/68; PULSE 78; RESP 18; TEMP 37.2; O2SAT 98
[2021-07-02] MEDS: Aspirin E.C. 81 MG TABEC PO (09:26)
[2021-07-02] MEDS: Atorvastatin 40 MG TAB 80 MG PO (09:26)
[2021-07-02] MEDS: Potassium Chloride 20 MEQ TABCR 40 MEQ PO ×2 (09:26→11:13)
[2021-07-02] MEDS: Lisinopril 20 MG TAB 40 MG PO (09:26)
[2021-07-02] MEDS: Metoprolol CR 100 MG TABCR PO (09:26)
[2021-07-02] MEDS: Lactobacillus Acidophilus CAP 1 CAP PO ×3 (09:26→20:04)
[2021-07-02] MEDS: Cyanocobalamin 500 MCG TAB 1000 MCG PO (09:27)
[2021-07-02] MEDS: Psyllium PKT 1 EACH PO (09:27)
[2021-07-02] MEDS: Allopurinol 100 MG TAB 200 MG PO (09:27)
[2021-07-02] MEDS: amLODIPine 10 MG TAB PO (09:27)
[2021-07-02] MEDS: Magnesium Gluconate 500 MG TAB PO (09:27)
[2021-07-02] MEDS: Ketoconazole 2% CREAM 15 GM TUBE TP ×2 (09:28→22:52)
[2021-07-02] MEDS: Nystatin POWDER 60 GM JAR TP ×2 (09:29→22:52)
--- NOTE | 2021-07-02 10:21 | PT.INTREAT ---
Date of service: 07/02/21 Time of Service: 08:45 PT Notes Visit Reasons: Failure to thrive Inpatient Physical Therapy Treatment Note [facility] Date: 07/02/2021 PRECAUTIONS: Fall SUBJECTIVE: Don states that he has been sitting at the edge of his bed this morning to eat breakfast. He states that he just wants a wheelchair and does not want to walk anymore. OBJECTIVE: PAIN: Patient c/o raphael-area pain with movement BED MOBILITY/TRANSFERS Rolling L/R: S Supine-sit: SBA Sit-supine: S Sit-stand: Refused Stand-sit: Refused GAIT: Refused THEREX: Patient was instructed in a LE strengthening program, completed in both a seated and supine position, as per flow sheet. ASSESSMENT: Patient tolerated session with complaint of raphael-area pain with movement which limited his ability to complete ther ex. PLAN: Continue with global strengthening for improved activity tolerance and mobility. TREATMENT CODE/TIME: 28 minutes; 10741, [id number] (09:45)
[2021-07-02 10:38] LABS: C Diff PCR Negative (Negative)
[2021-07-02] MEDS: MAGNESIUM SULFATE 4 GM/100 ML BAG IVPB (11:14)
--- NOTE | 2021-07-02 13:41 | W.PM.PROGNOT ---
Date of Service Date of service: 07/02/21 Time of Service: 13:45 Assessment and Plan Assessment and plan (1) Diarrhea: Start date: 07/02/21 Start time: 13:49 Status: Acute Assessment and plan: No diarrhea since admission Stool studies pending, except cdiff, which was negative Qualifiers: Diarrhea type: unspecified type Qualified Code(s): R19.7 - Diarrhea, unspecified (2) Failure to thrive in adult: Start date: 07/02/21 Start time: 13:49 Status: Acute Assessment and plan: PT recommends SNIF. Patient went home after rehab and sat in chair did not move and continue to ambulate. (3) Generalized weakness: Start date: 07/02/21 Start time: 13:49 Status: Acute Assessment and plan: as above (4) Pulmonary hypertension: Start time: 13:50 Status: Chronic Assessment and plan: mild (RVSP 34 mm and normal RV size and function per last echo dated 05/02/2021; likely d/t his LUIS FELIPE +/- his MR and LVH (5) Obstructive sleep apnea: Start date: 07/02/21 Start time: 13:50 Status: Chronic Assessment and plan: patient should be on CPAP at night, will encourage him to use. (6) Hypokalemia: Start date: 07/02/21 Start time: 13:50 Status: Resolved Assessment and plan: resolved with oral supplementation (7) Hypomagnesemia: Start date: 07/02/21 Start time: 13:50 Status: Acute Assessment and plan: 1.6 today, replace with 4 g IV Repeat lab tomorrow. (8) Chronic hypertension: Start date: 07/02/21 Start time: 13:51 Status: Chronic Assessment and plan: continue home meds (9) Tinea cruris: Start date: 07/02/21 Start time: 13:51 Status: Acute Assessment and plan: nizoral cream to groin bid x 3 wk (10) DVT prophylaxis: Start date: 07/02/21 Start time: 13:52 Status: Acute Assessment and plan: enoxaparin SC (11) Discharge planning issues: Start date: 07/02/21 Start time: 13:52 Status: Acute Assessment and plan: Likely SNIF discussed with Dr. Whittaker Subjective Subjective Patient reports: no new complaints Interval history since last seen: Lying in bed, no complaints. Continue PT. CM placing referrals to SNIF per PT recommendations. Stool studies pending, states diarrhea overnight however only one stool documented and it was mucoid. Exam Narrative Exam Narrative: Morbidly obese, white male, who appears disheveled; but otherwise in no acute distress, alert and oriented x 3 HEENT: rather plethoric appearance to his face; poor oral hygiene; mucous membranes moist Neck: supple, no JVD; normal carotids Lungs: clear Heart: RRR w/o murmur, rub or gallop Abdomen: obese, RUQ scar c/w laparotomy probably for cholecystectomy; he has abdominal wall hernia that is reducible; normal bowel sounds, soft and nontender Extremities: no pitting edema Skin: tinea cruris in his groin bilaterally Neuro: no focal deficits; moves all 4's; no facial asymmetry; normal speech; VF not tested but grossly normal; no CN deficits Objective Last Vital Signs Temp 37.2 C 07/02/21 08:14 Pulse 78 07/02/21 08:14 Resp 18 07/02/21 08:14 BP 123/68 07/02/21 08:14 Pulse Ox 98 07/02/21 08:14 Laboratory Results - last 24 hr 07/02/21 07/02/21 07:30 09:40 Sodium 136 Potassium 3.6 Chloride 104 Carbon Dioxide 21.6 Anion Gap 10.4 BUN 18 Creatinine 0.8 Estimated GFR/1.73 m2 >= 60.00 Glucose 103 Calcium 8.4 L Magnesium 1.6 L Stl C.difficile Tox PCR Negative
[2021-07-02 14:53] VITALS: BP 117/71; PULSE 76; RESP 20; TEMP 37.4; O2SAT 93
[2021-07-02 16:15] VITALS: BP 130/79; PULSE 77; RESP 18; TEMP 37.4; O2SAT 92
[2021-07-02] MEDS: Magnesium Chloride 64 MG TABCR PO (20:04)
[2021-07-02] MEDS: Enoxaparin 40 MG/0.4 ML SYR SC (22:52)
[2021-07-02 23:41] VITALS: TEMP 38.7
[2021-07-02] MEDS: Acetaminophen 325 MG TAB PO (23:41)
[2021-07-02 23:43] VITALS: BP 150/81; PULSE 83; RESP 22; TEMP 38.2; O2SAT 94
[2021-07-02] MEDS: Diclofenac 1% Gel 100 GM TUBE TP (23:47)
[2021-07-03] VITALS (7 sets, daily range): BP systolic 127–147; BP diastolic 69–73; PULSE 76–86; RESP 20–22; TEMP 36.9–38.1; O2SAT 95
--- NOTE | 2021-07-03 | DI.RAD_ITS ---
Exam(s) XR PORTABLE CHEST AP EXAM: XR PORTABLE CHEST AP CLINICAL HISTORY: fever TECHNIQUE: 2D digital imaging was performed. COMPARISON: CR,XR XR CHEST 2V PA LATERAL from 03/13/2021 CR,XR XR CHEST 2V PA LATERAL from 03/13/2021 CR,XR XR PORTABLE CHEST AP from 05/02/2021 CR,XR XR PORTABLE CHEST AP from 05/02/2021 CR XR PORTABLE CHEST AP from 05/05/2021 CR XR PORTABLE CHEST AP from 05/05/2021 FINDINGS: LUNGS: Mild fibrotic changes. No pleural abnormality seen. HEART: Not enlarged MEDIASTINUM: Stable aortic tortuosity BONES: Degenerative changes and scoliosis IMPRESSION: No acute pulmonary findings. DATA REPOSITORY: RADIATION DOSE DELIVERED:
--- NOTE | 2021-07-03 00:02 | NUR.NOTE ---
Nursing Note: Pt. noted to have a fever of 38.6, did repeat temp X2 to ensure it was accurate. MD was called via charge loader, will get repeat UA, CXR, and repeat blood cultures. Pt. states that he has not been feeling as well tonight, he has been more SOB and an increase of coarse lung sounds noted.
--- NOTE | 2021-07-03 00:58 | DI.VRAD_ITS ---
PROCEDURE INFORMATION: Exam: XR Chest Exam date and time: 07/03/2021 00:12 Age: 75 years old Clinical indication: Fever TECHNIQUE: Imaging protocol: XR of the chest. Views: 1 view. COMPARISON: CR XR PORTABLE CHEST AP 06/30/2021 11:38 FINDINGS: Lungs: No consolidation. Pleural spaces: No pleural effusion. No pneumothorax. Heart/Mediastinum: The cardiomediastinal silhouette is similar. Prominent ascending aortic shadow suggesting aneurysm and or dissection which could be worked up with CTA if clinically indicated. No definite cardiomegaly for position or projection. Bones/joints: No acute fracture. IMPRESSION: No source of infection is seen. Nonacute findings as above. Dictated and Authenticated by: Marci Blackman MD. Ordering:DAPHNIE Lopez MD
[2021-07-03 02:04] LABS: Bilirubin Negative (Negative); Blood Negative (Negative); Clarity Clear (Clear); Glucose Negative (Negative); Ketones Negative (Negative); Leukocyte Esterase Trace (Negative); Nitrite Negative (Negative); Urobilinogen 0.2 EU/dL (Up TO 0.2)
[2021-07-03 02:09] LABS: Bacteria Rare HPF (Negative); C & S Indicated? Yes; Casts Negative LPF (Negative); Crystals Negative HPF (Negative); Epithelial Cells Rare HPF (Negative); Mucus Negative (Negative); RBC 0-2 HPF (0-2); WBC 0-2 HPF (0-5)
[2021-07-03 07:35] LABS: HCT 31.1 % (40.0-50.0); HGB 10.3 g/dL (13.5-17.5); MCH 30.1 pg (27.0-33.0); MCHC 33.1 % (32.0-36.0); MCV 90.9 fL (80-95); MPV 10.8 fL (8.0-11.0); Platelet Count 221 10^3/uL (130-400); RBC 3.42 10^6/uL (4.36-5.78); RDW 14.7 % (11.8-14.1); RDW-SD 48.9 fL; WBC 7.34 10^3/uL (4.4-10.8)
[2021-07-03 07:48] LABS: Anion Gap 9.9 mmol/L (3-11); BUN 13 mg/dL (7-18); CO2 22.1 mmol/L (21.0-32.0); CREATININE 0.8 mg/dL (0.70-1.30); Calcium 8.9 mg/dL (8.5-10.1); Chloride 106 mmol/L (98-107); Glucose 108 mg/dL (74-106); Potassium 4.1 mmol/L (3.5-5.1); Sodium 138 mmol/L (136-145)
[2021-07-03] MEDS: Aspirin E.C. 81 MG TABEC PO (08:23)
[2021-07-03] MEDS: Atorvastatin 40 MG TAB 80 MG PO (08:23)
[2021-07-03] MEDS: amLODIPine 10 MG TAB PO (08:23)
[2021-07-03] MEDS: Lactobacillus Acidophilus CAP 1 CAP PO ×3 (08:23→20:02)
[2021-07-03] MEDS: Magnesium Chloride 64 MG TABCR PO ×2 (08:23→20:01)
[2021-07-03] MEDS: Potassium Chloride 20 MEQ TABCR 40 MEQ PO (08:24)
[2021-07-03] MEDS: Lisinopril 20 MG TAB 40 MG PO (08:24)
[2021-07-03] MEDS: Allopurinol 100 MG TAB 200 MG PO (08:24)
[2021-07-03] MEDS: Metoprolol CR 100 MG TABCR PO (08:25)
[2021-07-03] MEDS: Cyanocobalamin 500 MCG TAB 1000 MCG PO (08:25)
[2021-07-03] MEDS: Ketoconazole 2% CREAM 15 GM TUBE TP ×2 (08:28→20:00)
[2021-07-03] MEDS: Nystatin POWDER 60 GM JAR TP ×2 (08:29→20:01)
[2021-07-03] MEDS: cefTRIAXone 1 GM/50 ML BAG IVPB (09:38)
[2021-07-03 09:39] LABS: C-Reactive Protein 10.21 mg/dL (0.0-0.3)
[2021-07-03 09:59] LABS: Procalcitonin < 0.1 ng/mL
[2021-07-03 10:41] LABS: Source Nasal/Nares
--- NOTE | 2021-07-03 11:12 | PT.INTREAT ---
Date of service: 07/03/21 Time of Service: 09:29 PT Notes Visit Reasons: Failure to thrive Inpatient Physical Therapy Treatment Note [facility] Date: 07/03/2021 PRECAUTIONS: Fall, activity as tolerated SUBJECTIVE: Patient states that he does not want to be ambulatory anymore due to B knee arthritis. He states that he wants to be in a wheelchair. He is agreeable to attempting to stand today with STEDY lift. OBJECTIVE: PAIN: Patient c/o B knee pain with weight bearing and ther ex BED MOBILITY/TRANSFERS Sit-supine: SBA Sit-stand: Max A x4 with STEDY Stand-sit: CGA x2 with STEDY GAIT: Refused THEREX: Patient was instructed in several UE and LE strengthening exercises, completed while seated at EOB, as per flow sheet. Patient also completes ~5 minutes of static standing in STEDY with SBA. ASSESSMENT: Patient continues to demonstrate global weakness and appears limited due to B knee pain. He was able to tolerate static standing in STEDY, although requires Max A x4 to complete [id number] transfer with elevated bed surface and STEDY. PLAN: Continue with global strengthening for improved ability to perform transfers. TREATMENT CODE/TIME: 24 minutes; 37709, [id number] (09:29)
[2021-07-03 11:13] LABS: COVID-19 PCR Negative (Negative)
[2021-07-03] MEDS: CEFEPIME 2 GM in Normal Saline 100 ML IVPB ×2 (11:57→17:58)
[2021-07-03] MEDS: DOXYCYCLINE 100 MG in Normal Saline 100 ML IVPB ×2 (12:43→22:10)
[2021-07-03] MEDS: VANCOMYCIN/WATER (PEG) 2 GM/400 ML BAG IV (14:21)
--- NOTE | 2021-07-03 14:58 | W.PM.PROGNOT ---
Date of Service Date of service: 07/03/21 Time of Service: 12:00 Assessment and Plan Assessment and plan (1) Fever: Start date: 07/03/21 Start time: 12:00 Status: Acute Assessment and plan: Febrile last night, unknown origin, read note On doxy, cefepime, vanco, MRSA swab to r/o mrsa CRP 10 BC pending, tick panel pending, stool studies pending Qualifiers: Fever type: unspecified Qualified Code(s): R50.9 - Fever, unspecified (2) Diarrhea: Start date: 07/03/21 Start time: 12:00 Status: Acute Assessment and plan: states loose stool overnight Stool studies pending, except cdiff, which was negative Qualifiers: Diarrhea type: unspecified type Qualified Code(s): R19.7 - Diarrhea, unspecified (3) Failure to thrive in adult: Start date: 07/03/21 Start time: 12:00 Status: Acute Assessment and plan: PT recommends SNIF. Patient went home after rehab and sat in chair did not move and continue to ambulate. He wants to be in a WC, he told PT this, CM made aware, he no longer wants to walk (4) Generalized weakness: Start date: 07/03/21 Start time: 12:00 Status: Acute Assessment and plan: as above (5) Pulmonary hypertension: Start date: 07/03/21 Start time: 12:00 Status: Chronic Assessment and plan: mild (RVSP 34 mm and normal RV size and function per last echo dated 05/02/2021; likely d/t his LUIS FELIPE +/- his MR and LVH (6) Obstructive sleep apnea: Start date: 07/03/21 Start time: 12:00 Status: Chronic Assessment and plan: patient should be on CPAP at night, will encourage him to use. (7) Hypokalemia: Start date: 07/03/21 Status: Resolved Assessment and plan: resolved with oral supplementation (8) Hypomagnesemia: Start date: 07/03/21 Start time: 12:00 Status: Resolved Assessment and plan: resolved. 2.0 today (9) Chronic hypertension: Start date: 07/03/21 Start time: 12:00 Status: Chronic Assessment and plan: continue home meds bp is labile (10) Tinea cruris: Start date: 07/03/21 Start time: 12:00 Status: Acute Assessment and plan: nizoral cream to groin bid x 3 wk (11) DVT prophylaxis: Start date: 07/03/21 Start time: 12:00 Status: Acute Assessment and plan: enoxaparin SC (12) Discharge planning issues: Start date: 07/03/21 Start time: 12:00 Status: Acute Assessment and plan: Likely SNIF discussed with Dr. Whittaker Subjective Subjective Patient reports: other Interval history since last seen: Patient is indifferent when asking how he feels. Febrile overnight. CXR negative for acute process however patient does have cough with sputum production. Urine with trace leuk est. no leukocytosis. he denies abdominal pain or pain any where. Will collect sputum cx. blood cx pending. Tick panel ordered, as he does have dogs and cats at his house. he also stated he had diarrhea. repeat covid negative. C diff negative. CRP was 10.21 however procal less than 0.1. initiated on vanco, doxy and cefepime, unknown source at this time. continue to monitor. He also stated that he wanted to be in a wheelchair. he no longer wanted to walk. Cm and PT aware Exam Narrative Exam Narrative: Morbidly obese, white male, who appears disheveled; but otherwise in no acute distress, alert and oriented x 3 HEENT: rather plethoric appearance to his face; poor oral hygiene; mucous membranes moist Neck: supple, no JVD; normal carotids Lungs: clear Heart: RRR w/o murmur, rub or gallop Abdomen: obese, RUQ scar c/w laparotomy probably for cholecystectomy; he has abdominal wall hernia that is reducible; normal bowel sounds, soft and nontender Extremities: no pitting edema Skin: tinea cruris in his groin bilaterally Neuro: no focal deficits; moves all 4's; no facial asymmetry; normal speech; VF not tested but grossly normal; no CN deficits Objective Last Vital Signs Temp 36.9 C 07/03/21 07:29 Pulse 76 07/03/21 07:29 Resp 20 07/03/21 07:29 BP 147/73 H 07/03/21 07:29 Pulse Ox 94 07/02/21 23:43 Laboratory Results - last 24 hr 07/03/21 07/03/21 07/03/21 01:03 07:20 07:20 WBC 7.34 RBC 3.42 L Hgb 10.3 L Hct 31.1 L MCV 90.9 MCH 30.1 MCHC 33.1 RDW 14.7 H Plt Count 221 MPV 10.8 Sodium 138 Potassium 4.1 Chloride 106 Carbon Dioxide 22.1 Anion Gap 9.9 BUN 13 Creatinine 0.8 Estimated GFR/1.73 m2 >= 60.00 Glucose 108 H Calcium 8.9 Magnesium 2.0 C-Reactive Protein 10.21 H Procalcitonin Urine Color Yellow Urine Clarity Clear Urine pH 6.0 Ur Specific [place] 1.020 Urine Protein Negative Urine Ketones Negative Urine Blood Negative Urine Nitrite Negative Urine Bilirubin Negative Urine Urobilinogen 0.2 Ur Leukocyte Esterase Trace H Urine RBC 0-2 Urine WBC 0-2 Ur Epithelial Cells Rare Urine Crystals Negative Urine Bacteria Rare Urine Casts Negative Urine Mucus Negative Ur Culture Indicated? Yes Urine Glucose Negative COVID-19 Source SARS-CoV-2 (PCR) 07/03/21 07/03/21 07:20 10:41 WBC RBC Hgb Hct MCV MCH MCHC RDW Plt Count MPV Sodium Potassium Chloride Carbon Dioxide Anion Gap BUN Creatinine Estimated GFR/1.73 m2 Glucose Calcium Magnesium C-Reactive Protein Procalcitonin < 0.1 Urine Color Urine Clarity Urine pH Ur Specific [place] Urine Protein Urine Ketones Urine Blood Urine Nitrite Urine Bilirubin Urine Urobilinogen Ur Leukocyte Esterase Urine RBC Urine WBC Ur Epithelial Cells Urine Crystals Urine Bacteria Urine Casts Urine Mucus Ur Culture Indicated? Urine Glucose COVID-19 Source Nasal/Nares SARS-CoV-2 (PCR) Negative
[2021-07-03] MEDS: Acetaminophen 325 MG TAB PO (15:36)
[2021-07-03] MEDS: guaiFENesin 600 MG TABCR PO (20:01)
[2021-07-03] MEDS: Normal Saline 500 ML 30 ML IV (21:39)
[2021-07-03] MEDS: VANCOMYCIN/WATER (PEG) 1.75 GM/350 ML BAG IV (21:39)
[2021-07-03] MEDS: Enoxaparin 40 MG/0.4 ML SYR SC (22:39)
--- NOTE | 2021-07-04 | DI.RAD_ITS ---
Exam(s) XR KNEE LT 3V AP,LAT,JERRY EXAM: XR KNEE LT 3V AP,LAT,JERRY CLINICAL HISTORY: knee pain. TECHNIQUE: 2D digital imaging was performed. COMPARISON: CR XR KNEE RT 3V AP,LAT,JERRY from 07/04/2021 FINDINGS: No evidence of acute fracture. There is, however, a significant joint effusion. There is advanced n arrowing of the medial compartment and marginal osteophytes. Lateral compartment exhibits normal hei ght. Patellofemoral compartment exhibits moderate degenerative change. IMPRESSION: DATA REPOSITORY: RADIATION DOSE DELIVERED:
--- NOTE | 2021-07-04 | DI.RAD_ITS ---
Exam(s) XR KNEE RT 3V AP,LAT,JERRY EXAM: XR KNEE RT 3V AP,LAT,JERRY CLINICAL HISTORY: knee pain. TECHNIQUE: 2D digital imaging was performed. COMPARISON: CR XR KNEE LT 3V AP,LAT,JERRY from 07/13/2020 FINDINGS: No evidence of fracture although there does appear to be a joint effusion. Moderate-advanced narrowi ng medial compartment evident. Small calcification noted in soft tissues adjacent to the medial femo ral condyle. Degenerative subarticular cysts are noted in sub spinous tibial plateau. No ominous osseous lesions. IMPRESSION: DATA REPOSITORY: RADIATION DOSE DELIVERED:
[2021-07-04 00:02] VITALS: BP 138/53; PULSE 84; RESP 18; TEMP 37; O2SAT 96
[2021-07-04] MEDS: CEFEPIME 2 GM in Normal Saline 100 ML IVPB ×2 (02:33→17:52)
[2021-07-04 07:11] LABS: Abs Immature Grans 0.05 10^3/uL (0.0-0.06); Absolute Basophil Count 0.02 10^3/uL (0.0-0.2); Absolute Eosinophil Count 0.45 10^3/uL (0.0-0.7); Absolute Lymphocyte Count 1.06 10^3/uL (1.2-3.4); Absolute Monocyte Count 0.73 10^3/uL (0.1-0.8); Absolute Neutrophil Count 4.25 10^3/uL (1.2-6.7); Basophils % 0.3; Eosinophils % 6.9; HCT 31.4 % (40.0-50.0); HGB 10.3 g/dL (13.5-17.5); Immature Grans % 0.8; Lymphocytes % 16.2; MCH 30.4 pg (27.0-33.0); MCHC 32.8 % (32.0-36.0); MCV 92.6 fL (80-95); MPV 10.9 fL (8.0-11.0); Monocytes % 11.1; Neutrophils % 64.7; Nucleated RBC 0 %; Platelet Count 232 10^3/uL (130-400); RBC 3.39 10^6/uL (4.36-5.78); RDW 14.7 % (11.8-14.1); RDW-SD 50.4 fL; WBC 6.56 10^3/uL (4.4-10.8)
[2021-07-04 07:34] VITALS: BP 137/78; PULSE 80; RESP 18; TEMP 36.4; O2SAT 94
[2021-07-04] MEDS: Lactobacillus Acidophilus CAP 1 CAP PO ×3 (07:42→20:14)
[2021-07-04] MEDS: Nystatin POWDER 60 GM JAR TP ×2 (07:42→20:15)
[2021-07-04] MEDS: Aspirin E.C. 81 MG TABEC PO (07:42)
[2021-07-04] MEDS: Atorvastatin 40 MG TAB 80 MG PO (07:43)
[2021-07-04] MEDS: Cyanocobalamin 500 MCG TAB 1000 MCG PO (07:43)
[2021-07-04] MEDS: Ketoconazole 2% CREAM 15 GM TUBE TP ×2 (07:43→20:15)
[2021-07-04] MEDS: Potassium Chloride 20 MEQ TABCR 40 MEQ PO (07:43)
[2021-07-04] MEDS: Allopurinol 100 MG TAB 200 MG PO (07:43)
[2021-07-04] MEDS: Metoprolol CR 100 MG TABCR PO (07:43)
[2021-07-04] MEDS: Lisinopril 20 MG TAB 40 MG PO (07:43)
[2021-07-04] MEDS: Magnesium Chloride 64 MG TABCR PO ×2 (07:43→20:15)
[2021-07-04] MEDS: amLODIPine 10 MG TAB PO (07:43)
[2021-07-04] MEDS: guaiFENesin 600 MG TABCR PO ×2 (07:43→20:14)
[2021-07-04 08:08] LABS: Anion Gap 9.7 mmol/L (3-11); BUN 12 mg/dL (7-18); CO2 23.3 mmol/L (21.0-32.0); CREATININE 0.7 mg/dL (0.70-1.30); Calcium 8.6 mg/dL (8.5-10.1); Chloride 109 mmol/L (98-107); Glucose 96 mg/dL (74-106); Potassium 4.4 mmol/L (3.5-5.1); Sodium 142 mmol/L (136-145)
[2021-07-04] MEDS: Normal Saline 500 ML 30 ML IV (08:32)
--- NOTE | 2021-07-04 09:42 | NUR.NOTE ---
Nursing Note:pt told nurse this AM that he would like coffee to drink, nurse explained to him that he is NPO and that coffee couldn't be provided at this moment. pt stated he wants to see the doctor so that he can go home this morning because he can have coffee at home. nurse explained that she would notify the MD so she could go in and see him. pt continues to call for coffee and saying he is going to go home because he isn't receiving adequate care here.
[2021-07-04 09:44] LABS: Uric Acid 6.1 mg/dL (3.5-7.2)
--- NOTE | 2021-07-04 10:53 | CMPROGNOTE_ITS ---
- If Service Date Differs Date of service: 07/04/21 Time of Service: 10:53 Care Management Progress Note S/O: Shane was sitting up on the side of his bed when CM met with him. He was alert and oriented X3. He shared that his arthritic pain in his knees limits his ability to walk with a walker. He shared that he wants to walk, but needs arthritis cream or aspirin for the pain. As a back up plan be thinks he would be more mobile at home if he could scoot around in a wheelchair. He reports that his home reeks of urine from his roommates pets. He will arrange for his group rooms coordinator (Charissa) to clean his trailer and shampoo the carpets but wants to wait until after he is discharged home. A: 75 year old male admitted to [facility] on 06/30/21 for Failure to Thrive P: Azeem's disposition is unclear at this time. He is weak and has identified that he needs help. He is willing to accept Meals on Wheels as well as community case management through [facility]. Azeem may need to go to a SNF for rehab prior to returning home, however he will likely be responsible for 20% of the costs incurred since he recently used his SNF benefit. He will follow up with his PCP and plan of care and will likely need new [facility] services if he does return to his mobile home. CM will continue to follow and offer discharge planning support.
[2021-07-04] MEDS: Normal Saline Flush 10 ML SYR (11:26)
[2021-07-04 12:17] LABS: Campylobacter PCR Negative (Negative); Salmonella PCR Negative (Negative); Shiga Toxin PCR Negative (Negative); Shigella/Enteroinvasive Ecoli Negative (Negative)
[2021-07-04 12:44] LABS: Lyme Ab w Rflx to Lyme Confirm Negative (Negative)
--- NOTE | 2021-07-04 14:16 | PT.INTREAT ---
Date of service: 07/04/21 Time of Service: 10:33 PT Notes Visit Reasons: Failure to thrive Inpatient Physical Therapy Treatment Note [facility] Date: 07/04/2021 PRECAUTIONS: Fall, activity as tolerated SUBJECTIVE: Patient continues to report significant B knee pain and states I know it's arthritis. He states that he does not want to sit in a chair, that he wants to sit on the edge of the bed or lay in bed. OBJECTIVE: PAIN: Patient c/o B knee pain with weight bearing BED MOBILITY/TRANSFERS Supine-sit: Min A Sit-supine: Min A Sit-stand: Mod A x2 with FWW Stand-sit: CGA x2 with FWW GAIT: Assistive Device: FWW Weight bearing: Full Assist: CGA x2 Distance: Stand-pivot [id number] + ~10 steps Deviation: Pain in B knees, increased fatigue, cueing for gait mechanics THEREX: Patient was instructed in a supine LE strengthening program, as per flow sheet. No c/o pain. TOILETING: Patient toileted with assist. ASSESSMENT: Patient continues to demonstrate global weakness and appears limited due to B knee pain. He was able to tolerate limited gait training with FWW support. PLAN: Continue with global strengthening for improved ability to perform transfers. TREATMENT CODE/TIME: Session 1: 15 minutes; 72648 (10:33) Session 2: 10 minutes; [id number] (13:43)
--- NOTE | 2021-07-04 16:31 | W.PM.PROGNOT ---
Date of Service Date of service: 07/04/21 Time of Service: 16:31 Assessment and Plan Assessment and plan (1) Bilateral knee pain: Status: Acute Assessment and plan: reports chronic, no further fever, no concern for septic joint on exam. history of gout on allopurinol. uric acid level 6.1 reports scheduled apap and diclofenac gel effective in the past, will schedule xray bilateral shows right: FINDINGS: No evidence of fracture although there does appear to be a joint effusion. Moderate-advanced narrowing medial compartment evident. Small calcification noted in soft tissues adjacent to the medial femoral condyle. Degenerative subarticular cysts are noted in sub spinous tibial plateau. No ominous osseous lesions. left: FINDINGS: No evidence of acute fracture. There is, however, a significant joint effusion. There is advanced narrowing of the medial compartment and marginal osteophytes. Lateral compartment exhibits normal height. Patellofemoral compartment exhibits moderate degenerative change. will discussed with orthopedics. (2) Fever: Status: Acute Assessment and plan: Afebrile overnight, unknown origin On doxy, cefepime,day 2 while awaiting culture, vanco discontinued. MRSA swab negative CRP 10 BC pending, tick panel pending, stool studies pending Qualifiers: Fever type: unspecified Qualified Code(s): R50.9 - Fever, unspecified (3) Diarrhea: Status: Acute Assessment and plan: states loose stool overnight Stool studies pending, except cdiff, which was negative Qualifiers: Diarrhea type: unspecified type Qualified Code(s): R19.7 - Diarrhea, unspecified (4) Failure to thrive in adult: Status: Acute Assessment and plan: PT recommends SNIF. Patient went home after rehab and sat in chair did not move and continue to ambulate. He wants to be in a WC, he told PT this, CM made aware, he no longer wants to walk (5) Generalized weakness: Status: Acute Assessment and plan: as above (6) Pulmonary hypertension: Status: Chronic Assessment and plan: mild (RVSP 34 mm and normal RV size and function per last echo dated 05/02/2021; likely d/t his LUIS FELIPE +/- his MR and LVH (7) Obstructive sleep apnea: Status: Chronic Assessment and plan: patient should be on CPAP at night, will encourage him to use. (8) Hypokalemia: Status: Resolved Assessment and plan: resolved with oral supplementation (9) Hypomagnesemia: Status: Resolved Assessment and plan: resolved. 2.0 today (10) Chronic hypertension: Status: Chronic Assessment and plan: continue home meds bp is labile (11) Tinea cruris: Status: Acute Assessment and plan: nizoral cream to groin bid x 3 wk (12) DVT prophylaxis: Status: Acute Assessment and plan: enoxaparin SC (13) Discharge planning issues: Status: Acute Assessment and plan: Likely SNIF discussed with Dr. Whittaker Subjective Subjective Patient reports: still having pain, tolerating liquids well, tolerating a regular diet, voiding w/o difficulty, bowel movement, shortness of breath and afebrile; denies nausea Interval history since last seen: reports ongoing bilateral knee pain, has had similar history, was told it was arthritis, reports tylenol and arthritis gel improved his pain. has not been receiving here. reports sob and moist cough, productive. states worse with activity, no chest pain no oxygen requirements. Exam Const General: no acute distress, disheveled and frail appearing (older than stated age) Nutritional Appearance: obese Orientation: alert, awake and oriented x3 HENMT Head: normal to inspection, normocephalic and atraumatic Resp Effort & Inspection: normal respiratory effort Auscultation: no rales and other (coarse throughout) Cardio Rate: regular rate Rhythm: regular rhythm GI Inspection: large pannus and obesity Palpation: soft Extrem Right lower extremity: knee Details: swelling Location: of the pre-patellar area and other (scab intact, no erythema); no ecchymosis and no unusual warmth Left lower extremity: knee Details: swelling Location: of the pre-patellar area; no abrasions, no ecchymosis and no unusual warmth Objective Last Vital Signs Temp 36.4 C L 07/04/21 07:34 Pulse 80 07/04/21 07:34 Resp 18 07/04/21 07:34 BP 137/78 07/04/21 07:34 Pulse Ox 94 07/04/21 07:34 Laboratory Results - last 24 hr 07/04/21 07/04/21 06:15 06:15 WBC 6.56 RBC 3.39 L Hgb 10.3 L Hct 31.4 L MCV 92.6 MCH 30.4 MCHC 32.8 RDW 14.7 H Plt Count 232 MPV 10.9 Immature Gran % 0.8 Neutrophils % 64.7 Lymphocytes % 16.2 Monocytes % 11.1 Eosinophils % 6.9 Basophils % 0.3 Nucleated RBC % 0 Absolute Neutrophils 4.25 Absolute Lymphocytes 1.06 L Absolute Monocytes 0.73 Absolute Eosinophils 0.45 Absolute Basophils 0.02 Sodium 142 Potassium 4.4 Chloride 109 H Carbon Dioxide 23.3 Anion Gap 9.7 BUN 12 Creatinine 0.7 Estimated GFR/1.73 m2 >= 60.00 Glucose 96 Uric Acid 6.1 Calcium 8.6
[2021-07-04 16:48] VITALS: BP 125/51; PULSE 84; RESP 22; TEMP 36.8; O2SAT 92
[2021-07-04 17:32] VITALS: BP 130/68; PULSE 80; RESP 28; TEMP 36.9; O2SAT 92
--- NOTE | 2021-07-04 18:15 | RT.EKG_ITS ---
APPROVED REPORT Exam: Resting ECG Reason for Exam: change to irregular heart sounds Patient Location: I HR:86 bpm ECG Measurements Heart Rate 86 AXIS NV 68 P 84 QRSd 98 QRS 35 QT 413 T 62 QTc 495 Conclusion Sinus rhythm...normal P axis, V-rate 60- 99 Ventricular premature complex...V complex w/ short R-R interval Probable left atrial enlargement...P >50mS, <-0.10mV V1
--- NOTE | 2021-07-04 18:15 | NUR.NOTE ---
Nursing Note: This nurse went into patients room at approximately 1730 for assessment and med administration. Patient obviously SOB upon entering, SPO2 and pulse were checked. Patient unable to answer clearly if this shortness of breath has been ongoing or new. Pulse oximeter read HR of 44, palpated and auscultation noted to be irregular and 80. SP02 showed to be 88%-92% on RA with a RR of 28, respirations do also sound gurgley. WILLIE Swift notified, then notified MD Adán, due to apparent new irregular HR. EKG ordered. This [employer]Y DRUG WORKER offered updraft as LS were very diminished in the right posterior lobes, some wheezing noted. Patient states Absolutely not. I do not want any breathing treatments or oxygen again! This DRY DRUG WORKER notified WILLIE Swift.
[2021-07-04] MEDS: DOXYCYCLINE 100 MG in Normal Saline 100 ML IVPB (19:10)
[2021-07-04] MEDS: Acetaminophen 325 MG TAB PO (20:14)
[2021-07-04] MEDS: Normal Saline Flush 10 ML SYR IVP (20:16)
[2021-07-04 20:28] VITALS: RESP 4; RESP 7
[2021-07-04] MEDS: Albuterol/Ipratropium 3 ML UPD VIAL UPD (20:28)
[2021-07-04] MEDS: Diclofenac 1% Gel 100 GM TUBE TP (20:29)
[2021-07-04 20:40] VITALS: RESP 20; O2SAT 92
[2021-07-04] MEDS: Enoxaparin 40 MG/0.4 ML SYR SC (22:46)
[2021-07-05 00:11] VITALS: BP 145/71; PULSE 85; RESP 20; TEMP 36.3; O2SAT 94
[2021-07-05] MEDS: CEFEPIME 2 GM in Normal Saline 100 ML IVPB ×4 (00:18→23:42)
[2021-07-05 01:30] VITALS: RESP 4
[2021-07-05] MEDS: Albuterol/Ipratropium 3 ML UPD VIAL UPD (01:30)
[2021-07-05] MEDS: Normal Saline Flush 10 ML SYR IVP ×4 (01:31→17:16)
[2021-07-05] MEDS: DOXYCYCLINE 100 MG in Normal Saline 100 ML IVPB ×2 (05:45→20:08)
[2021-07-05 07:56] LABS: C-Reactive Protein 5.33 mg/dL (0.0-0.3)
[2021-07-05 08:20] VITALS: BP 152/81; PULSE 80; RESP 24; TEMP 37.5; O2SAT 89
[2021-07-05] MEDS: Atorvastatin 40 MG TAB 80 MG PO (08:40)
[2021-07-05] MEDS: Metoprolol CR 100 MG TABCR PO (08:40)
[2021-07-05] MEDS: Magnesium Chloride 64 MG TABCR PO ×2 (08:40→21:19)
[2021-07-05] MEDS: amLODIPine 10 MG TAB PO (08:40)
[2021-07-05] MEDS: Aspirin E.C. 81 MG TABEC PO (08:40)
[2021-07-05] MEDS: guaiFENesin 600 MG TABCR PO ×2 (08:40→21:19)
[2021-07-05] MEDS: Cyanocobalamin 500 MCG TAB 1000 MCG PO (08:40)
[2021-07-05] MEDS: Lactobacillus Acidophilus CAP 1 CAP PO ×3 (08:40→21:19)
[2021-07-05] MEDS: Lisinopril 20 MG TAB 40 MG PO (08:41)
[2021-07-05] MEDS: Acetaminophen 325 MG TAB PO ×4 (08:41→21:19)
[2021-07-05] MEDS: Potassium Chloride 20 MEQ TABCR 40 MEQ PO (08:41)
[2021-07-05] MEDS: Nystatin POWDER 60 GM JAR TP ×2 (08:41→21:20)
[2021-07-05] MEDS: Allopurinol 100 MG TAB 200 MG PO (08:41)
[2021-07-05] MEDS: Ketoconazole 2% CREAM 15 GM TUBE TP ×2 (08:42→21:20)
--- NOTE | 2021-07-05 13:17 | PDOC.CMPRO ---
Care Management Progress Note S/O: Iker was lying down on his bed when CM entered the room, with some effort, he pulled himself up to sit on the side of the bed and fully engaged with this clinical writer sharing the following: his former sister in law, Maday was evicted from the [facility] due to not paying her rent and came to stay with him for a few weeks. He reports this was five years ago. He shares their co-habitation is not amicable, but they have their own rooms and own bathrooms. He states her animals make the house very smelly which is difficult to tolerate. He reports he has not spoken with his former , Maday's sister-Kristal in [facility] and their children, Jordan in [place] and Delores who resides in [place], he is also not in contact with very often; here and there. He has no grandchildren. GORDY spoke with Cathi at [facility] who reported Iker discharged abruptly, wanting to return home and did not engage well with the [facility] Medicaid process, Cathi stated the staff shared concerns about Iker returning as they had to call [facility] for transport home at 1900 at night, as Azeem was adamant about returning home. Azeem shares with this clinical writer that I don't care where I end up, as he does not want to return home at this time. He states that it took him a few tries to be admitted to the hospital and would like to go to a SNF as he stated in the ED. He reports he would like to be home but can not manage at this time. He is agreeable to SNF referrals being faxed to any open facilities. GORDY agreed to fax referrals and then review with Azeem which facilities have availability. A: 75 year old male admitted to [facility] on 06/30/21 for Failure to Thrive P: Azeem's disposition remains unclear at this time. He is weak and has identified that he needs help, PT Binta will evaluate for functional ability and if he would be safe to discharge home with a wheelchair and VNA support. Azeem may need to go to a SNF for rehab prior to returning home, his traditional medicaid is active for coverage, though per Cathi at [facility], his [facility] stopped paying for skilled services after a few weeks. GORDY met with Iker for an extended session; Azeem is agreeable to discharging to SNF at this time and completing [employer] Medicaid application. CM inquires as to sharing documentation including deeds, taxes and financial and Azeem states I'll share it all. He reports he eventually would like to be able to go to a [facility] 3 or a place like the [facility]. CM faxed SNF referrals and will follow up for bed availability. If returning home, Iker is willing to accept Meals on Wheels as well as community case management through [place] [facility]. He states he would like to fill out a long term care social worker medicaid application and his eventual goal would be to go to a place like the [facility], with a supportive community of neighbors. He will follow up with his PCP and plan of care and will likely need new [facility] services if he does return to his mobile home. He reports that his home reeks of urine from his roommates pets. He will arrange for his automobile rental representative (Charissa) to clean his trailer and shampoo the carpets but wants to wait until after he is discharged home. GORDY will continue to follow and offer discharge planning support.
--- NOTE | 2021-07-05 15:12 | PTTR_ITS ---
Date of service: 07/04/21 Time of Service: 15:12 PT Notes Visit Reasons: Failure to thrive Inpatient Physical Therapy Treatment Note [facility] Date: 07/05/2021 PRECAUTIONS: Fall. Activity as tolerated. SUBJECTIVE: Agreeable to trying out wheelchair mobility activity for this session, states that he is very well versed with using the wheelchair. Expresses significant discomfort in B knees as well as fatigue during sit<>stand transitions. OBJECTIVE: PAIN: Intensifies during bending and straightening of knee with sit<>stand BED MOBILITY/TRANSFERS Sit-supine: Independent Supine to sit: Independent Sit-stand: Standby assist using front wheeled walker Stand-sit: Standby assist using front wheeled walker GAIT: Tolerated short distance ambulation of 5 to 6 feet from bedside on to wheelchair and another 5 to 6 feet from wheelchair to bed using front wheeled walker but with significant discomfort in B knees and moderate SOB with patient only requiring standby assist. THERA ACT: Emphasized wheelchair mobility retraining working on increasing safety of transfers and out of wheelchair. Also reviewed with patient technique with manually propelling wheelchair forward, backward, side to side as well as managing breaks before doing a transfer. Patient was able to cover a distance of about [address] [facility] hallway and another 100 feet to go back to room with only occasional assist of B LE. Moderate shortness of breath limited patient but was able to continue with adequate rest in between. ASSESSMENT: Patient demonstrates good ability to self-propel using wheelchair up to a distance of 100 feet. Barriers to achieving goals include morbid obesity, continued shortness of breath, lack of motivation to participate/lack of self initiative, self-limiting patient goal of not pursuing ambulation with a walker for long distances, and chronic B knee pain. Patient has a high risk of re- hospitalization and may not be able to thrive successfully at home with afor ementioned barriers. D/C RECOMMENDATIONS: Patient will benefit from long-term care placement in a care home facility or may require highest needs at home with the use of a wheelchair as the main means of indoor mobility. Patient will benefit from the use of a regular wheelchair with the following dimensions: Armrest height 8.5 inches Seat depth 20 inches Seat with 24 inches Seat height 18 inches Backrest height 18 inches PLAN: Continue with global strengthening for improved ability to perform transfers. TREATMENT CODE/TIME: 9753 0 x 30 minutes beginning at 15:12 PM.
[2021-07-05 16:06] VITALS: BP 136/74; PULSE 83; RESP 21; TEMP 36.8; O2SAT 94
[2021-07-05 19:29] LABS: Anaplasma phagocytophilum Negative (Negative); B. miyamotoi PCR Negative (Negative); Babesia divergens/MO-1 Negative (Negative); Babesia duncani Negative (Negative); Babesia microti Negative (Negative); Ehrlichia chaffeensis Negative (Negative); Ehrlichia ewingii/canis Negative (Negative); Ehrlichia muris eauclairensis Negative (Negative)
[2021-07-05] MEDS: Diclofenac 1% Gel 100 GM TUBE TP (21:20)
[2021-07-05] MEDS: Enoxaparin 40 MG/0.4 ML SYR SC (21:21)
[2021-07-05 23:30] VITALS: BP 138/74; PULSE 78; RESP 20; TEMP 36.8; O2SAT 92
[2021-07-06 03:34] VITALS: BP 145/79; PULSE 74; RESP 20; TEMP 36.7; O2SAT 93
[2021-07-06] MEDS: DOXYCYCLINE 100 MG in Normal Saline 100 ML IVPB ×2 (05:41→17:29)
[2021-07-06 07:31] VITALS: BP 124/77; PULSE 86; RESP 20; TEMP 36.8; O2SAT 94
[2021-07-06 07:33] LABS: HCT 35.1 % (40.0-50.0); HGB 11.3 g/dL (13.5-17.5); MCH 29.7 pg (27.0-33.0); MCHC 32.2 % (32.0-36.0); MCV 92.1 fL (80-95); MPV 10.7 fL (8.0-11.0); Platelet Count 288 10^3/uL (130-400); RBC 3.81 10^6/uL (4.36-5.78); RDW 14.7 % (11.8-14.1); RDW-SD 49.5 fL; WBC 6.92 10^3/uL (4.4-10.8)
[2021-07-06] MEDS: Normal Saline Flush 10 ML SYR IVP ×4 (08:09→23:38)
[2021-07-06] MEDS: Potassium Chloride 20 MEQ TABCR 40 MEQ PO (08:09)
[2021-07-06] MEDS: Atorvastatin 40 MG TAB 80 MG PO (08:09)
[2021-07-06] MEDS: Lactobacillus Acidophilus CAP 1 CAP PO ×3 (08:10→21:22)
[2021-07-06] MEDS: Cyanocobalamin 500 MCG TAB 1000 MCG PO (08:10)
[2021-07-06] MEDS: amLODIPine 10 MG TAB PO (08:10)
[2021-07-06] MEDS: Lisinopril 20 MG TAB 40 MG PO (08:10)
[2021-07-06] MEDS: Allopurinol 100 MG TAB 200 MG PO (08:11)
[2021-07-06] MEDS: Acetaminophen 325 MG TAB PO ×4 (08:11→21:21)
[2021-07-06] MEDS: guaiFENesin 600 MG TABCR PO ×2 (08:11→21:21)
[2021-07-06] MEDS: Magnesium Chloride 64 MG TABCR PO ×2 (08:11→21:21)
[2021-07-06] MEDS: Aspirin E.C. 81 MG TABEC PO (08:11)
[2021-07-06] MEDS: Ketoconazole 2% CREAM 15 GM TUBE TP ×2 (08:11→21:21)
[2021-07-06] MEDS: Metoprolol CR 100 MG TABCR PO (08:11)
[2021-07-06] MEDS: Nystatin POWDER 60 GM JAR TP ×2 (08:11→21:21)
[2021-07-06] MEDS: CEFEPIME 2 GM in Normal Saline 100 ML IVPB ×3 (08:12→23:37)
[2021-07-06] MEDS: Diclofenac 1% Gel 100 GM TUBE TP ×2 (08:12→21:21)
--- NOTE | 2021-07-06 09:01 | PTTR_ITS ---
PT Notes Visit Reasons: Failure to thrive 07/06/2021 SUBJECTIVE: Don stating his knees hurt when bending them. He refuses to walk longer distances. He notes he most likely will need to go someone other than home. OBJECTIVE: TRANSFERS Sit to stand: SBA Stand to sit: SBA Sit to supine: I GAIT Device: FWW Weight bearing: Full Assist: SBA Distance: 6 steps from commode to bed THEREX: Supine UE/LE strengthening exercises. See flow sheet for specifics. ASSESSMENT: Low motivation level today. Is able to participate in some strengthening exercises today but refuses further ambulation. No LOB during short distance gait today. PLAN: Continue to encourage increased functional mobility. Direct time: 15 minutes [id number] Destiny Reid PTA Clinic location: [facility] [place], [place]
--- NOTE | 2021-07-06 10:35 | CMPROGNOTE_ITS ---
- If Service Date Differs Date of service: 07/06/21 Time of Service: 10:35 Care Management Progress Note S/O: Azeem shared with CM that he can not manage independently. He is agreeable to SNF placement short term and is open to any bed offer. CM [facility]ed [facility] to [facility], [facility] [place] [facility]. CM will follow and review with Azeem which facilities have availability. Iker states that he wants to keep shelter medicaid out of it for now and is unwilling to start collecting his financial information. He states that he tried to call the local radio station to advertise that he's looking for someone to support him and he can either move in with them, or they can move in with him. CM advised patient that services are limited and he would need to self pay. A: 75 year old male admitted to [facility] on 06/30/21 for Failure to Thrive P: Azeem's disposition remains unclear at this time. He is weak and has identified that he needs help. SNF referrals were sent yesterday. Currently, [facility] has no beds, [facility] and [facility] [place]. [facility] is reluctant to take him back since he was recently there and left abruptly. Today Iker wants to leave LTM out of it even though yesterday he agreed to share his financial info. Iker understands shelter placement requires a payer source or self pay and he likely wont get placed without at least starting LTM. Iker states that he tried to call the local radio station to advertise that he's looking for someone to support him and he can either move in with them, or they can move in with him. CM will continue to follow and offer discharge planning support.
--- NOTE | 2021-07-06 14:23 | PT.INTREAT ---
PT Notes Visit Reasons: Failure to thrive Inpatient Physical Therapy Treatment Note [facility] Date: 07/06/21 PRECAUTIONS:Generalized weakness Sit-stand: SBA help hold walker steady. Pt completed 4 sit to stands with prolonged standing. Stand-sit: SBA THEREX: Pt completed LE strengthening ther ex as per flow sheet. Pt did not wish to complete UE strengthening ther ex due to feeling his legs were more of an issue and needed more focus. ASSESSMENT: Pt tolerated today's session fairly well. Pt was too fatigued to walk this afternoon. PLAN: Cont as per PT POC as per geri. TREATMENT CODE/TIME: 1:35-2:05 (30) TPx2
--- NOTE | 2021-07-06 15:16 | PGE_ITS ---
Date of Service Date of service: 07/06/21 Time of Service: 15:16 Assessment and Plan Assessment and plan (1) Bilateral knee pain: Status: Resolved Assessment and plan: reports chronic, no further fever, no concern for septic joint on exam. history of gout on allopurinol. uric acid level 6.1 reports scheduled apap and diclofenac gel effective and knee pain no further an issue xray bilateral shows right: FINDINGS: No evidence of fracture although there does appear to be a joint effusion. Moderate-advanced narrowing medial compartment evident. Small calcification noted in soft tissues adjacent to the medial femoral condyle. Degenerative subarticular cysts are noted in sub spinous tibial plateau. No ominous osseous lesions. left: FINDINGS: No evidence of acute fracture. There is, however, a significant joint effusion. There is advanced narrowing of the medial compartment and marginal osteophytes. Lateral compartment exhibits normal height. Patellofemoral compartment exhibits moderate degenerative change. will discussed with orthopedics. (2) Fever: Status: Acute Assessment and plan: Afebrile overnight, unknown origin On doxy, cefepime,day 2 while awaiting culture, vanco discontinued. MRSA swab negative CRP 10 BC pending, tick panel pending, stool studies pending Qualifiers: Fever type: unspecified Qualified Code(s): R50.9 - Fever, unspecified (3) Diarrhea: Status: Acute Assessment and plan: states loose stool overnight Stool studies pending, except cdiff, which was negative Qualifiers: Diarrhea type: unspecified type Qualified Code(s): R19.7 - Diarrhea, unspecified (4) Failure to thrive in adult: Status: Acute Assessment and plan: PT recommends SNIF. Patient went home after rehab and sat in chair did not move and continue to ambulate. He wants to be in a WC, he told PT this, CM made aware, he no longer wants to walk (5) Generalized weakness: Status: Acute Assessment and plan: as above (6) Pulmonary hypertension: Status: Chronic Assessment and plan: mild (RVSP 34 mm and normal RV size and function per last echo dated 05/02/2021; likely d/t his LUIS FELIPE +/- his MR and LVH (7) Obstructive sleep apnea: Status: Chronic Assessment and plan: patient should be on CPAP at night, will encourage him to use. (8) Hypokalemia: Status: Resolved Assessment and plan: resolved with oral supplementation (9) Hypomagnesemia: Status: Resolved Assessment and plan: resolved. 2.0 today (10) Chronic hypertension: Status: Chronic Assessment and plan: continue home meds bp is labile (11) Tinea cruris: Status: Acute Assessment and plan: nizoral cream to groin bid x 3 wk (12) DVT prophylaxis: Status: Acute Assessment and plan: enoxaparin SC (13) Discharge planning issues: Status: Acute Assessment and plan: referrals placed, will discharge to [facility], which he is agreeable to. case management following discussed with Dr. Whittaker Subjective Subjective Patient reports: no new complaints, pain is less (bilateral knees), tolerating liquids well, tolerating a regular diet and afebrile Exam Const General: no acute distress, disheveled and frail appearing (older than stated age) Nutritional Appearance: obese Orientation: alert, awake and oriented x3 HENMT Head: normal to inspection, normocephalic and atraumatic Resp Effort & Inspection: normal respiratory effort Auscultation: no rales and other (coarse throughout) Cardio Rate: regular rate Rhythm: regular rhythm GI Inspection: large pannus and obesity Palpation: soft Extrem Right lower extremity: knee Details: swelling Location: of the pre-patellar area and other (scab intact, no erythema); no ecchymosis and no unusual warmth Left lower extremity: knee Details: swelling Location: of the pre-patellar area; no abrasions, no ecchymosis and no unusual warmth Objective Last Vital Signs Temp 36.8 C 07/06/21 07:31 Pulse 86 07/06/21 07:31 Resp 20 07/06/21 07:31 BP 124/77 07/06/21 07:31 Pulse Ox 94 07/06/21 07:31 Laboratory Results - last 24 hr 07/03/21 07/06/21 07:20 07:05 WBC 6.92 RBC 3.81 L Hgb 11.3 L Hct 35.1 L MCV 92.1 MCH 29.7 MCHC 32.2 RDW 14.7 H Plt Count 288 MPV 10.7 A.phagocytophil DNA PCR Negative B. divergens/MO-1 PCR Negative Babesia duncani (PCR) Negative Babesia microti DNA PCR Negative Borrelia (PCR) Negative E.chaffeensis DNA (PCR) Negative E.ewingii/canis DNA PCR Negative E. muris-like DNA (PCR) Negative
[2021-07-06 15:50] VITALS: BP 127/70; PULSE 65; RESP 16; TEMP 36; O2SAT 95
[2021-07-06] MEDS: Normal Saline 500 ML 100 ML IV (16:43)
[2021-07-06] MEDS: Enoxaparin 40 MG/0.4 ML SYR SC (21:21)
[2021-07-06 21:25] VITALS: O2SAT 94
[2021-07-07] VITALS (10 sets, daily range): BP systolic 121–167; BP diastolic 49–85; PULSE 37–94; RESP 2–22; TEMP 36–37; O2SAT 93–98
[2021-07-07] MEDS: DOXYCYCLINE 100 MG in Normal Saline 100 ML IVPB ×2 (06:11→17:09)
[2021-07-07] MEDS: Normal Saline Flush 10 ML SYR IVP ×3 (06:11→15:26)
[2021-07-07] MEDS: guaiFENesin 600 MG TABCR PO ×2 (07:59→19:48)
[2021-07-07] MEDS: Aspirin E.C. 81 MG TABEC PO (07:59)
[2021-07-07] MEDS: amLODIPine 10 MG TAB PO (07:59)
[2021-07-07] MEDS: Lactobacillus Acidophilus CAP 1 CAP PO ×3 (07:59→19:48)
[2021-07-07] MEDS: Cyanocobalamin 500 MCG TAB 1000 MCG PO (08:00)
[2021-07-07] MEDS: Atorvastatin 40 MG TAB 80 MG PO (08:00)
[2021-07-07] MEDS: Acetaminophen 325 MG TAB PO ×4 (08:00→19:47)
[2021-07-07] MEDS: Potassium Chloride 20 MEQ TABCR 40 MEQ PO (08:00)
[2021-07-07] MEDS: Allopurinol 100 MG TAB 200 MG PO (08:00)
[2021-07-07] MEDS: Metoprolol CR 100 MG TABCR PO (08:00)
[2021-07-07] MEDS: Magnesium Chloride 64 MG TABCR PO ×2 (08:00→19:47)
[2021-07-07] MEDS: Lisinopril 20 MG TAB 40 MG PO (08:01)
[2021-07-07] MEDS: Ketoconazole 2% CREAM 15 GM TUBE TP ×2 (08:01→19:48)
[2021-07-07] MEDS: Nystatin POWDER 60 GM JAR TP (08:01)
[2021-07-07] MEDS: Diclofenac 1% Gel 100 GM TUBE TP ×2 (08:51→19:48)
[2021-07-07] MEDS: CEFEPIME 2 GM in Normal Saline 100 ML IVPB (08:54)
--- NOTE | 2021-07-07 11:53 | PT.INTREAT ---
Date of service: 07/07/21 Time of Service: 09:18 PT Notes Visit Reasons: Failure to thrive Inpatient Physical Therapy Treatment Note [facility] Date: 07/07/2021 PRECAUTIONS: Fall, activity as tolerated SUBJECTIVE: Iker states that he would like to discharge to home. He feels that he will be able to manage his care and transfer to and from a wheelchair. He states that he has someone come in and help him clean his home. OBJECTIVE: PAIN: No c/o pain BED MOBILITY/TRANSFERS Sit-stand: SBA Stand-sit: SBA Bed-Chair: SBA Chair-bed: SBA GAIT Assistive Device: FWW Weight bearing: Full Assist: SBA Distance: 15' Deviation: B knee pain, slow carla THEREX: Patient was instructed in a seated LE and UE strengthening program, as per flow sheet. He demonstrates improved activity tolerance, tolerating a progression in repetitions today, as well as improved ability to complete exercises. ASSESSMENT: Patient tolerated session with c/o increased fatigue. He demonstrates minimally improved activity tolerance, tolerating a progression in repetitions with open-chain ther ex completion. He continues to demonstrate limitations in his ability to perform and complete MRADL's due to general deconditioning, body habitus, and arthritis in B knees causing significant discomfort with weight bearing. Patient would benefit from use of a manual wheelchair, to allow increased independence with MRADL's in his home setting. PLAN: Continue with global strengthening and general conditioning for improved mobility and activity tolerance. TREATMENT CODE/TIME: Session 1: 12 minutes; [id number] (09:18) Session 2: 11 minutes; [id number] (14:22)
--- NOTE | 2021-07-07 14:15 | RT.EKG_ITS ---
APPROVED REPORT Exam: Resting ECG Reason for Exam: bradycardia Patient Location: I HR:74 bpm ECG Measurements Heart Rate 74 AXIS OR 168 P 28 QRSd 93 QRS 27 QT 453 T 85 QTc 502 Conclusion Sinus rhythm...normal P axis, V-rate 60- 99 Ventricular bigeminy...bigeminy string>4 w/ V complexes Low voltage, precordial leads...precordial leads <1.0mV Prolonged QT interval...QTc >500mS
--- NOTE | 2021-07-07 14:40 | W.PM.PROGNOT ---
Date of Service Date of service: 07/07/21 Time of Service: 14:41 Assessment and Plan Assessment and plan (1) UTI (urinary tract infection): Status: Acute Assessment and plan: culture positive for proteus anneliese, sensitive to ceftriaxone, will downstep (2) Bilateral knee pain: Status: Resolved Assessment and plan: reports scheduled apap and diclofenac gel effective and knee pain no further an issue (3) Fever: Status: Resolved Assessment and plan: likely from UTI, see above Qualifiers: Fever type: unspecified Qualified Code(s): R50.9 - Fever, unspecified (4) Diarrhea: Status: Acute Assessment and plan: states loose stool overnight Stool studies pending, except cdiff, which was negative Qualifiers: Diarrhea type: unspecified type Qualified Code(s): R19.7 - Diarrhea, unspecified (5) Failure to thrive in adult: Status: Acute Assessment and plan: PT recommends SNIF. Patient went home after rehab and sat in chair did not move and continue to ambulate. He wants to be in a WC, he told PT this, CM made aware, he no longer wants to walk (6) Generalized weakness: Status: Acute Assessment and plan: physical therapy continues to work with him, slowly improving. would benefit from having a wheelchair. (7) Pulmonary hypertension: Status: Chronic Assessment and plan: mild (RVSP 34 mm and normal RV size and function per last echo dated 05/02/2021; likely d/t his LUIS FELIPE +/- his MR and LVH (8) Obstructive sleep apnea: Status: Chronic Assessment and plan: patient should be on CPAP at night, will encourage him to use. (9) Hypokalemia: Status: Resolved Assessment and plan: resolved with oral supplementation (10) Hypomagnesemia: Status: Resolved Assessment and plan: resolved. 2.0 today (11) Chronic hypertension: Status: Chronic Assessment and plan: continue home meds bp is labile (12) Tinea cruris: Status: Acute Assessment and plan: nizoral cream to groin bid x 3 wk (13) DVT prophylaxis: Status: Acute Assessment and plan: enoxaparin SC (14) Discharge planning issues: Status: Acute Assessment and plan: referrals placed, will discharge to snif, which he is agreeable to. case management following discussed with Dr. Whittaker Subjective Subjective Patient reports: no new complaints, tolerating liquids well, tolerating a regular diet and afebrile Interval history since last seen: knee pain improved and at baseline. working with PT noted to have a slow pulse, bp was stable, he was asymptomatic. EKG shows bigeminy rate 70's. Exam Const General: no acute distress, disheveled and frail appearing (older than stated age) Nutritional Appearance: obese Orientation: alert, awake and oriented x3 HENMT Head: normal to inspection, normocephalic and atraumatic Resp Effort & Inspection: normal respiratory effort Auscultation: no rales and other (coarse throughout) Cardio Rate: regular rate Rhythm: regular rhythm GI Inspection: large pannus and obesity Palpation: soft Extrem Right lower extremity: knee Details: swelling Location: of the pre-patellar area and other (scab intact, no erythema); no ecchymosis and no unusual warmth Left lower extremity: knee Details: swelling Location: of the pre-patellar area; no abrasions, no ecchymosis and no unusual warmth Objective Last Vital Signs Temp 36.9 C 07/07/21 07:40 Pulse 94 H 07/07/21 07:40 Resp 22 07/07/21 07:40 BP 167/85 H 07/07/21 07:40 Pulse Ox 98 07/07/21 07:40
[2021-07-07] MEDS: cefTRIAXone 1 GM/50 ML BAG IVPB (15:25)
[2021-07-07 15:38] LABS: Troponin I < 0.05 ng/mL (<0.06)
--- NOTE | 2021-07-07 19:04 | CMPROGNOTE_ITS ---
Care Management Progress Note S/O: Azeem was sitting up in his chair when CM met with him. CM reviewed insurance limitations; Azeem was agreeable to completing financial assistance application and planning for discharge home. CM continues to follow. 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 He may require a short SWB1 stay prior to returning home; [facility] payer. [employer] M[employer] to be ordered as well. He will transport via private vehicle with his friend.
--- NOTE | 2021-07-07 19:04 | PDOC.CMPRO ---
Care Management Progress Note S/O: Azeem was sitting up in his chair when CM met with him. CM reviewed insurance limitations; Azeem was agreeable to completing financial assistance application and planning for discharge home. CM continues to follow. A: 75 year old male admitted to [facility] on 06/30/21 for Failure to Thrive P: Don's will return home with orders for VNA RN/PT/OT/WORKING SECOND HAND. He may require a short SWB1 stay prior to returning home; [facility] payer. [employer] M[employer] to be ordered as well. He will transport via private vehicle with his friend.
[2021-07-07] MEDS: Albuterol/Ipratropium 3 ML UPD VIAL UPD (19:58)
[2021-07-07] MEDS: Enoxaparin 40 MG/0.4 ML SYR SC (23:06)
--- NOTE | 2021-07-08 | DI.RAD_ITS ---
Exam(s) XR PORTABLE CHEST AP EXAM: XR PORTABLE CHEST AP CLINICAL HISTORY: cough. TECHNIQUE: 2D digital imaging was performed. COMPARISON: CR,XR XR PORTABLE CHEST AP from 07/03/2021 FINDINGS: LUNGS: Clear. No pleural abnormality seen. HEART: Normal. MEDIASTINUM: Normal. OTHER FINDINGS: None. IMPRESSION: No acute pulmonary findings. DATA REPOSITORY: RADIATION DOSE DELIVERED: Total DLP
[2021-07-08 03:45] VITALS: BP 129/66; PULSE 82; RESP 18; TEMP 36; O2SAT 95
[2021-07-08] MEDS: DOXYCYCLINE 100 MG in Normal Saline 100 ML IVPB (05:37)
[2021-07-08 07:00] VITALS: PULSE 64
[2021-07-08 07:07] LABS: Abs Immature Grans 0.06 10^3/uL (0.0-0.06); Absolute Basophil Count 0.04 10^3/uL (0.0-0.2); Absolute Eosinophil Count 0.37 10^3/uL (0.0-0.7); Absolute Lymphocyte Count 1.07 10^3/uL (1.2-3.4); Absolute Monocyte Count 0.45 10^3/uL (0.1-0.8); Absolute Neutrophil Count 3.68 10^3/uL (1.2-6.7); Basophils % 0.7; Eosinophils % 6.5; HCT 33.1 % (40.0-50.0); HGB 10.4 g/dL (13.5-17.5); Immature Grans % 1.1; Lymphocytes % 18.9; MCH 29.7 pg (27.0-33.0); MCHC 31.4 % (32.0-36.0); MCV 94.6 fL (80-95); MPV 10.3 fL (8.0-11.0); Monocytes % 7.9; Neutrophils % 64.9; Nucleated RBC 0 %; Platelet Count 256 10^3/uL (130-400); RDW 14.9 % (11.8-14.1); WBC 5.67 10^3/uL (4.4-10.8)
[2021-07-08 07:21] LABS: Anion Gap 9.3 mmol/L (3-11); BUN 13 mg/dL (7-18); CO2 22.7 mmol/L (21.0-32.0); CREATININE 0.7 mg/dL (0.70-1.30); Calcium 8.9 mg/dL (8.5-10.1); Chloride 110 mmol/L (98-107); Glucose 94 mg/dL (74-106); Potassium 4.1 mmol/L (3.5-5.1); Sodium 142 mmol/L (136-145)
[2021-07-08] MEDS: Aspirin E.C. 81 MG TABEC PO (08:12)
[2021-07-08] MEDS: Allopurinol 100 MG TAB 200 MG PO (08:12)
[2021-07-08] MEDS: Lisinopril 20 MG TAB 40 MG PO (08:12)
[2021-07-08] MEDS: Atorvastatin 40 MG TAB 80 MG PO (08:13)
[2021-07-08] MEDS: Potassium Chloride 20 MEQ TABCR 40 MEQ PO (08:13)
[2021-07-08] MEDS: Magnesium Chloride 64 MG TABCR PO (08:13)
[2021-07-08] MEDS: Lactobacillus Acidophilus CAP 1 CAP PO ×2 (08:13→14:40)
[2021-07-08] MEDS: amLODIPine 10 MG TAB PO (08:13)
[2021-07-08] MEDS: Acetaminophen 325 MG TAB PO ×2 (08:13→12:11)
[2021-07-08] MEDS: Cyanocobalamin 500 MCG TAB 1000 MCG PO (08:13)
[2021-07-08] MEDS: guaiFENesin 600 MG TABCR PO (08:13)
[2021-07-08] MEDS: Metoprolol CR 100 MG TABCR PO (08:13)
[2021-07-08] MEDS: Ketoconazole 2% CREAM 15 GM TUBE TP (08:19)
[2021-07-08] MEDS: Diclofenac 1% Gel 100 GM TUBE TP (08:19)
[2021-07-08 09:09] VITALS: BP 154/72; PULSE 73; RESP 18; TEMP 36.8; O2SAT 95
[2021-07-08 10:21] VITALS: PULSE 75
--- NOTE | 2021-07-08 11:22 | CMPROGNOTE_ITS ---
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 He may require a short SWB1 stay prior to returning home; [employer] payer. [employer] M[employer] to be ordered as well. He will transport via private vehicle with his friend.
--- NOTE | 2021-07-08 11:42 | DSE_ITS ---
Date of service: 07/08/21 Time of Service: 11:43 DS: Diagnosis Discharge Diagnosis (1) UTI (urinary tract infection): Status: Acute (2) Bilateral knee pain: Status: Resolved (3) Fever: Status: Resolved (4) Diarrhea: Status: Acute (5) Failure to thrive in adult: Status: Acute (6) Generalized weakness: Status: Acute (7) Pulmonary hypertension: Status: Chronic (8) Obstructive sleep apnea: Status: Chronic (9) Hypokalemia: Status: Resolved (10) Hypomagnesemia: Status: Resolved (11) Chronic hypertension: Status: Chronic (12) Tinea cruris: Status: Acute Discharge Plan Disposition Patient Disposition: [facility] SWING BED LEVEL 1 Condition: Stable Discharge Details Reason For Visit: Failure to thrive Admit Date/Time: 06/30/21 18:15 Admit Provider: Jaiden Hoover Attending Provider: Jaiden Hoover Primary Care Provider: Ambar Claire [facility] Course Hospital Course: This is a 75 yr old male with history of CAD, CVA, HTN, HLD, obesity (BMI 40), LUIS FELIPE who presented to [facility] 05/02 and admitted through 05/11/2021 for acute hypoxemic respiratory failure found to be due to acute on chronic HFPEF (LVEF 55-60%, mod. conc. LVH, no RWMA, mild/mod. MR, dilated aorta but no nor AI; normal RV size and function but grade II diastolic HF).During that admission, COVID-19 in fection was ruled out, he was empirically treated w/ doxycycline and ceftriaxone for pneumonia but his CXR cleared dramatically w/ diuresis and pneumonia was ruled out although he was continued on doxycycline for acute bronchitis (was told to continue for 3 more days post discharge). He was sent to [facility] for recovery and remained there until he was discharged home. Since returning to his home he has not been getting out of bed and he now complains of diarrhea, passing several watery brown stools per day. No hematochezia, melena nor any fevers, rigors, dyspnea or abdominal pain or chest pain. He presented to the ER on 06/28, one week after discharge from rehab, with the above complaints but declined any medical workup and was discharged home with new orders for walker and continued home health. He presented again with complaints of watery diarrhea, generalized weakness and inability to care for himself. Workup in the ER included EKG, CXR, labs (CBC, CMP, troponin, UA). Pertinent findings include mild leukocytosis of 12,000, stable chronic normocytic/normchromic anemia, mild hypokalemia (3.4), mild hypomagnesemia (1.7), prerenal azotemia (BUN31, creatinine 1.2; baseline at discharge was 21 and 0.8 respectively), normal LFT, normal troponin, UA w/ small amt of LE but no bacteria and neg. for ketones, protein, nitrites, few epis, 0-2 coarse granular casts. EKG NSR 98 bpm, no ischemia. CXR showed tortuous descending aorta, enlarged ascending aorta, no infiltrates or effusions. Patient was treated w/ liter of NS and given oral potassium (20 meq) and magnesium. He was admitted for evaluation and treatment for generalized weakness and dehydration and electrolyte abnormalities and failure to thrive. He was ruled out for infectious diarrhea. He responded to fluids and electrolyte replacement. Hospital course was complicated with fever and work up revealed proteus mirabilis UTI, sensitive to ceftriaxone. He will complete a 7 day course. He is unable to safely return home, case management following, referrals placed to swing level rehab. We will discharge him to swing bed 1 here while awaiting bed acceptance. Of note, he was noted to continue coughing. A chest xray was repeated and shows no acute cardiopulmonary process. He feels he is at his baseline. discharge discussed with Dr Whittaker [place] Meds and New Rx's Prescriptions: No Action atorvastatin [Lipitor] 80 MG tablet 80 mg PO DAILY RF: 0 amlodipine 5 MG tablet 10 mg PO DAILY RF: 0 lisinopril 40 MG tablet 40 mg PO DAILY RF: 0 aspirin [Aspir-81] 81 MG tablet,delayed release (DR/EC) 81 mg PO DAILY RF: 0 diphenoxylate-atropine [Lomotil] 2.5-0.025 mg tablet 1 tab PO DAILY Qty: 7 RF: 0 cyanocobalamin (vitamin B-12) [Vitamin B-12] 1,000 mcg tablet 1,000 mcg PO DAILY RF: 0 diclofenac sodium 3 % gel 1 applic topical BID PRN (Reason: knee pain) Qty: 100 RF: 0 allopurinol 100 mg tablet 200 mg PO DAILY RF: 0 ipratropium-albuterol 0.5 mg-3 mg(2.5 mg base)/3 mL Solution For Nebulization 3 ml UPD Q4H PRN PRNQty: 0 RF: 0 furosemide 40 mg Tablet 40 mg PO BID@0830,1600 Qty: 0 RF: 0 guaifenesin [Mucinex] 600 mg Tablet Extended Release 12hr 600 mg PO BID PRN PRNQty: 60 RF: 0 nystatin 100,000 unit/gram Powder 1 applic topical BID Qty: 0 RF: 0 potassium chloride [Klor-Con M20] 20 mEq Tablet,Er Particles/Crystals 40 meq PO DAILY Qty: 60 RF: 0 Kapspargo Sprinkle 100 mg capsule,sprinkle,ER 24hr 100 mg PO DAILY RF: 0 Discharge Instructions Instructions: Urinary Tract Infection in Men (DC) Referrals: Ambar Claire MD [Primary Care Provider] - (on discharge) Activity:: Activity as Tolerated Equipment/Supplies:: Walker Diet:: As Tolerated Discharge Orders Discharge Orders: Discharge Order (Routine); Ordered 07/08/21 Ordered By: Dannielle Rucker DS: Summary Time Spent with Patient providing and/or coordinating discharge services: Greater than 30 minutes Status at Discharge Functional status at discharge: uses cane/walker Overall status at discharge: patient is progressing back to baseline Mental Status: mental status grossly normal Speech and Movement: speech and movement normal Mood: congruent mood Affect: normal affect Exam Const General: no acute distress, disheveled and frail appearing (older than stated age) Nutritional Appearance: obese Orientation: alert, awake and oriented x3 HENMT Head: normal to inspection, normocephalic and atraumatic Resp Effort & Inspection: normal respiratory effort Auscultation: no rales and other (coarse throughout) Cardio Rate: regular rate Rhythm: regular rhythm GI Inspection: large pannus and obesity Palpation: soft Extrem Right lower extremity: knee Details: swelling Location: of the pre-patellar area and other (scab intact, no erythema); no ecchymosis and no unusual warmth Left lower extremity: knee Details: swelling Location: of the pre-patellar area; no abrasions, no ecchymosis and no unusual warmth Psych Mental Status: mental status grossly normal Speech and Movement: speech and movement normal Mood: congruent mood Affect: normal affect DS: Data Vitals/I&O Vitals and I&O: Vital Signs Temperature 36.8 C 07/08/21 09:09 Temperature Source Tympanic 07/08/21 09:09 Pulse 75 07/08/21 10:21 Pulse Rhythm Regular 07/08/21 10:34 Pulse 76 06/30/21 18:40 Respiratory Rate 18 07/08/21 09:09 Respiratory Effort Non-Labored 07/08/21 10:34 Respiratory Depth Normal 07/08/21 10:34 Respiratory Pattern Normal 07/08/21 10:34 Blood Pressure 154/72 H 07/08/21 09:09 Blood Pressure Mean 79 07/01/21 08:55 Blood Pressure Position Supine 06/30/21 22:24 Pulse Oximetry 95 07/08/21 09:09 Oxygen Delivery Method Room Air 07/08/21 09:09 Oxygen Flow Rate 0 07/08/21 09:09 Pain Level 0 07/08/21 09:09 Comment 07/08/21 03:45 Intake & Output 07/07/21 07/07/21 07/08/21 11:59 23:59 11:59 Intake Total 200 / 310 110 / 310 500 / 500 Output Total 1600 / 2975 1375 / 2975 475 / 475 Balance -1400 / -2665 -1265 / -2665 Weight 144.3 kg Intake: IV 200 / 310 110 / 310 Oral 500 / 500 Output: Urine 1600 / 2975 1375 / 2975 475 / 475 Other: Urine Color Yellow Yellow Yellow Urine Appearance Clear Cloudy Clear Urine Odor Normal Normal Normal Comment mixed with stool Stool Size Large Small Moderate Stool Characteristics Formed Mucoid Formed Brown Brown Voiding Methods Urinal Urinal Bedside Commode Data Completed and Pending Labs on day of discharge: Labs from last 24 hours 07/08/21 07/08/21 07/07/21 06:39 06:39 15:03 WBC 5.67 RBC 3.50 L Hgb 10.4 L Hct 33.1 L MCV 94.6 MCH 29.7 MCHC 31.4 L RDW 14.9 H Plt Count 256 MPV 10.3 Immature Gran % 1.1 Neutrophils % 64.9 Lymphocytes % 18.9 Monocytes % 7.9 Eosinophils % 6.5 Basophils % 0.7 Nucleated RBC % 0 Absolute Neutrophils 3.68 Absolute Lymphocytes 1.07 L Absolute Monocytes 0.45 Absolute Eosinophils 0.37 Absolute Basophils 0.04 Sodium 142 Potassium 4.1 Chloride 110 H Carbon Dioxide 22.7 Anion Gap 9.3 BUN 13 Creatinine 0.7 Estimated GFR/1.73 m2 >= 60.00 Glucose 94 Calcium 8.9 Troponin I < 0.05 PFSH Medical History (Updated 07/07/21 @ 14:45 by Dannielle Rucker NP) Ambulatory dysfunction Biliary colic symptom CVA (cerebral vascular accident) Fever Gouty arthritis left shoulder, 03/2021 - [facility] [place] Heart attack cardiac cath 2012 - no stents Hyperlipidemia Hypertension Morbid obesity with BMI of 45.0-49.9, adult Obstructive sleep apnea not using CPAP Surgical History (Updated 06/30/21 @ 20:26 by Jaiden Hoover) Angiogram cardiac cath 2012 - no stents Cholecystectomy open Status post cholecystectomy (06/16/14) Family History Other Essential hypertension Heart disease Social History Smoking/Tobacco Use Status: Former Tobacco Use Smoking risk assessment performed?: Yes Alcohol Intake: former Drug use: Never Do you feel safe at home: Yes Do you feel safe in your relationship?: Yes
[2021-07-08 12:10] VITALS: BP 132/61; PULSE 70; RESP 16; TEMP 37.1; O2SAT 96
--- NOTE | 2021-07-08 14:39 | INDS_ITS ---
Date of service: 07/08/21 Time of Service: 14:39 PT Notes Visit Reasons: Failure to thrive Physical Therapy Inpatient Discharge Summary Date: 07/08/2021 Dates of service: 07/01/2021 through 07/07/2021 This is a clinical summary of care provided for the duration of dates listed above. No charge was made in the completion of this documentation. Referring Doctor: Jaiden Hoover MD PT Orders: PT CONSULT: Eval/treat Precautions: Fall. Standard. Activity as tolerated. Patient Profile/Admitting Diagnosis: Iker converts to swing bed level 1 as of today and will be re-evaluated for continued PT services. Iker is a 75-year-old morbidly obese male with chronic hypertension and hyperlipidemia who presented to the ED on 06/30/2021 due to increasing weakness and diarrhea. Patient is diagnosed with generalized weakness, failure to thrive, pulmonary hypertension, hypokalemia and hypomagnesemia. PMHX: Medical History (Updated 06/30/21 @ 20:26 by Jaiden Hoover) Ambulatory dysfunction Biliary colic symptom CVA (cerebral vascular accident) Gouty arthritis left shoulder, 03/2021 - [facility] [place] Heart attack cardiac cath 2013 - no stents Hyperlipidemia Hypertension Morbid obesity with BMI of 45.0-49.9, adult Obstructive sleep apnea not using CPAP Surgical History (Updated 06/30/21 @ 20:26 by Jaiden Hoover) Angiogram cardiac cath 2012 - no stents Cholecystectomy So pertinent for abdominal pattern his just cannot be open Status post cholecystectomy (06/16/14) Social History/Home Situation: Lives alone in an apartment building with 3 steps to enter with B rails. Reports that he has not walked since he returned from the SNF last due to a big mess his living environment is in. Equipment Owned/DME: FWW Subjective: NT. See most recent TELEPHONE SOLICITOR SUPERVISOR notes. Objective: General Observation: NT. See most recent TELEPHONE SOLICITOR SUPERVISOR notes. Mental Status: NT. See most recent TELEPHONE SOLICITOR SUPERVISOR notes. Pain: NT. See most recent TELEPHONE SOLICITOR SUPERVISOR notes. Subjective: Feels much better. Smiling when PT came into room. Hair well combed. Brought up the issue that the topical pain medication he gets to his knees really helps with allowing him to move better. Prefers to have the medication put on him before he walks with PT. Objective: General Observation: In NAD. Morbidly obese. Seated on chair. Mental Status: Alert and oriented as to person, place, time, and purpose. Able to pay attention significantly better than when he got admitted to this hospital. Pain: 2-3/10 in B knees after walking quite the distance this afternoon ROM: Right Upper Extremity: Shoulder Flexion WFL. Shoulder abduction WFL. Elbow fl exion WFL. Wrist flexion WFL. Functional opening and closing of hand WFL. Left Upper Extremity: Shoulder Flexion WFL. Shoulder abduction WFL. Elbow flexion WFL. Wrist flexion WFL. Functional opening and closing of hand WFL. Right Lower Extremity: Hip flexion WFL. Hip abduction WFL. Knee flexion WFL. Ankle dorsiflexion WFL. Ankle plantarflexion WFL. Left Lower Extremity: Hip flexion WFL. Hip abduction WFL. Knee flexion WFL. Ankle dorsiflexion WFL. Ankle plantarflexion WFL. Strength: Right Upper Extremity: Shoulder flexors 3+/5. Shoulder abductors 3+/5. Elbow flexors 3+/5. Elbow extensors 3+/5. Hotel Yardperson strong. Left Upper Extremity: Shoulder flexors 3+/5. Shoulder abductors 3+/5. Elbow flexors 3+/5. Elbow extensors 3+/5. Hotel Yardperson weakn but functional. Right Lower Extremity: Hip flexors 3-/5. Hip abductors 3-/5. Knee -/5. Knee [id number]-/5. Ankle dorsiflexors 3-/5. Ankle plantarflexors 3-/5. Left Lower Extremity: Hip flexors 3-/5. Hip abductors 3-/5. Knee [id number]-/5. Knee [id number]-/5. Ankle dorsiflexors 3-/5. Ankle plantarflexors 3-/5. Bed Mobility/Transfers: Sit to stand supervision Stand to sit supervision Bed to chair supervision Chair to bed supervision Gait: Tolerated level surface ambulation of 150 feet using front wheel walker with full weightbearing requiring standby assist with report of minimal pain in B knees but with moderate SLB after activity. Ruth is significantly improved. Balance: Static Sitting: Normal Dynamic Sitting: Normal Static Standing: Fair Dynamic Standing: Fair Special Tests: Mobility Limitations Standardized Measure [facility] 6 clicks Basic Mobility Inpatient Short Form: Raw Score: 21 CMS Score: 29% deficit Informed Consent/Education: Patient was instructed in purpose of PT consult and plan of care. Agreeable to proceed with established PT POC to achieve personal goals. Assessment: Significant improvement in strength, activity tolerance, static/dynamic standing balance and tolerance, and her mobility level compared to start of care with functional deficit score of 29% which is a marked reduction from 92% deficit at start of care. Patient presents with clinical signs and symptoms consistent with current/admitting diagnoses that have resulted to mobility limitations, gait instability, generalized weakness, and overall ADL decline as demonstrated by the following impairment level findings: 1. Increasing strength to B UE/LE major muscle groups 2. Improving sitting/standing balance 3. Improving activity tolerance 4. Increasing joint range of motion in B LE joints 5. Shortness of breath now with faster ability to recover 6. Swelling reduction 7. Morbid obesity Impairments are contributing to the following functional limitations: 1. Difficulty with ambulation without assistive device 2. Increased completion time for mobility ADL performance 3. Increased risk for falls 4. Difficulty with managing steps alone safely Goals: Goals X1 week 1. Supine-Sit minimal assist MET 2. Sit-Supine minimal assist MET 3. Sit-Stand minimal assist MET 4. Stand-Sit minimal assist of 2 with bariatric FWW MET 5. Bed-Chair minimal assist of 2 with bariatric FWW MET 6. Chair-Bed minimal assist of 2 with bariatric FWW MET 7. Fair standing balance usinfg bariatric FWW MET DISCHARGE RECOMMENDATIONS: Patient will benefit from retirement facility placement for continued skilled physical therapy services in order to progress mobility level, strength, and balance in preparation for a safe discharge to home. TREATMENT CODE/TIME: [place] Thank you for the opportunity to participate in the care of this patient. Emani Ruff PT, DPT, CLT [facility] [place], [place]
--- NOTE | 2021-07-08 17:26 | PDOC.CMDIS ---
- If Service Date Differs Date of service: 07/08/21 Time of Service: 17:26 LACE Index Scoring Tool - Questions: Length of Stay (in days): 7 - 13 Acuity (Admit via E.D.?): Yes Comorbidities: Cerebrovascular Disease E.D. Visits: 7 - Answers: Total Score: 13 Risk of Readmission: High Risk Care Management Discharge Reason for Hospitalization: Failure to thrive
--- NOTE | 2021-07-08 17:29 | PDOC.CMPRO ---
- If Service Date Differs Date of service: 07/08/21 Time of Service: 17:29 Care Management Progress Note Iker discharged from MS status to SW today. He will likely benefit from a short stay to work with PT to improve his mobility. CM will help facilitate community support services such as [place] [facility], MOW and [facility] services. CM will continue to follow.
--- NOTE | 2021-07-08 17:33 | PDOC.CMPRO ---
- If Service Date Differs Date of service: 07/08/21 Time of Service: 17:33 Care Management Progress Note S/O: Azeem was sitting up in his chair when CM met with him. CM reviewed insurance limitations; Azeem was agreeable to completing SWB1 paperwork today. CM will help Iker with his financial assistance application and planning for discharge home. CM continues to follow. A: 75 year old male admitted to [facility] on 06[facility]21 for Failure to Thrive P: Iker transitioned to SWB1 today. He will benefit from a short stay to work with PT to increase mobility prior to returning home. He will likely return home with orders for [facility] RN/PT/OT/RETAIL ANALYST, MOW and [place] [facility] aging. CM to work on payer source for SWB1 if needed. Iker will likely transport home via [facility] vs private vehicle with a friend when he is cleared by PT.
== END 2021-07-08 14:53 | disposition swing bed (61) | DRG 392 ==
LOC: ER 19:38 → ICU 21:58 → MS 07-01 13:48
PROVIDERS: Family Medicine; Internal Medicine; Nurse Practitioner Acute Care; Nurse Practitioner Family; Physician Assistant; Admitting Provider Internal Medicine; Emergency Provider Physician Assistant; PCP Family Medicine; Visit Provider Internal Medicine
DX: R19.7 Diarrhea, unspecified (principal); N39.0 Urinary tract infection, site not specified; I50.32 Chronic diastolic (congestive) heart failure; R53.1 Weakness; E86.0 Dehydration; R62.7 Adult failure to thrive; I27.20 Pulmonary hypertension, unspecified; G47.33 Obstructive sleep apnea (adult) (pediatric); M25.562 Pain in left knee; M25.561 Pain in right knee; E87.6 Hypokalemia; E83.42 Hypomagnesemia; B35.6 Tinea cruris; I25.10 Atherosclerotic heart disease of native coronary artery without angina pectoris; Z86.73 Personal history of transient ischemic attack (TIA), and cerebral infarction without residual deficits; E78.5 Hyperlipidemia, unspecified; E66.9 Obesity, unspecified; Z68.38 Body mass index [BMI] 38.0-38.9, adult; I11.0 Hypertensive heart disease with heart failure; D64.9 Anemia, unspecified; B96.4 Proteus (mirabilis) (morganii) as the cause of diseases classified elsewhere; M10.9 Gout, unspecified; Z20.822 Contact with and (suspected) exposure to COVID-19
CPT/HCPCS: 36415; 73562; 80048; 80053; 84145; 85027; 87040; 87077; 87081; 87493; 87505; 87635; 87798; 93005; 96360; 96361; 97110; 97163; 97530; 99285; J1650; 71045; 81003; 81015; 83630; 83735; 83880; 84484; 84550; 85025; 86140; 86618; 87070; 87086; 87186; 87205; 93010; 99232; 99233; 99239; J0696; J3475; J3490; J7620

== ENCOUNTER 2021-07-08 14:42 | Inpatient (IN) | payer MEDICARE, MEDICAID, SELFPAY ==
--- NOTE | 2021-07-08 11:57 | HPE_ITS ---
Date of service: 07/08/21 Time of Service: 11:57 Assessment and Plan Assessment and plan (1) UTI (urinary tract infection): Status: Acute Assessment and plan: will complete 7 days of ceftriaxone culture grew proteus mirabilis. (2) Failure to thrive in adult: Status: Acute Assessment and plan: continue PT/OT referrals placed for rehab (3) Tinea cruris: Status: Acute Assessment and plan: continue compound cream and monitor (4) Discharge planning issues: Status: Acute Assessment and plan: case management following for discharge planning. referrals placed and pending. discussed with Dr Whittaker History of Present Illness History of Present Illness Chief Complaint: generalized weakness Narrative: This is a 75 year old male, complex medical history, with recent admission here and to [facility] who failed a discharge from the rehab back to home and returned here within one week of returning home, he was admitted for evaluation and treatment for generalized weakness and dehydration and electrolyte abnormalities and failure to thrive. He was ruled out for infectious diarrhea. He responded to fluids and electrolyte replacement. Hospital course was complicated with fever and work up revealed proteus mirabilis UTI, sensitive to ceftriaxone. He will complete a 7 day course. hospital course also complicated by bilateral knee pain, which is chronic and improved with apap and diclofenac gel. He has been working with physical therapy. It is recommended that he discharge to rehab again. It is also recommended that he utilize a wheelchair for mobility. He is unable to safely return home, case management following, referrals placed to swing level rehab. We will admitted here to swing bed 1 while awaiting bed acceptance. Of note, he was noted to continue coughing. A chest xray was repeated and shows no acute cardiopulmonary process. He feels he is at his baseline. He was also thought he was bradycardic and EKG showed bigeminy. no acute changes, serial troponins negative, he was asymptomatic, electrolytes checked and unremarkable. . no further intervention needed. discharge discussed with Dr Whittaker Review of Systems All systems reviewed & are unremarkable except as noted in HPI and below Constitutional Constitutional: Denies fever(s), Denies headache(s) and Reports weakness ENT Ears, Nose, Mouth, and Throat: Denies vertigo, Denies dizziness and Denies headache(s) Cardiovascular Cardiovascular: Denies chest pain Respiratory Respiratory: Reports cough (moist cough, chronic) Gastrointestinal Gastrointestinal: Denies abdominal pain, Denies nausea and Denies vomiting Musculoskeletal Musculoskeletal: Reports arthralgias (bilateral knees, improved) Integumentary/Breasts Skin/Breast: Reports rash (abdomen, panus) Neurologic Neurologic: Denies vertigo, Denies dizziness, Denies headache(s) and Reports weakness [facility] Medical History (Updated 07/07/21 @ 14:45 by Dannielle Rucker NP) Ambulatory dysfunction Biliary colic symptom CVA (cerebral vascular accident) Fever Gouty arthritis left shoulder, 03/2021 [place] [facility] [place] Heart attack cardiac cath 2012 - no stents Hyperlipidemia Hypertension Morbid obesity with BMI of 45.0-49.9, adult Obstructive sleep apnea not using CPAP Surgical History (Updated 06/30/21 @ 20:26 by Jaiden Hoover) Angiogram cardiac cath 2012 - no stents Cholecystectomy open Status post cholecystectomy (06/16/14) Family History Other Essential hypertension Heart disease Social History Smoking/Tobacco Use Status: Former Tobacco Use Smoking risk assessment performed?: Yes Alcohol Intake: former Drug use: Never Do you feel safe at home: Yes Do you feel safe in your relationship?: Yes Meds Allergies and Home Medications Allergies Allergy/AdvReac Type Severity Reaction Status Date / Time hydrochlorothiazide AdvReac gout Unverified 06/30/21 10:15 Home Medications Medication Instructions Recorded Confirmed Type amlodipine 10 mg PO DAILY 10/22/13 06/30/21 History atorvastatin [Lipitor] 80 mg PO DAILY 10/22/13 06/30/21 History lisinopril 40 mg PO DAILY 10/22/13 06/30/21 History aspirin [Aspir-81] 81 mg PO DAILY 12/09/13 06/30/21 History cyanocobalamin (vitamin B-12) 1,000 mcg PO DAILY 07/13/20 06/30/21 History [Vitamin B-12] diclofenac sodium 1 applic TOPICAL BID PRN #100 g 07/13/20 06/30/21 Rx allopurinol 200 mg PO DAILY 05/02/21 06/30/21 History furosemide 40 mg PO BID@0830,1600 #0 tab 05/11/21 06/30/21 Rx guaifenesin [Mucinex] 600 mg PO BID PRN PRN #60 tab 05/11/21 06/30/21 Rx ipratropium-albuterol 3 ml UPD Q4H PRN PRN #0 ml 05/11/21 06/30/21 Rx nystatin 1 applic TOPICAL BID #0 g 05/11/21 06/30/21 Rx potassium chloride [Klor-Con M20] 40 meq PO DAILY #60 tab 05/11/21 06/30/21 Rx diphenoxylate-atropine [Lomotil] 1 tab PO DAILY #7 tab 06/28/21 06/30/21 Rx metoprolol succinate [Kapspargo 100 mg PO DAILY 07/01/21 07/01/21 History Sprinkle] Exam Const General: disheveled, frail appearing and ill appearing chronically Nutritional Appearance: obese Orientation: alert, awake and oriented x3 HENMT Head: normal to inspection, normocephalic and atraumatic Mouth: oral mucosae normal Resp Effort & Inspection: normal respiratory effort Auscultation: rhonchi (coarse scattered throughout) Cardio Rate: regular rate Rhythm: abnormal rhythm regularly irregular GI Inspection: normal to inspection and large pannus Palpation: soft Auscultation: normal bowel sounds Skin Lesions: lesion noted Neuro General: patient alert, patient awake, patient oriented x3 and no focal motor deficits Extrem General: full ROM and edema
[2021-07-08] MEDS: Acetaminophen 325 MG TAB PO ×2 (15:49→21:02)
[2021-07-08] MEDS: cefTRIAXone 1 GM/50 ML BAG IVPB (15:50)
--- NOTE | 2021-07-08 15:54 | CMSA_ITS ---
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 He lives alone in a trailer he owns in [place] and continues to drive. He has a daughter named Delores and a son named Victorino, however he is not currently speaking to them and they are far away. Azeem stated that he has no support from anyone and that all of his family is . - Prior to Admission Living Arrangements/Environment Prior to Admission:: Iker reports that he lives alone in [place] in a trailer that he owns. 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 - Present Functional Status Physical Abilities:: PT reports limitations in his ability due to general deconditioning, body habitus, and arthritis in his knees bilaterally causing significant discomfort with weight bearing. Cognitive:: intact cognition Behavior:: Appropriate - Medical History PAST MEDICAL HISTORY/PAST SURGICAL HISTORY:: Medical History (Updated 07/01/21 @ 00:26 by Jaiden Hoover). Ambulatory dysfunction. Biliary colic symptom. CVA (cerebral vascular accident). Gouty arthritis. left shoulder, 03/2021 - [facility] [place] Heart attack. cardiac cath 2012 - no stents. Hyperlipidemia. Hypertension. Morbid obesity with BMI of 45.0-49.9, adult. Obstructive sleep apnea. not using CPAP. Surgical History (Updated 06/30/21 @ 20:26 by Jaiden Hoover). Angiogram. cardiac cath 2012 - no stents. Cholecystectomy. open. Status post cholecystectomy (06/16/14) General Health:: Failure to thrive r/t multiple comorbidities - Admission Data Reason for Swing Bed Admission:: Generalized weakness, needs rehab prior to returning home. Discharge Plan:: Anticipate patient will discharge home with increased services including [facility] RN/PT/PT/ SENIOR SOLUTIONS WORKFLOW CONSULTANT, [place] on aging, MOW and equipment when cleared by PT. Assessment: Needs short term rehab in order to increase physical mobility prior to returning home. Catering Service Manager: AMINA Date Assessment was completed:: 07/08/21
[2021-07-08] MEDS: Normal Saline Flush 10 ML SYR IVP ×2 (15:55→18:57)
--- NOTE | 2021-07-08 16:22 | CM.SWINGPC ---
- If Service Date Differs Date of service: 07/08/21 Time of Service: 16:22 Swingbed Plan of Care Plan of care: SWING BED PROGRAM ACTIVITIES/DISCHARGE PLAN OF CARE ACTIVITIES PLAN Date: 07/08/21 Identified Need: Activities to support Life enrichment during extended hospital stay. Intervention/Plan: TV with remote, music tablet, therapy dog (when available), phone in room, adult coloring books, word search/cross word puzzles. Initials DL DISCHARGE PLAN Date: Identified Need: Increased mobility Intervention/Plan: Iker will work with PT to increase mobility prior to returning home Initials DL
--- NOTE | 2021-07-08 16:25 | IN_ITS ---
Date of service: 07/08/21 Time of Service: 14:39 PT Notes Visit Reasons: RTT,Ambulatory Dysfunction Swing Bed Level I Physical Therapy Initial Evaluation Date: 07/08/2021 Referring Doctor: Zoya Whittaker MD PT Orders: PT CONSULT: Eval/treat Precautions: Fall. Standard. Activity as tolerated. Patient Profile/Admitting Diagnosis: Lucy converts to swing bed level I today and is re-evalauted for continued skilling for PT services. Lucy is a 75-year-old morbidly obese male with chronic hypertension and hyperlipidemia who presented to the ED on 06/30/2021 due to increasing weakness and diarrhea. Patient is diagnosed with generalized weakness, failure to thrive, pulmonary hypertension, hypokalemia and hypomagnesemia. PMHX: Medical History (Updated 06/30/21 @ 20:26 by Jaiden Hoover) Ambulatory dysfunction Biliary colic symptom CVA (cerebral vascular accident) Gouty arthritis left shoulder, 03/2021 - [facility] [place] Heart attack cardiac cath 2013 - no stents Hyperlipidemia Hypertension Morbid obesity with BMI of 45.0-49.9, adult Obstructive sleep apnea not using CPAP Surgical History (Updated 06/30/21 @ 20:26 by Jaiden Hoover) Angiogram cardiac cath 2013 - no stents Cholecystectomy So pertinent for abdominal pattern his just cannot be open Status post cholecystectomy (06/16/14) Social History/Home Situation: Lives alone in an apartment building with 3 steps to enter with B rails. Reports that he has not walked since he returned from the SNF due to a big mess his living environment is in. Equipment Owned/DME: FWW Subjective: Feels much better. Smiling when PT came into room. Hair well combed. Brought up the issue that the topical pain medication he gets to his knees really helps with allowing him to move better. Prefers to have the medication put on him before he walks with PT. Objective: General Observation: In NAD. Morbidly obese. Seated on chair. Mental Status: Alert and oriented as to person, place, time, and purpose. Able to pay attention significantly better than when he got admitted to this hospital. Pain: 2-3/10 in B knees after walking quite the distance this afternoon ROM: Right Upper Extremity: Shoulder Flexion WFL. Shoulder abduction WFL. Elbow flexion WFL. Wrist flexion WFL. Functional opening and closing of hand WFL. Left Upper Extremity: Shoulder Flexion WFL. Shoulder abduction WFL. Elbow flexion WFL. Wrist flexion WFL. Functional opening and closing of hand WFL. Right Lower Extremity: Hip flexion WFL. Hip abduction WFL. Knee flexion WFL. Ankle dorsiflexion WFL. Ankle plantarflexion WFL. Left Lower Extremity: Hip flexion WFL. Hip abduction WFL. Knee flexion WFL. Ankle dorsiflexion WFL. Ankle plantarflexion WFL. Strength: Right Upper Extremity: Shoulder flexors 3+/5. Shoulder abductors 3+/5. Elbow flexors 3+/5. Elbow extensors 3+/5. Slitter And Rewinder Machine Operator strong. Left Upper Extremity: Shoulder flexors 3+/5. Shoulder abductors 3+/5. Elbow flexors 3+/5. Elbow extensors 3+/5. Slitter And Rewinder Machine Operator weakn but functional. Right Lower Extremity: Hip flexors 3-/5. Hip abductors 3-/5. Knee [id number]-/5. Knee [id number]-/5. Ankle dorsiflexors 3-/5. Ankle plantarflexors 3-/5. Left Lower Extremity: Hip flexors 3-/5. Hip abductors 3-/5. Knee kcbwhme89-/5. Knee [id number]-/5. Ankle dorsiflexors 3-/5. Ankle plantarflexors 3-/5. Bed Mobility/Transfers: Sit to stand supervision Stand to sit supervision Bed to chair supervision Chair to bed supervision Gait: Tolerated level surface ambulation of 150 feet using front wheel walker with full weightbearing requiring standby assist with report of minimal pain in B knees but with moderate SLB after activity. Ruth is significantly improved. Balance: Static Sitting: Normal Dynamic Sitting: Normal Static Standing: Fair Dynamic Standing: Fair Special Tests: Mobility Limitations Standardized Measure [facility] AM-PAC 6 clicks Basic Mobility Inpatient Short Form: Raw Score: 21 CMS Score: 29% deficit Informed Consent/Education: Patient was instructed in purpose of PT consult and plan of care. Agreeable to proceed with established PT POC to achieve personal goals. Assessment: Significant improvement in strength, activity tolerance, static/dynamic standing balance and tolerance, and her mobility level compared to start of care with functional deficit score of 29% which is a marked reduction from 92% deficit at start of care. Patient presents with clinical signs and symptoms consistent with curr ent/admitting diagnoses that have resulted to mobility limitations, gait instability, generalized weakness, and overall ADL decline as demonstrated by the following impairment level findings: 1. Increasing strength to B UE/LE major muscle groups 2. Improving sitting/standing balance 3. Improving activity tolerance 4. Increasing joint range of motion in B LE joints 5. Shortness of breath now with faster ability to recover 6. Swelling reduction 7. Morbid obesity Impairments are contributing to the following functional limitations: 1. Difficulty with ambulation without assistive device 2. Increased completion time for mobility ADL performance 3. Increased risk for falls 4. Difficulty with managing steps alone safely Patient is assessed as a 21866 moderate complexity based on the following: History: 75-year-old male with past medical history as indicated above Examination: Demonstrable impairment in strength, balance, and mobility level with underlying impairments and functional limitations as exhibited above as well as deficit score of 29 % utilizing the [facility] Mobility Inpatient Short Form Presentation: Evolving Decision Makin moderate complexity Goals: Goals X1 week 1. Supine-Sit independent 2. Sit-Supine independent 3. Sit-Stand independent 4. Stand-Sit independent 5. Bed-Chair independent 6. Chair-Bed independent 7. Fair standing balance using bariatric FWW 8. Independent with level surface ambulation up to 200 feet using bariatric front wheel walker Plan of Care/Treatment Plan: 1-2x/day, 7 days/week x 1 week. Plan of care has been reviewed with the GALLERY OR MUSEUM GUIDE providing the service under Physical Therapy direction. Initiate Physical Therapy intervention for pain management as needed, strengthening, bed mobility, transfers, gait, stairs, balance training, and use of assistive device. DISCHARGE RECOMMENDATIONS: Patient will benefit from senior care facility placement for continued skilled physical therapy services in order to progress mobility level, strength, and balance in preparation for a safe discharge to home. TREATMENT CODE/TIME: 38011 x 26 minutes beginning at 14:39 PM. Thank you for the opportunity to participate in the care of this patient. Emani Ruff PT, DPT, CLT [facility] [place], [place]
[2021-07-08 16:41] VITALS: BP 130/59; PULSE 68; RESP 17; TEMP 36.8; O2SAT 96
[2021-07-08] MEDS: DOXYCYCLINE 100 MG in Normal Saline 100 ML IVPB (18:56)
[2021-07-08] MEDS: Lactobacillus Acidophilus CAP 1 CAP PO (21:01)
[2021-07-08] MEDS: Magnesium Chloride 64 MG TABCR PO (21:02)
[2021-07-08] MEDS: guaiFENesin 600 MG TABCR PO (21:02)
[2021-07-08] MEDS: Diclofenac 1% Gel 100 GM TUBE TP (21:04)
[2021-07-08] MEDS: Ketoconazole 2% CREAM 15 GM TUBE TP (21:04)
[2021-07-08] MEDS: Enoxaparin 40 MG/0.4 ML SYR SC (21:17)
[2021-07-08 23:45] VITALS: BP 140/60; PULSE 70; RESP 18; TEMP 36.8; O2SAT 96
[2021-07-09 07:41] LABS: HGB 10.8 g/dL (13.5-17.5); MCHC 31.8 % (32.0-36.0); MCV 94.4 fL (80-95); MPV 9.9 fL (8.0-11.0); Platelet Count 265 10^3/uL (130-400); RDW-SD 51.6 fL; WBC 6.65 10^3/uL (4.4-10.8)
[2021-07-09 08:40] VITALS: BP 122/76; PULSE 84; RESP 13; TEMP 36.3; O2SAT 95
[2021-07-09] MEDS: Atorvastatin 40 MG TAB 80 MG PO (09:36)
[2021-07-09] MEDS: Acetaminophen 325 MG TAB PO ×4 (09:36→20:04)
[2021-07-09] MEDS: Aspirin E.C. 81 MG TABEC PO (09:36)
[2021-07-09] MEDS: Lisinopril 20 MG TAB 40 MG PO (09:36)
[2021-07-09] MEDS: Potassium Chloride 20 MEQ TABCR 40 MEQ PO (09:37)
[2021-07-09] MEDS: amLODIPine 10 MG TAB PO (09:37)
[2021-07-09] MEDS: guaiFENesin 600 MG TABCR PO ×2 (09:37→20:04)
[2021-07-09] MEDS: Magnesium Chloride 64 MG TABCR PO ×2 (09:37→20:04)
[2021-07-09] MEDS: Metoprolol CR 100 MG TABCR PO (09:37)
[2021-07-09] MEDS: Furosemide 40 MG TAB PO (09:38)
[2021-07-09] MEDS: Cyanocobalamin 500 MCG TAB 1000 MCG PO (09:38)
[2021-07-09] MEDS: Lactobacillus Acidophilus CAP 1 CAP PO ×3 (09:38→20:04)
[2021-07-09] MEDS: Diclofenac 1% Gel 100 GM TUBE TP ×2 (09:38→21:25)
[2021-07-09] MEDS: Allopurinol 100 MG TAB 200 MG PO (09:38)
[2021-07-09] MEDS: Ketoconazole 2% CREAM 15 GM TUBE TP ×2 (09:39→21:25)
--- NOTE | 2021-07-09 11:08 | PTTR_ITS ---
PT Notes Visit Reasons: RTT,Ambulatory Dysfunction 07/09/2021 SUBJECTIVE: No pain complaints to me today. Agreeable to PT treatment. OBJECTIVE: TRANSFERS Sit to stand: SBA Stand to sit: SBA GAIT Device: FWW B Weight bearing: full Assist: SBA Distance: 75', 100' Deviation: WC follow, 1 sit rest break ASSESSMENT: Tolerates PT well today without complaints of knee pain. He requires 1 sit rest break due to fatigue. PLAN: Continue to progress his functional mobility. Treatment time: 25 minutes [id number] Destiny Reid PTA Clinic location: [facility] [place], [place]
[2021-07-09 15:02] VITALS: BP 124/65; PULSE 77; RESP 18; TEMP 36.3; O2SAT 96
[2021-07-09] MEDS: Normal Saline Flush 10 ML SYR IVP (16:51)
[2021-07-09] MEDS: cefTRIAXone 1 GM/50 ML BAG IVPB (16:52)
[2021-07-09] MEDS: Normal Saline 500 ML 100 ML IV (16:52)
[2021-07-09 20:04] VITALS: TEMP 36.8
[2021-07-09] MEDS: Psyllium PKT 1 EACH PO (20:05)
[2021-07-09 23:07] VITALS: BP 153/78; PULSE 71; RESP 20; TEMP 36.8; O2SAT 93
[2021-07-10 08:00] VITALS: BP 134/79; PULSE 72; RESP 16; TEMP 36.7; O2SAT 93
[2021-07-10] MEDS: Atorvastatin 40 MG TAB 80 MG PO (08:03)
[2021-07-10] MEDS: Potassium Chloride 20 MEQ TABCR 40 MEQ PO (08:04)
[2021-07-10] MEDS: Magnesium Chloride 64 MG TABCR PO ×2 (08:04→21:37)
[2021-07-10] MEDS: Cyanocobalamin 500 MCG TAB 1000 MCG PO (08:04)
[2021-07-10] MEDS: Lisinopril 20 MG TAB 40 MG PO (08:04)
[2021-07-10] MEDS: Acetaminophen 325 MG TAB PO ×4 (08:04→21:37)
[2021-07-10] MEDS: Aspirin E.C. 81 MG TABEC PO (08:04)
[2021-07-10] MEDS: Furosemide 40 MG TAB PO (08:04)
[2021-07-10] MEDS: Lactobacillus Acidophilus CAP 1 CAP PO ×3 (08:04→21:37)
[2021-07-10] MEDS: amLODIPine 10 MG TAB PO (08:04)
[2021-07-10] MEDS: Metoprolol CR 100 MG TABCR PO (08:04)
[2021-07-10] MEDS: Diclofenac 1% Gel 100 GM TUBE TP ×2 (08:05→21:38)
[2021-07-10] MEDS: guaiFENesin 600 MG TABCR PO ×2 (08:05→21:37)
[2021-07-10] MEDS: Allopurinol 100 MG TAB 200 MG PO (08:05)
[2021-07-10] MEDS: Ketoconazole 2% CREAM 15 GM TUBE TP ×2 (08:05→21:38)
--- NOTE | 2021-07-10 10:37 | PTTR_ITS ---
PT Notes Visit Reasons: RTT,Ambulatory Dysfunction 07/10/2021 SUBJECTIVE: No pain complaints throughout treatment today. Agreeable to PT t reatment. OBJECTIVE: TRANSFERS Sit to stand: SBA Stand to sit: SBA GAIT Device: FWW Weight bearing: Full Assist: SBA Distance: 100'+75' Deviation: 1 sit rest break, slow shuffling gait pattern. ASSESSMENT: No LOB during gait today but fatigues with this distance ambulation. Pain seems to be controlled as he does not complain to me about his knees. PLAN: Continue current POC. Treatment time: 15' [id number] Destiny Reid PTA Clinic location: [facility] [place], [place]
[2021-07-10 15:24] VITALS: BP 136/72; PULSE 65; RESP 16; TEMP 36; O2SAT 98
[2021-07-10] MEDS: Normal Saline Flush 10 ML SYR IVP ×3 (16:18→21:39)
[2021-07-10] MEDS: cefTRIAXone 1 GM/50 ML BAG IVPB (16:18)
[2021-07-10 21:31] VITALS: BP 146/71; PULSE 50; RESP 19; TEMP 36.4; O2SAT 95
[2021-07-11 04:49] VITALS: BP 155/78; PULSE 69; RESP 18; TEMP 36.1; O2SAT 95
[2021-07-11] MEDS: Atorvastatin 40 MG TAB 80 MG PO (08:31)
[2021-07-11] MEDS: guaiFENesin 600 MG TABCR PO ×2 (08:31→20:40)
[2021-07-11] MEDS: Lisinopril 20 MG TAB 40 MG PO (08:31)
[2021-07-11] MEDS: Magnesium Chloride 64 MG TABCR PO ×2 (08:31→20:40)
[2021-07-11] MEDS: Aspirin E.C. 81 MG TABEC PO (08:31)
[2021-07-11] MEDS: Potassium Chloride 20 MEQ TABCR 40 MEQ PO (08:31)
[2021-07-11] MEDS: Lactobacillus Acidophilus CAP 1 CAP PO ×3 (08:32→20:40)
[2021-07-11] MEDS: Furosemide 40 MG TAB PO (08:32)
[2021-07-11] MEDS: Allopurinol 100 MG TAB 200 MG PO (08:32)
[2021-07-11] MEDS: Cyanocobalamin 500 MCG TAB 1000 MCG PO (08:32)
[2021-07-11] MEDS: Acetaminophen 325 MG TAB PO ×4 (08:32→20:39)
[2021-07-11] MEDS: Metoprolol CR 100 MG TABCR PO (08:32)
[2021-07-11] MEDS: amLODIPine 10 MG TAB PO (08:32)
[2021-07-11] MEDS: Diclofenac 1% Gel 100 GM TUBE TP ×2 (08:33→20:52)
[2021-07-11] MEDS: Normal Saline Flush 10 ML SYR IVP ×2 (08:33→15:59)
[2021-07-11 08:47] VITALS: BP 133/57; PULSE 70; RESP 18; TEMP 36.4; O2SAT 96
[2021-07-11] MEDS: Ketoconazole 2% CREAM 15 GM TUBE TP ×2 (08:56→20:38)
--- NOTE | 2021-07-11 15:21 | PDOC.CMPRO ---
- If Service Date Differs Date of service: 07/11/21 Time of Service: 15:21 Care Management Progress Note S/O: Iker was sitting up in his chair when CM met with him. He is going to contact his insurance company today to discuss his benefits. CM provided him with his insurance info and policy number. CM asked Iker if he would be willing to meet with ALEKSEY to discuss his insurance and/or go over coverage that may be available to him, but he declines. He states that he does not want to make any changes with his insurance at this time. GORDY received a call from Reji from [place] [facility] and reports that Iker is currently open to their Moderate Needs program and have a work order to repair his kitchen Floor. 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 Reji is going to reach out to Iker and see what his needs are and if they can help. Iker shares that he is working with PT and is becoming more independent with ambulation and is able to use the bathroom independently. He reports that he is going to go back home soon. At this time PT recommends he go to a SNF. CM will continue to support discharge planning needs. A: P: Iker transitioned to SWB1 for a short stay to work with PT in order to increase mobility prior to returning home. He will likely return home with orders for resumption of H RN/PT/OT/FEDERAL DISTRICT LAW CLERK. Additionally he would benefit from [place] on aging services and MOW. CM connected Iker to [facility]. CM to work on payer source for [facility] if needed. Iker will likely transport home via [facility] when he is cleared by PT.
[2021-07-11 15:25] VITALS: BP 128/71; PULSE 62; RESP 22; TEMP 36.4; O2SAT 95
--- NOTE | 2021-07-11 15:36 | PT.INTREAT ---
Date of service: 07/11/21 Time of Service: 10:35 PT Notes Visit Reasons: RTT,Ambulatory Dysfunction Inpatient Physical Therapy Treatment Note [facility] Date: 07/11/2021 PRECAUTIONS: Fall, activity as tolerated SUBJECTIVE: Don is agreeable to participating in PT. OBJECTIVE: PAIN: No c/o pain BED MOBILITY/TRANSFERS Sit-stand: I Stand-sit: I Chair-commode: S GAIT: Assistive Device: Bariatric FWW Weight bearing: Full Assist: S Distance: 75' + 10' in a.m.; 5' + 50' + 60' in p.m. Deviation: Seated rest x1 STAIRS: Up/down 3x4 and 2x6 using B rails and a step-to pattern with supervision TOILETING: Patient toileted with assist. WHEELCHAIR MOBILITY: Patient completes self-propulsion x~10' + ~15' independently. Appropriate use of locks without cueing. ASSESSMENT: Patient tolerated session with c/o increased fatigue with gait training, requiring seated rest. He would benefit from continued gait training with least restrictive device and global strengthening. PLAN: Continue with global strengthening and general conditioning for improved mobility and activity tolerance, as tolerated. TREATMENT CODE/TIME: Session 1: 28 minutes; [id number] x2 (10:35) Session 2: 17 minutes; [id number] (15:19)
[2021-07-11] MEDS: cefTRIAXone 1 GM/50 ML BAG IVPB (15:58)
[2021-07-11 23:10] VITALS: BP 146/85; PULSE 65; RESP 18; TEMP 36.5; O2SAT 94
[2021-07-12 07:58] VITALS: BP 156/80; PULSE 82; RESP 18; TEMP 36.6; O2SAT 95
[2021-07-12] MEDS: Acetaminophen 325 MG TAB PO ×4 (08:18→20:07)
[2021-07-12] MEDS: guaiFENesin 600 MG TABCR PO ×2 (08:19→20:07)
[2021-07-12] MEDS: Potassium Chloride 20 MEQ TABCR 40 MEQ PO (08:19)
[2021-07-12] MEDS: amLODIPine 10 MG TAB PO (08:19)
[2021-07-12] MEDS: Lactobacillus Acidophilus CAP 1 CAP PO ×3 (08:19→20:07)
[2021-07-12] MEDS: Aspirin E.C. 81 MG TABEC PO (08:20)
[2021-07-12] MEDS: Furosemide 40 MG TAB PO (08:21)
[2021-07-12] MEDS: Allopurinol 100 MG TAB 200 MG PO (08:21)
[2021-07-12] MEDS: Cyanocobalamin 500 MCG TAB 1000 MCG PO (08:21)
[2021-07-12] MEDS: Lisinopril 20 MG TAB 40 MG PO (08:21)
[2021-07-12] MEDS: Magnesium Chloride 64 MG TABCR PO ×2 (08:21→20:07)
[2021-07-12] MEDS: Metoprolol CR 100 MG TABCR PO (08:21)
[2021-07-12] MEDS: Atorvastatin 40 MG TAB 80 MG PO (08:22)
[2021-07-12] MEDS: Diclofenac 1% Gel 100 GM TUBE TP ×2 (08:24→20:08)
[2021-07-12] MEDS: Ketoconazole 2% CREAM 15 GM TUBE TP ×2 (08:25→20:07)
--- NOTE | 2021-07-12 09:29 | PT.INTREAT ---
Date of service: 07/12/21 Time of Service: 08:51 PT Notes Visit Reasons: RTT,Ambulatory Dysfunction Inpatient Physical Therapy Treatment Note [facility] Date: 07/12/2021 PRECAUTIONS: Fall, activity as tolerated SUBJECTIVE: Don is agreeable to participating in PT. He states that he is feeling fair today. OBJECTIVE: PAIN: Patient c/o pain in R kneecap with gait training and ther ex BED MOBILITY/TRANSFERS Supine-sit: I Sit-stand: I Stand-sit: I Bed-chair: I Chair-bed: I GAIT: Assistive Device: Bariatric FWW Weight bearing: Full Assist: S Distance: 60' in a.m.; 50' in p.m. Deviation: Pain in R knee, mild SOB THEREX: Patient was instructed in a LE and resisted UE strengthening program, completed in a seated position, as per flow sheet. He was able to tolerate the addition of resistance with UE exercises well, without complaint. ASSESSMENT: Patient tolerated session with c/o R knee pain with gait training and ther ex. He would benefit from continued global strengthening and general conditioning. PLAN: Continue with global strengthening and general conditioning for improved mobility and activity tolerance, as tolerated. TREATMENT CODE/TIME: Session 1: 26 minutes; [id number], [id number] (08:51) Session 2: 8 minutes; [id number] (11:31)
[2021-07-12 15:31] VITALS: BP 127/64; PULSE 69; RESP 18; TEMP 36.6; O2SAT 93
--- NOTE | 2021-07-12 16:28 | CHAPLAIN ---
Iker was sitting up in his chair watching tv when I visited. He began to tell me the whole story of how he got here, going back to being at [facility] then being discharged home, and then unable to get out of his recliner so he was brought to the ED, then he remembered he'd already told me all that. There is a woman, Maday, living at this place. Iker claims she is mooching off of him and fixing him unhealthy meals, (lots of fat and grease) while she is eating healthier. The home smell bads because of her dogs he said. He said he is working with two organizations to get Maday out of his house. One organization is [employer]. Iker didn't name the other. It may be [place] [facility]. Iker seems to be pleased with his progress with PT, with the wheel chair, walking and doing stairs, but he his worried about going home because it smells bad because of Maday, he said. I will continue to visit.
[2021-07-12] MEDS: cefTRIAXone 1 GM/50 ML BAG IVPB (16:42)
[2021-07-12] MEDS: Normal Saline Flush 10 ML SYR IVP ×2 (16:43→17:43)
[2021-07-12 23:05] VITALS: BP 146/76; PULSE 18; RESP 18; TEMP 36.9; O2SAT 93
[2021-07-13] MEDS: Cyanocobalamin 500 MCG TAB 1000 MCG PO (08:00)
[2021-07-13] MEDS: Lactobacillus Acidophilus CAP 1 CAP PO ×3 (08:01→20:01)
[2021-07-13] MEDS: Acetaminophen 325 MG TAB PO ×4 (08:01→19:59)
[2021-07-13] MEDS: amLODIPine 10 MG TAB PO (08:02)
[2021-07-13] MEDS: Magnesium Chloride 64 MG TABCR PO ×2 (08:02→20:01)
[2021-07-13] MEDS: Aspirin E.C. 81 MG TABEC PO (08:02)
[2021-07-13] MEDS: Furosemide 40 MG TAB PO (08:02)
[2021-07-13] MEDS: guaiFENesin 600 MG TABCR PO ×2 (08:02→20:01)
[2021-07-13] MEDS: Allopurinol 100 MG TAB 200 MG PO (08:02)
[2021-07-13] MEDS: Atorvastatin 40 MG TAB 80 MG PO (08:02)
[2021-07-13] MEDS: Metoprolol CR 100 MG TABCR PO (08:02)
[2021-07-13] MEDS: Lisinopril 20 MG TAB 40 MG PO (08:03)
[2021-07-13] MEDS: Diclofenac 1% Gel 100 GM TUBE TP ×2 (08:03→20:01)
[2021-07-13] MEDS: Ketoconazole 2% CREAM 15 GM TUBE TP ×2 (08:03→20:02)
[2021-07-13] MEDS: Potassium Chloride 20 MEQ TABCR 40 MEQ PO (08:03)
[2021-07-13 08:12] VITALS: BP 146/82; PULSE 89; RESP 18; TEMP 36.7; O2SAT 96
--- NOTE | 2021-07-13 13:28 | PT.INTREAT ---
Date of service: 07/13/21 Time of Service: 07:34 PT Notes Visit Reasons: RTT,Ambulatory Dysfunction Inpatient Physical Therapy Treatment Note [facility] Date: 07/13/2021 PRECAUTIONS: Fall, activity as tolerated SUBJECTIVE: Don is agreeable to participating in PT. He states that he is feeling fair today but reports no knee pain. OBJECTIVE: PAIN: No c/o pain BED MOBILITY/TRANSFERS Supine-sit: I Sit-stand: I Stand-sit: I Bed-chair: I Chair-bed: I GAIT: Assistive Device: Bariatric FWW Weight bearing: Full Assist: S Distance: 50' + 30' in a.m.; 60' in p.m. Deviation: Wheelchair follow and seated rest x1 in a.m. THEREX: Patient was instructed in a LE and resisted UE strengthening program, completed in a seated position, as per flow sheet. He was able to tolerate increased reps with all exercises today. TOILETING: Patient toileted with assist. ASSESSMENT: Patient tolerated session without c/o R knee pain. He was able to tolerate a progression in his ther ex program with minimal c/o increased fatigue. He would benefit from continued global strengthening and general conditioning. PLAN: Continue with global strengthening and general conditioning for improved mobility and activity tolerance, as tolerated. TREATMENT CODE/TIME: Session 1: 14 minutes; [id number] (07:43) Session 2: 24 minutes; [id number] (12:56)
[2021-07-13 15:22] VITALS: BP 101/58; PULSE 66; RESP 19; TEMP 36.7; O2SAT 95
--- NOTE | 2021-07-13 16:58 | CHAPLAIN ---
Iker was resting in bed when I visited. He said he was told that he'll be discharged on Sunday (07/15). He has spoken with Lee at [facility] about getting his friend Maday out of his house as he doesn't want her to live there any more. Iker said he also spoke with someone (maybe Lee) about options of moving to an apartment. He said he would consider that only if he knew people would not just be showing up at his apartment. He has trouble taking care of things at his trailer, like keeping the driveway clear of snow.
[2021-07-13] MEDS: cefTRIAXone 1 GM/50 ML BAG IVPB (17:15)
[2021-07-13 23:40] VITALS: BP 143/75; PULSE 65; RESP 19; TEMP 36.5; O2SAT 92
[2021-07-14 07:47] VITALS: BP 126/76; PULSE 81; RESP 18; TEMP 36.5; O2SAT 95
[2021-07-14] MEDS: guaiFENesin 600 MG TABCR PO ×2 (09:26→20:20)
[2021-07-14] MEDS: Lactobacillus Acidophilus CAP 1 CAP PO ×3 (09:26→20:20)
[2021-07-14] MEDS: Furosemide 40 MG TAB PO (09:26)
[2021-07-14] MEDS: Magnesium Chloride 64 MG TABCR PO ×2 (09:26→20:20)
[2021-07-14] MEDS: amLODIPine 10 MG TAB PO (09:26)
[2021-07-14] MEDS: Metoprolol CR 100 MG TABCR PO (09:27)
[2021-07-14] MEDS: Allopurinol 100 MG TAB 200 MG PO (09:27)
[2021-07-14] MEDS: Atorvastatin 40 MG TAB 80 MG PO (09:27)
[2021-07-14] MEDS: Cyanocobalamin 500 MCG TAB 1000 MCG PO (09:27)
[2021-07-14] MEDS: Aspirin E.C. 81 MG TABEC PO (09:27)
[2021-07-14] MEDS: Acetaminophen 325 MG TAB PO ×4 (09:28→20:20)
[2021-07-14] MEDS: Lisinopril 20 MG TAB 40 MG PO (09:28)
[2021-07-14] MEDS: Potassium Chloride 20 MEQ TABCR 40 MEQ PO (09:29)
[2021-07-14] MEDS: Ketoconazole 2% CREAM 15 GM TUBE TP ×2 (09:29→20:21)
[2021-07-14] MEDS: Diclofenac 1% Gel 100 GM TUBE TP ×2 (09:29→20:21)
--- NOTE | 2021-07-14 09:34 | OT.INIE ---
Occupational Therapy Notes Inpatient Occupational Therapy Evaluation Date: 07/14/21 Referring Doctor:Dannielle Rucker NP OT Orders: Non Urgent Precautions: Fall, standard, Full PATIENT PROFILE/ADMITTING DIAGNOSIS: Pt is a 75 year old male who was admitted through the ED on 06/30/21 for the following dx including diagnosis of UTI, (B) knee pain, fever, tinea cruris, failure to thrive, hypomagnesemia, generalized weakness, dehydration, (L) leg weakness, QT prolongation, hyperlipidemia, chronic HTN and hypokalemia. Past Medical History: Medical History (Updated 07/01/21 @ 00:26 by Jaiden Hoover) Ambulatory dysfunction Biliary colic symptom CVA (cerebral vascular accident) Gouty arthritis left shoulder, 03[place]2021 [place] [facility] [place] cardiac cath 2012 - no stents Hyperlipidemia Hypertension Morbid obesity with BMI of 45.0-49.9, adult Obstructive sleep apnea not using CPAP Surgical History (Updated 06/30/21 @ 20:26 by Jaiden Hoover) Angiogram cardiac cath 2012 - no stents Cholecystectomy open Status post cholecystectomy (06/16/14) Social History/Home Situation: Pt states that he lives alone in private home he states that he sponge baths because he cannot get in and out of the tub. Pt notes that prior to admission he was (I) with his ADL/IADL routines. Pt utilizes a FWW for mobility. He states that he drives and cooks for himself. He does states that he has some steps to enter his home but none inside which he had no issues with prior. Equipment owned/DME: FWW SUBJECTIVE: Pt was sitting in chair when OT arrived. He is agreeable to consult and states that he would like to return home soon. OBJECTIVE: General Observation: obese with large hernia on (R) side Mental Status: A&ox3 Pain: no c/o pain ROM: RUE AROM WFL some shoulder limitations but able to move throughout ROM L UE AROM WFL some shoulder limitations but able to move throughout ROM STRENGTH: RUE Shoulder flexion 2+/5, bicep 3-/5, tricep 3/5, administrative services director is weak and symmetrical LUE Shoulder flexion 3/5, bicep 3-/5, tricep 3-/5, administrative services director is weak and symmetrical FUNCTIONAL MOBILITY/ADLS: BATHING sitting in bed with max (A) set up/clean up Bathing UE (I) face and (B) UE, min (A) underarms, max (A) hair and back, mod (A) under abdomen DRESSING sitting in chair Dressing LE min (A) don and doffing (B) socks UE Min (A) don and doffing hospital gown GROOMING (I) with brushing hair TOILETING on commode with min (A) toileting hygiene per pt report EATING Pt had ate prior to OT arrival, he is (I) BALANCE: Static sitting Normal Dynamic Sitting Normal SPECIAL TESTS: Daily Activity Limitations Standardized Measure [facility] AM -PAC ?6 clicks? Daily Activity Inpatient Short Form: Raw score: 18 Standardized score: 38.66 CMS score: 46.65% INFORMED CONSENT/EDUCATION: Pt instructed in purpose of OT Consult and plan of care. ASSESSMENT: Patient is a 75-year-old male referred to occupational therapy services with diagnosis of UTI, (B) knee pain, fever, tinea cruris, failure to thrive, hypomagnesemia, generalized weakness, dehydration, (L) leg weakness, QT prolongation, hyperlipidemia. Patient presents with clinical signs and symptoms consistent with dx, as demonstrated by the following impairment level findings/functional limitations: Impairments in his ADL/IADL routines, unable to perform his LE dressing at this time, decreased performance of standing ADLs, decreased functional activity tolerance, decreased strength (B) UE, decreased mobility and functional mobility required for ADL performance. AMPAC score 18 Patient is assessed as a Moderate 22127 complexity based on the following: History: see above Examination: see functional limitations as noted above Presentation: evolving Decision Making: AMPAC score 18 GOALS Goals x1 week 1. Grooming (I) in seated position 2. Dressing (I) UE and mod (I) LE seated in chair 3. Bathing sitting in chair (I) UE, min (A) LE PLAN OF CARE/TREATMENT PLAN: 1x/day, 5 days/ week x 1week Initiate Occupational Therapy Services for bathing, dressing, grooming, toileting, eating, transfer training. DISCHARGE RECOMMENDATIONS Home with services for assessment of his ADLs in the home setting, DME needs, performance of his bathing routine at home with increased (I). TREATMENT TIME/MINUTES/CODES 55211, 84219, 15 minutes (09:15) Loren Lake OTR/[facility]
[2021-07-14] MEDS: Normal Saline Flush 10 ML SYR IVP (10:22)
--- NOTE | 2021-07-14 11:56 | PT.INTREAT ---
Date of service: 07/14/21 Time of Service: 11:05 PT Notes Visit Reasons: RTT,Ambulatory Dysfunction Inpatient Physical Therapy Treatment Note [facility] Date: 07/14/2021 PRECAUTIONS: Fall, activity as tolerated SUBJECTIVE: Don is agreeable to participating in PT. He states that he is feeling fair today but reports no knee pain. OBJECTIVE: PAIN: No c/o pain BED MOBILITY/TRANSFERS Supine-sit: I Sit-stand: I Stand-sit: I Bed-chair: I Chair-bed: I GAIT: Assistive Device: Bariatric FWW Weight bearing: Full Assist: S Distance: 40' + 50' Deviation: Wheelchair follow and seated rest x1 THEREX: Patient was instructed in a LE and resisted UE strengthening program, completed in a seated position, as per flow sheet. He was able to tolerate increased reps with most exercises today. STAIRS: Up/down 3x4 and 2x6 using B rails and a step-to /step-over pattern with supervision ASSESSMENT: Patient tolerated session without c/o R knee pain. He was able to tolerate a progression in his ther ex program with minimal c/o increased fatigue. He would benefit from continued global strengthening and general conditioning. PLAN: Continue with global strengthening and general conditioning for improved mobility and activity tolerance, as tolerated. TREATMENT CODE/TIME: Session 1: 20 minutes; 15802 (11:05) Session 2: 12 minutes; [id number] (15:06)
[2021-07-14 16:12] VITALS: BP 116/68; PULSE 63; RESP 19; TEMP 36.5; O2SAT 97
--- NOTE | 2021-07-14 16:44 | PDOC.CMPRO ---
- If Service Date Differs Date of service: 07/14/21 Time of Service: 16:44 Care Management Progress Note S/O: Iker was sitting up in his chair when CM met with him. He shares that he's feeling better than when he came in and has been making some headway with PT. He laughed when he spoke about being able to walk around his room by himself. Iker shared with CM that his feelings have changed about his home atmosphere and he wants to go home. Iker reportedly disconnected his phone after he was admitted. He is planning on using his neighbors phone after he is discharged. He is unsure at this point if he will reconnect it. CM shared with him that it may be a challenge for community resources to contact him after discharge. A: 75 year old male admitted to [place] [id number] on 07/08/21 for RTT, Ambulatory Dysfunction P: Anticipate that Iker will be discharged home on Sunday via RCT with resumption of [facility] RN/PT/OT/DIGITAL PROJECT COORDINATOR (CM notified [facility]). Iker has connected with the [facility] [facility] and [facility] during his stay. He also discussed getting a Life Line, but declines at this time because his home phone is disconnected. CM will continue to support discharge planning needs.
[2021-07-15 00:13] VITALS: BP 119/70; PULSE 66; RESP 19; TEMP 36.5; O2SAT 98
[2021-07-15] MEDS: Lisinopril 20 MG TAB 40 MG PO (07:57)
[2021-07-15] MEDS: Potassium Chloride 20 MEQ TABCR 40 MEQ PO (07:57)
[2021-07-15] MEDS: Atorvastatin 40 MG TAB 80 MG PO (07:57)
[2021-07-15] MEDS: Aspirin E.C. 81 MG TABEC PO (07:57)
[2021-07-15] MEDS: Acetaminophen 325 MG TAB PO ×2 (07:58→11:52)
[2021-07-15] MEDS: Magnesium Chloride 64 MG TABCR PO (07:58)
[2021-07-15] MEDS: Cyanocobalamin 500 MCG TAB 1000 MCG PO (07:58)
[2021-07-15] MEDS: Metoprolol CR 100 MG TABCR PO (07:58)
[2021-07-15] MEDS: Allopurinol 100 MG TAB 200 MG PO (07:58)
[2021-07-15] MEDS: guaiFENesin 600 MG TABCR PO (07:59)
[2021-07-15] MEDS: Furosemide 40 MG TAB PO (07:59)
[2021-07-15] MEDS: amLODIPine 10 MG TAB PO (07:59)
[2021-07-15] MEDS: Lactobacillus Acidophilus CAP 1 CAP PO ×2 (07:59→14:41)
[2021-07-15] MEDS: Ketoconazole 2% CREAM 15 GM TUBE TP (07:59)
[2021-07-15] MEDS: Diclofenac 1% Gel 100 GM TUBE TP (07:59)
[2021-07-15 08:05] VITALS: BP 120/68; PULSE 63; RESP 17; TEMP 36.5; O2SAT 98
--- NOTE | 2021-07-15 10:09 | OTDS_ITS ---
Date of service: 07/15/21 Time of Service: 10:09 Occupational Therapy Notes Occupational Therapy Inpatient Discharge Summary Date: 07/15/21 Dates of Service: 07/14/21-07/15/21 Referring Doctor:Dannielle Rucker NP OT Orders: Non Urgent Precautions: Fall, standard, Full *This document serves as a summary of care, no skilled OT services provided on this date* PATIENT PROFILE/ADMITTING DIAGNOSIS: Pt is a 75 year old male who was admitted through the ED on 06/30/21 for the following dx including diagnosis of UTI, (B) knee pain, fever, tinea cruris, failure to thrive, hypomagnesemia, generalized weakness, dehydration, (L) leg weakness, QT prolongation, hyperlipidemia, chronic HTN and hypokalemia. Past Medical History: Medical History (Updated 07/01/21 @ 00:26 by Jaiden Hoover) Ambulatory dysfunction Biliary colic symptom CVA (cerebral vascular accident) Gouty arthritis left shoulder, 03/2021 - [facility] [place] Heart attack cardiac cath 2012 - no stents Hyperlipidemia Hypertension Morbid obesity with BMI of 45.0-49.9, adult Obstructive sleep apnea not using CPAP Surgical History (Updated 06/30/21 @ 20:26 by Jaiden Hoover) Angiogram cardiac cath 2012 - no stents Cholecystectomy open Status post cholecystectomy (06/16/14) Social History/Home Situation: Pt states that he lives alone in private home he states that he sponge baths because he cannot get in and out of the tub. Pt notes that prior to admission he was (I) with his ADL/IADL routines. Pt utilizes a FWW for mobility. He states that he drives and cooks for himself. He does states that he has some steps to enter his home but none inside which he had no issues with prior. 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 FUNCTIONAL MOBILITY/ADLS: BATHING sitting in bed with max (A) set up/clean up Bathing UE (I) face and (B) UE, min (A) underarms, max (A) hair and back, mod (A) under abdomen DRESSING sitting in chair Dressing LE min (A) don and doffing (B) socks UE Min (A) don and doffing hospital gown GROOMING (I) with brushing hair TOILETING on commode with min (A) toileting hygiene per pt report EATING Pt had ate prior to OT arrival, he is (I) BALANCE: Static sitting Normal Dynamic Sitting Normal ASSESSMENT: Patient is a 75-year-old male referred to occupational therapy services with diagnosis of UTI, (B) knee pain, fever, tinea cruris, failure to thrive, hypomagnesemia, generalized weakness, dehydration, (L) leg weakness, QT prolongation, hyperlipidemia. Plan is for pt to discharge home with HH services today. GOALS 1. Grooming (I) in seated position 2. Dressing (I) UE and mod (I) LE seated in chair 3. Bathing sitting in chair (I) UE, min (A) LE PLAN OF CARE/TREATMENT PLAN: Discharge from skilled OT services. DISCHARGE RECOMMENDATIONS Home with HH services for assessment of his ADLs in the home setting, DME needs, performance of his bathing routine at home with increased (I). TREATMENT TIME/MINUTES/CODES N/A Loren Lake OTR/[facility]
--- NOTE | 2021-07-15 11:42 | W.PM.DS.N ---
Date of service: 07/15/21 Time of Service: 11:42 DS: Diagnosis Discharge Diagnosis (1) UTI (urinary tract infection): Status: Acute (2) Failure to thrive in adult: Status: Acute (3) Tinea cruris: Status: Acute Discharge Plan Disposition Patient Disposition: HOME W/HOME HEALTH SERVICE Condition: Stable Discharge Details Reason For Visit: RTT,Ambulatory Dysfunction Admit Date/Time: 07/08/21 14:42 Admit Provider: Zoya Whittaker Attending Provider: Zoya Whittaker Primary Care Provider: Ambar Claire [facility] Hospital Course: this is a 75 year old male admitted with urinary tract infection and failure to thrive after only being home for a week from rehab. His urine grew proteus mirabilis which was sensitive to ceftriaxone. He completed his 7 day course of antibiotics and has been medically stable. he was working well with physical therapy and they thought he would benefit from some inpatient rehab, referrals were placed but he was not accepted so he was admitted to [facility] status here and continued to improve. he is now safe for discharge to home. He will have resumption of home health services, to including nursing for medication oversight and disease management, PT/OT for routine evaluation and treatment and AUTOMATIC GRINDER OPERATOR for oversight and management. He has no new prescriptions at discharge. discharge discussed with DR Hoover. Home Meds and New Rx's Prescriptions: New metoprolol succinate 100 mg Tablet Extended Release 24 Hr 100 mg PO DAILY Qty: 1 RF: 0 Continued atorvastatin [Lipitor] 80 MG tablet 80 mg PO DAILY RF: 0 amlodipine 5 MG tablet 10 mg PO DAILY RF: 0 lisinopril 40 MG tablet 40 mg PO DAILY RF: 0 aspirin [Aspir-81] 81 MG tablet,delayed release (DR/EC) 81 mg PO DAILY RF: 0 diphenoxylate-atropine [Lomotil] 2.5-0.025 mg tablet 1 tab PO DAILY Qty: 7 RF: 0 cyanocobalamin (vitamin B-12) [Vitamin B-12] 1,000 mcg tablet 1,000 mcg PO DAILY RF: 0 diclofenac sodium 3 % gel 1 applic topical BID PRN (Reason: knee pain) Qty: 100 RF: 0 allopurinol 100 mg tablet 200 mg PO DAILY RF: 0 ipratropium-albuterol 0.5 mg-3 mg(2.5 mg base)/3 mL Solution For Nebulization 3 ml UPD Q4H PRN PRNQty: 0 RF: 0 furosemide 40 mg Tablet 40 mg PO BID@0830,1600 Qty: 0 RF: 0 guaifenesin [Mucinex] 600 mg Tablet Extended Release 12hr 600 mg PO BID PRN PRNQty: 60 RF: 0 nystatin 100,000 unit/gram Powder 1 applic topical BID Qty: 0 RF: 0 potassium chloride [Klor-Con M20] 20 mEq Tablet,Er Particles/Crystals 40 meq PO DAILY Qty: 60 RF: 0 Kapspargo Sprinkle 100 mg capsule,sprinkle,ER 24hr 100 mg PO DAILY RF: 0 Discharge Instructions Instructions: Urinary Tract Infection in Men (DC) Additional Instructions: continue usual medication as scheduled. Stand Alone Forms: Nursing Discharge Form Referrals: Ambar Claire MD [Primary Care Provider] - 07/22/21 12:30 pm Activity:: Activity as Tolerated Equipment/Supplies:: No Equipment Needed Diet:: As Tolerated Discharge Orders Discharge Orders: Discharge Order (Routine); Ordered 07/15/21 Ordered By: Dannielle Rucker DS: Summary Time Spent with Patient providing and/or coordinating discharge services: Greater than 30 minutes Status at Discharge Functional status at discharge: uses cane/walker Overall status at discharge: patient is progressing back to baseline Mental Status: mental status grossly normal Speech and Movement: speech and movement normal Mood: congruent mood Affect: normal affect Exam Const General: disheveled, frail appearing and ill appearing chronically Nutritional Appearance: obese Orientation: alert, awake and oriented x3 HENMT Head: normal to inspection, normocephalic and atraumatic Mouth: oral mucosae normal Resp Effort & Inspection: normal respiratory effort Auscultation: rhonchi (coarse scattered throughout) Cardio Rate: regular rate Rhythm: abnormal rhythm regularly irregular GI Inspection: normal to inspection and large pannus Palpation: soft Auscultation: normal bowel sounds Skin Lesions: lesion noted Neuro General: patient alert, patient awake, patient oriented x3 and no focal motor deficits Extrem General: full ROM and edema Psych Mental Status: mental status grossly normal Speech and Movement: speech and movement normal Mood: congruent mood Affect: normal affect DS: Data Vitals/I&O Vitals and I&O: Vital Signs Temperature 36.5 C 07/15/21 08:05 Temperature Source Temporal Artery Scan 07/15/21 08:05 Pulse 63 07/15/21 08:05 Pulse Rhythm Regular 07/15/21 10:06 Respiratory Rate 17 07/15/21 08:05 Respiratory Effort Non-Labored 07/15/21 10:06 Respiratory Depth Normal 07/15/21 10:06 Respiratory Pattern Normal 07/15/21 10:06 Blood Pressure 120/68 07/15/21 08:05 Pulse Oximetry 98 07/15/21 08:05 Oxygen Delivery Method Room Air 07/15/21 08:05 Oxygen Flow Rate 0 07/15/21 08:05 Pain Level 2 07/15/21 10:06 Comment 07/10/21 15:24 Intake & Output 07/14/21 07/14/21 07/15/21 11:59 23:59 11:59 Intake Total 50 / 720 670 / 720 50 / 50 Output Total 200 / 1200 1000 / 1200 700 / 700 Balance -150 / -480 -330 / -480 -650 / -650 Intake: IV 50 / 50 50 / 50 Oral 670 / 670 Output: Urine 200 / 1200 1000 / 1200 700 / 700 Other: Urine Color Yellow Yellow Straw Urine Appearance Clear Clear Clear Urine Odor Normal Normal Stool Size Large Copious Stool Characteristics Formed Soft Hard Brown Brown Voiding Methods Urinal Bedside Commode Urinal [facility] Medical History (Updated 07/07/21 @ 14:45 by Dannielle Rucker NP) Ambulatory dysfunction Biliary colic symptom CVA (cerebral vascular accident) Fever Gouty arthritis left shoulder, 03/2021 - [facility] [place] Heart attack cardiac cath 2012 - no stents Hyperlipidemia Hypertension Morbid obesity with BMI of 45.0-49.9, adult Obstructive sleep apnea not using CPAP Surgical History (Updated 06/30/21 @ 20:26 by Jaiden Hoover) Angiogram cardiac cath 2012 - no stents Cholecystectomy open Status post cholecystectomy (06/16/14) Family History Other Essential hypertension Heart disease Social History Smoking/Tobacco Use Status: Former Tobacco Use Smoking risk assessment performed?: Yes Alcohol Intake: former Drug use: Never Do you feel safe at home: Yes Do you feel safe in your relationship?: Yes
--- NOTE | 2021-07-15 13:57 | CMDISCH_ITS ---
- If Service Date Differs Date of service: 07/15/21 Time of Service: 13:57 LACE Index Scoring Tool - Questions: Length of Stay (in days): 7 - 13 Acuity (Admit via E.D.?): Yes Comorbidities: Cerebrovascular Disease E.D. Visits: 7 - Answers: Total Score: 13 Risk of Readmission: High Risk Care Management Discharge Reason for Hospitalization: Failure to Thrive Discharge Plan: Iker will be discharged home on Sunday via RCT with resumption of [facility] RN/PT/OT/ATTORNEY GENERAL (CM notified [facility]). Iker has connected with the [place] on aging and [facility] during his stay. He also discussed getting a Life Line, but declines at this time because his home phone is disconnected. He did call for support with getting his phone hooked back up prior to discharge. CM set up RCT for transport via private vehicle. Patient/Family Education Needs: Review discharge instructions, discuss Ask Me Three. Services Needed at Discharge: Home Delivered Meals (MOW), Home Health Care Services (RN/PT/OT/ATTORNEY GENERAL ), Transportation (RCT)
--- NOTE | 2021-07-15 18:20 | INDS_ITS ---
Date of service: 07/14/21 PT Notes Visit Reasons: RTT,Ambulatory Dysfunction Swing Bed Level I Physical Therapy Initial Evaluation Date: 06/14/2021 Dates of Service: 07/13/2021 through 07/14/2021 This is a clinical summary of care provided for the duration of dates listed ab ove. No charge was made in the completion of this documentation. Referring Doctor: Zoya Whittaker MD PT Orders: PT CONSULT: Eval/treat Precautions: Fall. Standard. Activity as tolerated. Patient Profile/Admitting Diagnosis: Lucy converts to swing bed level I today and is re-evalauted for continued skilling for PT services. Lucy is a 75-year-old morbidly obese male with chronic hypertension and hyperlipidemia who presented to the ED on 06/30/2021 due to increasing weakness and diarrhea. Patient is diagnosed with generalized weakness, failure to thrive, pulmonary hypertension, hypokalemia and hypomagnesemia. PMHX: Medical History (Updated 06/30/21 @ 20:26 by Jaiden Hoover) Ambulatory dysfunction Biliary colic symptom CVA (cerebral vascular accident) Gouty arthritis left shoulder, 03/2021 - [facility] – [place] Heart attack cardiac cath 2013 - no stents Hyperlipidemia Hypertension Morbid obesity with BMI of 45.0-49.9, adult Obstructive sleep apnea not using CPAP Surgical History (Updated 06/30/21 @ 20:26 by Jaiden Hoover) Angiogram cardiac cath 2012 - no stents Cholecystectomy So pertinent for abdominal pattern his just cannot be open Status post cholecystectomy (06/16/14) Social History/Home Situation: Lives alone in an apartment building with 3 steps to enter with B rails. Reports that he has not walked since he returned from the SNF due to a big mess his living environment is in. Equipment Owned/DME: [facility] Subjective: NT. See most recent [employer] GARDENING TEACHER notes. Objective: General Observation: NT. See most recent [employer]GAN[employer] GARDENING TEACHER notes. Mental Status: NT. See most recent ORGANIC GARDENING TEACHER notes. Pain: NT. See most recent ORGANIC GARDENING TEACHER notes. ROM: Right Upper Extremity: Shoulder Flexion WFL. Shoulder abduction WFL. Elbow flexion WFL. Wrist flexion WFL. Functional opening and closing of hand WFL. Left Upper Extremity: Shoulder Flexion WFL. Shoulder abduction WFL. Elbow flexion WFL. Wrist flexion WFL. Functional opening and closing of hand WFL. Right Lower Extremity: Hip flexion WFL. Hip abduction WFL. Knee flexion WFL. Ankle dorsiflexion WFL. Ankle plantarflexion WFL. Left Lower Extremity: Hip flexion WFL. Hip abduction WFL. Knee flexion WFL. Ankle dorsiflexion WFL. Ankle plantarflexion WFL. Strength: Right Upper Extremity: Shoulder flexors 3+/5. Shoulder abductors 3+/5. Elbow flexors 3+/5. Elbow extensors 3+/5. Paper Production Engineer strong. Left Upper Extremity: Shoulder flexors 3+/5. Shoulder abductors 3+/5. Elbow flexors 3+/5. Elbow extensors 3+/5. Paper Production Engineer weakn but functional. Right Lower Extremity: Hip flexors 3-/5. Hip abductors 3-/5. Knee [id number]/5. Knee [id number]-/5. Ankle dorsiflexors 3-/5. Ankle plantarflexors 3-/5. Left Lower Extremity: Hip flexors 3-/5. Hip abductors 3-/5. Knee [id number]/5. Knee -/5. Ankle dorsiflexors 3-/5. Ankle plantarflexors 3-/5. Bed Mobility/Transfers: Sit to stand independent Stand to sit independent Bed to chair independent Chair to bed independent Gait: Tolerated level surface ambulation of 40 feet + 50 feet using front- wheeled walker with full weight bearing requiring standby assist with report of minimal pain in B knees but with moderate SLB after activity. Ruth is significantly improved. Stairs: Up and down 3 x 4 and 2 x 6 step-to/step-over pattern with supervision. Balance: Static Sitting: Normal Dynamic Sitting: Normal Static Standing: Fair Dynamic Standing: Fair Assessment: Significant improvement in strength, activity tolerance, static/dynamic standing balance and tolerance, and her mobility level compared to start of care with functional deficit score of 29% which is a marked reduction from 92% deficit at start of care. Patient presents with clinical signs and symptoms consistent with current/admitting diagnoses that have resulted to mobility limitations, gait instability, generalized weakness, and overall ADL decline as demonstrated by the following impairment level findings: 1. Increasing strength to B UE/LE major muscle groups 2. Improving sitting/standing balance 3. Improving activity tolerance 4. Increasing joint range of motion in B LE joints 5. Shortness of breath now with faster ability to recover 6. Swelling reduction 7. Morbid obesity Impairments are contributing to the following functional limitations: 1. Difficulty with ambulation without assistive device 2. Increased completion time for mobility ADL performance 3. Increased risk for falls 4. Difficulty with managing steps alone safely Goals: Goals X1 week 1. Supine-Sit independent MET 2. Sit-Supine independent MET 3. Sit-Stand independent MET 4. Stand-Sit independent MET 5. Bed-Chair independent MET 6. Chair-Bed independent MET 7. Fair standing balance using bariatric FWW MET 8. Independent with level surface ambulation up to 200 feet using bariatric front wheel walker NOT MET DISCHARGE RECOMMENDATIONS: [] Home with no services [] [X] Home with services HH PT. patient will benefit from home health PT services in order to progress mobility level using least restrictive assistive ambulatory device, assess home safety, identify additional equipment needs, and establish a functional maintenance program that will increase ability of patient to remain at home. [] Home with outpatient PT [] [] SNF for continued rehabilitation [] [] Nursing Home Care [] [] SNF versus LTC based on ability to participate and progress [] TREATMENT CODE/TIME: HI Thank you for the opportunity to participate in the care of this patient. Emani Ruff PT, DPT, CLT [facility] [place], [place]
== END 2021-07-15 15:11 | disposition home health service (06) | DRG 690 ==
PROVIDERS: Internal Medicine; Admitting Provider Internal Medicine; PCP Family Medicine; Visit Provider Internal Medicine
DX: N39.0 Urinary tract infection, site not specified (principal); Z68.42 Body mass index [BMI] 45.0-49.9, adult; R62.7 Adult failure to thrive; B35.6 Tinea cruris; Z20.822 Contact with and (suspected) exposure to COVID-19; B96.4 Proteus (mirabilis) (morganii) as the cause of diseases classified elsewhere; M25.562 Pain in left knee; M25.561 Pain in right knee; Z86.73 Personal history of transient ischemic attack (TIA), and cerebral infarction without residual deficits; I25.2 Old myocardial infarction; E78.5 Hyperlipidemia, unspecified; I10 Essential (primary) hypertension; G47.33 Obstructive sleep apnea (adult) (pediatric); E66.01 Morbid (severe) obesity due to excess calories
CPT/HCPCS: 36415; 85027; 97110; 97162; 97166; 97530; 97535; 99306; 99316; J1650; J0696

== ENCOUNTER 2021-08-02 16:18 | Outpatient (REF) | payer MEDICARE, MEDICAID, SELFPAY ==
[2021-08-02 16:46] LABS: Anion Gap 14.7 mmol/L (3-11); BUN 54 mg/dL (7-18); CO2 20.3 mmol/L (21.0-32.0); CREATININE 1.6 mg/dL (0.70-1.30); Calcium 9.2 mg/dL (8.5-10.1); Chloride 108 mmol/L (98-107); Estimated GFR 42.35 (mL/min/1.73m2); Glucose 101 mg/dL (74-106); Potassium 4.8 mmol/L (3.5-5.1); Sodium 143 mmol/L (136-145)
[2021-08-02 17:06] LABS: NT-proBNP 230 pg/mL (<300)
[2021-08-02 17:15] LABS: HCT 36.3 % (40.0-50.0); HGB 11.6 g/dL (13.5-17.5); MCH 30.2 pg (27.0-33.0); MCV 94.5 fL (80-95); MPV 12.1 fL (8.0-11.0); Platelet Count 242 10^3/uL (130-400); RBC 3.84 10^6/uL (4.36-5.78); RDW 15.9 % (11.8-14.1); RDW-SD 55.7 fL; WBC 10.09 10^3/uL (4.4-10.8)
== END 2021-08-02 16:19 | disposition home or self-care (01) ==
LOC: LBN 16:18
PROVIDERS: PCP Family Medicine; Visit Provider Family Medicine
DX: I10 Essential (primary) hypertension (principal); I25.10 Atherosclerotic heart disease of native coronary artery without angina pectoris
CPT/HCPCS: 80048; 85027; 83880

== ENCOUNTER 2021-08-09 18:48 | Outpatient (REF) | payer MEDICARE, MEDICAID, SELFPAY | END 2021-08-09 18:49 | disposition home or self-care (01) | LOC: LBN 18:48 | PROVIDERS: PCP Family Medicine; Visit Provider Family Medicine | DX: L02.211 Cutaneous abscess of abdominal wall (principal) | CPT/HCPCS: 87070; 87205 ==